=== PATIENT | male | born 1940 | race Hispanic/Latino ===

== ENCOUNTER 2016-12-23 06:43 | Day surgery (SDC) | payer BC, MEDICARE ==
[2016-11-23 10:40] VITALS: BMI 34.8
[2016-12-23 07:38] LABS: BASO # 0.1 K/uL (0.0-0.2); BASO % 0.9 % (0.0-2.0); EOS # 0.1 K/uL (0.0-0.7); EOS % 1.2 % (0.0-4.0); HEMATOCRIT 30.9 % (35.0-51.0); LYMPH # 2.1 K/uL (1.0-4.3); MEAN CELL VOLUME 90.6 fL (80.0-94.0); MEAN CORPUSCULAR HEMOGLOBIN 30.5 pg (27.0-31.0); MEAN CORPUSCULAR HGB CONC 33.6 g/dL (33.0-37.0); MEAN PLATELET VOLUME 10.2 fL (7.2-11.7); MONO # 0.6 K/uL (0.0-0.8); MONO % 7.9 % (0.0-10.0); NRBC % 0.1 % (0.0-2.0); RED CELL DISTRIBUTION WIDTH 15.5 % (11.5-14.5); WHITE BLOOD COUNT 8.1 K/uL (4.8-10.8)
[2016-12-23 08:01] LABS: POTASSIUM 4.4 mmol/L (3.6-5.2)
[2016-12-23 08:05] LABS: CALCIUM 8.4 mg/dl (8.6-10.4)
[2016-12-23] MEDS ORDERED: Lidocaine 2% Inj (20ml) ONE (12:46)
[2016-12-23] MEDS ORDERED: Iodixanol 320 MG/ML 100 ML BOTTLE IV ONE (12:48)
[2016-12-23] MEDS ORDERED: Iodixanol 320 MG/ML 200 ML BOTTLE IV ONE ×2 (12:48→13:51)
--- NOTE | 2016-12-23 14:13 | PCM.SURG1 ---
Surgeon's Initial Post Op Note - Surgeon's Notes Surgeon: petey Pet Care Worker: 0 Type of Anesthesia: IV Sedation Anesthesia Administered By: susana adams Pre-Operative Diagnosis: gangrene left 3rd toe Operative Findings: severe pvd. no named vessels below mid calf on left. tortuous aortic and iliac vessels. perclose right groin Post-Operative Diagnosis: same Operation Performed: aortofemoral angiogram via right groin with selective catherization of left femoral artery Specimen/Specimens Removed: 0 Estimated Blood Loss: EBL {In ML}: 25 Blood Products Given: N/A Drains Used: No Drains Post-Op Condition: Good Date of Surgery/Procedure: 12/23/16 Time of Surgery/Procedure: 14:13
[2016-12-23 16:08] VITALS: RESP 18; TEMP 97.7
[2016-12-23 16:32] VITALS: PULSE 63; O2SAT 100
[2016-12-23 16:33] VITALS: BP 135/76
--- NOTE | 2016-12-24 07:41 | VAS ---
DATE: 12/23/2016 PREOPERATIVE DIAGNOSIS: Gangrene, left third toe. POSTOPERATIVE DIAGNOSIS: Gangrene, left third toe. PROCEDURE CARRIED OUT: Aortofemoral angiogram via right groin catheterization of left femoral artery . No interventions. SURGEON: Maximo Jay MD. MANAGER OF GLOBAL: None. ANESTHESIOLOGIST: Mr. , KALEN and Dr. Heard. INDICATIONS: The patient is an elderly man on dialysis who presents with gangrene of the left third toe. Preoperative imaging suggested basically tibial disease. OPERATIVE FINDINGS: The aorta was slightly enlarged, but no evidence of an aneurysm. The renal riya shante were patent. The common internal and external arteries were widely patent with no evidence of s ignificant stenosis. On the right side, views were taken down to the mid-calf and showed a normal tr ifurcation but below this, no vessels were visualized. On the left, which was the affected side, blane ective pictures were taken after catheter was advanced to the distal portion of the femoral artery. From this point on down, the trifurcation of the popliteal and femoral arteries are widely patent. T he proximal portion of the anterior tibial artery was patent, as well as the proximal portion of the peroneal. Posterior tibial was occluded. Distally below the level of the mid-calf, there were no na med vessels. No posterior tibial, no named peroneal and no dorsalis pedis artery that could be visua lized as a target vessel. These were taken also dedicated films of the left foot. PROCEDURE: The patient was given local anesthesia and the right groin was punctured, the guidewire a dvanced to the level of the renal arteries. Overlapping films were taken from this level down. Init ially, we had to use a rim catheter to advance the guidewire over the aortic bifurcation and into the femoral artery. There was some dye extravasation at one point. However, there was no evidence of a ny continued diet extravasation dissection, etc., on subsequent films. We then were able to advance a Glidewire to the mid portion of the femoral artery. We then exchanged this for an Amplatz wire thr ough a catheter and then eventually deployed a 7-Maltese sheath in the proximal portion of the poplite al artery. We then took multiple detailed pictures of this level including lateral views of the foot and were unable to identify any target vessel. There were scattered areas of stenosis throughout th e anterior tibial artery, but these never amounted into a vessel that went into the foot and no addit ional intervention was undertaken. After reviewing the films and taking additional injections as nec essary, we stopped the procedure. We deployed a Perclose device in the right groin. Blood loss of p rocedure was 25 mL. OPERATION CARRIED OUT: Aortofemoral angiogram with selective catheterization of left femoral artery. No intervention undertaken. Maximo Jay Jr., MD cc: 56 TT: 12/23/2016 14:49:28 Confirmation # [id number] Dictation # [id number]
== END 2016-12-23 16:30 | disposition home or self-care (01) ==
LOC: C.SPRAD 06:43
PROVIDERS: ATTEND Surgery Vascular Surgery
DX: I96 Gangrene, not elsewhere classified (principal); I73.9 Peripheral vascular disease, unspecified
CPT/HCPCS: 36247; 36415; 75625; 75716; 75774; 80048; 85025; 85610; 85730; C1725; C1760; C1766; C1769; C1887; C1894; J1644; Q9966; Q9967

== ENCOUNTER 2017-02-18 07:33 | Inpatient (IN) | payer MEDICARE, BC ==
[2017-02-18 07:34] VITALS: BMI 34.8
--- NOTE | 2017-02-18 08:05 | C.PDOC ---
History Of Present Illness 76 y/o male referred to ED by Dr Lopez web retailer for left 3rd toe amputation . Pt states with worsening gangrene x1 month. Denies fever or other associated symptoms. Pt s/p angio with Dr Azevedo. No improvement despite outpatient therapy. Pt due for hemodialysis today. REFERRED BY DR LOPEZ PODIATRY FOR L 3 TOE AMPUTATION 02/19. PS W WORSENING GANGRENE X 1 MONTH. NO FEVER, OTHER ASSOC SX. S/P ANGIO DR AZEVEDO. NO IMPROVE DESPITE OUTPT THERAPY. DUE FOR HD TODAY EXAM NAD SKIN EXT REMAINDER NEG Time Seen by Provider: 02/18/17 07:52 Chief Complaint (Nursing): Lower Extremity Problem/Injury History Per: Patient History/Exam Limitations: no limitations Onset/Duration Of Symptoms: Days Current Symptoms Are (Timing): Worse Severity: Moderate Recent travel outside of the [place]: No Past Medical History Reviewed: Historical Data, Nursing Documentation, Vital Signs Vital Signs: Last Vital Signs Temp 98.1 F 02/18/17 07:36 Pulse 89 02/18/17 07:36 Resp 20 02/18/17 07:36 BP 217/83 H 02/18/17 07:36 Pulse Ox 100 02/18/17 10:08 - Medical History PMH: COPD (IN THE PAST), Diabetes, HTN, Hypercholesterolemia, End Stage Renal Disease, Chronic Kidney Disease Surgical History: Endoscopy - [facility] Procedures DIALYSIS ARTERIOVENOSTOM (01/08/14) HEMODIALYSIS (11/27/14) [facility] DIALYSIS SHUNT (11/27/14) VENOUS CATHETERIZATION FOR RENAL DIALYSIS (01/08/14) Family History: States: Unknown Family Hx - Social History Hx Tobacco Use: No Hx Alcohol Use: Yes (OCCASSIONAL) Hx Substance Use: No - Immunization History Hx Tetanus Toxoid Vaccination: No Hx Influenza Vaccination: Yes Hx Pneumococcal Vaccination: No Review Of Systems Except As Marked, All Systems Reviewed And Found Negative. Constitutional: Negative for: Fever, Chills Skin: Positive for: Other (gangrene left 3rd toe) Physical Exam - Physical Exam Appears: Non-toxic, No Acute Distress Skin: Warm, Dry, No Rash Head: Atraumatic, Normacephalic Chest: Symmetrical Cardiovascular: Rhythm Regular, No Murmur Respiratory: Normal Breath Sounds, No Rales, No Rhonchi, No Wheezing Extremity: Normal ROM Neurological/Psych: Oriented x3, Normal Speech ED Course And Treatment - Laboratory Results Result Diagrams: 02/18/17 08:32 02/18/17 08:32 ECG Rhythm: Sinus Rhythm, 1st Degree HB ECG Interpretation: Abnormal Interpretation Of ECG: QT/QTc 496/503 ms Rate From EC (BPM) O2 Sat by Pulse Oximetry: 100 (room air) Pulse Ox Interpretation: Normal - Radiology CXR: Interpreted by Me CXR Interpretation: Yes: No Acute Disease - Other Rad L FOOT X-Ray: Interpreted by Me (NEG) Progress - Re-Evaluation Re-evaluation Note: 02/18/17 08:04 D/W DR NASH C/F PMD WILL ADMIT - Data Reviewed Data Reviewed: Lab, EKG, Old records - Continuity of Care Discussed patient case with:: Patient, Family-HIPPA compliant, Covering for PMD Disposition Counseled Patient/Family Regarding: Studies Performed, Diagnosis - Disposition Disposition: HOSPITALIZED Disposition Time: 08:05 Condition: STABLE - POA Present On Arrival: None - Clinical Impression Clinical Impression: Toe gangrene, CKD (chronic kidney disease) requiring chronic dialysis - Scribe Statement The provider has reviewed the documentation as recorded by the Kaila John Provider Attestation: All medical record entries made by the Kaila were at my direction and personally dictated by me. I have reviewed the chart and agree that the record accurately reflects my personal performance of the history, physical exam, medical decision making, and the department course for this patient. I have also personally directed, reviewed, and agree with the discharge instructions and disposition. Decision To Admit - Pt Status Changed To: Hospital Disposition Of: Inpatient - Admit Certification Admit to Inpatient:: After my assessment, the patient will require hospitalization for at least two midnights. This is because of the severity of symptoms shown, intensity of services needed, and/or the medical risk in this patient being treated as an outpatient. - InPatient: Physician Admission Certification: I certify that this patient requires 2 or more midnights of care for the following reason:: SEE NOTE - . Bed Request Type: Regular Admitting Physician: Gee Nash Patient Diagnosis: Toe gangrene, CKD (chronic kidney disease) requiring chronic dialysis
[2017-02-18 08:38] LABS: BASO # 0.1 K/uL (0.0-0.2); BASO % 0.9 % (0.0-2.0); EOS # 0.1 K/uL (0.0-0.7); EOS % 1.1 % (0.0-4.0); HEMATOCRIT 33.9 % (35.0-51.0); LYMPH # 1.5 K/uL (1.0-4.3); LYMPH % 24.4 % (20.0-40.0); MEAN CELL VOLUME 89.3 fL (80.0-94.0); MEAN CORPUSCULAR HEMOGLOBIN 29.3 pg (27.0-31.0); MEAN CORPUSCULAR HGB CONC 32.9 g/dL (33.0-37.0); MEAN PLATELET VOLUME 8.9 fL (7.2-11.7); MONO # 0.5 K/uL (0.0-0.8); MONO % 7.6 % (0.0-10.0); RED CELL DISTRIBUTION WIDTH 17.6 % (11.5-14.5); WHITE BLOOD COUNT 6.2 K/uL (4.8-10.8)
[2017-02-18 08:46] LABS: INR 1.1
[2017-02-18 08:51] LABS: POTASSIUM 4.3 mmol/L (3.6-5.2)
[2017-02-18 08:54] LABS: CALCIUM 8.2 mg/dl (8.6-10.4)
--- NOTE | 2017-02-18 09:34 | CP.PCM.CON ---
History of Present Illness - History of Present Illness History of Present Illness: This is a 76 y/o male who was seen and evaluated at bedside this morning after request for podiatry consultation. Patient has PMH of DM, HTN, ESRD (on HD). Patient was sent to the [facility] ER this morning by his shoemaking cutter (Dr. Lopez) for admission for Left 3rd digit amputation. Patient's surgery is scheduled for tomorrow (02/19/17) at 7:45AM. Patient's was present at bedside and states that he banged his toe about a month ago and states that it has been turning black ever since. She states that patient was treated by Dr. Jay (s/p aortofemoral angiogram on 12/23/16). Patient currently denies any F/C/N/V/SOB. Denies any pedal pain at this time. No dressing was noted to his Left foot. 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 for saftey - RENAL Hx Chronic Kidney Disease: Yes - ENDOCRINE/METABOLIC Hx Endocrine Disorders: Yes Hx Diabetes Mellitus Type 1: Yes - HEMATOLOGICAL/ONCOLOGICAL Hx Blood Disorders: No - INTEGUMENTARY Hx Dermatological Problems: Yes (swollen left hand) - MUSCULOSKELETAL/RHEUMATOLOGICAL Hx Musculoskeletal Disorders: Yes Hx Back Pain: Yes (LUMBAR) Hx Osteoarthritis: Yes - GASTROINTESTINAL Hx Gastrointestinal Disorders: No - GENITOURINARY/GYNECOLOGICAL Hx Genitourinary Disorders: Yes Hx Prostate Problems: Yes - PSYCHIATRIC Hx Substance Use: No - SURGICAL HISTORY Hx Surgeries: Yes Hx Cataract Extraction: Yes (RT.EYE) Hx Vascular Surgery: Yes (A/V FISTULA LEFT ARM) Hx Vascular Access Device: Yes (DIALYSIS ACCESS) - ANESTHESIA Hx Anesthesia: Yes Hx Anesthesia Reactions: No Hx Malignant Hyperthermia: No Meds Allergies/Adverse Reactions: Allergies Allergy/AdvReac Type Severity Reaction Status Date / Time No Known Allergies Allergy Verified 02/18/17 07:38 Physical Exam - Constitutional Appears: Non-toxic, No Acute Distress - Neurological Exam Neurological exam: Alert, Oriented x3 - Psychiatric Exam Psychiatric exam: Normal Affect, Normal Mood - Skin Skin Exam: Dry, Erythema, Warm - Additional Findings Additional findings: Left foot examination: Vascular: DP/PT pulses non-palpable; capillary fill time delayed 4 secs to digits 1-2 and 4-5; unable to be assessed at 3rd digit secondary to gangrene Neuro: light touch and motor function grossly intact; protective sensation grossly diminished Derm: Left 3rd digit is gangrenous with demarcation at the level of the PIPJ; purulence is noted with signficant malodor; Left 3rd digit is grossly edematous with minimal erythema noted; no signs of ascending cellulitis noted at this time ; no other open wounds or lesions noted Ortho: pain elicited upon palpation of the Left 3rd digit Results - Vital Signs Recent Vital Signs: Last Vital Signs Temp 98.1 F 02/18/17 07:36 Pulse 89 02/18/17 07:36 Resp 20 02/18/17 07:36 BP 217/83 H 02/18/17 07:36 Pulse Ox 100 02/18/17 09:14 - Labs Result Diagrams: 02/18/17 08:32 02/18/17 08:32 Labs: Laboratory Results - last 24 hr 02/18/17 02/18/17 02/18/17 08:32 08:32 08:32 WBC 6.2 RBC 3.80 L Hgb 11.1 L Hct 33.9 L MCV 89.3 MCH 29.3 MCHC 32.9 L RDW 17.6 H Plt Count 152 MPV 8.9 Neut % (Auto) 66.0 Lymph % (Auto) 24.4 [place] % (Auto) 7.6 Eos % (Auto) 1.1 Baso % (Auto) 0.9 Neut # 4.1 Lymph # 1.5 [place] # 0.5 Eos # 0.1 Baso # 0.1 PT 12.3 H INR 1.1 APTT 39 H Sodium 143 Potassium 4.3 Chloride 101 Carbon Dioxide 28 Anion Gap 19 BUN 59 H Creatinine 6.6 H Est GFR ( Amer) 10 Est GFR (Non-Af Amer) 8 Random Glucose 74 L Calcium 8.2 L Assessment & Plan - Assessment and Plan (Free Text) Assessment: 76 y/o male with Left 3rd digit gangrene, secondary to PVD and DM Plan: Patient seen and evaluated at bedside Labs and vitals reviewed: WBC 6.2; afebrile Wound culture taken and sent Left 3rd digit was dressed with betadine DSD ID Consult placed with Dr. Burden, will appreciate recommendations Patient is scheduled for Left 3rd digit amputation with Dr. Lopez tomorrow () at 7:45 AM Patient needs medical clearance Patient needs to undergo hemodialysis today Patient to be NPO after MN All of the patient's questions and concerns were addressed Discussed patient in detail with attending, Dr. Lopez Podiatry to follow while patient remains in house
--- NOTE | 2017-02-18 10:39 | CP.PCM.HP ---
<Kody Jasso - Last Filed: 02/18/17 16:28> History of Present Illness - History of Present Illness History of Present Illness: 76M PMHx HTN, DM, and ESRD on HD TTS was sent by private podiatry Dr. Lopez for left third toe amputation tomorrow due to gangrene. Pt said he accidently hit his left foot against bed post 2 months ago. Pt was also evaluated by Dr. Jay on 12/2016 after aortofemoral angiogram for which severe PVD was found. Pt currently offers no complaints at the moment, denied numbness or tingling, foot pain, chest pain, SOB, palpitations. Per at bedside, pt stopped taking insulin at night per PMD instruction in October. PMHx: HTN, DM, ESRD PSHx: AV fistula FMHx: both parents have DM Social: former smoker who quit 30 years ago, denied ETOH PMD: Dr. Chua Private cardio: Dr. Keys Present on Admission - Present on Admission Any Indicators Present on Admission: No Review of Systems - Constitutional Constitutional: absent: Chills, Weight Loss - EENT Eyes: absent: Change in Vision - Cardiovascular Cardiovascular: absent: Chest Pain, Edema - Respiratory Respiratory: absent: Hemoptysis - Gastrointestinal Gastrointestinal: absent: Constipation, Dysphagia, Vomiting - Genitourinary Genitourinary: absent: Dysuria - Musculoskeletal Musculoskeletal: absent: Numbness, Tingling - Integumentary Additional comments: toe discoloration - Neurological Neurological: absent: Tingling - Psychiatric Psychiatric: absent: Paranoia 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 for saftey - RENAL Hx Chronic Kidney Disease: Yes - ENDOCRINE/METABOLIC Hx Endocrine Disorders: Yes Hx Diabetes Mellitus Type 1: Yes - HEMATOLOGICAL/ONCOLOGICAL Hx Blood Disorders: No - INTEGUMENTARY Hx Dermatological Problems: Yes (swollen left hand) - MUSCULOSKELETAL/RHEUMATOLOGICAL Hx Musculoskeletal Disorders: Yes Hx Back Pain: Yes (LUMBAR) Hx Osteoarthritis: Yes - GASTROINTESTINAL Hx Gastrointestinal Disorders: No - GENITOURINARY/GYNECOLOGICAL Hx Genitourinary Disorders: Yes Hx Prostate Problems: Yes - PSYCHIATRIC Hx Substance Use: No - SURGICAL HISTORY Hx Surgeries: Yes Hx Cataract Extraction: Yes (RT.EYE) Hx Vascular Surgery: Yes (A/V FISTULA LEFT ARM) Hx Vascular Access Device: Yes (DIALYSIS ACCESS) - ANESTHESIA Hx Anesthesia: Yes Hx Anesthesia Reactions: No Hx Malignant Hyperthermia: No Meds Allergies/Adverse Reactions: Allergies Allergy/AdvReac Type Severity Reaction Status Date / Time No Known Allergies Allergy Verified 02/18/17 07:38 Physical Exam - Constitutional Appears: Non-toxic, No Acute Distress - Head Exam Head Exam: NORMAL INSPECTION, NORMOCEPHALIC - Eye Exam Eye Exam: Normal appearance Pupil Exam: NORMAL ACCOMODATION - ENT Exam ENT Exam: Mucous Membranes Moist - Respiratory Exam Respiratory Exam: Clear to Auscultation Bilateral, NORMAL BREATHING PATTERN. absent: Rhonchi, Wheezes - Cardiovascular Exam Cardiovascular Exam: REGULAR RHYTHM, +S1, +S2. absent: Gallop, Rubs - GI/Abdominal Exam GI & Abdominal Exam: Normal Bowel Sounds, Soft. absent: Tenderness - Extremities Exam Additional comments: left upper extremity AVF bruit present, pulsation palpated. Gangrenous third digit of left singer back tender to touch. - Neurological Exam Neurological exam: Alert, Oriented x3 - Psychiatric Exam Psychiatric exam: Normal Mood - Skin Skin Exam: Intact Results - Vital Signs Recent Vital Signs: Last Vital Signs Temp 98.1 F 02/18/17 07:36 Pulse 89 02/18/17 07:36 Resp 20 02/18/17 07:36 BP 217/83 H 02/18/17 07:36 Pulse Ox 100 02/18/17 10:10 - Labs Result Diagrams: 02/18/17 08:32 02/18/17 08:32 Labs: Laboratory Results - last 24 hr 02/18/17 02/18/17 02/18/17 08:32 08:32 08:32 WBC 6.2 RBC 3.80 L Hgb 11.1 L Hct 33.9 L MCV 89.3 MCH 29.3 MCHC 32.9 L RDW 17.6 H Plt Count 152 MPV 8.9 Neut % (Auto) 66.0 Lymph % (Auto) 24.4 [place] % (Auto) 7.6 Eos % (Auto) 1.1 Baso % (Auto) 0.9 Neut # 4.1 Lymph # 1.5 [place] # 0.5 Eos # 0.1 Baso # 0.1 PT 12.3 H INR 1.1 APTT 39 H Sodium 143 Potassium 4.3 Chloride 101 Carbon Dioxide 28 Anion Gap 19 BUN 59 H Creatinine 6.6 H Est GFR ( Amer) 10 Est GFR (Non-Af Amer) 8 Random Glucose 74 L Calcium 8.2 L Blood Type Antibody Screen 02/18/17 08:32 WBC RBC Hgb Hct MCV MCH MCHC RDW Plt Count MPV Neut % (Auto) Lymph % (Auto) [place] % (Auto) Eos % (Auto) Baso % (Auto) Neut # Lymph # [place] # Eos # Baso # PT INR APTT Sodium Potassium Chloride Carbon Dioxide Anion Gap BUN Creatinine Est GFR ( Amer) Est GFR (Non-Af Amer) Random Glucose Calcium Blood Type O POSITIVE Antibody Screen Negative Assessment & Plan - Assessment and Plan (Free Text) Assessment: Gangrenous toe Podiatry Dr. Lopez consulted, help appreciated. For amputation, scheduled for tomorrow. Pt needs clearance from cardiology. HTN Cardio Dr. Keys consulted, help appreciated. Hydralazine 100mg BID on dialysis days, 100mg TID on nondialysis days. Losartan 100mg daily on nondialysis days. Coreg 25mg PO BID. Pt needs clearance from cardiology. DM Oral meds on hold. RISS, accuchecks. ESRD On HD TTS. Nephro Dr. Rivera consulted, help appreciated. Continue Phoslo. HLD Crestor 5mg PO HS. BPH Flomax 0.4mg PO daily. Dementia Memantine 5mg PO daily and Donepezil 10mg PO HS. Prophylactic measure Protonix. <Gee Nash M - Last Filed: 02/18/17 18:16> Results - Vital Signs Recent Vital Signs: Last Vital Signs Temp 98.3 F 02/18/17 16:00 Pulse 64 02/18/17 16:15 Resp 16 02/18/17 16:15 BP 170/54 H 02/18/17 17:33 Pulse Ox 98 02/18/17 16:15 - Labs Result Diagrams: 02/18/17 08:32 02/18/17 08:32 Labs: Laboratory Results - last 24 hr 02/18/17 02/18/17 02/18/17 08:32 08:32 08:32 WBC 6.2 RBC 3.80 L Hgb 11.1 L Hct 33.9 L MCV 89.3 MCH 29.3 MCHC 32.9 L RDW 17.6 H Plt Count 152 MPV 8.9 Neut % (Auto) 66.0 Lymph % (Auto) 24.4 [place] % (Auto) 7.6 Eos % (Auto) 1.1 Baso % (Auto) 0.9 Neut # 4.1 Lymph # 1.5 [place] # 0.5 Eos # 0.1 Baso # 0.1 PT 12.3 H INR 1.1 APTT 39 H Sodium 143 Potassium 4.3 Chloride 101 Carbon Dioxide 28 Anion Gap 19 BUN 59 H Creatinine 6.6 H Est GFR ( Amer) 10 Est GFR (Non-Af Amer) 8 POC Glucose (mg/dL) Random Glucose 74 L Calcium 8.2 L Blood Type Antibody Screen 02/18/17 02/18/17 02/18/17 08:32 11:19 16:30 WBC RBC Hgb Hct MCV MCH MCHC RDW Plt Count MPV Neut % (Auto) Lymph % (Auto) [place] % (Auto) Eos % (Auto) Baso % (Auto) Neut # Lymph # [place] # Eos # Baso # PT INR APTT Sodium Potassium Chloride Carbon Dioxide Anion Gap BUN Creatinine Est GFR ( Amer) Est GFR (Non-Af Amer) POC Glucose (mg/dL) 122 H 218 H Random Glucose Calcium Blood Type O POSITIVE Antibody Screen Negative Attending/Attestation - Attestation I have personally seen and examined this patient.: Yes I have fully participated in the care of the patient.: Yes I have reviewed all pertinent clinical information: Yes Notes (Text): 02/18/17 18:15 Patient was seen and examined at bedside with the resident Patient is undergoing hemodialysis today Plan is for amputation of the gangrenous toe in the morning Podiatry, ID, nephrology on board We have requested cardiology evaluation for medical clearance. I discussed the plan of care with the resident and agree with the above history and physical and assessment/plan but the resident.
--- NOTE | 2017-02-18 10:54 | CP.PCM.CON ---
History of Present Illness - History of Present Illness History of Present Illness: This is a 76 y/o male who was seen and evaluated at bedside this morning after request for podiatry consultation. Patient has PMH of DM, HTN, ESRD (on HD). Patient was sent to the [facility] ER this morning by his lithographic camera operator (Dr. Lopez) for admission for Left 3rd digit amputation. Patient's surgery is scheduled for tomorrow (02/19/17) at 7:45AM. Patient's was present at bedside and states that he banged his toe about a month ago and states that it has been turning black ever since. She states that patient was treated by Dr. Jay (s/p aortofemoral angiogram on 12/23/16). Patient currently denies any F/C/N/V/SOB. Denies any pedal pain at this time. No dressing was noted to his Left foot. 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 for saftey - RENAL Hx Chronic Kidney Disease: Yes - ENDOCRINE/METABOLIC Hx Endocrine Disorders: Yes Hx Diabetes Mellitus Type 1: Yes - HEMATOLOGICAL/ONCOLOGICAL Hx Blood Disorders: No - INTEGUMENTARY Hx Dermatological Problems: Yes (swollen left hand) - MUSCULOSKELETAL/RHEUMATOLOGICAL Hx Musculoskeletal Disorders: Yes Hx Back Pain: Yes (LUMBAR) Hx Osteoarthritis: Yes - GASTROINTESTINAL Hx Gastrointestinal Disorders: No - GENITOURINARY/GYNECOLOGICAL Hx Genitourinary Disorders: Yes Hx Prostate Problems: Yes - PSYCHIATRIC Hx Substance Use: No - SURGICAL HISTORY Hx Surgeries: Yes Hx Cataract Extraction: Yes (RT.EYE) Hx Vascular Surgery: Yes (A/V FISTULA LEFT ARM) Hx Vascular Access Device: Yes (DIALYSIS ACCESS) - ANESTHESIA Hx Anesthesia: Yes Hx Anesthesia Reactions: No Hx Malignant Hyperthermia: No Meds Allergies/Adverse Reactions: Allergies Allergy/AdvReac Type Severity Reaction Status Date / Time No Known Allergies Allergy Verified 02/18/17 07:38 - Medications Medications: Current Medications Aspirin (Ecotrin) mg PO DAILY [facility] Calcium Acetate (Phoslo) 1,334 mg PO TID [facility] Carvedilol (Coreg) 25 mg PO BID [facility] Donepezil HCl (Aricept) 10 mg PO HS [facility] Ergocalciferol (Calcidol) 400 iu PO DAILY [facility] Home Med (Pravastatin Sodium [Pravastatin Sodium]) 40 mg PO DAILY [facility] Home Med (Tamsulosin) 0.4 mg PO DAILY [facility] Home Med (Hydralazine Hcl [Hydralazine Hcl]) 100 mg PO TID [facility] Home Med (Hydralazine Hcl [Hydralazine Hcl]) 100 mg PO BID [facility] Insulin Human Regular (Novolin R) 0 unit [place] ACHS [facility] PRN Reason: Protocol Losartan Potassium (Cozaar) 100 mg PO MWF [facility] Memantine (Namenda) 5 mg PO DAILY [facility] Sgime-8-Ptvi Ethyl Esters (Lovaza) 1 gm PO DAILY [facility] Pantoprazole Sodium (Protonix Ec Tab) 40 mg PO DAILY [facility] Results - Vital Signs Recent Vital Signs: Last Vital Signs Temp 98.1 F 02/18/17 07:36 Pulse 89 02/18/17 07:36 Resp 20 02/18/17 07:36 BP 217/83 H 02/18/17 07:36 Pulse Ox 100 02/18/17 10:10 - Labs Result Diagrams: 02/18/17 08:32 02/18/17 08:32 Labs: Laboratory Results - last 24 hr 02/18/17 02/18/17 02/18/17 08:32 08:32 08:32 WBC 6.2 RBC 3.80 L Hgb 11.1 L Hct 33.9 L MCV 89.3 MCH 29.3 MCHC 32.9 L RDW 17.6 H Plt Count 152 MPV 8.9 Neut % (Auto) 66.0 Lymph % (Auto) 24.4 [place] % (Auto) 7.6 Eos % (Auto) 1.1 Baso % (Auto) 0.9 Neut # 4.1 Lymph # 1.5 [place] # 0.5 Eos # 0.1 Baso # 0.1 PT 12.3 H INR 1.1 APTT 39 H Sodium 143 Potassium 4.3 Chloride 101 Carbon Dioxide 28 Anion Gap 19 BUN 59 H Creatinine 6.6 H Est GFR ( Amer) 10 Est GFR (Non-Af Amer) 8 Random Glucose 74 L Calcium 8.2 L Blood Type Antibody Screen 02/18/17 08:32 WBC RBC Hgb Hct MCV MCH MCHC RDW Plt Count MPV Neut % (Auto) Lymph % (Auto) [place] % (Auto) Eos % (Auto) Baso % (Auto) Neut # Lymph # [place] # Eos # Baso # PT INR APTT Sodium Potassium Chloride Carbon Dioxide Anion Gap BUN Creatinine Est GFR ( Amer) Est GFR (Non-Af Amer) Random Glucose Calcium Blood Type O POSITIVE Antibody Screen Negative
--- NOTE | 2017-02-18 10:56 | RAD ---
PROCEDURE: Left Foot Radiographs. HISTORY: PREOP COMPARISON: None. FINDINGS: BONES: Normal. No fracture. JOINTS: Mild hallux valgus. Mild osteoarthritis at MTP 1. SOFT TISSUES: Vascular calcifications. OTHER FINDINGS: None. IMPRESSION: No acute abnormality.
--- NOTE | 2017-02-18 11:01 | RAD ---
PROCEDURE: CHEST RADIOGRAPH, 1 VIEW HISTORY: Pre Op COMPARISON: 01/08/2014 FINDINGS: LUNGS: Clear. PLEURA: No pneumothorax or pleural fluid seen. CARDIOVASCULAR: Tunneled central venous dialysis catheter seen on prior examination is no longer evident. OSSEOUS STRUCTURES: No significant abnormalities. VISUALIZED UPPER ABDOMEN: Normal. OTHER FINDINGS: None. IMPRESSION: No active disease.
--- NOTE | 2017-02-18 11:58 | CON ---
DATE: 02/18/2017 The patient is a 76-year-old white man who is being evaluated for end-stage renal disease. He presen ts with worsening gangrene of the third left toe, and amputation was recommended. He has discharges from that toe, and he has had gangrene. He has a history of peripheral vascular disease for which he is status post aortofemoral angiogram in 11/2016. Toe has had progressive gangrene, and now amputati on as needed. PAST MEDICAL HISTORY: Peripheral vascular disease, end-stage renal disease, diabetic nephropathy, hy pertension, dementia, and BPH. PAST SURGICAL HISTORY: Left arm AV fistula. He had a finger amputated on the left upper extremity d igit #5, and now he is going to have gangrene amputation of the left toe, #3. MEDICATIONS: Include carvedilol 12.5 twice a day, PhosLo 2 tablets t.i.d., Protonix, pravastatin, hy dralazine, aspirin, Aricept, and Namenda. FAMILY HISTORY: Negative for chronic kidney disease. OTHER SURGICAL HISTORY: Cataract surgery. REVIEW OF SYSTEMS: Significant for forgetfulness. He has decreased ambulation due to dyspnea on exe rtion approximately 1-2 blocks. No recent chest pain. He has swollen lower extremities. No nausea, vomiting, or diarrhea, and no recent chest pain. He has bad vision. No hearing deficits. No new r ashes. Other review of systems is negative. PHYSICAL EXAMINATION: GENERAL: He is a well-developed man in no acute distress. VITAL SIGNS: Blood pressure is uncontrolled - when seen 217/83, temperature 98.1, pulse 89. Pulse o x is 100% on room air. HEENT: He is anicteric. Mouth was clear. NECK: No JVD. LUNGS: Lung lyman were clear. HEART: Regular rhythm. No murmur. ABDOMEN: Distended but soft. No masses or organomegaly. EXTREMITIES: A left upper extremity fistula with a thrill and bruit. He had 1+ edema. The left ean t was bandaged, and he had discharges from the left third toe. NEUROLOGIC: No focal deficits. LABORATORY DATA: Blood work showed BUN of ____9, creatinine 6.6, calcium 8.2. Hemoglobin 11.1. IMPRESSION: The patient has end-stage renal disease with diabetic nephropathy, hypertension, dementi a, benign prostatic hypertrophy, and peripheral vascular disease. PLAN: Will be dialysis - will be done today, and he will have amputation tomorrow, antibiotics as de termined by the medical team. We will follow. Uriel Rivera MD cc: [id number] TT: 02/18/2017 11:57:55 Confirmation # [id number] Dictation # [id number]
[2017-02-18] MEDS: Omega-3-Acid Ethyl Esters 1 GM Cap PO SCH (17:34)
[2017-02-18] MEDS: Pantoprazole 40 mg EC Tab PO SCH (17:34)
[2017-02-18] MEDS: Ergocalciferol 50,000 Intl Units Cap PO SCH (17:35)
[2017-02-18] MEDS: (Novolin R) Insulin Human Regular 100 units/ml vial SC SCH ×2 (17:42→21:54)
[2017-02-18] MEDS ORDERED: Piperacill/Tazo 2.25gm in Dex 2.25 GM/50 ML BAG IVPB SCH (18:00)
--- NOTE | 2017-02-18 18:00 | CP.PCM.CON ---
History of Present Illness - History of Present Illness History of Present Illness: 76 y/o male. Patient has PMH of DM, HTN, ESRD (on HD). Patient was sent to the [facility] ER this morning by his loader unloader (Dr. Lopez) for admission for Left 3rd digit amputation. Patient's surgery is scheduled for tomorrow (02/19/17) at 7:45AM. Patient's was present at bedside and states that he banged his toe about a month ago and states that it has been turning black ever since. She states that patient was treated by Dr. Jay (s/p aortofemoral angiogram on 12/23/16). Patient currently denies any F/C/N/V/SOB. Denies any pedal pain at this time. No dressing was noted to his Left foot. PMH: ESRD DIABETIC NEPHROPATHY HTN DEMENTIA BPH ; AWAIT TOE AMPUTATION IN AM FOR GANGRENE Review of Systems - Constitutional Constitutional: As Per HPI - EENT Eyes: absent: As Per HPI, Blind Spots, Blurred Vision, Change in Vision, Decreased Night Vision, Diplopia, Discharge, Dry Eye, Exophthalmos, Floaters, Irritation, Itchy Eyes, Loss of Peripheral Vision, Pain, Photophobia, Requires Corrective Lenses, Sees Flashes, Spots in Vision, Tunnel Vision, Other Visual Disturbances, Loss of Vision, Other Ears: absent: As Per HPI, Decreased Hearing, Ear Discharge, Ear Pain, Tinnitus, Abnormal Hearing, Disequilibrium, Dizziness, Other Nose/Mouth/Throat: absent: As Per HPI, Epistaxis, Nasal Congestion, Nasal Discharge, Nasal Obstruction, Nasal Trauma, Nose Pain, Post Nasal Drip, Sinus Pain, Sinus Pressure, Bleeding Gums, Change in Voice, Dental Pain, Dry Mouth, Dysphagia, Halitosis, Hoarsness, Lip Swelling, Mouth Lesions, Mouth Pain, Odynophagia, Sore Throat, Throat Swelling, Tongue Swelling, Facial Pain, Neck Pain, Neck Mass, Other - Cardiovascular Cardiovascular: As Per HPI - Respiratory Respiratory: absent: As Per HPI, Cough, Dyspnea, Hemoptysis, Dyspnea on Exertion , Wheezing, Snoring, Stridor, Pain on Inspiration, Chest Congestion, Excessive Mucous Production, Change in Mucous Color, Pain with Coughing, Other - Gastrointestinal Gastrointestinal: absent: As Per HPI, Abdominal Pain, Belching, Bloating, Change in Bowel Habits, Change in Stool Character, Coffee Ground Emesis, Constipation, Cramping, Diarrhea, Dyspepsia, Dysphagia, Early Satiety, Excessive Flatus, Fecal Incontinence, Heartburn, Hematemesis, Hematochezia, Loose Stools, Melena, Nausea, Odynophagia, Temesmus, Vomiting, Other - Genitourinary Genitourinary: absent: As Per HPI, Change in Urinary Stream, Difficulty Urinating, Dysuria, Flank Pain, Hematuria, Pyuria, Nocturia, Urinary Incontinence, Urinary Frequency, Urinary Hesitance, Urinary Urgency, Voiding Freq/Small Amts, Freq UTI, Hx Renal/Bladder Calculi, Hx /Renal Surgery, Bladder Distension, Other - Reproductive: Male Reproductive:Male: As Per HPI - Musculoskeletal Musculoskeletal: As Per HPI - Integumentary Integumentary: As Per HPI, Skin Pain, Wounds - Neurological Neurological: absent: As Per HPI, Abnormal Gait, Abnormal Hearing, Abnormal Movements, Abnormal Speech, Behavioral Changes, Burning Sensations, Confusion, Convulsions, Disequilibrium, Dizziness, Numbness, Focal Weakness, Frequent Falls , Headaches, Lack of Coordination, Loss of Vision, Memory Loss, Paresthesias, Radicular Pain, Restless Legs, Sensory Deficit, Syncope, Tingling, Tremor, Vertigo, Weakness, Other Visual Disturbances, Other - Psychiatric Psychiatric: absent: As Per HPI, Abnormal Sleep Pattern, Anhedonia, Anxiety, Auditory Hallucinations, Behavioral Changes, Change in Appetite, Change in Libido, Confusion, Depression, Difficulty Concentrating, Hallucinations, Homicidal Ideation, Hopelessness, Irritability, Memory Loss, Mood Swings, Panic Attacks, Paranoia, Suicidal Ideation, Visual Hallucinations, Tactile Hallucinations, Other - Endocrine Endocrine: absent: As Per HPI, Change in Body Appearance, Change in Libido, Cold Intolorance, Deepening of Voice, Excessive Sweating, Fatigue, Flushing, Heat Intolorance, Increase in Ring/Shoe/Hat Size, Palpitations, Polydipsia, Polyphagia, Polyuria, Other - Hematologic/Lymphatic Hematologic: absent: As Per HPI, Easy Bleeding, Easy Bruising, Lymphadenopathy, Other 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 for saftey - RENAL Hx Chronic Kidney Disease: Yes - ENDOCRINE/METABOLIC Hx Endocrine Disorders: Yes Hx Diabetes Mellitus Type 1: Yes - HEMATOLOGICAL/ONCOLOGICAL Hx Blood Disorders: No - INTEGUMENTARY Hx Dermatological Problems: Yes (swollen left hand) - MUSCULOSKELETAL/RHEUMATOLOGICAL Hx Musculoskeletal Disorders: Yes Hx Back Pain: Yes (LUMBAR) Hx Osteoarthritis: Yes - GASTROINTESTINAL Hx Gastrointestinal Disorders: No - GENITOURINARY/GYNECOLOGICAL Hx Genitourinary Disorders: Yes Hx Prostate Problems: Yes - PSYCHIATRIC Hx Substance Use: No - SURGICAL HISTORY Hx Surgeries: Yes Hx Cataract Extraction: Yes (RT.EYE) Hx Vascular Surgery: Yes (A/V FISTULA LEFT ARM) Hx Vascular Access Device: Yes (DIALYSIS ACCESS) - ANESTHESIA Hx Anesthesia: Yes Hx Anesthesia Reactions: No Hx Malignant Hyperthermia: No Meds Allergies/Adverse Reactions: Allergies Allergy/AdvReac Type Severity Reaction Status Date / Time No Known Allergies Allergy Verified 02/18/17 07:38 - Medications Medications: Current Medications Aspirin (Ecotrin) 81 mg PO DAILY [facility] Last Admin: 02/18/17 17:35 Dose: 81 mg Calcium Acetate (Phoslo) 1,334 mg PO TIDCC [facility] Last Admin: 02/18/17 17:33 Dose: 1,334 mg Carvedilol (Coreg) 25 mg PO BID [facility] Last Admin: 02/18/17 17:33 Dose: 25 mg Donepezil HCl (Aricept) 10 mg PO HS [facility] Ergocalciferol (Drisdol 50,000 Intl Units Cap) 1 cap PO QWK [facility] Last Admin: 02/18/17 17:35 Dose: 1 cap Hydralazine HCl (Apresoline) 100 mg PO SuMoWeFr DIMITRI Hydralazine HCl (Apresoline) 100 mg PO TuThSa [facility] Last Admin: 02/18/17 17:35 Dose: 100 mg Hydralazine HCl (Apresoline) 100 mg PO SuMoWeFr DIMITRI Hydralazine HCl (Apresoline) 100 mg PO SuMoWeFr DIMITRI Hydralazine HCl (Apresoline) 100 mg PO TuThSa [facility] Piperacillin Sod/Tazobactam Sod (Zosyn 2.25 Gm Iv Premix) 2.25 gm in 50 mls @ 100 mls/hr IVPB Q6H [facility] Insulin Human Regular (Novolin R) 0 unit [place] ACHS [facility] PRN Reason: Protocol Last Admin: 02/18/17 17:42 Dose: 4 unit Losartan Potassium (Cozaar) 100 mg PO MWF [facility] Memantine (Namenda) 5 mg PO DAILY [facility] Last Admin: 02/18/17 17:34 Dose: 5 mg Tllcg-2-Bhgr Ethyl Esters (Lovaza) 1 gm PO DAILY [facility] Last Admin: 02/18/17 17:34 Dose: 1 gm Pantoprazole Sodium (Protonix Ec Tab) 40 mg PO DAILY [facility] Last Admin: 02/18/17 17:34 Dose: 40 mg Rosuvastatin Calcium (Crestor) 5 mg PO HS [facility] Tamsulosin HCl (Flomax) 0.4 mg PO DAILY [facility] Last Admin: 02/18/17 17:34 Dose: 0.4 mg Physical Exam - Constitutional Appears: Non-toxic, Chronically Ill - Head Exam Head Exam: NORMOCEPHALIC - Eye Exam Eye Exam: PERRL. absent: Scleral icterus - ENT Exam ENT Exam: Mucous Membranes Dry, Normal External Ear Exam - Neck Exam Neck exam: Negative for: Lymphadenopathy, Thyromegaly - Respiratory Exam Respiratory Exam: Decreased Breath Sounds, Clear to Auscultation Bilateral - Cardiovascular Exam Cardiovascular Exam: REGULAR RHYTHM, +S1, +S2 - GI/Abdominal Exam GI & Abdominal Exam: Diminished Bowel Sounds, Soft. absent: Rebound, Rigid, Tenderness - Rectal Exam Rectal Exam: Deferred - Exam Exam: NORMAL INSPECTION - Extremities Exam Extremities exam: Positive for: pedal edema, tenderness, pedal pulses present. Negative for: calf tenderness Additional comments: 3rd toe necrotic - Back Exam Back exam: absent: CVA tenderness (L), CVA tenderness (R) - Neurological Exam Neurological exam: Alert, CN II-XII Intact, Oriented x3, Reflexes Normal - Psychiatric Exam Psychiatric exam: Normal Mood - Skin Skin Exam: Dry Results - Vital Signs Recent Vital Signs: Last Vital Signs Temp 98.3 F 02/18/17 16:00 Pulse 64 02/18/17 16:15 Resp 16 02/18/17 16:15 BP 170/54 H 02/18/17 17:33 Pulse Ox 98 02/18/17 16:15 - Labs Result Diagrams: 02/18/17 08:32 02/18/17 08:32 Labs: Laboratory Results - last 24 hr 02/18/17 02/18/17 02/18/17 08:32 08:32 08:32 WBC 6.2 RBC 3.80 L Hgb 11.1 L Hct 33.9 L MCV 89.3 MCH 29.3 MCHC 32.9 L RDW 17.6 H Plt Count 152 MPV 8.9 Neut % (Auto) 66.0 Lymph % (Auto) 24.4 [place] % (Auto) 7.6 Eos % (Auto) 1.1 Baso % (Auto) 0.9 Neut # 4.1 Lymph # 1.5 [place] # 0.5 Eos # 0.1 Baso # 0.1 PT 12.3 H INR 1.1 APTT 39 H Sodium 143 Potassium 4.3 Chloride 101 Carbon Dioxide 28 Anion Gap 19 BUN 59 H Creatinine 6.6 H Est GFR ( Amer) 10 Est GFR (Non-Af Amer) 8 POC Glucose (mg/dL) Random Glucose 74 L Calcium 8.2 L Blood Type Antibody Screen 02/18/17 02/18/17 02/18/17 08:32 11:19 16:30 WBC RBC Hgb Hct MCV MCH MCHC RDW Plt Count MPV Neut % (Auto) Lymph % (Auto) [place] % (Auto) Eos % (Auto) Baso % (Auto) Neut # Lymph # [place] # Eos # Baso # PT INR APTT Sodium Potassium Chloride Carbon Dioxide Anion Gap BUN Creatinine Est GFR ( Amer) Est GFR (Non-Af Amer) POC Glucose (mg/dL) 122 H 218 H Random Glucose Calcium Blood Type O POSITIVE Antibody Screen Negative Assessment & Plan (1) CKD (chronic kidney disease) requiring chronic dialysis Status: Acute (2) Toe gangrene Status: Acute (3) Essential hypertension Status: Acute (4) Renal failure Status: Acute (5) Type II diabetes mellitus Status: Acute - Assessment and Plan (Free Text) Assessment: await cultures cont iv antibiotics
[2017-02-18] MEDS: Piperacill/Tazo 2.25gm in Dex 2.25 GM/50 ML BAG IVPB SCH (18:38)
--- NOTE | 2017-02-18 19:01 | CP.PCM.CON ---
History of Present Illness - History of Present Illness History of Present Illness: The patient is a 76 year old man with PAD, and injured his right middle toe recently. he became black, painful and gangrenous. He is to have an amputation. , The patient has no knwon CAD. An echo last yrear revealed normal LV EF, moderate LVH, mild AI. A nuclear stress in 2013 demonstrated a mild to moderate inferior wall defect, likely artifact, but very mild inferoapical ischemia. The patient has no chest pain or angina. BP management has been a challenge Review of Systems - Review of Systems All systems: reviewed and no additional remarkable complaints except (as above. mild dementia.) 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 for saftey - RENAL Hx Chronic Kidney Disease: Yes - ENDOCRINE/METABOLIC Hx Endocrine Disorders: Yes Hx Diabetes Mellitus Type 1: Yes - HEMATOLOGICAL/ONCOLOGICAL Hx Blood Disorders: No - INTEGUMENTARY Hx Dermatological Problems: Yes (swollen left hand) - MUSCULOSKELETAL/RHEUMATOLOGICAL Hx Musculoskeletal Disorders: Yes Hx Back Pain: Yes (LUMBAR) Hx Osteoarthritis: Yes - GASTROINTESTINAL Hx Gastrointestinal Disorders: No - GENITOURINARY/GYNECOLOGICAL Hx Genitourinary Disorders: Yes Hx Prostate Problems: Yes - PSYCHIATRIC Hx Substance Use: No - SURGICAL HISTORY Hx Surgeries: Yes Hx Cataract Extraction: Yes (RT.EYE) Hx Vascular Surgery: Yes (A/V FISTULA LEFT ARM) Hx Vascular Access Device: Yes (DIALYSIS ACCESS) - ANESTHESIA Hx Anesthesia: Yes Hx Anesthesia Reactions: No Hx Malignant Hyperthermia: No Meds Allergies/Adverse Reactions: Allergies Allergy/AdvReac Type Severity Reaction Status Date / Time No Known Allergies Allergy Verified 02/18/17 07:38 - Medications Medications: Current Medications Aspirin (Ecotrin) 81 mg PO DAILY [facility] Last Admin: 02/18/17 17:35 Dose: 81 mg Calcium Acetate (Phoslo) 1,334 mg PO TIDCC [facility] Last Admin: 02/18/17 17:33 Dose: 1,334 mg Carvedilol (Coreg) 25 mg PO BID [facility] Last Admin: 02/18/17 17:33 Dose: 25 mg Donepezil HCl (Aricept) 10 mg PO HS [facility] Ergocalciferol (Drisdol 50,000 Intl Units Cap) 1 cap PO QWK [facility] Last Admin: 02/18/17 17:35 Dose: 1 cap Hydralazine HCl (Apresoline) 100 mg PO SuMoWeFr DIMITRI Hydralazine HCl (Apresoline) 100 mg PO TuThSa [facility] Last Admin: 02/18/17 17:35 Dose: 100 mg Hydralazine HCl (Apresoline) 100 mg PO SuMoWeFr DIMITRI Hydralazine HCl (Apresoline) 100 mg PO SuMoWeFr DIMITRI Hydralazine HCl (Apresoline) 100 mg PO TuThSa [facility] Piperacillin Sod/Tazobactam Sod (Zosyn 2.25 Gm Iv Premix) 2.25 gm in 50 mls @ 100 mls/hr IVPB Q6H [facility] Last Admin: 02/18/17 18:38 Dose: 100 mls/hr Vancomycin HCl 1 gm/ Sodium (Chloride) 250 mls @ 166.6 mls/hr IVPB ONCE ONE Stop: 02/18/17 19:31 Last Admin: 02/18/17 18:38 Dose: 166.6 mls/hr Insulin Human Regular (Novolin R) 0 unit SC ACHS [facility] PRN Reason: Protocol Last Admin: 02/18/17 17:42 Dose: 4 unit Losartan Potassium (Cozaar) 100 mg PO MWF [facility] Memantine (Namenda) 5 mg PO DAILY [facility] Last Admin: 02/18/17 17:34 Dose: 5 mg Fxwos-4-Sugm Ethyl Esters (Lovaza) 1 gm PO DAILY [facility] Last Admin: 02/18/17 17:34 Dose: 1 gm Pantoprazole Sodium (Protonix Ec Tab) 40 mg PO DAILY [facility] Last Admin: 02/18/17 17:34 Dose: 40 mg Rosuvastatin Calcium (Crestor) 5 mg PO HS [facility] Tamsulosin HCl (Flomax) 0.4 mg PO DAILY [facility] Last Admin: 02/18/17 17:34 Dose: 0.4 mg Physical Exam - Constitutional Appears: Chronically Ill - Head Exam Head Exam: ATRAUMATIC - Eye Exam Eye Exam: EOMI Pupil Exam: PERRL - ENT Exam ENT Exam: Mucous Membranes Moist - Neck Exam Neck exam: Positive for: Full Rom, Normal Inspection - Respiratory Exam Respiratory Exam: Clear to Auscultation Bilateral, NORMAL BREATHING PATTERN - Cardiovascular Exam Cardiovascular Exam: REGULAR RHYTHM - GI/Abdominal Exam GI & Abdominal Exam: Normal Bowel Sounds - Back Exam Back exam: NORMAL INSPECTION - Neurological Exam Neurological exam: Alert, CN II-XII Intact, Oriented x3 - Psychiatric Exam Psychiatric exam: Normal Affect, Normal Mood - Additional Findings Additional findings: Gangrenous right middle toe. Results - Vital Signs Recent Vital Signs: Last Vital Signs Temp 98.3 F 02/18/17 16:00 Pulse 64 02/18/17 16:15 Resp 16 02/18/17 16:15 BP 170/54 H 02/18/17 17:33 Pulse Ox 98 02/18/17 16:15 - Labs Result Diagrams: 02/18/17 08:32 02/18/17 08:32 Labs: Laboratory Results - last 24 hr 02/18/17 02/18/17 02/18/17 08:32 08:32 08:32 WBC 6.2 RBC 3.80 L Hgb 11.1 L Hct 33.9 L MCV 89.3 MCH 29.3 MCHC 32.9 L RDW 17.6 H Plt Count 152 MPV 8.9 Neut % (Auto) 66.0 Lymph % (Auto) 24.4 [place] % (Auto) 7.6 Eos % (Auto) 1.1 Baso % (Auto) 0.9 Neut # 4.1 Lymph # 1.5 [place] # 0.5 Eos # 0.1 Baso # 0.1 PT 12.3 H INR 1.1 APTT 39 H Sodium 143 Potassium 4.3 Chloride 101 Carbon Dioxide 28 Anion Gap 19 BUN 59 H Creatinine 6.6 H Est GFR ( Amer) 10 Est GFR (Non-Af Amer) 8 POC Glucose (mg/dL) Random Glucose 74 L Calcium 8.2 L Blood Type Antibody Screen 02/18/17 02/18/17 02/18/17 08:32 11:19 16:30 WBC RBC Hgb Hct MCV MCH MCHC RDW Plt Count MPV Neut % (Auto) Lymph % (Auto) [place] % (Auto) Eos % (Auto) Baso % (Auto) Neut # Lymph # [place] # Eos # Baso # PT INR APTT Sodium Potassium Chloride Carbon Dioxide Anion Gap BUN Creatinine Est GFR ( Amer) Est GFR (Non-Af Amer) POC Glucose (mg/dL) 122 H 218 H Random Glucose Calcium Blood Type O POSITIVE Antibody Screen Negative - EKG Data EKG Interpreted by: Myself (NSR, poor r wave, no ischemia) Assessment & Plan - Assessment and Plan (Free Text) Assessment: 1. Pt has no known CAD, normal LVEF, only very mild ischemia on previous stress test. Pt is cleared for toe amputation. 2. HTN: add norvasc 3. Pt has a prolonged QT on ecg. Calcium is only 8.2, so this does not explain this. He is on no qt prolonging meds, All qt prolonging drugs, including anesthesia that prolongs qt and antibiotics must be avoided.
[2017-02-19] MEDS: Piperacill/Tazo 2.25gm in Dex 2.25 GM/50 ML BAG IVPB SCH ×4 (01:02→18:15)
[2017-02-19 06:34] LABS: POTASSIUM 4.2 mmol/L (3.6-5.2)
[2017-02-19 06:37] LABS: ALB/GLOB RATIO 1.2 (1.0-2.1); BASO # 0.1 K/uL (0.0-0.2); BASO % 0.9 % (0.0-2.0); CALCIUM 8.1 mg/dl (8.6-10.4); EOS # 0.1 K/uL (0.0-0.7); EOS % 1.4 % (0.0-4.0); HEMATOCRIT 34.2 % (35.0-51.0); LYMPH # 1.4 K/uL (1.0-4.3); LYMPH % 23.9 % (20.0-40.0); MEAN CELL VOLUME 88.7 fL (80.0-94.0); MEAN CORPUSCULAR HEMOGLOBIN 29.1 pg (27.0-31.0); MEAN CORPUSCULAR HGB CONC 32.8 g/dL (33.0-37.0); MEAN PLATELET VOLUME 9.5 fL (7.2-11.7); MONO # 0.5 K/uL (0.0-0.8); MONO % 8.5 % (0.0-10.0); RED CELL DISTRIBUTION WIDTH 17.8 % (11.5-14.5); TOTAL PROTEIN 6.4 g/dL (6.3-8.3); WHITE BLOOD COUNT 5.9 K/uL (4.8-10.8)
[2017-02-19] MEDS: (Novolin R) Insulin Human Regular 100 units/ml vial SC SCH ×4 (07:30→21:45)
[2017-02-19] MEDS ORDERED: Bupivacaine 0.5% Inj(30mL) ONE (07:35)
[2017-02-19] MEDS ORDERED: Lidocaine 1% Inj (20ml) ONE (07:35)
--- NOTE | 2017-02-19 07:57 | CP.PCM.PN ---
Addendum entered and electronically signed by Susy Alicia 02/19/17 15:18: Patient seen and examined at bedside with attending s/p left foot- partial 3rd ray amputation. Patient's family at bedside Patient is resting comfortably and pain is controlled Patient for HD tomorrow 02/20 as per Wed//Wed schedule VSS Original Note: <Susy Alicia - Last Filed: 02/19/17 14:56> Subjective - Date & Time of Evaluation Date of Evaluation: 02/19/17 Time of Evaluation: 07:30 - Subjective Subjective: PGY1 Medicine note for Dr. Nash Patient seen and examined at bedside. Patient was NPO overnight for OR today with Dr. Lopez. Patient reported he felt well and had some pain in his left foot but it was controlled. He reports the pain is worse with ambulating and when he puts pressure on it. Dressings were clean , dry, intact. He was awaiting surgery. Patient denied fever, chills, chest pain, palpitations, SOB, cough, abd pain, nausea, vomiting, bowel/bladder complaints, swelling of his legs. Objective - Vital Signs/Intake and Output Vital Signs (last 24 hours): Temp Pulse Resp BP Pulse Ox 98.8 F 71 20 180/72 H 98 02/19/17 06:31 02/19/17 06:31 02/19/17 06:31 02/19/17 07:12 02/19/17 06:31 Intake and Output: 02/19/17 02/19/17 06:59 18:59 Intake Total 100 Balance 100 - Medications Medications: Current Medications Amlodipine Besylate (Norvasc) 5 mg PO DAILY [facility] Aspirin (Ecotrin) 81 mg PO DAILY [facility] Last Admin: 02/18/17 17:35 Dose: 81 mg Calcium Acetate (Phoslo) 1,334 mg PO TIDCC [facility] Last Admin: 02/18/17 17:33 Dose: 1,334 mg Carvedilol (Coreg) 25 mg PO BID [facility] Last Admin: 02/19/17 07:12 Dose: 25 mg Donepezil HCl (Aricept) 10 mg PO HS [facility] Last Admin: 02/18/17 21:52 Dose: 10 mg Ergocalciferol (Drisdol 50,000 Intl Units Cap) 1 cap PO QWK [facility] Last Admin: 02/18/17 17:35 Dose: 1 cap Hydralazine HCl (Apresoline) 100 mg PO SuMoWeFr DIMITRI Hydralazine HCl (Apresoline) 100 mg PO TuThSa [facility] Last Admin: 02/18/17 17:35 Dose: 100 mg Hydralazine HCl (Apresoline) 100 mg PO SuMoWeFr DIMITRI Hydralazine HCl (Apresoline) 100 mg PO SuMoWeFr DIMITRI Hydralazine HCl (Apresoline) 100 mg PO TuThSa [facility] Piperacillin Sod/Tazobactam Sod (Zosyn 2.25 Gm Iv Premix) 2.25 gm in 50 mls @ 100 mls/hr IVPB Q6H [facility] Last Admin: 02/19/17 06:10 Dose: 100 mls/hr Insulin Human Regular (Novolin R) 0 unit SC ACHS [facility] PRN Reason: Protocol Last Admin: 02/18/17 21:54 Dose: Not Given Losartan Potassium (Cozaar) 100 mg PO [facility] Memantine (Namenda) 5 mg PO DAILY [facility] Last Admin: 02/18/17 17:34 Dose: 5 mg Dspcx-0-Rtrs Ethyl Esters (Lovaza) 1 gm PO DAILY [facility] Last Admin: 02/18/17 17:34 Dose: 1 gm Pantoprazole Sodium (Protonix Ec Tab) 40 mg PO DAILY [facility] Last Admin: 02/18/17 17:34 Dose: 40 mg Rosuvastatin Calcium (Crestor) 5 mg PO HS [facility] Last Admin: 02/18/17 21:52 Dose: 5 mg Tamsulosin HCl (Flomax) 0.4 mg PO DAILY [facility] Last Admin: 02/18/17 17:34 Dose: 0.4 mg - Labs Labs: 02/19/17 06:15 02/19/17 06:15 PT 12.3 SECONDS (9.7-12.2) H 02/18/17 08:32 INR 1.1 02/18/17 08:32 APTT 39 SECONDS (21-34) H 02/18/17 08:32 - Constitutional Appears: Non-toxic, No Acute Distress - Head Exam Head Exam: NORMAL INSPECTION - Eye Exam Eye Exam: Normal appearance. absent: Conjunctival injection, Scleral icterus Pupil Exam: NORMAL ACCOMODATION - ENT Exam ENT Exam: Mucous Membranes Moist - Respiratory Exam Respiratory Exam: Clear to Ausculation Bilateral, NORMAL BREATHING PATTERN. absent: Accessory Muscle Use, Rales, Rhonchi, Wheezes, Respiratory Distress - Cardiovascular Exam Cardiovascular Exam: REGULAR RHYTHM, RRR, +S1, +S2 - GI/Abdominal Exam GI & Abdominal Exam: Soft, Normal Bowel Sounds. absent: Firm, Guarding, Rigid, Tenderness - Extremities Exam Extremities Exam: Tenderness (L foot by Left 3rd toe) Additional comments: left upper extremity AVF bruit present, pulsation palpated. Left foot dressings c/d/i - Back Exam Back Exam: NORMAL INSPECTION. absent: rash noted - Neurological Exam Neurological Exam: Alert, Awake, Oriented x3 - Psychiatric Exam Psychiatric exam: Normal Affect, Normal Mood - Skin Skin Exam: Dry, Intact, Normal Color, Warm Assessment and Plan - Assessment and Plan (Free Text) Assessment: 76M PMHx HTN, DM, and ESRD on HD TTS was sent by private podiatry Dr. Lopez for left third toe amputation Plan: Gangrenous toe Podiatry Dr. Lopez consulted, help appreciated. For OR today 02/19 Tylenol 650mg po q6 prn mild pain Percocet 5/325mg 1 tab po q4 prn mod pain Percocet 5/325mg 2 tab po q4 prn severe pain Wound culture + Gram positive cocci Tissue culture pending Zosyn 2.[address] Burden consulted Vascular Dr. Jay consulted by podiatry- f/u [facility] HTN Cardio Dr. Keys consulted, help appreciated. Hydralazine 100mg BID on dialysis days, 100mg TID on nondialysis days. Losartan 100mg daily on nondialysis days. Coreg 25mg PO BID. Norvasc 5mg po daily ASA 81mg po daily DM RISS Accuchecks. ESRD On HD TTS. Nephro Dr. Rivera consulted, help appreciated. Continue Phoslo. HLD Crestor 5mg PO HS Lovaza 1gm po daily BPH Flomax 0.4mg PO daily. Dementia Memantine 5mg PO daily Donepezil 10mg PO HS. Prophylactic measure Protonix 40mg po daily Heparin 5000U SC Q12 Renal diet SCD c/i Wound care PT/OT Plan discussed with Dr. Charity Alicia PGY1 <Gee Nash - Last Filed: 02/19/17 15:54> Objective - Vital Signs/Intake and Output Vital Signs (last 24 hours): Temp Pulse Resp BP Pulse Ox 97.5 F L 51 L 12 161/71 H 94 L 02/19/17 10:07 02/19/17 10:07 02/19/17 10:07 02/19/17 10:30 02/19/17 10:07 Intake and Output: 02/19/17 02/19/17 06:59 18:59 Intake Total 100 790 Balance 100 790 - Medications Medications: Current Medications Acetaminophen (Tylenol 325mg Tab) 650 mg PO Q6 PRN PRN Reason: Pain, Mild (1-3) Amlodipine Besylate (Norvasc) 5 mg PO DAILY [facility] Last Admin: 02/19/17 10:30 Dose: 5 mg Aspirin (Ecotrin) 81 mg PO DAILY [facility] Last Admin: 02/19/17 10:30 Dose: 81 mg Calcium Acetate (Phoslo) 1,334 mg PO TIDCC [facility] Last Admin: 02/19/17 11:26 Dose: 1,334 mg Carvedilol (Coreg) 25 mg PO BID [facility] Last Admin: 02/19/17 10:30 Dose: 25 mg Donepezil HCl (Aricept) 10 mg PO HS [facility] Last Admin: 02/18/17 21:52 Dose: 10 mg Ergocalciferol (Drisdol 50,000 Intl Units Cap) 1 cap PO QWK [facility] Last Admin: 02/18/17 17:35 Dose: 1 cap Heparin Sodium (Porcine) (Heparin) 5,000 units SC Q12 [facility] Hydralazine HCl (Apresoline) 100 mg PO SuMoWeFr [facility] Last Admin: 02/19/17 10:30 Dose: 100 mg Hydralazine HCl (Apresoline) 100 mg PO TuThSa [facility] Last Admin: 02/18/17 17:35 Dose: 100 mg Hydralazine HCl (Apresoline) 100 mg PO SuMoWeFr [facility] Hydralazine HCl (Apresoline) 100 mg PO SuMoWeFr [facility] Hydralazine HCl (Apresoline) 100 mg PO TuThSa [facility] Piperacillin Sod/Tazobactam Sod (Zosyn 2.25 Gm Iv Premix) 2.25 gm in 50 mls @ 100 mls/hr IVPB Q6H [facility] Last Admin: 02/19/17 06:10 Dose: 100 mls/hr Insulin Human Regular (Novolin R) 0 unit SC ACHS [facility] PRN Reason: Protocol Last Admin: 02/19/17 11:34 Dose: Not Given Losartan Potassium (Cozaar) 100 mg PO MWF [facility] Last Admin: 02/19/17 10:30 Dose: 100 mg Memantine (Namenda) 5 mg PO DAILY [facility] Last Admin: 02/19/17 10:30 Dose: 5 mg Shrpk-2-Vbmi Ethyl Esters (Lovaza) 1 gm PO DAILY [facility] Last Admin: 02/18/17 17:34 Dose: 1 gm Oxycodone/Acetaminophen (Percocet 5/325 Mg Tab) 1 tab PO Q4H PRN PRN Reason: Pain, moderate (4-7) Stop: 02/22/17 09:36 Oxycodone/Acetaminophen (Percocet 5/325 Mg Tab) 2 tab PO Q4H PRN PRN Reason: Pain, severe (8-10) Stop: 02/22/17 09:36 Pantoprazole Sodium (Protonix Ec Tab) 40 mg PO DAILY [facility] Last Admin: 02/19/17 10:30 Dose: 40 mg Rosuvastatin Calcium (Crestor) 5 mg PO HS [facility] Last Admin: 02/18/17 21:52 Dose: 5 mg Tamsulosin HCl (Flomax) 0.4 mg PO DAILY [facility] Last Admin: 02/19/17 10:30 Dose: 0.4 mg - Labs Labs: 02/19/17 06:15 02/19/17 06:15 PT 12.3 SECONDS (9.7-12.2) H 02/18/17 08:32 INR 1.1 02/18/17 08:32 APTT 39 SECONDS (21-34) H 02/18/17 08:32 Attending/Attestation - Attestation I have personally seen and examined this patient.: Yes I have fully participated in the care of the patient.: Yes I have reviewed all pertinent clinical information, including history, physical exam and plan: Yes Notes (Text): 02/19/17 15:53 Patient was seen and examined at bedside with the resident. He is status post amputation of the left foot toe. Patient appears comfortable without any acute distress We will continue current management including IV antibiotics as per recommendations of ID. I discussed the plan of care with the resident and agree with the above history and physical and assessment/plan by the resident.
[2017-02-19] MEDS ORDERED: Propofol 10 mg/ml Inj (20 ML) ONE (07:58)
[2017-02-19] MEDS ORDERED: Midazolam 2 MG/2 ML VIAL ONE (07:58)
[2017-02-19] MEDS ORDERED: Lidocaine Hydrochloride 5 ML INJ ONE (07:59)
--- NOTE | 2017-02-19 09:26 | PCM.SURG1 ---
Surgeon's Initial Post Op Note - Surgeon's Notes Surgeon: Dr. Lopez Rabbit Breeder: Poncho Chavez DPM PGY-2 Type of Anesthesia: IV Sedation, Local Anesthesia Administered By: Dr. Heard Pre-Operative Diagnosis: Left foot 3rd digit gangrene Operative Findings: See dictation. Hemostasis: no tourniquet necessary. Materials: 1/4inch iodoform packing; 4-0 nylon; adaptic, 4x4 gauze, davis, kerlix, BEAU bandage. Injectables: 15cc 1:1 2% Lidocaine plain: 0.5% Marcaine plain pre-op. Complications: none Post-Operative Diagnosis: Same as above Operation Performed: Left foot- partial 3rd ray amputation Specimen/Specimens Removed: Left 3rd digit, 3rd metatarsal head Estimated Blood Loss: EBL {In ML}: 5 Blood Products Given: N/A Drains Used: No Drains Post-Op Condition: Good Date of Surgery/Procedure: 02/19/17 Time of Surgery/Procedure: 08:00
[2017-02-19] MEDS ORDERED: Oxycodone/Acetaminophen 5/325 mg Tab PO PRN (09:35)
[2017-02-19] MEDS ORDERED: HYDROmorphone 0.5 mg/0.5 ml ISec IVP PRN (09:47)
[2017-02-19] MEDS: Pantoprazole 40 mg EC Tab PO SCH (10:30)
[2017-02-19] MEDS: Omega-3-Acid Ethyl Esters 1 GM Cap PO SCH (10:30)
--- NOTE | 2017-02-19 10:56 | CP.PCM.PN ---
Objective - Vital Signs/Intake and Output Vital Signs (last 24 hours): Temp Pulse Resp BP Pulse Ox 97.5 F L 51 L 12 163/63 H 94 L 02/19/17 10:07 02/19/17 10:07 02/19/17 10:07 02/19/17 10:07 02/19/17 10:07 Intake and Output: 02/19/17 02/19/17 06:59 18:59 Intake Total 100 350 Balance 100 350 - Medications Medications: Current Medications Acetaminophen (Tylenol 325mg Tab) 650 mg PO Q6 PRN PRN Reason: Pain, Mild (1-3) Amlodipine Besylate (Norvasc) 5 mg PO DAILY [facility] Aspirin (Ecotrin) 81 mg PO DAILY [facility] Last Admin: 02/18/17 17:35 Dose: 81 mg Calcium Acetate (Phoslo) 1,334 mg PO TIDCC [facility] Last Admin: 02/18/17 17:33 Dose: 1,334 mg Carvedilol (Coreg) 25 mg PO BID [facility] Last Admin: 02/19/17 07:12 Dose: 25 mg Donepezil HCl (Aricept) 10 mg PO HS [facility] Last Admin: 02/18/17 21:52 Dose: 10 mg Ergocalciferol (Drisdol 50,000 Intl Units Cap) 1 cap PO QWK [facility] Last Admin: 02/18/17 17:35 Dose: 1 cap Hydralazine HCl (Apresoline) 100 mg PO SuMoWeFr DIMITRI Hydralazine HCl (Apresoline) 100 mg PO TuThSa [facility] Last Admin: 02/18/17 17:35 Dose: 100 mg Hydralazine HCl (Apresoline) 100 mg PO SuMoWeFr DIMITRI Hydralazine HCl (Apresoline) 100 mg PO SuMoWeFr DIMITRI Hydralazine HCl (Apresoline) 100 mg PO TuThSa [facility] Hydromorphone HCl (Dilaudid) 0.5 mg IVP Q5M PRN PRN Reason: Pain, moderate (4-7) Stop: 02/19/17 11:47 Piperacillin Sod/Tazobactam Sod (Zosyn 2.25 Gm Iv Premix) 2.25 gm in 50 mls @ 100 mls/hr IVPB Q6H [facility] Last Admin: 02/19/17 06:10 Dose: 100 mls/hr Insulin Human Regular (Novolin R) 0 unit SC ACHS [facility] PRN Reason: Protocol Last Admin: 02/18/17 21:54 Dose: Not Given Losartan Potassium (Cozaar) 100 mg PO [facility] Memantine (Namenda) 5 mg PO DAILY [facility] Last Admin: 02/18/17 17:34 Dose: 5 mg Tsbdq-5-Chdf Ethyl Esters (Lovaza) 1 gm PO DAILY [facility] Last Admin: 02/18/17 17:34 Dose: 1 gm Oxycodone/Acetaminophen (Percocet 5/325 Mg Tab) 1 tab PO Q4H PRN PRN Reason: Pain, moderate (4-7) Stop: 02/22/17 09:36 Oxycodone/Acetaminophen (Percocet 5/325 Mg Tab) 2 tab PO Q4H PRN PRN Reason: Pain, severe (8-10) Stop: 02/22/17 09:36 Pantoprazole Sodium (Protonix Ec Tab) 40 mg PO DAILY [facility] Last Admin: 02/18/17 17:34 Dose: 40 mg Rosuvastatin Calcium (Crestor) 5 mg PO HS [facility] Last Admin: 02/18/17 21:52 Dose: 5 mg Tamsulosin HCl (Flomax) 0.4 mg PO DAILY [facility] Last Admin: 02/18/17 17:34 Dose: 0.4 mg - Labs Labs: 02/19/17 06:15 02/19/17 06:15 PT 12.3 SECONDS (9.7-12.2) H 02/18/17 08:32 INR 1.1 02/18/17 08:32 APTT 39 SECONDS (21-34) H 02/18/17 08:32
--- NOTE | 2017-02-19 11:09 | RAD ---
PROCEDURE: Left Foot Radiographs. HISTORY: s/p partial 3rd ray amputation COMPARISON: None. FINDINGS: BONES: Status post amputation 3rd digit at distal aspect 3rd metatarsal. No other osseous abnormality identified. JOINTS: Normal. SOFT TISSUES: Vascular calcifications OTHER FINDINGS: None. IMPRESSION: Status post amputation 3rd digit at distal 3rd metatarsal.
--- NOTE | 2017-02-19 12:31 | CP.PCM.CON ---
History of Present Illness - History of Present Illness History of Present Illness: Surgery: Dr. Tay/Pierre Reason for consult: gangrenous foot Patient is a 76 y/o male who presents complaining of gangrenous foot for the past 2-3 months. States he hit the left foot on a dresser and it never seemed to heal. He denies pain to the foot. He states he has never had an issue with poor healing wounds in the past. He denies pain/numbness/tingling in the legs with ambulation. He denies diabetes and denies smoking history. Patient seems to be a poor historian upon reviewing chart regarding medical and surgical history. Patient is s/p left 3rd toe amputation w/ podiatry today. Patient also noted to undergo angiogram w/ Dr. Jay on 12/23/16 which showed severe PVD with non named vessels from midcalf. PMH: HTN, DM, ESRD on HD, PVD PSH: angiogram 12/23, AV fistula Social: former smoker Review of Systems - Review of Systems All systems: reviewed and no additional remarkable complaints except Review of Systems: unless stated in HPI 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 for saftey - RENAL Hx Chronic Kidney Disease: Yes - ENDOCRINE/METABOLIC Hx Endocrine Disorders: Yes Hx Diabetes Mellitus Type 1: Yes - HEMATOLOGICAL/ONCOLOGICAL Hx Blood Disorders: No - INTEGUMENTARY Hx Dermatological Problems: Yes (swollen left hand) - MUSCULOSKELETAL/RHEUMATOLOGICAL Hx Musculoskeletal Disorders: Yes Hx Back Pain: Yes (LUMBAR) Hx Osteoarthritis: Yes - GASTROINTESTINAL Hx Gastrointestinal Disorders: No - GENITOURINARY/GYNECOLOGICAL Hx Genitourinary Disorders: Yes Hx Prostate Problems: Yes - PSYCHIATRIC Hx Substance Use: No - SURGICAL HISTORY Hx Surgeries: Yes Hx Cataract Extraction: Yes (RT.EYE) Hx Vascular Surgery: Yes (A/V FISTULA LEFT ARM) Hx Vascular Access Device: Yes (DIALYSIS ACCESS) - ANESTHESIA Hx Anesthesia: Yes Hx Anesthesia Reactions: No Hx Malignant Hyperthermia: No Meds Allergies/Adverse Reactions: Allergies Allergy/AdvReac Type Severity Reaction Status Date / Time No Known Allergies Allergy Verified 02/18/17 07:38 - Medications Medications: Current Medications Acetaminophen (Tylenol 325mg Tab) 650 mg PO Q6 PRN PRN Reason: Pain, Mild (1-3) Amlodipine Besylate (Norvasc) 5 mg PO DAILY [facility] Last Admin: 02/19/17 10:30 Dose: 5 mg Aspirin (Ecotrin) 81 mg PO DAILY [facility] Last Admin: 02/19/17 10:30 Dose: 81 mg Calcium Acetate (Phoslo) 1,334 mg PO TIDCC [facility] Last Admin: 02/19/17 11:26 Dose: 1,334 mg Carvedilol (Coreg) 25 mg PO BID [facility] Last Admin: 02/19/17 10:30 Dose: 25 mg Donepezil HCl (Aricept) 10 mg PO HS [facility] Last Admin: 02/18/17 21:52 Dose: 10 mg Ergocalciferol (Drisdol 50,000 Intl Units Cap) 1 cap PO QWK [facility] Last Admin: 02/18/17 17:35 Dose: 1 cap Hydralazine HCl (Apresoline) 100 mg PO SuMoWeFr [facility] Last Admin: 02/19/17 10:30 Dose: 100 mg Hydralazine HCl (Apresoline) 100 mg PO TuThSa [facility] Last Admin: 02/18/17 17:35 Dose: 100 mg Hydralazine HCl (Apresoline) 100 mg PO SuMoWeFr [facility] Hydralazine HCl (Apresoline) 100 mg PO SuMoWeFr DIMITRI Hydralazine HCl (Apresoline) 100 mg PO TuThSa [facility] Piperacillin Sod/Tazobactam Sod (Zosyn 2.25 Gm Iv Premix) 2.25 gm in 50 mls @ 100 mls/hr IVPB Q6H [facility] Last Admin: 02/19/17 06:10 Dose: 100 mls/hr Insulin Human Regular (Novolin R) 0 unit SC ACHS [facility] PRN Reason: Protocol Last Admin: 02/19/17 11:34 Dose: Not Given Losartan Potassium (Cozaar) 100 mg PO MWF [facility] Last Admin: 02/19/17 10:30 Dose: 100 mg Memantine (Namenda) 5 mg PO DAILY [facility] Last Admin: 05/26/17 10:30 Dose: 5 mg Cyyzy-5-Fnau Ethyl Esters (Lovaza) 1 gm PO DAILY [facility] Last Admin: 02/18/17 17:34 Dose: 1 gm Oxycodone/Acetaminophen (Percocet 5/325 Mg Tab) 1 tab PO Q4H PRN PRN Reason: Pain, moderate (4-7) Stop: 02/22/17 09:36 Oxycodone/Acetaminophen (Percocet 5/325 Mg Tab) 2 tab PO Q4H PRN PRN Reason: Pain, severe (8-10) Stop: 02/22/17 09:36 Pantoprazole Sodium (Protonix Ec Tab) 40 mg PO DAILY [facility] Last Admin: 02/19/17 10:30 Dose: 40 mg Rosuvastatin Calcium (Crestor) 5 mg PO HS [facility] Last Admin: 02/18/17 21:52 Dose: 5 mg Tamsulosin HCl (Flomax) 0.4 mg PO DAILY [facility] Last Admin: 02/19/17 10:30 Dose: 0.4 mg Physical Exam - Constitutional Appears: Non-toxic, No Acute Distress - Head Exam Head Exam: ATRAUMATIC, NORMOCEPHALIC - Eye Exam Eye Exam: EOMI - ENT Exam ENT Exam: Mucous Membranes Moist - Respiratory Exam Respiratory Exam: NORMAL BREATHING PATTERN. absent: Respiratory Distress - Cardiovascular Exam Cardiovascular Exam: REGULAR RHYTHM. absent: Tachycardia - Extremities Exam Extremities exam: Negative for: calf tenderness, pedal edema, tenderness Additional comments: RLE pulses palpable PT and popliteal LE wrapped to ankle w/ post op dressing CDI, palpable popliteal pulse on left - Neurological Exam Neurological exam: Alert - Psychiatric Exam Psychiatric exam: Normal Affect, Normal Mood - Skin Skin Exam: Dry, Normal Color, Warm Results - Vital Signs Recent Vital Signs: Last Vital Signs Temp 97.5 F L 02/19/17 10:07 Pulse 51 L 02/19/17 10:07 Resp 12 02/19/17 10:07 BP 161/71 H 02/19/17 10:30 Pulse Ox 94 L 02/19/17 10:07 - Labs Result Diagrams: 02/19/17 06:15 02/19/17 06:15 Labs: Laboratory Results - last 24 hr 02/18/17 02/18/17 02/19/17 16:30 21:03 06:15 WBC 5.9 RBC 3.86 L Hgb 11.2 L Hct 34.2 L MCV 88.7 MCH 29.1 MCHC 32.8 L RDW 17.8 H Plt Count 140 MPV 9.5 Neut % (Auto) 65.3 Lymph % (Auto) 23.9 Hubbard % (Auto) 8.5 Eos % (Auto) 1.4 Baso % (Auto) 0.9 Neut # 3.8 Lymph # 1.4 Hubbard # 0.5 Eos # 0.1 Baso # 0.1 Sodium Potassium Chloride Carbon Dioxide Anion Gap BUN Creatinine Est GFR ( Amer) Est GFR (Non-Af Amer) POC Glucose (mg/dL) 218 H 121 H Random Glucose Calcium Total Bilirubin AST ALT Alkaline Phosphatase Total Protein Albumin Globulin Albumin/Globulin Ratio 02/19/17 02/19/17 02/19/17 06:15 06:23 07:19 WBC RBC Hgb Hct MCV MCH MCHC RDW Plt Count MPV Neut % (Auto) Lymph % (Auto) Hubbard % (Auto) Eos % (Auto) Baso % (Auto) Neut # Lymph # Hubbard # Eos # Baso # Sodium 139 Potassium 4.2 Chloride 100 Carbon Dioxide 27 Anion Gap 16 BUN 38 H Creatinine 4.8 H Est GFR ( Amer) 14 Est GFR (Non-Af Amer) 12 POC Glucose (mg/dL) 117 H 112 H Random Glucose 108 Calcium 8.1 L Total Bilirubin 1.0 AST 20 ALT 19 L D Alkaline Phosphatase 57 Total Protein 6.4 Albumin 3.5 Globulin 2.9 Albumin/Globulin Ratio 1.2 02/19/17 11:32 WBC RBC Hgb Hct MCV MCH MCHC RDW Plt Count MPV Neut % (Auto) Lymph % (Auto) Hubbard % (Auto) Eos % (Auto) Baso % (Auto) Neut # Lymph # Hubbard # Eos # Baso # Sodium Potassium Chloride Carbon Dioxide Anion Gap BUN Creatinine Est GFR ( Amer) Est GFR (Non-Af Amer) POC Glucose (mg/dL) 126 H Random Glucose Calcium Total Bilirubin AST ALT Alkaline Phosphatase Total Protein Albumin Globulin Albumin/Globulin Ratio Assessment & Plan - Assessment and Plan (Free Text) Assessment: 76 y/o male w/ left foot gangrenous toe s/p amputation w/ podiatry team as well as PVD s/p angio intervention in 12/23/16 Plan: -will review angio with Dr. Jay -seems clinically stable -therapy per podiatry -medical management per medical team -further recs per Dr. Jay [facility] PGY1
--- NOTE | 2017-02-19 14:10 | CP.PCM.PN ---
Subjective - Date & Time of Evaluation Date of Evaluation: 02/19/17 Time of Evaluation: 14:07 - Subjective Subjective: s/p toe amputation- tolerated well s/p dialysis 02/18- UF 2600ml Feels well BP controlled Labs acceptable Objective - Vital Signs/Intake and Output Vital Signs (last 24 hours): Temp Pulse Resp BP Pulse Ox 97.5 F L 51 L 12 161/71 H 94 L 02/19/17 10:07 02/19/17 10:07 02/19/17 10:07 02/19/17 10:30 02/19/17 10:07 Intake and Output: 02/19/17 02/19/17 06:59 18:59 Intake Total 100 350 Balance 100 350 - Medications Medications: Current Medications Acetaminophen (Tylenol 325mg Tab) 650 mg PO Q6 PRN PRN Reason: Pain, Mild (1-3) Amlodipine Besylate (Norvasc) 5 mg PO DAILY [facility] Last Admin: 02/19/17 10:30 Dose: 5 mg Aspirin (Ecotrin) 81 mg PO DAILY [facility] Last Admin: 02/19/17 10:30 Dose: 81 mg Calcium Acetate (Phoslo) 1,334 mg PO TIDCC [facility] Last Admin: 02/19/17 11:26 Dose: 1,334 mg Carvedilol (Coreg) 25 mg PO BID [facility] Last Admin: 02/19/17 10:30 Dose: 25 mg Donepezil HCl (Aricept) 10 mg PO HS [facility] Last Admin: 02/18/17 21:52 Dose: 10 mg Ergocalciferol (Drisdol 50,000 Intl Units Cap) 1 cap PO QWK [facility] Last Admin: 02/18/17 17:35 Dose: 1 cap Hydralazine HCl (Apresoline) 100 mg PO SuMoWeFr [facility] Last Admin: 02/19/17 10:30 Dose: 100 mg Hydralazine HCl (Apresoline) 100 mg PO TuThSa [facility] Last Admin: 02/18/17 17:35 Dose: 100 mg Hydralazine HCl (Apresoline) 100 mg PO SuMoWeFr DIMITRI Hydralazine HCl (Apresoline) 100 mg PO SuMoWeFr [facility] Hydralazine HCl (Apresoline) 100 mg PO TuThSa [facility] Piperacillin Sod/Tazobactam Sod (Zosyn 2.25 Gm Iv Premix) 2.25 gm in 50 mls @ 100 mls/hr IVPB Q6H [facility] Last Admin: 02/19/17 06:10 Dose: 100 mls/hr Insulin Human Regular (Novolin R) 0 unit SC ACHS [facility] PRN Reason: Protocol Last Admin: 02/19/17 11:34 Dose: Not Given Losartan Potassium (Cozaar) 100 mg PO MWF [facility] Last Admin: 02/19/17 10:30 Dose: 100 mg Memantine (Namenda) 5 mg PO DAILY [facility] Last Admin: 02/19/17 10:30 Dose: 5 mg Jukza-1-Dujy Ethyl Esters (Lovaza) 1 gm PO DAILY [facility] Last Admin: 02/18/17 17:34 Dose: 1 gm Oxycodone/Acetaminophen (Percocet 5/325 Mg Tab) 1 tab PO Q4H PRN PRN Reason: Pain, moderate (4-7) Stop: 02/22/17 09:36 Oxycodone/Acetaminophen (Percocet 5/325 Mg Tab) 2 tab PO Q4H PRN PRN Reason: Pain, severe (8-10) Stop: 02/22/17 09:36 Pantoprazole Sodium (Protonix Ec Tab) 40 mg PO DAILY [facility] Last Admin: 02/19/17 10:30 Dose: 40 mg Rosuvastatin Calcium (Crestor) 5 mg PO HS [facility] Last Admin: 02/18/17 21:52 Dose: 5 mg Tamsulosin HCl (Flomax) 0.4 mg PO DAILY [facility] Last Admin: 02/19/17 10:30 Dose: 0.4 mg - Labs Labs: 02/19/17 06:15 02/19/17 06:15 PT 12.3 SECONDS (9.7-12.2) H 02/18/17 08:32 INR 1.1 02/18/17 08:32 APTT 39 SECONDS (21-34) H 02/18/17 08:32 - Constitutional Appears: No Acute Distress, Chronically Ill - Head Exam Head Exam: ATRAUMATIC, NORMAL INSPECTION - Eye Exam Eye Exam: EOMI, Normal appearance - Neck Exam Neck Exam: Normal Inspection. absent: Tenderness - Respiratory Exam Respiratory Exam: Clear to Ausculation Bilateral, NORMAL BREATHING PATTERN - Cardiovascular Exam Cardiovascular Exam: REGULAR RHYTHM, +S1 - GI/Abdominal Exam GI & Abdominal Exam: Soft. absent: Tenderness - Extremities Exam Extremities Exam: Normal Inspection. absent: Tenderness - Neurological Exam Neurological Exam: Awake, CN II-XII Intact - Skin Skin Exam: Dry, Warm Assessment and Plan (1) Type 2 diabetes mellitus with diabetic nephropathy Status: Acute (2) End stage renal disease Status: Acute (3) Toe gangrene Status: Acute (4) Essential hypertension Status: Acute (5) Type II diabetes mellitus Status: Acute - Assessment and Plan (Free Text) Plan: Dialysis planned for AM IV ABs as per ID Same BP meds Wound care as per surgery
--- NOTE | 2017-02-19 15:07 | CP.PCM.PN ---
Subjective - Date & Time of Evaluation Date of Evaluation: 02/19/17 Time of Evaluation: 07:00 - Subjective Subjective: s/p amp 3rd digit tolerated well iv rx ordered await cultures Objective - Vital Signs/Intake and Output Vital Signs (last 24 hours): Temp Pulse Resp BP Pulse Ox 97.5 F L 51 L 12 161/71 H 94 L 02/19/17 10:07 02/19/17 10:07 02/19/17 10:07 02/19/17 10:30 02/19/17 10:07 Intake and Output: 02/19/17 02/19/17 06:59 18:59 Intake Total 100 350 Balance 100 350 - Medications Medications: Current Medications Acetaminophen (Tylenol 325mg Tab) 650 mg PO Q6 PRN PRN Reason: Pain, Mild (1-3) Amlodipine Besylate (Norvasc) 5 mg PO DAILY [facility] Last Admin: 02/19/17 10:30 Dose: 5 mg Aspirin (Ecotrin) 81 mg PO DAILY [facility] Last Admin: 02/19/17 10:30 Dose: 81 mg Calcium Acetate (Phoslo) 1,334 mg PO TIDCC [facility] Last Admin: 02/19/17 11:26 Dose: 1,334 mg Carvedilol (Coreg) 25 mg PO BID [facility] Last Admin: 02/19/17 10:30 Dose: 25 mg Donepezil HCl (Aricept) 10 mg PO HS [facility] Last Admin: 02/18/17 21:52 Dose: 10 mg Ergocalciferol (Drisdol 50,000 Intl Units Cap) 1 cap PO QWK [facility] Last Admin: 02/18/17 17:35 Dose: 1 cap Hydralazine HCl (Apresoline) 100 mg PO SuMoWeFr [facility] Last Admin: 02/19/17 10:30 Dose: 100 mg Hydralazine HCl (Apresoline) 100 mg PO TuThSa [facility] Last Admin: 02/18/17 17:35 Dose: 100 mg Hydralazine HCl (Apresoline) 100 mg PO SuMoWeFr [facility] Hydralazine HCl (Apresoline) 100 mg PO SuMoWeFr [facility] Hydralazine HCl (Apresoline) 100 mg PO TuThSa [facility] Piperacillin Sod/Tazobactam Sod (Zosyn 2.25 Gm Iv Premix) 2.25 gm in 50 mls @ 100 mls/hr IVPB Q6H [facility] Last Admin: 02/19/17 06:10 Dose: 100 mls/hr Insulin Human Regular (Novolin R) 0 unit SC ACHS [facility] PRN Reason: Protocol Last Admin: 02/19/17 11:34 Dose: Not Given Losartan Potassium (Cozaar) 100 mg PO MWF [facility] Last Admin: 02/19/17 10:30 Dose: 100 mg Memantine (Namenda) 5 mg PO DAILY [facility] Last Admin: 02/19/17 10:30 Dose: 5 mg Tnjfx-4-Cxqz Ethyl Esters (Lovaza) 1 gm PO DAILY [facility] Last Admin: 02/18/17 17:34 Dose: 1 gm Oxycodone/Acetaminophen (Percocet 5/325 Mg Tab) 1 tab PO Q4H PRN PRN Reason: Pain, moderate (4-7) Stop: 02/22/17 09:36 Oxycodone/Acetaminophen (Percocet 5/325 Mg Tab) 2 tab PO Q4H PRN PRN Reason: Pain, severe (8-10) Stop: 02/22/17 09:36 Pantoprazole Sodium (Protonix Ec Tab) 40 mg PO DAILY [facility] Last Admin: 02/19/17 10:30 Dose: 40 mg Rosuvastatin Calcium (Crestor) 5 mg PO HS [facility] Last Admin: 02/18/17 21:52 Dose: 5 mg Tamsulosin HCl (Flomax) 0.4 mg PO DAILY [facility] Last Admin: 02/19/17 10:30 Dose: 0.4 mg - Labs Labs: 02/19/17 06:15 02/19/17 06:15 PT 12.3 SECONDS (9.7-12.2) H 02/18/17 08:32 INR 1.1 02/18/17 08:32 APTT 39 SECONDS (21-34) H 02/18/17 08:32 - Constitutional Appears: Non-toxic, Chronically Ill - Head Exam Head Exam: NORMOCEPHALIC - Eye Exam Eye Exam: PERRL. absent: Scleral icterus - ENT Exam ENT Exam: Mucous Membranes Dry - Neck Exam Neck Exam: absent: Lymphadenopathy - Respiratory Exam Respiratory Exam: Decreased Breath Sounds, Clear to Ausculation Bilateral - Cardiovascular Exam Cardiovascular Exam: REGULAR RHYTHM - GI/Abdominal Exam GI & Abdominal Exam: Distended, Soft - Rectal Exam Rectal Exam: Deferred - Exam Exam: NORMAL INSPECTION - Extremities Exam Extremities Exam: absent: Calf Tenderness, Pedal Edema - Back Exam Back Exam: absent: CVA tenderness (L), CVA tenderness (R) - Neurological Exam Neurological Exam: Alert, Awake, Oriented x3 Assessment and Plan (1) CKD (chronic kidney disease) requiring chronic dialysis Status: Acute (2) Toe gangrene Status: Acute (3) Essential hypertension Status: Acute (4) Renal failure Status: Acute (5) Type II diabetes mellitus Status: Acute
[2017-02-19] MEDS: Oxycodone/Acetaminophen 5/325 mg Tab PO PRN (21:42)
--- NOTE | 2017-02-19 23:09 | OP ---
PROCEDURE DATE: 02/19/2017 SURGEON: Nelson Lopez DPM, FACFAS SPINNER OPERATOR: Poncho Chavez DPM, PGY-2. NURSING ASSOC: Dr. Heard. ANESTHESIA: IV sedation with local. PREOPERATIVE DIAGNOSIS: Left foot third digit gangrene. POSTOPERATIVE DIAGNOSIS: Left foot third digit gangrene. NAME OF PROCEDURE: Left foot partial third ray amputation. INDICATIONS: The patient is a 76-year-old diabetic male who developed left third digit gangrene secondary to diabetes and peripheral vascular disease. He underwent vascular intervention with aortofemoral angiogram with Dr. Jay in 11/2016. However, he currently presents with progressive gangrene of his left third toe and now requires an amputation as a result. dr. Lopez reviewed case with Dr. Jay on 02/16/2017 and his recommendation is for amputation 3rd toe left foot. The patient signed the consent after careful explanation of risks, benefits, complications, and alternatives for the surgical procedure. No guarantees were given nor implied. The patient's n.p.o. status was confirmed prior to taking the patient to the OR. The patient has been receiving IV antibiotics during his admission in the hospital. PREPARATION: The patient was brought to the operating room and placed on the operating room table in supine position. After induction of IV sedation, the patient received a total of 15 mL of a 1:1 mixture of 0.5% Marcaine plain and 2 % lidocaine plain in a local block fashion to the left foot. Once local anesthesia was achieved, the left foot was then prepped and draped in the usual sterile manner and the procedure began. A tourniquet was not necessary for this procedure. PROCEDURE: Attention was directed to the left third toe, which appeared to be gangrenous starting at the level of the PIPJ and extending distally. At this time, a #15 blade was used to make a racquet type incision in a single layer straight down to the level of the bone. The incision started dorsally at the level of the third metatarsophalangeal joint and the incision was then carried distally at both the lateral and medial aspects of the toe to end at the plantar aspect of the base of the toe. These incisions were deepened down to the level of the metatarsophalangeal joint. The third toe was now disarticulated at the level of the third MPJ by freeing up all the ligamentous and tendinous attachments using small Inman scissors. Once freed from all of its soft tissue attachments, the third digit was excised completely. A deep culture was now taken from the proximal phalanx of the excised third digit. The excised third digit was now passed from the operative field to be sent to pathology. Attention was now directed to the third metatarsal head, which was now exposed within the surgical site. A sagittal saw was now used to resect the third metatarsal head by creating the cut in a dorsal distal to plantar proximal orientation to avoid any plantar bony prominences. The remained metatarsal bone was noted to be of sound integrity. The resected third metatarsal head was now freed from all of its soft tissue attachments medially, laterally and plantarly using small collar & crown scissors. Once completely freed, the resected bone was then passed from the operative field to be sent for pathology. At this time, a fresh #15 blade was used to excise any remaining necrotic and nonviable tissue from within the surgical site. The surgical wound was then irrigated with a 3 liter amount of sterile normal saline solution using a pulse lavage system. Next, the wound was gently packed using quarter inch iodoform packing to act as a drain. The skin was then reapproximated and coapted with 4-0 nylon in a simple suture technique. A 4-0 nylon suture was then inserted at both the proximal and distal ends of the inserted quarter inch iodoform packing. These suture ends will then be tied together upon advancing the packing during the postoperative dressing change. These suture ends were then wrapped with Coban for protection. The surgical site was then dressed with Adaptic, 4 x 4 gauze, Rosanne, Kerlix and an Shahid bandage. The attending, Dr. Lopez, was present throughout the entire case. POSTOPERATIVE CONDITION: The patient tolerated the anesthesia and procedure well and was escorted to the recovery room with vital signs stable and neurovascular status intact to the left foot. This patient will be seen and followed by Dr. Lopez while the patient remains in the hospital. Poncho Chavez DPM Nelson Lopez DPM cc: [id number] TT: 02/19/2017 23:08:53 deangelo [facility]
[2017-02-20] MEDS: Piperacill/Tazo 2.25gm in Dex 2.25 GM/50 ML BAG IVPB SCH ×4 (01:23→19:00)
[2017-02-20] MEDS: Oxycodone/Acetaminophen 5/325 mg Tab PO PRN (01:33)
[2017-02-20] MEDS: (Novolin R) Insulin Human Regular 100 units/ml vial SC SCH ×4 (07:30→22:20)
--- NOTE | 2017-02-20 07:55 | CP.PCM.PN ---
<Susy Alicia - Last Filed: 02/20/17 14:03> Subjective - Date & Time of Evaluation Date of Evaluation: 02/20/17 Time of Evaluation: 09:00 - Subjective Subjective: PGY1 Medicine note for Dr. Nash Patient seen and examined at bedside during hemodialysis. Patient is POD#1 left 3rd digit amputation. Patient reports pain is controlled with meds and dressings were c/d/i. He denied any complaints of acute headache, dizziness, chest pain, palpitations, SOB, cough, abdominal pain, nausea, vomiting, bowel/ bladder complaints, numbnes/tingling in his legs bilaterally. Objective - Vital Signs/Intake and Output Vital Signs (last 24 hours): Temp Pulse Resp BP Pulse Ox 98 F 64 20 167/72 H 95 02/20/17 00:05 02/20/17 00:05 02/20/17 00:05 02/20/17 00:05 02/20/17 00:05 - Medications Medications: Current Medications Acetaminophen (Tylenol 325mg Tab) 650 mg PO Q6 PRN PRN Reason: Pain, Mild (1-3) Amlodipine Besylate (Norvasc) 5 mg PO DAILY [facility] Last Admin: 02/19/17 10:30 Dose: 5 mg Aspirin (Ecotrin) 81 mg PO DAILY [facility] Last Admin: 02/19/17 10:30 Dose: 81 mg Calcium Acetate (Phoslo) 1,334 mg PO TIDCC [facility] Last Admin: 02/19/17 18:00 Dose: 1,334 mg Carvedilol (Coreg) 25 mg PO BID [facility] Last Admin: 02/19/17 17:59 Dose: 25 mg Donepezil HCl (Aricept) 10 mg PO HS [facility] Last Admin: 02/19/17 21:15 Dose: 10 mg Ergocalciferol (Drisdol 50,000 Intl Units Cap) 1 cap PO QWK [facility] Last Admin: 02/18/17 17:35 Dose: 1 cap Heparin Sodium (Porcine) (Heparin) 5,000 units SC Q12 [facility] Last Admin: 02/19/17 21:15 Dose: 5,000 units Hydralazine HCl (Apresoline) 100 mg PO SuMoWeFr [facility] Last Admin: 02/19/17 10:30 Dose: 100 mg Hydralazine HCl (Apresoline) 100 mg PO TuThSa [facility] Last Admin: 02/18/17 17:35 Dose: 100 mg Hydralazine HCl (Apresoline) 100 mg PO SuMoWeFr [facility] Last Admin: 02/19/17 14:10 Dose: 100 mg Hydralazine HCl (Apresoline) 100 mg PO SuMoWeFr [facility] Last Admin: 02/19/17 18:02 Dose: 100 mg Hydralazine HCl (Apresoline) 100 mg PO TuThSa [facility] Piperacillin Sod/Tazobactam Sod (Zosyn 2.25 Gm Iv Premix) 2.25 gm in 50 mls @ 100 mls/hr IVPB Q6H [facility] Last Admin: 02/20/17 06:08 Dose: 100 mls/hr Insulin Human Regular (Novolin R) 0 unit SC ACHS [facility] PRN Reason: Protocol Last Admin: 02/19/17 21:45 Dose: Not Given Losartan Potassium (Cozaar) 100 mg PO MWF [facility] Last Admin: 02/19/17 10:30 Dose: 100 mg Memantine (Namenda) 5 mg PO DAILY [facility] Last Admin: 02/19/17 10:30 Dose: 5 mg Ybqgz-1-Dyms Ethyl Esters (Lovaza) 1 gm PO DAILY [facility] Last Admin: 02/19/17 10:30 Dose: 1 gm Oxycodone/Acetaminophen (Percocet 5/325 Mg Tab) 1 tab PO Q4H PRN PRN Reason: Pain, moderate (4-7) Stop: 02/22/17 09:36 Oxycodone/Acetaminophen (Percocet 5/325 Mg Tab) 2 tab PO Q4H PRN PRN Reason: Pain, severe (8-10) Stop: 02/22/17 09:36 Last Admin: 02/20/17 01:33 Dose: 2 tab Pantoprazole Sodium (Protonix Ec Tab) 40 mg PO DAILY [facility] Last Admin: 02/19/17 10:30 Dose: 40 mg Rosuvastatin Calcium (Crestor) 5 mg PO HS [facility] Last Admin: 02/19/17 21:12 Dose: 5 mg Tamsulosin HCl (Flomax) 0.4 mg PO DAILY [facility] Last Admin: 02/19/17 10:30 Dose: 0.4 mg - Labs Labs: 02/19/17 06:15 02/19/17 06:15 PT 12.3 SECONDS (9.7-12.2) H 02/18/17 08:32 INR 1.1 02/18/17 08:32 APTT 39 SECONDS (21-34) H 02/18/17 08:32 Assessment and Plan - Assessment and Plan (Free Text) Assessment: 76M PMHx HTN, DM, and ESRD on HD TTS was sent by private podiatry Dr. Lopez for left third toe amputation Plan: Gangrenous toe Podiatry Dr. Lopez consulted, help appreciated. POD#1 left 3rd digit amputation Tylenol 650mg po q6 prn mild pain Percocet 5/325mg 1 tab po q4 prn mod pain Percocet 5/325mg 2 tab po q4 prn severe pain Wound culture + Gram positive cocci Tissue culture pending Bone culture pending Zosyn 2.[address] Burden consulted As per Dr. Burden, if patient is D/C he needs Vancomycin 500mg po HD for 3 doses and Cefepime 1gm daily for [address] Jay consulted by podiatry- f/u reccs HTN Cardio Dr. Keys consulted, help appreciated. Hydralazine 100mg BID on dialysis days, 100mg TID on nondialysis days. Losartan 100mg daily on nondialysis days. Coreg 25mg PO BID. Norvasc 5mg po daily ASA 81mg po daily DM RISS Accuchecks. ESRD On HD TTS. Nephro Dr. Rivera consulted, help appreciated. Continue Phoslo. HLD Crestor 5mg PO HS Lovaza 1gm po daily BPH Flomax 0.4mg PO daily. Dementia Memantine 5mg PO daily Donepezil 10mg PO HS. Prophylactic measure Protonix 40mg po daily Heparin 5000U SC Q12 Renal diet SCD c/i Wound care PT/OT Pt to be weightbearing as tolerated using 4-point walker. Plan discussed with Dr. Charity Alicia PGY1 <Gee Nash - Last Filed: 02/20/17 14:36> Objective - Vital Signs/Intake and Output Vital Signs (last 24 hours): Temp Pulse Resp BP Pulse Ox 97.9 F 70 20 170/70 H 93 L 02/20/17 12:05 02/20/17 12:05 02/20/17 12:05 02/20/17 14:05 02/20/17 12:05 Intake and Output: 02/20/17 02/20/17 06:59 18:59 Intake Total 350 Balance 350 - Medications Medications: Current Medications Acetaminophen (Tylenol 325mg Tab) 650 mg PO Q6 PRN PRN Reason: Pain, Mild (1-3) Amlodipine Besylate (Norvasc) 5 mg PO DAILY [facility] Last Admin: 02/20/17 10:35 Dose: 5 mg Aspirin (Ecotrin) 81 mg PO DAILY [facility] Last Admin: 02/20/17 10:35 Dose: 81 mg Calcium Acetate (Phoslo) 1,334 mg PO TIDCC [facility] Last Admin: 02/20/17 12:15 Dose: 1,334 mg Carvedilol (Coreg) 25 mg PO BID [facility] Last Admin: 02/20/17 10:35 Dose: 25 mg Donepezil HCl (Aricept) 10 mg PO HS [facility] Last Admin: 02/19/17 21:15 Dose: 10 mg Ergocalciferol (Drisdol 50,000 Intl Units Cap) 1 cap PO QWK [facility] Last Admin: 02/18/17 17:35 Dose: 1 cap Heparin Sodium (Porcine) (Heparin) 5,000 units SC Q12 [facility] Last Admin: 02/20/17 10:35 Dose: 5,000 units Hydralazine HCl ([facility]presoline) [facility] Last Admin: 02/19/17 10:30 Dose: 100 mg Hydralazine HCl (Apresoline) 100 mg PO TuTa [facility] Last Admin: 02/18/17 17:35 Dose: 100 mg Hydralazine HCl (Apresoline) [facility] Last Admin: 02/19/17 14:10 Dose: 100 mg [facility]oline) [facility] Last Admin: 02/19/17 18:02 Dose: 100 mg Hydralazine HCl (Apresoline) 100 mg PO TuTa [facility] Last Admin: 02/20/17 10:35 Dose: 100 mg Piperacillin Sod/Tazobactam Sod (Zosyn 2.25 Gm Iv Premix) 2.25 gm in 50 mls @ 100 mls/hr IVPB Q6H [facility] Last Admin: 02/20/17 13:30 Dose: 100 mls/hr Insulin Human Regular (Novolin R) 0 unit SC ACHS [facility] PRN Reason: Protocol Last Admin: 02/20/17 11:30 Dose: Not Given Losartan Potassium (Cozaar) 100 mg PO MWF [facility] Last Admin: 02/19/17 10:30 Dose: 100 mg Memantine (Namenda) 5 mg PO DAILY [facility] Last Admin: 02/20/17 10:35 Dose: 5 mg Sfdnw-8-Ntfp Ethyl Esters (Lovaza) 1 gm PO DAILY [facility] Last Admin: 02/20/17 11:00 Dose: 1 gm Pantoprazole Sodium (Protonix Ec Tab) 40 mg PO DAILY [facility] Last Admin: 02/20/17 10:30 Dose: 40 mg Rosuvastatin Calcium (Crestor) 5 mg PO HS [facility] Last Admin: 02/19/17 21:12 Dose: 5 mg Tamsulosin HCl (Flomax) 0.4 mg PO DAILY [facility] Last Admin: 02/20/17 10:35 Dose: 0.4 mg - Labs Labs: 02/20/17 07:46 02/20/17 07:46 PT 12.3 SECONDS (9.7-12.2) H 02/18/17 08:32 INR 1.1 02/18/17 08:32 APTT 39 SECONDS (21-34) H 02/18/17 08:32 Attending/Attestation - Attestation I have personally seen and examined this patient.: Yes I have fully participated in the care of the patient.: Yes I have reviewed all pertinent clinical information, including history, physical exam and plan: Yes Notes (Text): 02/20/17 14:35 Patient was seen and examined at bedside with the resident Patient appears comfortable absent in hemodialysis now Continue hemodialysis as per schedule Patient is postoperative day #1 for left foot third toe gangrene Start physical therapy. Continue anti-but suspect recommendations of ID Discharge planning after physical therapy evaluation. I discussed the plan of care with the resident and agree with the above history and physical and assessment/plan but the resident.
[2017-02-20 08:09] LABS: BASO # 0.1 K/uL (0.0-0.2); EOS # 0.1 K/uL (0.0-0.7); EOS % 1.4 % (0.0-4.0); HEMATOCRIT 35.4 % (35.0-51.0); LYMPH # 1.2 K/uL (1.0-4.3); LYMPH % 17.6 % (20.0-40.0); MEAN CELL VOLUME 89.5 fL (80.0-94.0); MEAN CORPUSCULAR HEMOGLOBIN 29.1 pg (27.0-31.0); MEAN CORPUSCULAR HGB CONC 32.5 g/dL (33.0-37.0); MEAN PLATELET VOLUME 9.6 fL (7.2-11.7); MONO # 0.4 K/uL (0.0-0.8); MONO % 6.3 % (0.0-10.0); NRBC % 0.1 % (0.0-2.0); RED CELL DISTRIBUTION WIDTH 17.7 % (11.5-14.5); WHITE BLOOD COUNT 6.6 K/uL (4.8-10.8)
[2017-02-20 08:13] LABS: POTASSIUM 4.6 mmol/L (3.6-5.2)
[2017-02-20 08:16] LABS: ALB/GLOB RATIO 1.2 (1.0-2.1); BILIRUBIN,TOTAL 1.1 mg/dL (0.2-1.3); TOTAL PROTEIN 7.1 g/dL (6.3-8.3)
[2017-02-20 08:17] LABS: CALCIUM 8.2 mg/dl (8.6-10.4); MAGNESIUM 2.2 mg/dL (1.6-2.3); PHOSPHOROUS 5.5 mg/dL (2.5-4.5)
--- NOTE | 2017-02-20 08:25 | CP.PCM.PN ---
Subjective - Date & Time of Evaluation Date of Evaluation: 02/20/17 Time of Evaluation: 12:20 - Subjective Subjective: 76 y/o male seen and evaluated at bedside this morning with attending Dr. Lopez present. Evaluating pt on POD#1 s/p left 3rd digit amputation. P Patient currently denies any F/C/N/V/SOB. Denies any pedal pain at this time. No dressing was noted to his Left foot. Objective - Vital Signs/Intake and Output Vital Signs (last 24 hours): Temp Pulse Resp BP Pulse Ox 98.0 F 69 20 200/83 H 95 02/20/17 08:13 02/20/17 08:13 02/20/17 08:13 02/20/17 08:13 02/20/17 08:13 - Medications Medications: Current Medications Acetaminophen (Tylenol 325mg Tab) 650 mg PO Q6 PRN PRN Reason: Pain, Mild (1-3) Amlodipine Besylate (Norvasc) 5 mg PO DAILY [facility] Last Admin: 02/19/17 10:30 Dose: 5 mg Aspirin (Ecotrin) 81 mg PO DAILY [facility] Last Admin: 02/19/17 10:30 Dose: 81 mg Calcium Acetate (Phoslo) 1,334 mg PO TIDCC [facility] Last Admin: 02/19/17 18:00 Dose: 1,334 mg Carvedilol (Coreg) 25 mg PO BID [facility] Last Admin: 02/19/17 17:59 Dose: 25 mg Donepezil HCl (Aricept) 10 mg PO HS [facility] Last Admin: 02/19/17 21:15 Dose: 10 mg Ergocalciferol (Drisdol 50,000 Intl Units Cap) 1 cap PO QWK [facility] Last Admin: 02/18/17 17:35 Dose: 1 cap Heparin Sodium (Porcine) (Heparin) 5,000 units SC Q12 [facility] Last Admin: 02/19/17 21:15 Dose: 5,000 units Hydralazine HCl (Apresoline) 100 mg PO SuMoWeFr [facility] Last Admin: 02/19/17 10:30 Dose: 100 mg Hydralazine HCl (Apresoline) 100 mg PO TuThSa [facility] Last Admin: 02/18/17 17:35 Dose: 100 mg Hydralazine HCl (Apresoline) 100 mg PO SuMoWeFr [facility] Last Admin: 02/19/17 14:10 Dose: 100 mg Hydralazine HCl (Apresoline) 100 mg PO SuMoWeFr [facility] Last Admin: 02/19/17 18:02 Dose: 100 mg Hydralazine HCl (Apresoline) 100 mg PO TuThSa [facility] Piperacillin Sod/Tazobactam Sod (Zosyn 2.25 Gm Iv Premix) 2.25 gm in 50 mls @ 100 mls/hr IVPB Q6H [facility] Last Admin: 02/20/17 06:08 Dose: 100 mls/hr Insulin Human Regular (Novolin R) 0 unit SC ACHS [facility] PRN Reason: Protocol Last Admin: 02/19/17 21:45 Dose: Not Given Losartan Potassium (Cozaar) 100 mg PO MWF [facility] Last Admin: 02/19/17 10:30 Dose: 100 mg Memantine (Namenda) 5 mg PO DAILY [facility] Last Admin: 02/19/17 10:30 Dose: 5 mg Redao-1-Ivxy Ethyl Esters (Lovaza) 1 gm PO DAILY [facility] Last Admin: 02/19/17 10:30 Dose: 1 gm Pantoprazole Sodium (Protonix Ec Tab) 40 mg PO DAILY [facility] Last Admin: 02/19/17 10:30 Dose: 40 mg Rosuvastatin Calcium (Crestor) 5 mg PO HS [facility] Last Admin: 02/19/17 21:12 Dose: 5 mg Tamsulosin HCl (Flomax) 0.4 mg PO DAILY [facility] Last Admin: 02/19/17 10:30 Dose: 0.4 mg - Labs Labs: 02/19/17 06:15 02/20/17 07:46 PT 12.3 SECONDS (9.7-12.2) H 02/18/17 08:32 INR 1.1 02/18/17 08:32 APTT 39 SECONDS (21-34) H 02/18/17 08:32 - Constitutional Appears: Well, Non-toxic, No Acute Distress - Extremities Exam Additional comments: Left foot examination: Dressings clean, dry, and intact, minor sanginous strikethrough to outer dressing. Vascular: DP/PT pulses non-palpable; capillary fill time delayed 4 secs to digits 1-2 and 4-5. Neuro: light touch and motor function grossly intact; protective sensation grossly diminished Derm: Left 3rd digit amputation site is well approximated all sutures intact. No purulence is noted upon expungement of drainage sites. No signs of ascending cellulitis noted at this time. - Neurological Exam Neurological Exam: Alert, Awake, Oriented x3 - Psychiatric Exam Psychiatric exam: Normal Affect, Normal Mood Assessment and Plan - Assessment and Plan (Free Text) Assessment: 76 y/o male POD#1 s/p left 3rd digit amputation, secondary to PVD and DM Plan: Patient evaluated and treated at bedside with attending, Dr. Lopez. Attending was present during entire evaluation. Labs and vitals reviewed: WBC 6.6; afebrile Intra-operative wound cultures: pending. Removed packing, tied of open distal and proximal suture sites. Redressed surgical site with betadine, 4x4 gauze, DSD, and BEAU. IV abx per ID. Patient to continue hemodialysis. All of the patient's questions and concerns were addressed Pt to be weightbearing as tolerated using 4-point walker. Podiatry to follow while patient remains in house
--- NOTE | 2017-02-20 10:07 | CP.PCM.PN ---
Subjective - Date & Time of Evaluation Date of Evaluation: 02/20/17 Time of Evaluation: 10:04 - Subjective Subjective: Notes reviewed Comfortable in HD unit Seen on dialysis qb400 Pain controlled NO cp or palp, no sob or cough, no n/v/d ROS 10 point negative and as above Objective - Vital Signs/Intake and Output Vital Signs (last 24 hours): Temp Pulse Resp BP Pulse Ox 98 F 61 18 195/79 H 95 02/20/17 08:35 02/20/17 08:35 02/20/17 08:35 02/20/17 08:50 02/20/17 08:13 - Medications Medications: Current Medications Acetaminophen (Tylenol 325mg Tab) 650 mg PO Q6 PRN PRN Reason: Pain, Mild (1-3) Amlodipine Besylate (Norvasc) 5 mg PO DAILY [facility] Last Admin: 02/19/17 10:30 Dose: 5 mg Aspirin (Ecotrin) 81 mg PO DAILY [facility] Last Admin: 02/19/17 10:30 Dose: 81 mg Calcium Acetate (Phoslo) 1,334 mg PO TIDCC [facility] Last Admin: 02/19/17 18:00 Dose: 1,334 mg Carvedilol (Coreg) 25 mg PO BID [facility] Last Admin: 02/19/17 17:59 Dose: 25 mg Donepezil HCl (Aricept) 10 mg PO HS [facility] Last Admin: 02/19/17 21:15 Dose: 10 mg Ergocalciferol (Drisdol 50,000 Intl Units Cap) 1 cap PO QWK [facility] Last Admin: 02/18/17 17:35 Dose: 1 cap Heparin Sodium (Porcine) (Heparin) 5,000 units SC Q12 [facility] Last Admin: 02/19/17 21:15 Dose: 5,000 units Hydralazine HCl (Apresoline) 100 mg PO SuMoWeFr [facility] Last Admin: 02/19/17 10:30 Dose: 100 mg Hydralazine HCl (Apresoline) 100 mg PO TuThSa [facility] Last Admin: 02/18/17 17:35 Dose: 100 mg Hydralazine HCl (Apresoline) 100 mg PO SuMoWeFr [facility] Last Admin: 02/19/17 14:10 Dose: 100 mg Hydralazine HCl (Apresoline) 100 mg PO SuMoWeFr [facility] Last Admin: 02/19/17 18:02 Dose: 100 mg Hydralazine HCl (Apresoline) 100 mg PO TuTa [facility] Piperacillin Sod/Tazobactam Sod (Zosyn 2.25 Gm Iv Premix) 2.25 gm in 50 mls @ 100 mls/hr IVPB Q6H [facility] Last Admin: 02/20/17 06:08 Dose: 100 mls/hr Insulin Human Regular (Novolin R) 0 unit SC ACHS [facility] PRN Reason: Protocol Last Admin: 02/19/17 21:45 Dose: Not Given Losartan Potassium (Cozaar) 100 mg PO MWF [facility] Last Admin: 02/19/17 10:30 Dose: 100 mg Memantine (Namenda) 5 mg PO DAILY [facility] Last Admin: 02/19/17 10:30 Dose: 5 mg Gdoxm-5-Kzpz Ethyl Esters (Lovaza) 1 gm PO DAILY [facility] Last Admin: 02/19/17 10:30 Dose: 1 gm Pantoprazole Sodium (Protonix Ec Tab) 40 mg PO DAILY [facility] Last Admin: 02/19/17 10:30 Dose: 40 mg Rosuvastatin Calcium (Crestor) 5 mg PO [facility] Last Admin: 02/19/17 21:12 Dose: 5 mg Tamsulosin HCl (Flomax) 0.4 mg PO DAILY [facility] Last Admin: 02/19/17 10:30 Dose: 0.4 mg - Labs Labs: 02/20/17 07:46 02/20/17 07:46 PT 12.3 SECONDS (9.7-12.2) H 02/18/17 08:32 INR 1.1 02/18/17 08:32 APTT 39 SECONDS (21-34) H 02/18/17 08:32 - Constitutional Appears: Well, Non-toxic - Head Exam Head Exam: ATRAUMATIC, NORMAL INSPECTION - Eye Exam Eye Exam: EOMI, Normal appearance - ENT Exam ENT Exam: Mucous Membranes Moist, Normal Oropharynx - Respiratory Exam Respiratory Exam: Clear to Ausculation Bilateral. absent: Rales, Rhonchi - Cardiovascular Exam Cardiovascular Exam: +S1, +S2. 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
[2017-02-20] MEDS: Pantoprazole 40 mg EC Tab PO SCH (10:30)
[2017-02-20] MEDS: Omega-3-Acid Ethyl Esters 1 GM Cap PO SCH (11:00)
--- NOTE | 2017-02-20 16:48 | CP.PCM.PN ---
Subjective - Date & Time of Evaluation Date of Evaluation: 02/20/17 Time of Evaluation: 07:00 - Subjective Subjective: VASCULAR SURGERY PROGRESS NOTE FOR DR. AZEVEDO Patient seen and examined at bedside. He had dialysis this AM. Had partial left 3rd digit amputation yesterday with podiatry. Patient has no complaints. Objective - Vital Signs/Intake and Output Vital Signs (last 24 hours): Temp Pulse Resp BP Pulse Ox 98.8 F 70 20 149/66 96 02/20/17 15:00 02/20/17 15:00 02/20/17 15:00 02/20/17 15:00 02/20/17 15:00 Intake and Output: 02/20/17 02/20/17 06:59 18:59 Intake Total 350 Balance 350 - Medications Medications: Current Medications Acetaminophen (Tylenol 325mg Tab) 650 mg PO Q6 PRN PRN Reason: Pain, Mild (1-3) Amlodipine Besylate (Norvasc) 5 mg PO DAILY [facility] Last Admin: 02/20/17 10:35 Dose: 5 mg Aspirin (Ecotrin) 81 mg PO DAILY [facility] Last Admin: 02/20/17 10:35 Dose: 81 mg Calcium Acetate (Phoslo) 1,334 mg PO TIDCC [facility] Last Admin: 02/20/17 12:15 Dose: 1,334 mg Carvedilol (Coreg) 25 mg PO BID [facility] Last Admin: 02/20/17 10:35 Dose: 25 mg Donepezil HCl (Aricept) 10 mg PO HS [facility] Last Admin: 02/19/17 21:15 Dose: 10 mg Ergocalciferol (Drisdol 50,000 Intl Units Cap) 1 cap PO QWK [facility] Last Admin: 02/18/17 17:35 Dose: 1 cap Heparin Sodium (Porcine) (Heparin) 5,000 units SC Q12 [facility] Last Admin: 02/20/17 10:35 Dose: 5,000 units Hydralazine HCl (Apresoline) 100 mg PO SuMoWeFr [facility] Last Admin: 02/19/17 10:30 Dose: 100 mg Hydralazine HCl (Apresoline) 100 mg PO TuThSa [facility] Last Admin: 02/18/17 17:35 Dose: 100 mg Hydralazine HCl (Apresoline) 100 mg PO SuMoWeFr [facility] Last Admin: 02/19/17 14:10 Dose: 100 mg Hydralazine HCl (Apresoline) 100 mg PO SuMoWeFr [facility] Last Admin: 02/19/17 18:02 Dose: 100 mg Hydralazine HCl (Apresoline) 100 mg PO TuThSa [facility] Last Admin: 02/20/17 10:35 Dose: 100 mg Piperacillin Sod/Tazobactam Sod (Zosyn 2.25 Gm Iv Premix) 2.25 gm in 50 mls @ 100 mls/hr IVPB Q6H [facility] Last Admin: 02/20/17 13:30 Dose: 100 mls/hr Insulin Human Regular (Novolin R) 0 unit SC ACHS [facility] PRN Reason: Protocol Last Admin: 02/20/17 11:30 Dose: Not Given Losartan Potassium (Cozaar) 100 mg PO MWF [facility] Last Admin: 02/19/17 10:30 Dose: 100 mg Memantine (Namenda) 5 mg PO DAILY [facility] Last Admin: 02/20/17 10:35 Dose: 5 mg Mrmdb-6-Lkmz Ethyl Esters (Lovaza) 1 gm PO DAILY [facility] Last Admin: 02/20/17 11:00 Dose: 1 gm Pantoprazole Sodium (Protonix Ec Tab) 40 mg PO DAILY [facility] Last Admin: 02/20/17 10:30 Dose: 40 mg Rosuvastatin Calcium (Crestor) 5 mg PO HS [facility] Last Admin: 02/19/17 21:12 Dose: 5 mg Tamsulosin HCl (Flomax) 0.4 mg PO DAILY [facility] Last Admin: 02/20/17 10:35 Dose: 0.4 mg - Labs Labs: 02/20/17 07:46 02/20/17 07:46 PT 12.3 SECONDS (9.7-12.2) H 02/18/17 08:32 INR 1.1 02/18/17 08:32 APTT 39 SECONDS (21-34) H 02/18/17 08:32 - Constitutional Appears: Non-toxic, No Acute Distress - Respiratory Exam Respiratory Exam: NORMAL BREATHING PATTERN. absent: Respiratory Distress - Cardiovascular Exam Cardiovascular Exam: +S1, +S2 - Extremities Exam Additional comments: Dressing in place by podiatry - Neurological Exam Neurological Exam: Alert, Awake, Oriented x3 Assessment and Plan - Assessment and Plan (Free Text) Assessment: 76yo M with left foot gangrenous toe s/p amputation with podiatry team yesterday as well as PVD s/p angio intervention on 12/23/16 - Wound and dressing changes per podiatry - Will evaluate healing progression - No surgical intervention needed - Discussed plan with Dr. Pierre Reyna PGY-2
[2017-02-20] MEDS ORDERED: Oxycodone/Acetaminophen 5/325 mg Tab PO PRN ×2 (17:41→17:42)
[2017-02-21] MEDS: Piperacill/Tazo 2.25gm in Dex 2.25 GM/50 ML BAG IVPB SCH ×2 (01:27→06:08)
[2017-02-21] MEDS: (Novolin R) Insulin Human Regular 100 units/ml vial SC SCH ×4 (07:35→21:31)
--- NOTE | 2017-02-21 08:01 | CP.PCM.PN ---
<Susy Alicia - Last Filed: 02/21/17 15:55> Subjective - Date & Time of Evaluation Date of Evaluation: 02/21/17 Time of Evaluation: 08:15 - Subjective Subjective: PGY1 Medicine note for Dr. Nash Patient seen and examined at bedside. Patient is POD#2 left 3rd digit amputation. Dressings were not changed this AM when I saw patient but as per nursing will be done later today. Patient had HD yesterday. Patient reports pain is controlled with meds. He denied any complaints of acute headache, dizziness, chest pain, palpitations, SOB, cough, abdominal pain, nausea, vomiting, bowel/bladder complaints, numbnes/tingling in his legs bilaterally. Objective - Vital Signs/Intake and Output Vital Signs (last 24 hours): Temp Pulse Resp BP Pulse Ox 98.5 F 60 20 158/69 H 95 02/21/17 00:33 02/21/17 00:33 02/21/17 00:33 02/21/17 00:33 02/21/17 00:33 Intake and Output: 02/21/17 02/21/17 06:59 18:59 Intake Total 350 Balance 350 - Medications Medications: Current Medications Acetaminophen (Tylenol 325mg Tab) 650 mg PO Q6 PRN PRN Reason: Pain, Mild (1-3) Last Admin: 02/20/17 17:30 Dose: 650 mg Amlodipine Besylate (Norvasc) 5 mg PO DAILY [facility] Last Admin: 02/20/17 10:35 Dose: 5 mg Aspirin (Ecotrin) 81 mg PO DAILY [facility] Last Admin: 02/20/17 10:35 Dose: 81 mg Calcium Acetate (Phoslo) 1,334 mg PO TIDCC [facility] Last Admin: 02/20/17 17:42 Dose: 1,334 mg Carvedilol (Coreg) 25 mg PO BID [facility] Last Admin: 02/20/17 17:42 Dose: 25 mg Donepezil HCl (Aricept) 10 mg PO HS [facility] Last Admin: 02/20/17 22:22 Dose: 10 mg Ergocalciferol (Drisdol 50,000 Intl Units Cap) 1 cap PO QWK [facility] Last Admin: 02/18/17 17:35 Dose: 1 cap Heparin Sodium (Porcine) (Heparin) 5,000 units SC Q12 [facility] Last Admin: 02/20/17 22:22 Dose: 5,000 units Hydralazine HCl (Apresoline) [facility] Last Admin: 02/19/17 10:30 Dose: 100 mg Hydralazine HCl (Apresoline) 100 mg PO TuTa [facility] Last Admin: 02/20/17 17:44 Dose: 100 mg Hydralazine HCl (Apresoline) 100 mg PO [facility] Last Admin: 02/19/17 14:10 Dose: 100 mg Hydralazine HCl (Apresoline) 100 mg PO [facility] Last Admin: 02/19/17 18:02 Dose: 100 mg Hydralazine HCl (Apresoline) 100 mg PO [facility] Last Admin: 02/20/17 10:35 Dose: 100 mg Piperacillin Sod/Tazobactam Sod (Zosyn 2.25 Gm Iv Premix) 2.25 gm in 50 mls @ 100 mls/hr IVPB Q6H [facility] Last Admin: 02/21/17 06:08 Dose: 100 mls/hr Insulin Human Regular (Novolin R) 0 unit SC [facility] PRN Reason: Protocol Last Admin: 02/20/17 22:20 Dose: Not Given Losartan Potassium (Cozaar) 100 mg PO [facility] Last Admin: 02/19/17 10:30 Dose: 100 mg Memantine (Namenda) 5 mg PO DAILY [facility] Last Admin: 02/20/17 10:35 Dose: 5 mg Pxelr-2-Kvml Ethyl Esters (Lovaza) 1 gm PO DAILY [facility] Last Admin: 02/20/17 11:00 Dose: 1 gm Oxycodone/Acetaminophen (Percocet 5/325 Mg Tab) 1 tab PO Q6H PRN PRN Reason: Pain, moderate (4-7) Stop: 02/23/17 17:42 Oxycodone/Acetaminophen (Percocet 5/325 Mg Tab) 2 tab PO Q6H PRN PRN Reason: Pain, severe (8-10) Stop: 02/23/17 17:43 Last Admin: 02/20/17 17:56 Dose: 2 tab Pantoprazole Sodium (Protonix Ec Tab) 40 mg PO DAILY [facility] Last Admin: 02/20/17 10:30 Dose: 40 mg Rosuvastatin Calcium (Crestor) 5 mg PO [facility] Last Admin: 02/20/17 22:22 Dose: 5 mg Tamsulosin HCl (Flomax) 0.4 mg PO DAILY [facility] Last Admin: 02/20/17 10:35 Dose: 0.4 mg - Labs Labs: 02/20/17 07:46 02/20/17 07:46 PT 12.3 SECONDS (9.7-12.2) H 02/18/17 08:32 INR 1.1 02/18/17 08:32 APTT 39 SECONDS (21-34) H 02/18/17 08:32 - Constitutional Appears: Non-toxic, No Acute Distress - Head Exam Head Exam: NORMAL INSPECTION - Eye Exam Eye Exam: Normal appearance. absent: Conjunctival injection, Scleral icterus Pupil Exam: NORMAL ACCOMODATION - ENT Exam ENT Exam: Mucous Membranes Moist - Neck Exam Neck Exam: Full ROM, Normal Inspection. absent: Tenderness - Respiratory Exam Respiratory Exam: Clear to Ausculation Bilateral, NORMAL BREATHING PATTERN. absent: Accessory Muscle Use, Rales, Rhonchi, Wheezes, Respiratory Distress - Cardiovascular Exam Cardiovascular Exam: REGULAR RHYTHM, RRR, +S1, +S2 - GI/Abdominal Exam GI & Abdominal Exam: Soft, Normal Bowel Sounds. absent: Firm, Guarding, Rigid, Tenderness - Extremities Exam Extremities Exam: Normal Capillary Refill, Tenderness (L vineyard tender to touch). absent: Pedal Edema Additional comments: L foot wrapped left upper extremity AVF bruit present, pulsation palpated. - Back Exam Back Exam: NORMAL INSPECTION. absent: rash noted, tenderness - Neurological Exam Neurological Exam: Alert, Awake, Oriented x3 - Psychiatric Exam Psychiatric exam: Normal Affect, Normal Mood - Skin Skin Exam: Dry, Intact, Normal Color, Warm Assessment and Plan - Assessment and Plan (Free Text) Assessment: 76M PMHx HTN, DM, and ESRD on HD TTS was sent by private podiatry Dr. Lopez for left third toe amputation Plan: Gangrenous toe Podiatry Dr. Lopez consulted, help appreciated. POD#2 left 3rd digit amputation Tylenol 650mg po q6 prn mild pain Percocet 5/325mg 1 tab po q4 prn mod pain Percocet 5/325mg 2 tab po q4 prn severe pain Wound culture + VRE and Coag negative staph Tigecycline 50mg IVPB Q12H Bone culture few Gram+ cocci in clusters [prelim] final read pending Blood culture negative x [address] Burden consulted Vascular Dr. Jay consulted by podiatry- no surgical intervention HTN Cardio Dr. Keys consulted, help appreciated. Hydralazine 100mg BID on dialysis days, 100mg TID on nondialysis days. Losartan 100mg daily on nondialysis days. Coreg 25mg PO BID. Norvasc 5mg po daily ASA 81mg po daily DM RISS Accuchecks. ESRD On HD TTS. Nephro Dr. Rivera consulted, help appreciated. Continue Phoslo. HLD Crestor 5mg PO HS Lovaza 1gm po daily BPH Flomax 0.4mg PO daily. Dementia Memantine 5mg PO daily Donepezil 10mg PO HS. Prophylactic measure Protonix 40mg po daily Heparin 5000U SC Q12 Renal diet SCD c/i Wound care PT/OT Pt to be weightbearing as tolerated using 4-point walker. Plan discussed with Dr. Charity Alicia PGY1 <Gee Nash - Last Filed: 03/01/17 15:55> Objective - Vital Signs/Intake and Output Vital Signs (last 24 hours): Temp Pulse Resp BP Pulse Ox 98.2 F 73 20 112/39 L 99 02/27/17 16:05 02/27/17 16:05 02/27/17 16:05 02/27/17 16:05 02/27/17 16:05 - Labs Labs: 02/27/17 06:18 02/27/17 06:18 PT 12.3 SECONDS (9.7-12.2) H 02/18/17 08:32 INR 1.1 02/18/17 08:32 APTT 40 SECONDS (21-34) H 02/24/17 07:13 Attending/Attestation - Attestation I have personally seen and examined this patient.: Yes I have fully participated in the care of the patient.: Yes I have reviewed all pertinent clinical information, including history, physical exam and plan: Yes Notes (Text): 03/01/17 15:55 Patient was seen and examined at bedside with the resident. This is a late computer entry. I agree with the above assessment and plan by the resident.
[2017-02-21 08:08] LABS: BASO % 0.8 % (0.0-2.0); EOS # 0.1 K/uL (0.0-0.7); EOS % 2.2 % (0.0-4.0); HEMATOCRIT 34.6 % (35.0-51.0); LYMPH # 1.5 K/uL (1.0-4.3); LYMPH % 26.4 % (20.0-40.0); MEAN CELL VOLUME 88.3 fL (80.0-94.0); MEAN CORPUSCULAR HEMOGLOBIN 29.1 pg (27.0-31.0); MEAN PLATELET VOLUME 9.7 fL (7.2-11.7); MONO # 0.6 K/uL (0.0-0.8); MONO % 9.9 % (0.0-10.0); RED CELL DISTRIBUTION WIDTH 17.4 % (11.5-14.5); WHITE BLOOD COUNT 5.6 K/uL (4.8-10.8)
[2017-02-21 08:24] LABS: POTASSIUM 3.8 mmol/L (3.6-5.2)
[2017-02-21 08:26] LABS: ALB/GLOB RATIO 1.2 (1.0-2.1); BILIRUBIN,TOTAL 0.9 mg/dL (0.2-1.3); TOTAL PROTEIN 6.6 g/dL (6.3-8.3)
[2017-02-21 08:27] LABS: CALCIUM 8.1 mg/dl (8.6-10.4); MAGNESIUM 2.3 mg/dL (1.6-2.3); PHOSPHOROUS 4.7 mg/dL (2.5-4.5)
[2017-02-21] MEDS: Omega-3-Acid Ethyl Esters 1 GM Cap PO SCH (09:17)
[2017-02-21] MEDS: Pantoprazole 40 mg EC Tab PO SCH (10:05)
--- NOTE | 2017-02-21 12:06 | CP.PCM.PN ---
Subjective - Date & Time of Evaluation Date of Evaluation: 02/21/17 Time of Evaluation: 11:00 - Subjective Subjective: 76 y/o male seen and evaluated at bedside. Evaluating pt on POD#2 s/p left 3rd digit amputation. Patient currently denies any F/C/N/V/SOB. Denies any pedal pain at this time. Dressing was noted to clean, dry, and intact to his left foot. Objective - Vital Signs/Intake and Output Vital Signs (last 24 hours): Temp Pulse Resp BP Pulse Ox 98.4 F 65 20 197/81 H 93 L 02/21/17 08:14 02/21/17 08:14 02/21/17 08:14 02/21/17 09:15 02/21/17 08:14 Intake and Output: 02/21/17 02/21/17 06:59 18:59 Intake Total 350 Balance 350 - Medications Medications: Current Medications Acetaminophen (Tylenol 325mg Tab) 650 mg PO Q6 PRN PRN Reason: Pain, Mild (1-3) Last Admin: 02/20/17 17:30 Dose: 650 mg Amlodipine Besylate (Norvasc) 5 mg PO DAILY [facility] Last Admin: 02/21/17 09:39 Dose: 5 mg Aspirin (Ecotrin) 81 mg PO DAILY [facility] Last Admin: 02/21/17 09:41 Dose: 81 mg Calcium Acetate (Phoslo) 1,334 mg PO TIDCC [facility] Last Admin: 02/21/17 08:05 Dose: 1,334 mg Carvedilol (Coreg) 25 mg PO BID [facility] Last Admin: 02/21/17 09:15 Dose: 25 mg Donepezil HCl (Aricept) 10 mg PO HS [facility] Last Admin: 02/20/17 22:22 Dose: 10 mg Ergocalciferol (Drisdol 50,000 Intl Units Cap) 1 cap PO QWK [facility] Last Admin: 02/18/17 17:35 Dose: 1 cap Heparin Sodium (Porcine) (Heparin) 5,000 units SC Q12 [facility] Last Admin: 02/21/17 09:16 Dose: 5,000 units Hydralazine HCl (Apresoline) 100 mg PO [facility] Last Admin: 02/21/17 09:14 Dose: 100 mg Hydralazine HCl (Apresoline) 100 mg PO TuThSa [facility] Last Admin: 02/20/17 17:44 Dose: 100 mg Hydralazine HCl (Apresoline) 100 mg PO [facility] Last Admin: 02/19/17 14:10 Dose: 100 mg Hydralazine HCl (Apresoline) 100 mg PO [facility] Last Admin: 02/19/17 18:02 Dose: 100 mg Hydralazine HCl (Apresoline) 100 mg PO TuTa [facility] Last Admin: 02/20/17 10:35 Dose: 100 mg Insulin Human Regular (Novolin R) 0 unit SC [facility] PRN Reason: Protocol Last Admin: 02/21/17 07:35 Dose: Not Given Losartan Potassium (Cozaar) 100 mg PO F [facility] Last Admin: 02/19/17 10:30 Dose: 100 mg Memantine (Namenda) 5 mg PO DAILY [facility] Last Admin: 02/21/17 09:38 Dose: 5 mg Mwtxq-[id number] Ethyl Esters (Lovaza) 1 gm PO DAILY [facility] Last Admin: 02/21/17 09:17 Dose: 1 gm Oxycodone/Acetaminophen (Percocet 5/325 Mg Tab) 1 tab PO Q6H PRN PRN Reason: Pain, moderate (4-7) Stop: 02/23/17 17:42 Oxycodone/Acetaminophen (Percocet 5/325 Mg Tab) 2 tab PO Q6H PRN PRN Reason: Pain, severe (8-10) Stop: 02/23/17 17:43 Last Admin: 02/20/17 17:56 Dose: 2 tab Pantoprazole Sodium (Protonix Ec Tab) 40 mg PO DAILY [facility] Last Admin: 02/21/17 10:05 Dose: 40 mg Rosuvastatin Calcium (Crestor) 5 mg PO [facility] Last Admin: 02/20/17 22:22 Dose: 5 mg Tamsulosin HCl (Flomax) 0.4 mg PO DAILY [facility] Last Admin: 02/21/17 09:16 Dose: 0.4 mg - Labs Labs: 02/21/17 07:56 02/21/17 07:56 PT 12.3 SECONDS (9.7-12.2) H 02/18/17 08:32 INR 1.1 02/18/17 08:32 APTT 39 SECONDS (21-34) H 02/18/17 08:32 - Constitutional Appears: Well, Non-toxic, No Acute Distress - Extremities Exam Additional comments: Left foot examination: Dressings clean, dry, and intact, minor sanginous strikethrough to outer dressing. Vascular: DP/PT pulses non-palpable; capillary fill time delayed 4 secs to digits 1-2 and 4-5. Neuro: light touch and motor function grossly intact; protective sensation grossly diminished Derm: Left 3rd digit amputation site is well approximated all sutures intact. No purulence is noted upon expungement of drainage sites. No signs of ascending cellulitis noted at this time. - Neurological Exam Neurological Exam: Alert, Awake, Oriented x3 - Psychiatric Exam Psychiatric exam: Normal Affect, Normal Mood Assessment and Plan - Assessment and Plan (Free Text) Assessment: 76 y/o male POD#2 s/p left 3rd digit amputation, secondary to PVD and DM Plan: Patient evaluated and treated at bedside. Discussed with attending, Dr. Lopez. Labs and vitals reviewed: WBC 5.6; afebrile Wound cultures shows: VRE and Coag (-) Staph. IV abx per ID. Redressed surgical site with betadine, 4x4 gauze, DSD, and BEAU. Patient to continue hemodialysis. All of the patient's questions and concerns were addressed Pt to be weightbearing as tolerated using 4-point walker. Podiatry to follow while patient remains in house
--- NOTE | 2017-02-21 16:12 | CP.PCM.PN ---
Subjective - Date & Time of Evaluation Date of Evaluation: 02/21/17 Time of Evaluation: 10:00 - Subjective Subjective: vre from wound tygacil added cont rx 7 days Objective - Vital Signs/Intake and Output Vital Signs (last 24 hours): Temp Pulse Resp BP Pulse Ox 98.4 F 65 20 197/81 H 93 L 02/21/17 08:14 02/21/17 08:14 02/21/17 08:14 02/21/17 09:15 02/21/17 08:14 Intake and Output: 02/21/17 02/21/17 06:59 18:59 Intake Total 350 Balance 350 - Medications Medications: Current Medications Acetaminophen (Tylenol 325mg Tab) 650 mg PO Q6 PRN PRN Reason: Pain, Mild (1-3) Last Admin: 02/20/17 17:30 Dose: 650 mg Amlodipine Besylate (Norvasc) 5 mg PO DAILY [facility] Last Admin: 02/21/17 09:39 Dose: 5 mg Aspirin (Ecotrin) 81 mg PO DAILY [facility] Last Admin: 02/21/17 09:41 Dose: 81 mg Calcium Acetate (Phoslo) 1,334 mg PO TIDCC [facility] Last Admin: 02/21/17 12:50 Dose: 1,334 mg Carvedilol (Coreg) 25 mg PO BID [facility] Last Admin: 02/21/17 09:15 Dose: 25 mg Donepezil HCl (Aricept) 10 mg PO HS [facility] Last Admin: 02/20/17 22:22 Dose: 10 mg Ergocalciferol (Drisdol 50,000 Intl Units Cap) 1 cap PO QWK [facility] Last Admin: 02/18/17 17:35 Dose: 1 cap Heparin Sodium (Porcine) (Heparin) 5,000 units SC Q12 [facility] Last Admin: 02/21/17 09:16 Dose: 5,000 units Hydralazine HCl (Apresoline) 100 mg PO [facility]Mo[facility] Last Admin: 02/21/17 09:14 Dose: 100 mg Hydralazine HCl (Apresoline) 100 mg PO TuThSa [facility] Last Admin: 02/20/17 17:44 Dose: 100 mg Hydralazine HCl (Apresoline) 100 mg PO [facility] Last Admin: 02/21/17 13:54 Dose: 100 mg Hydralazine HCl (Apresoline) 100 mg PO [facility] Last Admin: 02/19/17 18:02 Dose: 100 mg Hydralazine HCl (Apresoline) 100 mg PO TuThSa [facility] Last Admin: 02/20/17 10:35 Dose: 100 mg Tigecycline 50 mg/ Sodium (Chloride) 100 mls @ 100 mls/hr IVPB Q12H [facility] Insulin Human Regular (Novolin R) 0 unit SC ACHS [facility] PRN Reason: Protocol Last Admin: 02/21/17 11:30 Dose: 1 unit Losartan Potassium (Cozaar) 100 mg PO MWF [facility] Last Admin: 02/19/17 10:30 Dose: 100 mg Memantine (Namenda) 5 mg PO DAILY [facility] Last Admin: 02/21/17 09:38 Dose: 5 mg Gutdg-1-Gmvm Ethyl Esters (Lovaza) 1 gm PO DAILY [facility] Last Admin: 02/21/17 09:17 Dose: 1 gm Oxycodone/Acetaminophen (Percocet 5/325 Mg Tab) 1 tab PO Q6H PRN PRN Reason: Pain, moderate (4-7) Stop: 02/23/17 17:42 Last Admin: 02/21/17 12:44 Dose: 1 tab Oxycodone/Acetaminophen (Percocet 5/325 Mg Tab) 2 tab PO Q6H PRN PRN Reason: Pain, severe (8-10) Stop: 02/23/17 17:43 Last Admin: 02/20/17 17:56 Dose: 2 tab Pantoprazole Sodium (Protonix Ec Tab) 40 mg PO DAILY [facility] Last Admin: 02/21/17 10:05 Dose: 40 mg Rosuvastatin Calcium (Crestor) 5 mg PO HS [facility] Last Admin: 02/20/17 22:22 Dose: 5 mg Tamsulosin HCl (Flomax) 0.4 mg PO DAILY [facility] Last Admin: 02/21/17 09:16 Dose: 0.4 mg - Labs Labs: 02/21/17 07:56 02/21/17 07:56 PT 12.3 SECONDS (9.7-12.2) H 02/18/17 08:32 INR 1.1 02/18/17 08:32 APTT 39 SECONDS (21-34) H 02/18/17 08:32 - Constitutional Appears: Non-toxic, Cachectic, Chronically Ill - Head Exam Head Exam: NORMOCEPHALIC - Eye Exam Eye Exam: PERRL. absent: Scleral icterus - ENT Exam ENT Exam: Mucous Membranes Dry - Neck Exam Neck Exam: absent: Lymphadenopathy - Respiratory Exam Respiratory Exam: Decreased Breath Sounds - Cardiovascular Exam Cardiovascular Exam: REGULAR RHYTHM - GI/Abdominal Exam GI & Abdominal Exam: Distended - Rectal Exam Rectal Exam: Deferred - Exam Exam: NORMAL INSPECTION Assessment and Plan (1) CKD (chronic kidney disease) requiring chronic dialysis Status: Acute (2) Toe gangrene Status: Acute (3) Essential hypertension Status: Acute (4) Renal failure Status: Acute (5) Type II diabetes mellitus Status: Acute
--- NOTE | 2017-02-22 00:39 | CP.PCM.PN ---
<IliaDayo johnson - Last Filed: 02/22/17 03:14> Subjective - Date & Time of Evaluation Date of Evaluation: 02/22/17 Time of Evaluation: 00:36 - Subjective Subjective: PGY-1 progress note Pt seen and examined at bedside. He is POD#3, left 3rd digit amputation. Pt reports dressings were changed last evening. He denies any current pain in his foot. Pt for dialysis tomorrow. He denied any complaints of acute headache, dizziness, chest pain, palpitations, SOB, cough, abdominal pain, nausea, vomiting, bowel/bladder complaints, numbness/tingling in his legs bilaterally. Objective - Vital Signs/Intake and Output Vital Signs (last 24 hours): Temp Pulse Resp BP Pulse Ox 98.4 F 56 L 20 166/66 H 94 L 02/21/17 16:00 02/21/17 16:00 02/21/17 16:00 02/21/17 18:34 02/21/17 16:00 - Medications Medications: Current Medications Acetaminophen (Tylenol 325mg Tab) 650 mg PO Q6 PRN PRN Reason: Pain, Mild (1-3) Last Admin: 02/20/17 17:30 Dose: 650 mg Amlodipine Besylate (Norvasc) 5 mg PO DAILY [facility] Last Admin: 02/21/17 09:39 Dose: 5 mg Aspirin (Ecotrin) 81 mg PO DAILY [facility] Last Admin: 02/21/17 09:41 Dose: 81 mg Calcium Acetate (Phoslo) 1,334 mg PO TIDCC [facility] Last Admin: 02/21/17 17:45 Dose: 1,334 mg Carvedilol (Coreg) 25 mg PO BID [facility] Last Admin: 02/21/17 18:34 Dose: 25 mg Donepezil HCl (Aricept) 10 mg PO HS [facility] Last Admin: 02/21/17 21:31 Dose: 10 mg Ergocalciferol (Drisdol 50,000 Intl Units Cap) 1 cap PO QWK [facility] Last Admin: 02/18/17 17:35 Dose: 1 cap Heparin Sodium (Porcine) (Heparin) 5,000 units SC Q12 [facility] Last Admin: 02/21/17 21:31 Dose: 5,000 units Hydralazine HCl (Apresoline) 100 mg PO SuMoWeFr [facility] Last Admin: 02/21/17 09:14 Dose: 100 mg Hydralazine HCl (Apresoline) 100 mg PO TuThSa [facility] Last Admin: 02/20/17 17:44 Dose: 100 mg Hydralazine HCl (Apresoline) 100 mg PO SuMoWeFr [facility] Last Admin: 02/21/17 13:54 Dose: 100 mg Hydralazine HCl (Apresoline) 100 mg PO SuMoWeFr [facility] Last Admin: 02/21/17 18:33 Dose: 100 mg Hydralazine HCl (Apresoline) 100 mg PO TuTa [facility] Last Admin: 02/20/17 10:35 Dose: 100 mg Tigecycline 50 mg/ Sodium (Chloride) 100 mls @ 100 mls/hr IVPB Q12H [facility] Insulin Human Regular (Novolin R) 0 unit SC [facility] PRN Reason: Protocol Last Admin: 02/21/17 21:31 Dose: Not Given Losartan Potassium (Cozaar) 100 mg PO F [facility] Last Admin: 02/19/17 10:30 Dose: 100 mg Memantine (Namenda) 5 mg PO DAILY [facility] Last Admin: 02/21/17 09:38 Dose: 5 mg Huuso-8-Rupm Ethyl Esters (Lovaza) 1 gm PO DAILY [facility] Last Admin: 02/21/17 09:17 Dose: 1 gm Oxycodone/Acetaminophen (Percocet 5/325 Mg Tab) 1 tab PO Q6H PRN PRN Reason: Pain, moderate (4-7) Stop: 02/23/17 17:42 Last Admin: 02/21/17 12:44 Dose: 1 tab Oxycodone/Acetaminophen (Percocet 5/325 Mg Tab) 2 tab PO Q6H PRN PRN Reason: Pain, severe (8-10) Stop: 02/23/17 17:43 Last Admin: 02/20/17 17:56 Dose: 2 tab Pantoprazole Sodium (Protonix Ec Tab) 40 mg PO DAILY [facility] Last Admin: 02/21/17 10:05 Dose: 40 mg Rosuvastatin Calcium (Crestor) 5 mg PO [facility] Last Admin: 02/21/17 21:31 Dose: 5 mg Tamsulosin HCl (Flomax) 0.4 mg PO DAILY [facility] Last Admin: 02/21/17 09:16 Dose: 0.4 mg - Labs Labs: 02/21/17 07:56 05/28/17 07:56 PT 12.3 SECONDS (9.7-12.2) H 02/18/17 08:32 INR 1.1 02/18/17 08:32 APTT 39 SECONDS (21-34) H 02/18/17 08:32 - Constitutional Appears: Non-toxic, No Acute Distress - Head Exam Head Exam: ATRAUMATIC, NORMAL INSPECTION - Eye Exam Eye Exam: EOMI Pupil Exam: PERRL - ENT Exam ENT Exam: Mucous Membranes Moist - Neck Exam Neck Exam: Full ROM - Respiratory Exam Respiratory Exam: Clear to Ausculation Bilateral, NORMAL BREATHING PATTERN - Cardiovascular Exam Cardiovascular Exam: REGULAR RHYTHM, +S1, +S2 - GI/Abdominal Exam GI & Abdominal Exam: Soft, Normal Bowel Sounds. absent: Tenderness - Extremities Exam Extremities Exam: Normal Capillary Refill, Normal Inspection, Tenderness (Lt kiln tender) Additional comments: Left foot wrapped, with fresh bandage change LUE AVF present, pulse palpated - Back Exam Back Exam: NORMAL INSPECTION - Neurological Exam Neurological Exam: Awake, Oriented x3 - Psychiatric Exam Psychiatric exam: Normal Affect, Normal Mood - Skin Skin Exam: Normal Color, Warm Assessment and Plan - Assessment and Plan (Free Text) Assessment: 76M PMHx HTN, DM, and ESRD on HD TTS was sent by private podiatry Dr. Lopez for left third toe amputation Plan: Gangrenous toe Podiatry Dr. Lopez consulted, help appreciated. POD#3 left 3rd digit amputation Tylenol 650mg po q6 prn mild pain Percocet 5/325mg 1 tab po q4 prn mod pain Percocet 5/325mg 2 tab po q4 prn severe pain Wound culture + VRE and Coag negative staph Tigecycline 50mg IVPB Q12H Bone culture few Gram+ cocci in clusters [prelim] final read pending Blood culture negative x [address] Burden consulted Vascular Dr. Jay consulted by podiatry- no surgical intervention HTN Cardio Dr. Keys consulted, help appreciated. Hydralazine 100mg BID on dialysis days, 100mg TID on nondialysis days. Losartan 100mg daily on nondialysis days. Coreg 25mg PO BID. Norvasc 5mg po daily ASA 81mg po daily DM RISS Accuchecks. ESRD On HD TTS. Nephro Dr. Rivera consulted, help appreciated. Continue Phoslo. HLD Crestor 5mg PO HS Lovaza 1gm po daily BPH Flomax 0.4mg PO daily. Dementia Memantine 5mg PO daily Donepezil 10mg PO HS. Prophylactic measure Protonix 40mg po daily Heparin 5000U SC Q12 Renal diet SCD c/i Wound care PT/OT Pt to be weightbearing as tolerated using 4-point walker <Luis Erwin H - Last Filed: 02/22/17 11:54> Objective - Vital Signs/Intake and Output Vital Signs (last 24 hours): Temp Pulse Resp BP Pulse Ox 97.7 F 78 20 150/80 94 L 02/22/17 08:23 02/22/17 08:23 02/22/17 08:23 02/22/17 10:48 02/22/17 08:23 - Medications Medications: Current Medications Acetaminophen (Tylenol 325mg Tab) 650 mg PO Q6 PRN PRN Reason: Pain, Mild (1-3) Last Admin: 02/20/17 17:30 Dose: 650 mg Amlodipine Besylate (Norvasc) 10 mg PO DAILY [facility] Aspirin (Ecotrin) 81 mg PO DAILY [facility] Last Admin: 02/22/17 09:12 Dose: 81 mg Calcium Acetate (Phoslo) 1,334 mg PO TIDCC [facility] Last Admin: 02/22/17 09:12 Dose: 1,334 mg Carvedilol (Coreg) 25 mg PO BID [facility] Last Admin: 02/22/17 09:11 Dose: 25 mg Donepezil HCl (Aricept) 10 mg PO HS [facility] Last Admin: 02/21/17 21:31 Dose: 10 mg Ergocalciferol (Drisdol 50,000 Intl Units Cap) 1 cap PO QWK [facility] Last Admin: 02/18/17 17:35 Dose: 1 cap Heparin Sodium (Porcine) (Heparin) 5,000 units SC Q12 [facility] Last Admin: 02/22/17 09:08 Dose: 5,000 units Hydralazine HCl (Apresoline) 100 mg PO SuMoWeFr [facility] Last Admin: 02/22/17 09:14 Dose: 100 mg Hydralazine HCl (Apresoline) 100 mg PO TuThSa [facility] Last Admin: 02/20/17 17:44 Dose: 100 mg Hydralazine HCl (Apresoline) 100 mg PO SuMoWeFr [facility] Last Admin: 02/21/17 13:54 Dose: 100 mg Hydralazine HCl (Apresoline) 100 mg PO SuMoWeFr [facility] Last Admin: 02/21/17 18:33 Dose: 100 mg Hydralazine HCl (Apresoline) 100 mg PO TuThSa [facility] Last Admin: 02/20/17 10:35 Dose: 100 mg Tigecycline 50 mg/ Sodium (Chloride) 100 mls @ 100 mls/hr IVPB Q12H [facility] Last Admin: 02/22/17 02:14 Dose: 100 mls/hr Insulin Human Regular (Novolin R) 0 unit SC ACHS [facility] PRN Reason: Protocol Last Admin: 02/22/17 08:00 Dose: Not Given Losartan Potassium (Cozaar) 100 mg PO DAILY [facility] Memantine (Namenda) 5 mg PO DAILY [facility] Last Admin: 02/22/17 09:11 Dose: 5 mg Bywmo-7-Jdak Ethyl Esters (Lovaza) 1 gm PO DAILY [facility] Last Admin: 02/22/17 09:12 Dose: 1 gm Oxycodone/Acetaminophen (Percocet 5/325 Mg Tab) 1 tab PO Q6H PRN PRN Reason: Pain, moderate (4-7) Stop: 02/23/17 17:42 Last Admin: 02/21/17 12:44 Dose: 1 tab Oxycodone/Acetaminophen (Percocet 5/325 Mg Tab) 2 tab PO Q6H PRN PRN Reason: Pain, severe (8-10) Stop: 02/23/17 17:43 Last Admin: 02/20/17 17:56 Dose: 2 tab Pantoprazole Sodium (Protonix Ec Tab) 40 mg PO DAILY [facility] Last Admin: 02/22/17 09:13 Dose: 40 mg Rosuvastatin Calcium (Crestor) 5 mg PO HS [facility] Last Admin: 02/21/17 21:31 Dose: 5 mg Tamsulosin HCl (Flomax) 0.4 mg PO DAILY [facility] Last Admin: 02/21/17 09:16 Dose: 0.4 mg - Labs Labs: 02/22/17 07:08 02/22/17 07:08 PT 12.3 SECONDS (9.7-12.2) H 02/18/17 08:32 INR 1.1 02/18/17 08:32 APTT 39 SECONDS (21-34) H 02/18/17 08:32 Attending/Attestation - Attestation I have personally seen and examined this patient.: Yes I have fully participated in the care of the patient.: Yes I have reviewed all pertinent clinical information, including history, physical exam and plan: Yes Notes (Text): 02/22/17 11:51 Medical Attending: Patient was seen and examined by me. Agree with the above note by the resident. Patient was all dressed up and wanted to go. He is POD 3 of partial 3rd left digit amputation. He was just started on IV Tygacil for treatment of VRE + in the bone/soft tissue of the third toe. Blood cultures are negative I explained to the patient that this was not a medication that could be given PO and that [place] he will need to be at [facility] for sometime. Will have to claify with case workers. thank you Luis Erwni 02/22/17 11:53
[2017-02-22 07:35] LABS: BASO # 0.1 K/uL (0.0-0.2); BASO % 1.2 % (0.0-2.0); EOS # 0.1 K/uL (0.0-0.7); EOS % 1.5 % (0.0-4.0); HEMATOCRIT 35.3 % (35.0-51.0); LYMPH # 1.6 K/uL (1.0-4.3); LYMPH % 24.8 % (20.0-40.0); MEAN CORPUSCULAR HGB CONC 32.9 g/dL (33.0-37.0); MEAN PLATELET VOLUME 10.1 fL (7.2-11.7); MONO # 0.6 K/uL (0.0-0.8); MONO % 9.3 % (0.0-10.0); NRBC % 0.1 % (0.0-2.0); RED CELL DISTRIBUTION WIDTH 17.6 % (11.5-14.5); WHITE BLOOD COUNT 6.3 K/uL (4.8-10.8)
[2017-02-22 07:37] LABS: ALB/GLOB RATIO 1.2 (1.0-2.1); BILIRUBIN,TOTAL 0.8 mg/dL (0.2-1.3); TOTAL PROTEIN 6.8 g/dL (6.3-8.3)
[2017-02-22 07:38] LABS: CALCIUM 8.5 mg/dl (8.6-10.4); PHOSPHOROUS 5.8 mg/dL (2.5-4.5)
[2017-02-22 07:39] LABS: MAGNESIUM 2.2 mg/dL (1.6-2.3)
[2017-02-22] MEDS: (Novolin R) Insulin Human Regular 100 units/ml vial SC SCH ×4 (08:00→21:39)
[2017-02-22] MEDS: Omega-3-Acid Ethyl Esters 1 GM Cap PO SCH (09:12)
[2017-02-22] MEDS: Pantoprazole 40 mg EC Tab PO SCH (09:13)
--- NOTE | 2017-02-22 11:19 | CP.PCM.PN ---
Subjective - Date & Time of Evaluation Date of Evaluation: 02/22/17 Time of Evaluation: 11:17 - Subjective Subjective: 76 y/o male seen and evaluated at bedside. Evaluating pt on POD#3 s/p left 3rd digit amputation. Patient currently denies any F/C/N/V/SOB. Denies any pedal pain at this time. Dressing was noted to clean, dry, and intact to his left foot. Objective - Vital Signs/Intake and Output Vital Signs (last 24 hours): Temp Pulse Resp BP Pulse Ox 97.7 F 78 20 150/80 94 L 02/22/17 08:23 02/22/17 08:23 02/22/17 08:23 02/22/17 10:48 02/22/17 08:23 - Medications Medications: Current Medications Acetaminophen (Tylenol 325mg Tab) 650 mg PO Q6 PRN PRN Reason: Pain, Mild (1-3) Last Admin: 02/20/17 17:30 Dose: 650 mg Amlodipine Besylate (Norvasc) 5 mg PO DAILY [facility] Last Admin: 02/22/17 09:13 Dose: 5 mg Aspirin (Ecotrin) 81 mg PO DAILY [facility] Last Admin: 02/22/17 09:12 Dose: 81 mg Calcium Acetate (Phoslo) 1,334 mg PO TIDCC [facility] Last Admin: 02/22/17 09:12 Dose: 1,334 mg Carvedilol (Coreg) 25 mg PO BID [facility] Last Admin: 02/22/17 09:11 Dose: 25 mg Donepezil HCl (Aricept) 10 mg PO HS [facility] Last Admin: 02/21/17 21:31 Dose: 10 mg Ergocalciferol (Drisdol 50,000 Intl Units Cap) 1 cap PO QWK [facility] Last Admin: 02/18/17 17:35 Dose: 1 cap Heparin Sodium (Porcine) (Heparin) 5,000 units SC Q12 [facility] Last Admin: 02/22/17 09:08 Dose: 5,000 units Hydralazine HCl (Apresoline) 100 mg PO SuMoWeFr [facility] Last Admin: 02/22/17 09:14 Dose: 100 mg Hydralazine HCl (Apresoline) 100 mg PO TuThSa [facility] Last Admin: 02/20/17 17:44 Dose: 100 mg Hydralazine HCl (Apresoline) 100 mg PO SuMoWeFr [facility] Last Admin: 02/21/17 13:54 Dose: 100 mg Hydralazine HCl (Apresoline) 100 mg PO SuMoWeFr [facility] Last Admin: 02/21/17 18:33 Dose: 100 mg Hydralazine HCl (Apresoline) 100 mg PO TuThSa [facility] Last Admin: 02/20/17 10:35 Dose: 100 mg Tigecycline 50 mg/ Sodium (Chloride) 100 mls @ 100 mls/hr IVPB Q12H [facility] Last Admin: 02/22/17 02:14 Dose: 100 mls/hr Insulin Human Regular (Novolin R) 0 unit SC ACHS [facility] PRN Reason: Protocol Last Admin: 02/22/17 08:00 Dose: Not Given Losartan Potassium (Cozaar) 100 mg PO MWF [facility] Last Admin: 02/22/17 09:18 Dose: 100 mg Memantine (Namenda) 5 mg PO DAILY [facility] Last Admin: 02/22/17 09:11 Dose: 5 mg Onmde-0-Spzz Ethyl Esters (Lovaza) 1 gm PO DAILY [facility] Last Admin: 02/22/17 09:12 Dose: 1 gm Oxycodone/Acetaminophen (Percocet 5/325 Mg Tab) 1 tab PO Q6H PRN PRN Reason: Pain, moderate (4-7) Stop: 02/23/17 17:42 Last Admin: 02/21/17 12:44 Dose: 1 tab Oxycodone/Acetaminophen (Percocet 5/325 Mg Tab) 2 tab PO Q6H PRN PRN Reason: Pain, severe (8-10) Stop: 02/23/17 17:43 Last Admin: 02/20/17 17:56 Dose: 2 tab Pantoprazole Sodium (Protonix Ec Tab) 40 mg PO DAILY [facility] Last Admin: 02/22/17 09:13 Dose: 40 mg Rosuvastatin Calcium (Crestor) 5 mg PO HS [facility] Last Admin: 02/21/17 21:31 Dose: 5 mg Tamsulosin HCl (Flomax) 0.4 mg PO DAILY [facility] Last Admin: 02/21/17 09:16 Dose: 0.4 mg - Labs Labs: 02/22/17 07:08 02/22/17 07:08 PT 12.3 SECONDS (9.7-12.2) H 02/18/17 08:32 INR 1.1 02/18/17 08:32 APTT 39 SECONDS (21-34) H 02/18/17 08:32 - Constitutional Appears: Well, Non-toxic, No Acute Distress - Extremities Exam Additional comments: Left foot examination: Dressings clean, dry, and intact, minor sanginous strikethrough to outer dressing. Derm: Left 3rd digit amputation site is well approximated with all sutures intact. No purulence is noted upon expungement of drainage sites. No signs of ascending cellulitis noted at this time. Vascular: DP/PT pulses non-palpable; capillary fill time delayed 4 secs to digits 1-2 and 4-5. Neuro: light touch and motor function grossly intact; protective sensation grossly diminished - Neurological Exam Neurological Exam: Alert, Awake, Oriented x3 - Psychiatric Exam Psychiatric exam: Normal Affect, Normal Mood - Skin Skin Exam: Normal Color, Warm Assessment and Plan - Assessment and Plan (Free Text) Assessment: 76 y/o male POD#3 s/p left 3rd digit amputation, secondary to PVD and DM Plan: Patient evaluated and treated at bedside. Discussed with attending, Dr. Lopez. All of the patient's questions and concerns were addressed Labs and vitals reviewed: WBC 6.3; afebrile Wound cultures shows: VRE and Coag (-) Staph. IV abx per ID. Redressed surgical site with betadine, 4x4 gauze, DSD, and BEAU. Patient to continue hemodialysis. Pt to be weightbearing as tolerated using 4-point walker. Podiatry to follow while patient remains in house
--- NOTE | 2017-02-22 11:23 | CP.PCM.PN ---
Subjective - Date & Time of Evaluation Date of Evaluation: 02/22/17 Time of Evaluation: 11:20 - Subjective Subjective: Feels well; ambulating better. POD #3 toe amputation Stable dialysis 02/20 BP uncontrolled On IV tygacil for wound VRE No n,v , SOB, diarhhea, HAs, CPs, f, chills Objective - Vital Signs/Intake and Output Vital Signs (last 24 hours): Temp Pulse Resp BP Pulse Ox 97.7 F 78 20 150/80 94 L 02/22/17 08:23 02/22/17 08:23 02/22/17 08:23 02/22/17 10:48 02/22/17 08:23 - Medications Medications: Current Medications Acetaminophen (Tylenol 325mg Tab) 650 mg PO Q6 PRN PRN Reason: Pain, Mild (1-3) Last Admin: 02/20/17 17:30 Dose: 650 mg Amlodipine Besylate (Norvasc) 5 mg PO DAILY [facility] Last Admin: 02/22/17 09:13 Dose: 5 mg Aspirin (Ecotrin) 81 mg PO DAILY [facility] Last Admin: 02/22/17 09:12 Dose: 81 mg Calcium Acetate (Phoslo) 1,334 mg PO TIDCC [facility] Last Admin: 02/22/17 09:12 Dose: 1,334 mg Carvedilol (Coreg) 25 mg PO BID [facility] Last Admin: 02/22/17 09:11 Dose: 25 mg Donepezil HCl (Aricept) 10 mg PO HS [facility] Last Admin: 02/21/17 21:31 Dose: 10 mg Ergocalciferol (Drisdol 50,000 Intl Units Cap) 1 cap PO QWK [facility] Last Admin: 02/18/17 17:35 Dose: 1 cap Heparin Sodium (Porcine) (Heparin) 5,000 units SC Q12 [facility] Last Admin: 02/22/17 09:08 Dose: 5,000 units Hydralazine HCl (Apresoline) 100 mg PO SuMoWeFr [facility] Last Admin: 02/22/17 09:14 Dose: 100 mg Hydralazine HCl (Apresoline) 100 mg PO TuThSa [facility] Last Admin: 02/20/17 17:44 Dose: 100 mg Hydralazine HCl (Apresoline) 100 mg PO SuMoWeFr [facility] Last Admin: 02/21/17 13:54 Dose: 100 mg Hydralazine HCl (Apresoline) 100 mg PO SuMoWeFr [facility] Last Admin: 02/21/17 18:33 Dose: 100 mg Hydralazine HCl (Apresoline) 100 mg PO TuThSa [facility] Last Admin: 02/20/17 10:35 Dose: 100 mg Tigecycline 50 mg/ Sodium (Chloride) 100 mls @ 100 mls/hr IVPB Q12H [facility] Last Admin: 02/22/17 02:14 Dose: 100 mls/hr Insulin Human Regular (Novolin R) 0 unit SC ACHS [facility] PRN Reason: Protocol Last Admin: 02/22/17 08:00 Dose: Not Given Losartan Potassium (Cozaar) 100 mg PO MWF [facility] Last Admin: 02/22/17 09:18 Dose: 100 mg Memantine (Namenda) 5 mg PO DAILY [facility] Last Admin: 02/22/17 09:11 Dose: 5 mg Jyhpb-1-Rvgh Ethyl Esters (Lovaza) 1 gm PO DAILY [facility] Last Admin: 02/22/17 09:12 Dose: 1 gm Oxycodone/Acetaminophen (Percocet 5/325 Mg Tab) 1 tab PO Q6H PRN PRN Reason: Pain, moderate (4-7) Stop: 02/23/17 17:42 Last Admin: 02/21/17 12:44 Dose: 1 tab Oxycodone/Acetaminophen (Percocet 5/325 Mg Tab) 2 tab PO Q6H PRN PRN Reason: Pain, severe (8-10) Stop: 02/23/17 17:43 Last Admin: 02/20/17 17:56 Dose: 2 tab Pantoprazole Sodium (Protonix Ec Tab) 40 mg PO DAILY [facility] Last Admin: 02/22/17 09:13 Dose: 40 mg Rosuvastatin Calcium (Crestor) 5 mg PO HS [facility] Last Admin: 02/21/17 21:31 Dose: 5 mg Tamsulosin HCl (Flomax) 0.4 mg PO DAILY [facility] Last Admin: 02/21/17 09:16 Dose: 0.4 mg - Labs Labs: 02/22/17 07:08 02/22/17 07:08 PT 12.3 SECONDS (9.7-12.2) H 02/18/17 08:32 INR 1.1 02/18/17 08:32 APTT 39 SECONDS (21-34) H 02/18/17 08:32 - Constitutional Appears: No Acute Distress, Chronically Ill - Head Exam Head Exam: ATRAUMATIC, NORMAL INSPECTION - Eye Exam Eye Exam: EOMI, Normal appearance - Neck Exam Neck Exam: Normal Inspection, Tenderness - Respiratory Exam Respiratory Exam: Clear to Ausculation Bilateral, NORMAL BREATHING PATTERN - Cardiovascular Exam Cardiovascular Exam: REGULAR RHYTHM, +S1 - GI/Abdominal Exam GI & Abdominal Exam: Soft. absent: Tenderness - Extremities Exam Extremities Exam: Normal Inspection, Pedal Edema - Neurological Exam Neurological Exam: Alert, CN II-XII Intact - Skin Skin Exam: Dry, Warm Assessment and Plan (1) Type 2 diabetes mellitus with diabetic nephropathy Status: Acute (2) End stage renal disease Status: Acute (3) Toe gangrene Status: Acute (4) Essential hypertension Status: Acute (5) Type II diabetes mellitus Status: Acute - Assessment and Plan (Free Text) Plan: IV ABs Increase BP meds Dialysis in AM
--- NOTE | 2017-02-23 07:52 | CP.PCM.PN ---
Subjective - Date & Time of Evaluation Date of Evaluation: 02/23/17 Time of Evaluation: 07:00 - Subjective Subjective: pt seen at BS resting comfortable. denies calf pain, back pain--- afebrile left foot --- surgical site healing well - sutures in tact , wound well coapted , no signs of infection , wound margins well perfused IMP s/p 4 days left foot toe amp. 3rd toe plan DSD applied spoke to bryant his daughter reviewed case dialysis today awaiting dr. philippe NICHOLE recommendations before considering D/c Braden Lopez DPM, FACFAS Objective - Vital Signs/Intake and Output Vital Signs (last 24 hours): Temp Pulse Resp BP Pulse Ox 97.5 F L 68 20 168/74 H 95 02/22/17 23:57 02/22/17 23:57 02/22/17 23:57 02/22/17 23:57 02/22/17 23:57 Intake and Output: 02/23/17 02/23/17 06:59 18:59 Intake Total 700 Output Total 150 Balance 550 - Medications Medications: Current Medications Acetaminophen (Tylenol 325mg Tab) 650 mg PO Q6 PRN PRN Reason: Pain, Mild (1-3) Last Admin: 02/20/17 17:30 Dose: 650 mg Amlodipine Besylate (Norvasc) 10 mg PO DAILY [facility] Aspirin (Ecotrin) 81 mg PO DAILY [facility] Last Admin: 02/22/17 09:12 Dose: 81 mg Calcium Acetate (Phoslo) 1,334 mg PO TIDCC [facility] Last Admin: 02/22/17 17:24 Dose: 1,334 mg Carvedilol (Coreg) 25 mg PO BID [facility] Last Admin: 02/22/17 17:25 Dose: 25 mg Donepezil HCl (Aricept) 10 mg PO HS [facility] Last Admin: 02/22/17 21:38 Dose: 10 mg Ergocalciferol (Drisdol 50,000 Intl Units Cap) 1 cap PO QWK [facility] Last Admin: 02/18/17 17:35 Dose: 1 cap Hydralazine HCl (Apresoline) 100 mg PO SuMoWeFr [facility] Last Admin: 02/22/17 09:14 Dose: 100 mg Hydralazine HCl (Apresoline) 100 mg PO TuThSa [facility] Last Admin: 02/20/17 17:44 Dose: 100 mg Hydralazine HCl (Apresoline) 100 mg PO SuMoWeFr [facility] Last Admin: 02/22/17 13:45 Dose: 100 mg Hydralazine HCl (Apresoline) 100 mg PO SuMoWeFr [facility] Last Admin: 02/22/17 17:28 Dose: 100 mg Hydralazine HCl (Apresoline) 100 mg PO TuThSa [facility] Last Admin: 02/20/17 10:35 Dose: 100 mg Tigecycline 50 mg/ Sodium (Chloride) 100 mls @ 100 mls/hr IVPB Q12H [facility] Last Admin: 02/23/17 02:23 Dose: 100 mls/hr Insulin Human Regular (Novolin R) 0 unit SC ACHS [facility] PRN Reason: Protocol Last Admin: 02/22/17 21:39 Dose: Not Given Losartan Potassium (Cozaar) 100 mg PO DAILY [facility] Memantine (Namenda) 5 mg PO DAILY [facility] Last Admin: 02/22/17 09:11 Dose: 5 mg Whkck-7-Luai Ethyl Esters (Lovaza) 1 gm PO DAILY [facility] Last Admin: 02/22/17 09:12 Dose: 1 gm Oxycodone/Acetaminophen (Percocet 5/325 Mg Tab) 1 tab PO Q6H PRN PRN Reason: Pain, moderate (4-7) Stop: 02/23/17 17:42 Last Admin: 02/21/17 12:44 Dose: 1 tab Oxycodone/Acetaminophen (Percocet 5/325 Mg Tab) 2 tab PO Q6H PRN PRN Reason: Pain, severe (8-10) Stop: 02/23/17 17:43 Last Admin: 02/20/17 17:56 Dose: 2 tab Pantoprazole Sodium (Protonix Ec Tab) 40 mg PO DAILY [facility] Last Admin: 02/22/17 09:13 Dose: 40 mg Rosuvastatin Calcium (Crestor) 5 mg PO HS [facility] Last Admin: 02/22/17 21:38 Dose: 5 mg Tamsulosin HCl (Flomax) 0.4 mg PO DAILY [facility] Last Admin: 02/22/17 10:00 Dose: 0.4 mg - Labs Labs: 02/22/17 07:08 02/22/17 07:08 PT 12.3 SECONDS (9.7-12.2) H 02/18/17 08:32 INR 1.1 02/18/17 08:32 APTT 39 SECONDS (21-34) H 02/18/17 08:32
[2017-02-23] MEDS: (Novolin R) Insulin Human Regular 100 units/ml vial SC SCH ×3 (08:11→17:21)
[2017-02-23 08:14] LABS: BASO # 0.1 K/uL (0.0-0.2); EOS # 0.1 K/uL (0.0-0.7); EOS % 1.5 % (0.0-4.0); HEMATOCRIT 33.1 % (35.0-51.0); LYMPH # 1.4 K/uL (1.0-4.3); LYMPH % 26.2 % (20.0-40.0); MEAN CELL VOLUME 87.7 fL (80.0-94.0); MEAN CORPUSCULAR HEMOGLOBIN 28.7 pg (27.0-31.0); MEAN CORPUSCULAR HGB CONC 32.8 g/dL (33.0-37.0); MEAN PLATELET VOLUME 10.4 fL (7.2-11.7); MONO # 0.5 K/uL (0.0-0.8); MONO % 10.1 % (0.0-10.0); NRBC % 0.1 % (0.0-2.0); RED CELL DISTRIBUTION WIDTH 17.6 % (11.5-14.5); WHITE BLOOD COUNT 5.3 K/uL (4.8-10.8)
[2017-02-23 08:35] LABS: POTASSIUM 3.9 mmol/L (3.6-5.2)
[2017-02-23 08:37] LABS: BILIRUBIN,TOTAL 0.7 mg/dL (0.2-1.3)
[2017-02-23 08:38] LABS: ALB/GLOB RATIO 1.2 (1.0-2.1); CALCIUM 7.6 mg/dl (8.6-10.4); PHOSPHOROUS 7.1 mg/dL (2.5-4.5); TOTAL PROTEIN 6.3 g/dL (6.3-8.3)
[2017-02-23 08:39] LABS: MAGNESIUM 2.4 mg/dL (1.6-2.3)
[2017-02-23] MEDS: Omega-3-Acid Ethyl Esters 1 GM Cap PO SCH (11:38)
--- NOTE | 2017-02-23 11:47 | CP.PCM.PN ---
Subjective - Date & Time of Evaluation Date of Evaluation: 02/23/17 Time of Evaluation: 11:00 - Subjective Subjective: 76 y/o male seen and evaluated at bedside. Evaluating pt on 4 days s/p Left partial 3rd ray amputation. Patient currently denies any F/C/N/V/SOB. Denies any pedal pain at this time. Patient states that Dr. Lopez came to see him today and changed his Left foot dressing. Dressing was noted to clean, dry, and intact to his Left foot. Objective - Vital Signs/Intake and Output Vital Signs (last 24 hours): Temp Pulse Resp BP Pulse Ox 97.7 F 66 20 152/67 H 96 02/23/17 08:45 02/23/17 08:45 02/23/17 08:45 02/23/17 11:25 02/23/17 08:45 Intake and Output: 02/23/17 02/23/17 06:59 18:59 Intake Total 700 Output Total 150 Balance 550 - Medications Medications: Current Medications Acetaminophen (Tylenol 325mg Tab) 650 mg PO Q6 PRN PRN Reason: Pain, Mild (1-3) Last Admin: 02/20/17 17:30 Dose: 650 mg Amlodipine Besylate (Norvasc) 10 mg PO DAILY [facility] Last Admin: 02/23/17 11:33 Dose: Not Given Aspirin (Ecotrin) 81 mg PO DAILY [facility] Last Admin: 02/23/17 11:38 Dose: 81 mg Calcium Acetate (Phoslo) 1,334 mg PO TIDCC [facility] Last Admin: 02/23/17 11:39 Dose: 1,334 mg Carvedilol (Coreg) 25 mg PO BID [facility] Last Admin: 02/23/17 11:25 Dose: Not Given Donepezil HCl (Aricept) 10 mg PO HS [facility] Last Admin: 02/22/17 21:38 Dose: 10 mg Ergocalciferol (Drisdol 50,000 Intl Units Cap) 1 cap PO QWK [facility] Last Admin: 02/18/17 17:35 Dose: 1 cap Hydralazine HCl (Apresoline) 100 mg PO SuMoWeFr [facility] Last Admin: 02/22/17 09:14 Dose: 100 mg Hydralazine HCl (Apresoline) 100 mg PO TuThSa [facility] Last Admin: 02/20/17 17:44 Dose: 100 mg Hydralazine HCl (Apresoline) 100 mg PO SuMoWeFr [facility] Last Admin: 02/22/17 13:45 Dose: 100 mg Hydralazine HCl (Apresoline) 100 mg PO SuMoWeFr [facility] Last Admin: 02/22/17 17:28 Dose: 100 mg Hydralazine HCl (Apresoline) 100 mg PO TuThSa [facility] Last Admin: 02/23/17 11:24 Dose: Not Given Tigecycline 50 mg/ Sodium (Chloride) 100 mls @ 100 mls/hr IVPB Q12H [facility] Last Admin: 02/23/17 02:23 Dose: 100 mls/hr Insulin Human Regular (Novolin R) 0 unit SC ACHS [facility] PRN Reason: Protocol Last Admin: 02/23/17 08:11 Dose: 4 unit Losartan Potassium (Cozaar) 100 mg PO DAILY [facility] Last Admin: 02/23/17 11:26 Dose: Not Given Memantine (Namenda) 5 mg PO DAILY [facility] Last Admin: 02/23/17 11:42 Dose: 5 mg Zzelb-8-[id number] Ethyl Esters (Lovaza) 1 gm PO DAILY [facility] Last Admin: 02/23/17 11:38 Dose: 1 gm Oxycodone/Acetaminophen (Percocet 5/325 Mg Tab) 1 tab PO Q6H PRN PRN Reason: Pain, moderate (4-7) Stop: 02/23/17 17:42 Last Admin: 02/21/17 12:44 Dose: 1 tab Oxycodone/Acetaminophen (Percocet 5/325 Mg Tab) 2 tab PO Q6H PRN PRN Reason: Pain, severe (8-10) Stop: 02/23/17 17:43 Last Admin: 02/20/17 17:56 Dose: 2 tab Pantoprazole Sodium (Protonix Ec Tab) 40 mg PO DAILY [facility] Last Admin: 02/22/17 09:13 Dose: 40 mg Rosuvastatin Calcium (Crestor) 5 mg PO HS [facility] Last Admin: 02/22/17 21:38 Dose: 5 mg Tamsulosin HCl (Flomax) 0.4 mg PO DAILY [facility] Last Admin: 02/23/17 11:39 Dose: 0.4 mg - Labs Labs: 02/23/17 08:07 02/23/17 08:07 PT 12.3 SECONDS (9.7-12.2) H 02/18/17 08:32 INR 1.1 02/18/17 08:32 APTT 39 SECONDS (21-34) H 02/18/17 08:32 - Constitutional Appears: Non-toxic, No Acute Distress - Neurological Exam Neurological Exam: Alert, Awake - Psychiatric Exam Psychiatric exam: Normal Affect, Normal Mood - Additional Findings Additional findings: Left foot limited exam: Dressing noted to be C/D/I No evidence of strike-through noted Normal color noted to digits 1,2,4,5 with capillary fill time 4 secs Assessment and Plan - Assessment and Plan (Free Text) Assessment: 76 y/o male 4 days s/p 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 Lopez Labs and vitals reviewed: WBC 5.3; afebrile Left foot dressing kept C/D/I as Dr. Lopez changed it this morning As per case management, possible D/C to [facility] for continuation of IV Tygacil Podiatry to follow while patient remains in house
[2017-02-23] MEDS: Pantoprazole 40 mg EC Tab PO SCH (12:46)
--- NOTE | 2017-02-23 13:35 | CP.PCM.PN ---
<Eitan Moon - Last Filed: 02/23/17 13:39> Subjective - Date & Time of Evaluation Date of Evaluation: 02/23/17 Time of Evaluation: 13:30 - Subjective Subjective: Medicine progress note. Attending: Dr. Reed Pt seen and examined at bedside. No acute distress. No events overnight, no complaints. In HD today. Pending PT re-evaluation and rehab placement. Denies fevers, chills, cp, sob, vomiting, diarrhea. Objective - Vital Signs/Intake and Output Vital Signs (last 24 hours): Temp Pulse Resp BP Pulse Ox 97.5 F L 59 L 20 140/59 L 96 02/23/17 12:15 02/23/17 12:15 02/23/17 12:15 02/23/17 12:15 02/23/17 12:15 Intake and Output: 02/23/17 02/23/17 06:59 18:59 Intake Total 700 Output Total 150 Balance 550 - Medications Medications: Current Medications Acetaminophen (Tylenol 325mg Tab) 650 mg PO Q6 PRN PRN Reason: Pain, Mild (1-3) Last Admin: 02/20/17 17:30 Dose: 650 mg Amlodipine Besylate (Norvasc) 10 mg PO DAILY [facility] Last Admin: 02/23/17 11:33 Dose: Not Given Aspirin (Ecotrin) 81 mg PO DAILY [facility] Last Admin: 02/23/17 11:38 Dose: 81 mg Calcium Acetate (Phoslo) 1,334 mg PO TIDCC [facility] Last Admin: 02/23/17 11:39 Dose: 1,334 mg Carvedilol (Coreg) 25 mg PO BID [facility] Last Admin: 02/23/17 11:25 Dose: Not Given Donepezil HCl (Aricept) 10 mg PO HS [facility] Last Admin: 02/22/17 21:38 Dose: 10 mg Ergocalciferol (Drisdol 50,000 Intl Units Cap) 1 cap PO QWK [facility] Last Admin: 02/18/17 17:35 Dose: 1 cap Hydralazine HCl (Apresoline) 100 mg PO SuMoWeFr [facility] Last Admin: 02/22/17 09:14 Dose: 100 mg Hydralazine HCl (Apresoline) 100 mg PO TuThSa [facility] Last Admin: 02/20/17 17:44 Dose: 100 mg Hydralazine HCl (Apresoline) 100 mg PO SuMoWeFr [facility] Last Admin: 02/22/17 13:45 Dose: 100 mg Hydralazine HCl (Apresoline) 100 mg PO SuMoWeFr [facility] Last Admin: 02/22/17 17:28 Dose: 100 mg Hydralazine HCl (Apresoline) 100 mg PO TuThSa [facility] Last Admin: 02/23/17 11:24 Dose: Not Given Tigecycline 50 mg/ Sodium (Chloride) 100 mls @ 100 mls/hr IVPB Q12H [facility] Last Admin: 02/23/17 13:31 Dose: 100 mls/hr Insulin Human Regular (Novolin R) 0 unit SC ACHS [facility] PRN Reason: Protocol Last Admin: 02/23/17 12:43 Dose: 2 unit Losartan Potassium (Cozaar) 100 mg PO DAILY [facility] Last Admin: 02/23/17 11:26 Dose: Not Given Memantine (Namenda) 5 mg PO DAILY [facility] Last Admin: 02/23/17 11:42 Dose: 5 mg [id number]-[id number] Ethyl Esters (Lovaza) 1 gm PO DAILY [facility] Last Admin: 02/23/17 11:38 Dose: 1 gm Oxycodone/Acetaminophen (Percocet 5/325 Mg Tab) 1 tab PO Q6H PRN PRN Reason: Pain, moderate (4-7) Stop: 02/23/17 17:42 Last Admin: 02/21/17 12:44 Dose: 1 tab Oxycodone/Acetaminophen (Percocet 5/325 Mg Tab) 2 tab PO Q6H PRN PRN Reason: Pain, severe (8-10) Stop: 02/23/17 17:43 Last Admin: 02/20/17 17:56 Dose: 2 tab Pantoprazole Sodium (Protonix Ec Tab) 40 mg PO DAILY [facility] Last Admin: 02/23/17 12:46 Dose: 40 mg Rosuvastatin Calcium (Crestor) 5 mg PO HS [facility] Last Admin: 02/22/17 21:38 Dose: 5 mg Tamsulosin HCl (Flomax) 0.4 mg PO DAILY [facility] Last Admin: 02/23/17 11:39 Dose: 0.4 mg - Labs Labs: 02/23/17 08:07 02/23/17 08:07 PT 12.3 SECONDS (9.7-12.2) H 02/18/17 08:32 INR 1.1 02/18/17 08:32 APTT 39 SECONDS (21-34) H 02/18/17 08:32 - Constitutional Appears: Non-toxic, No Acute Distress - Head Exam Head Exam: ATRAUMATIC, NORMAL INSPECTION, NORMOCEPHALIC - Eye Exam Eye Exam: EOMI - ENT Exam ENT Exam: Mucous Membranes Moist - Neck Exam Neck Exam: Full ROM, Normal Inspection - Respiratory Exam Respiratory Exam: Decreased Breath Sounds, NORMAL BREATHING PATTERN. absent: Respiratory Distress - Cardiovascular Exam Cardiovascular Exam: +S1, +S2 - GI/Abdominal Exam GI & Abdominal Exam: Soft, Normal Bowel Sounds. absent: Tenderness - Extremities Exam Additional comments: Left foot with dressing clean/dry/intact. - Back Exam Back Exam: NORMAL INSPECTION - Neurological Exam Neurological Exam: Alert, Awake, Oriented x3 - Psychiatric Exam Psychiatric exam: Normal Affect, Normal Mood - Skin Skin Exam: Dry, Intact, Normal Color, Warm Assessment and Plan - Assessment and Plan (Free Text) Assessment: This is a 76 yo male with past medical hx of HTN, DM, and ESRD on HD TTS was sent by private podiatry Dr. Lopez for left third toe amputation Gangrenous toe Podiatry Dr. Lopez consulted, help appreciated. POD#4 left 3rd digit amputation Tylenol 650mg po q6 prn mild pain Percocet 5/325mg 1 tab po q4 prn mod pain Percocet 5/325mg 2 tab po q4 prn severe pain Wound culture + VRE and Coag negative staph Tigecycline 50mg IVPB Q12H- this is day 3 Bone culture -VRE positive Blood culture negative x 2 x [address] Burden consulted Vascular Dr. Jay consulted by podiatry- no surgical intervention HTN Cardio Dr. Keys consulted, help appreciated. Hydralazine 100mg BID on dialysis days, 100mg TID on nondialysis days. Losartan 100mg daily Coreg 25mg PO BID. Norvasc 10 mg po daily ASA 81mg po daily DM RISS Accuchecks. ESRD On HD TTS. Nephro Dr. Rivera consulted, help appreciated. Continue Phoslo. HLD Crestor 5mg PO HS Lovaza 1gm po daily BPH Flomax 0.4mg PO daily. Dementia Memantine 5mg PO daily Donepezil 10mg PO HS. Prophylactic measure Protonix 40mg po daily Heparin 5000U SC Q12 Renal diet SCD c/i Wound care PT/OT Pt to be weightbearing as tolerated using 4-point walker discussed with Dr. Reed. <Luis Reed - Last Filed: 04/01/17 12:43> Objective - Vital Signs/Intake and Output Vital Signs (last 24 hours): Temp Pulse Resp BP Pulse Ox 98.2 F 73 20 112/39 L 99 02/27/17 16:05 02/27/17 16:05 02/27/17 16:05 02/27/17 16:05 02/27/17 16:05 - Labs Labs: 02/27/17 06:18 02/27/17 06:18 PT 12.3 SECONDS (9.7-12.2) H 02/18/17 08:32 INR 1.1 02/18/17 08:32 APTT 40 SECONDS (21-34) H 02/24/17 07:13 Attending/Attestation - Attestation I have personally seen and examined this patient.: Yes I have fully participated in the care of the patient.: Yes I have reviewed all pertinent clinical information, including history, physical exam and plan: Yes Notes (Text): Patient Seen and examined with the resident. Agree with the resident's evaluation, assessment and plan. This is a 76 yo male with past medical hx of HTN, DM, and ESRD on HD TTS was sent by private podiatry Dr. Lopez for left third toe amputation Gangrenous toe s/p amputation Per Podiatry management Bone culture -VRE positive HTN DM
--- NOTE | 2017-02-23 14:32 | CP.PCM.PN ---
Subjective - Date & Time of Evaluation Date of Evaluation: 02/23/17 Time of Evaluation: 14:30 - Subjective Subjective: s/p hd today uf 3L feels well. denies any fevers chills n v d Objective - Vital Signs/Intake and Output Vital Signs (last 24 hours): Temp Pulse Resp BP Pulse Ox 97.5 F L 59 L 20 140/59 L 96 02/23/17 12:15 02/23/17 12:15 02/23/17 12:15 02/23/17 12:15 02/23/17 12:15 Intake and Output: 02/23/17 02/23/17 06:59 18:59 Intake Total 700 Output Total 150 Balance 550 - Medications Medications: Current Medications Acetaminophen (Tylenol 325mg Tab) 650 mg PO Q6 PRN PRN Reason: Pain, Mild (1-3) Last Admin: 02/20/17 17:30 Dose: 650 mg Amlodipine Besylate (Norvasc) 10 mg PO DAILY [facility] Last Admin: 02/23/17 11:33 Dose: Not Given Aspirin (Ecotrin) 81 mg PO DAILY [facility] Last Admin: 02/23/17 11:38 Dose: 81 mg Calcium Acetate (Phoslo) 1,334 mg PO TIDCC [facility] Last Admin: 02/23/17 11:39 Dose: 1,334 mg Carvedilol (Coreg) 25 mg PO BID [facility] Last Admin: 02/23/17 11:25 Dose: Not Given Donepezil HCl (Aricept) 10 mg PO HS [facility] Last Admin: 02/22/17 21:38 Dose: 10 mg Ergocalciferol (Drisdol 50,000 Intl Units Cap) 1 cap PO QWK [facility] Last Admin: 02/18/17 17:35 Dose: 1 cap Heparin Sodium (Porcine) (Heparin) 5,000 units SC Q12 [facility] Hydralazine HCl (Apresoline) 100 mg PO SuMoWeFr [facility] Last Admin: 02/22/17 09:14 Dose: 100 mg Hydralazine HCl (Apresoline) 100 mg PO TuThSa [facility] Last Admin: 02/20/17 17:44 Dose: 100 mg Hydralazine HCl (Apresoline) 100 mg PO SuMoWeFr [facility] Last Admin: 02/22/17 13:45 Dose: 100 mg Hydralazine HCl (Apresoline) 100 mg PO SuMoWeFr [facility] Last Admin: 02/22/17 17:28 Dose: 100 mg Hydralazine HCl (Apresoline) 100 mg PO TuThSa [facility] Last Admin: 02/23/17 11:24 Dose: Not Given Tigecycline 50 mg/ Sodium (Chloride) 100 mls @ 100 mls/hr IVPB Q12H [facility] Last Admin: 02/23/17 13:31 Dose: 100 mls/hr Insulin Human Regular (Novolin R) 0 unit SC [facility] PRN Reason: Protocol Last Admin: 02/23/17 12:43 Dose: 2 unit Losartan Potassium (Cozaar) 100 mg PO DAILY [facility] Last Admin: 02/23/17 11:26 Dose: Not Given Memantine (Namenda) 5 mg PO DAILY [facility] Last Admin: 02/23/17 11:42 Dose: 5 mg Rlrxu-6-Ufkm Ethyl Esters (Lovaza) 1 gm PO DAILY [facility] Last Admin: 02/23/17 11:38 Dose: 1 gm Oxycodone/Acetaminophen (Percocet 5/325 Mg Tab) 1 tab PO Q6H PRN PRN Reason: Pain, moderate (4-7) Stop: 02/23/17 17:42 Last Admin: 02/21/17 12:44 Dose: 1 tab Oxycodone/Acetaminophen (Percocet 5/325 Mg Tab) 2 tab PO Q6H PRN PRN Reason: Pain, severe (8-10) Stop: 02/23/17 17:43 Last Admin: 02/20/17 17:56 Dose: 2 tab Pantoprazole Sodium (Protonix Ec Tab) 40 mg PO DAILY [facility] Last Admin: 02/23/17 12:46 Dose: 40 mg Rosuvastatin Calcium (Crestor) 5 mg PO HS [facility] Last Admin: 02/22/17 21:38 Dose: 5 mg Tamsulosin HCl (Flomax) 0.4 mg PO DAILY [facility] Last Admin: 02/23/17 11:39 Dose: 0.4 mg - Labs Labs: 02/23/17 08:07 02/23/17 08:07 PT 12.3 SECONDS (9.7-12.2) H 02/18/17 08:32 INR 1.1 02/18/17 08:32 APTT 39 SECONDS (21-34) H 02/18/17 08:32 - Constitutional Appears: Non-toxic, No Acute Distress - Head Exam Head Exam: NORMAL INSPECTION - Eye Exam Eye Exam: Normal appearance - ENT Exam ENT Exam: Mucous Membranes Moist, Normal Exam - Neck Exam Neck Exam: Normal Inspection - Respiratory Exam Respiratory Exam: Clear to Ausculation Bilateral, NORMAL BREATHING PATTERN - Cardiovascular Exam Cardiovascular Exam: REGULAR RHYTHM, RRR - GI/Abdominal Exam GI & Abdominal Exam: Distended, Soft - Extremities Exam Extremities Exam: Normal Inspection Assessment and Plan (1) End stage renal disease Status: Acute (2) Toe gangrene Status: Acute (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
[2017-02-24] MEDS: (Novolin R) Insulin Human Regular 100 units/ml vial SC SCH ×5 (00:15→21:49)
[2017-02-24 07:32] LABS: BASO # 0.1 K/uL (0.0-0.2); BASO % 1.2 % (0.0-2.0); EOS # 0.1 K/uL (0.0-0.7); EOS % 1.6 % (0.0-4.0); HEMATOCRIT 34.4 % (35.0-51.0); LYMPH # 1.6 K/uL (1.0-4.3); LYMPH % 28.9 % (20.0-40.0); MEAN CELL VOLUME 85.8 fL (80.0-94.0); MEAN CORPUSCULAR HEMOGLOBIN 28.8 pg (27.0-31.0); MEAN CORPUSCULAR HGB CONC 33.6 g/dL (33.0-37.0); MEAN PLATELET VOLUME 9.8 fL (7.2-11.7); MONO # 0.6 K/uL (0.0-0.8); MONO % 11.2 % (0.0-10.0); RED CELL DISTRIBUTION WIDTH 16.9 % (11.5-14.5); WHITE BLOOD COUNT 5.5 K/uL (4.8-10.8)
[2017-02-24 07:44] LABS: POTASSIUM 3.8 mmol/L (3.6-5.2)
[2017-02-24 07:47] LABS: ALB/GLOB RATIO 1.2 (1.0-2.1); BILIRUBIN,TOTAL 0.7 mg/dL (0.2-1.3); PHOSPHOROUS 6.2 mg/dL (2.5-4.5); TOTAL PROTEIN 6.6 g/dL (6.3-8.3)
[2017-02-24 07:48] LABS: CALCIUM 7.7 mg/dl (8.6-10.4); MAGNESIUM 2.3 mg/dL (1.6-2.3)
--- NOTE | 2017-02-24 08:19 | CP.PCM.PN ---
Subjective - Date & Time of Evaluation Date of Evaluation: 02/24/17 Time of Evaluation: 08:00 - Subjective Subjective: 76 y/o male seen and evaluated at bedside. Patient is now 5 days s/p Left partial 3rd ray amputation. Patient currently denies any F/C/N/V/SOB. Denies any pedal pain at this time. Dressing was noted to clean, dry, and intact to his Left foot. Objective - Vital Signs/Intake and Output Vital Signs (last 24 hours): Temp Pulse Resp BP Pulse Ox 97.9 F 64 20 207/72 H 94 L 02/24/17 00:00 02/24/17 00:00 02/24/17 00:00 02/24/17 00:00 02/24/17 00:00 - Medications Medications: Current Medications Acetaminophen (Tylenol 325mg Tab) 650 mg PO Q6 PRN PRN Reason: Pain, Mild (1-3) Last Admin: 02/20/17 17:30 Dose: 650 mg Amlodipine Besylate (Norvasc) 10 mg PO DAILY [facility] Last Admin: 02/23/17 11:33 Dose: Not Given Aspirin (Ecotrin) 81 mg PO DAILY [facility] Last Admin: 02/23/17 11:38 Dose: 81 mg Calcium Acetate (Phoslo) 1,334 mg PO TIDCC [facility] Last Admin: 02/23/17 17:21 Dose: 1,334 mg Carvedilol (Coreg) 25 mg PO BID [facility] Last Admin: 02/23/17 17:22 Dose: 25 mg Donepezil HCl (Aricept) 10 mg PO HS [facility] Last Admin: 02/23/17 21:30 Dose: 10 mg Ergocalciferol (Drisdol 50,000 Intl Units Cap) 1 cap PO QWK [facility] Last Admin: 02/18/17 17:35 Dose: 1 cap Heparin Sodium (Porcine) (Heparin) 5,000 units SC Q12 [facility] Last Admin: 02/23/17 21:30 Dose: 5,000 units Hydralazine HCl (Apresoline) 100 mg PO SuMoWeFr [facility] Last Admin: 02/22/17 09:14 Dose: 100 mg Hydralazine HCl (Apresoline) 100 mg PO TuThSa [facility] Last Admin: 02/23/17 17:20 Dose: 100 mg Hydralazine HCl (Apresoline) 100 mg PO SuMoWeFr [facility] Last Admin: 02/22/17 13:45 Dose: 100 mg Hydralazine HCl (Apresoline) 100 mg PO SuMoWeFr [facility] Last Admin: 02/22/17 17:28 Dose: 100 mg Hydralazine HCl (Apresoline) 100 mg PO TuThSa [facility] Last Admin: 02/23/17 11:24 Dose: Not Given Tigecycline 50 mg/ Sodium (Chloride) 100 mls @ 100 mls/hr IVPB Q12H [facility] Last Admin: 02/24/17 02:21 Dose: 100 mls/hr Insulin Human Regular (Novolin R) 0 unit SC ACHS [facility] PRN Reason: Protocol Last Admin: 02/24/17 00:15 Dose: Not Given Losartan Potassium (Cozaar) 100 mg PO DAILY [facility] Last Admin: 02/23/17 11:26 Dose: Not Given Memantine (Namenda) 5 mg PO DAILY [facility] Last Admin: 02/23/17 11:42 Dose: 5 mg Ilebz-6-Kcai Ethyl Esters (Lovaza) 1 gm PO DAILY [facility] Last Admin: 02/23/17 11:38 Dose: 1 gm Pantoprazole Sodium (Protonix Ec Tab) 40 mg PO DAILY [facility] Last Admin: 02/23/17 12:46 Dose: 40 mg Rosuvastatin Calcium (Crestor) 5 mg PO HS [facility] Last Admin: 02/23/17 21:30 Dose: 5 mg Tamsulosin HCl (Flomax) 0.4 mg PO DAILY [facility] Last Admin: 02/23/17 11:39 Dose: 0.4 mg - Labs Labs: 02/24/17 07:13 02/24/17 07:13 PT 12.3 SECONDS (9.7-12.2) H 02/18/17 08:32 INR 1.1 02/18/17 08:32 APTT 40 SECONDS (21-34) H 02/24/17 07:13 - Constitutional Appears: Non-toxic, No Acute Distress - Neurological Exam Neurological Exam: Alert, Awake, Oriented x3 - Psychiatric Exam Psychiatric exam: Normal Affect, Normal Mood - Skin Skin Exam: Dry, Normal Color, Warm. absent: Erythema - Additional Findings Additional findings: Left foot examination: Vascular: DP/PT pulses non-palpable; capillary fill time delayed 4 secs to digits 1-2 and 4-5. 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 Lopez Podiatry to follow while patient remains in house
[2017-02-24] MEDS: Omega-3-Acid Ethyl Esters 1 GM Cap PO SCH (11:09)
[2017-02-24] MEDS: Pantoprazole 40 mg EC Tab PO SCH (11:09)
--- NOTE | 2017-02-24 12:34 | CP.PCM.PN ---
Subjective - Date & Time of Evaluation Date of Evaluation: 02/24/17 Time of Evaluation: 12:32 - Subjective Subjective: s/p dialysis 02/23- UF 3000ml Remains on IV tygacil for VRE in wound BP remains uncontrolled No n,v, diarrhea,f,chill, SOB, CPs Wounds healing well as per notes Objective - Vital Signs/Intake and Output Vital Signs (last 24 hours): Temp Pulse Resp BP Pulse Ox 97.5 F L 62 16 209/77 H 94 L 02/24/17 07:00 02/24/17 07:00 02/24/17 07:00 02/24/17 11:17 02/24/17 07:00 - Medications Medications: Current Medications Acetaminophen (Tylenol 325mg Tab) 650 mg PO Q6 PRN PRN Reason: Pain, Mild (1-3) Last Admin: 02/20/17 17:30 Dose: 650 mg Amlodipine Besylate (Norvasc) 10 mg PO DAILY [facility] Last Admin: 02/24/17 11:10 Dose: 10 mg Aspirin (Ecotrin) 81 mg PO DAILY [facility] Last Admin: 02/24/17 11:09 Dose: 81 mg Calcium Acetate (Phoslo) 1,334 mg PO TIDCC [facility] Last Admin: 02/24/17 08:31 Dose: 1,334 mg Carvedilol (Coreg) 25 mg PO BID [facility] Last Admin: 02/24/17 11:17 Dose: 25 mg Donepezil HCl (Aricept) 10 mg PO HS [facility] Last Admin: 02/23/17 21:30 Dose: 10 mg Ergocalciferol (Drisdol 50,000 Intl Units Cap) 1 cap PO QWK [facility] Last Admin: 02/18/17 17:35 Dose: 1 cap Heparin Sodium (Porcine) (Heparin) 5,000 units SC Q12 [facility] Last Admin: 02/24/17 11:10 Dose: 5,000 units Hydralazine HCl (Apresoline) 100 mg PO MWF@0600,1000,1800 [facility] Last Admin: 02/24/17 11:16 Dose: 100 mg Hydralazine HCl (Apresoline) 100 mg PO Nolan@0600,1000,1800 [facility] Hydralazine HCl (Apresoline) 100 mg PO TTS@1000,1800 [facility] Tigecycline 50 mg/ Sodium (Chloride) 100 mls @ 100 mls/hr IVPB Q12H [facility] Last Admin: 02/24/17 02:21 Dose: 100 mls/hr Insulin Human Regular (Novolin R) 0 unit SC ACHS [facility] PRN Reason: Protocol Last Admin: 02/24/17 08:22 Dose: Not Given Losartan Potassium (Cozaar) 100 mg PO DAILY [facility] Last Admin: 02/24/17 11:09 Dose: 100 mg Memantine (Namenda) 5 mg PO DAILY [facility] Last Admin: 02/24/17 11:09 Dose: 5 mg Vrmzo-6-Zzfm Ethyl Esters (Lovaza) 1 gm PO DAILY [facility] Last Admin: 02/24/17 11:09 Dose: 1 gm Pantoprazole Sodium (Protonix Ec Tab) 40 mg PO DAILY [facility] Last Admin: 02/24/17 11:09 Dose: 40 mg Rosuvastatin Calcium (Crestor) 5 mg PO HS [facility] Last Admin: 02/23/17 21:30 Dose: 5 mg Tamsulosin HCl (Flomax) 0.4 mg PO DAILY [facility] Last Admin: 02/24/17 11:09 Dose: 0.4 mg - Labs Labs: 02/24/17 07:13 02/24/17 07:13 PT 12.3 SECONDS (9.7-12.2) H 02/18/17 08:32 INR 1.1 02/18/17 08:32 APTT 40 SECONDS (21-34) H 02/24/17 07:13 - Constitutional Appears: No Acute Distress, Chronically Ill - Head Exam Head Exam: ATRAUMATIC, NORMAL INSPECTION - Eye Exam Eye Exam: EOMI, Normal appearance - Neck Exam Neck Exam: Normal Inspection. absent: Tenderness - Respiratory Exam Respiratory Exam: Clear to Ausculation Bilateral, NORMAL BREATHING PATTERN - Cardiovascular Exam Cardiovascular Exam: REGULAR RHYTHM, +S1 - GI/Abdominal Exam GI & Abdominal Exam: Soft. absent: Tenderness - Extremities Exam Extremities Exam: Normal Inspection. absent: Tenderness - Neurological Exam Neurological Exam: Alert, CN II-XII Intact - Skin Skin Exam: Dry, Warm Assessment and Plan (1) Type 2 diabetes mellitus with diabetic nephropathy Status: Acute (2) End stage renal disease Status: Acute (3) Toe gangrene Status: Acute (4) Essential hypertension Status: Acute (5) Type II diabetes mellitus Status: Acute - Assessment and Plan (Free Text) Plan: Add clonidine Dialysis in AM Increase binders as phos still elevated IV ABs, wound care
--- NOTE | 2017-02-24 13:39 | CP.PCM.DIS ---
Provider - Provider Date of Admission: 02/18/17 08:11 Attending physician: Gee Nash MD Consults: 1. ID- Mangia 2. Cardio- Baruchin 3. Nephro- Miguel 4. Podiatry- John 5. Vasc sx- Pierre. Time Spent in preparation of Discharge (in minutes): 45 Hospital Course - Lab Results Lab Results: Micro Results 02/18/17 22:59 Blood-Venous Blood Culture - Final NO GROWTH AFTER 5 DAYS 02/18/17 22:59 Blood-Venous Gram Stain - Final TEST NOT PERFORMED 02/18/17 22:30 Blood-Venous Blood Culture - Final NO GROWTH AFTER 5 DAYS 02/18/17 22:30 Blood-Venous Gram Stain - Final TEST NOT PERFORMED 02/19/17 10:30 Bone Gram Stain - Final 02/19/17 10:30 Bone Tissue Culture - Final Vancomycin Resistant E.faecium 02/18/17 09:49 Foot - Left Gram Stain - Final 02/18/17 09:49 Foot - Left Wound Culture - Final Coagulase Neg Staphylococcus Vancomycin Resistant E.faecium Most Recent Lab Values WBC 5.5 K/uL (4.8-10.8) 02/24/17 07:13 RBC 4.01 Mil/uL (4.40-5.90) L 02/24/17 07:13 Hgb 11.6 g/dL (12.0-18.0) L 02/24/17 07:13 Hct 34.4 % (35.0-51.0) L 02/24/17 07:13 MCV 85.8 fL (80.0-94.0) 02/24/17 07:13 MCH 28.8 pg (27.0-31.0) 02/24/17 07:13 MCHC 33.6 g/dL (33.0-37.0) 02/24/17 07:13 RDW 16.9 % (11.5-14.5) H 02/24/17 07:13 Plt Count 148 K/uL (130-400) 02/24/17 07:13 MPV 9.8 fL (7.2-11.7) 02/24/17 07:13 Neut % (Auto) 57.1 % (50.0-75.0) 02/24/17 07:13 Lymph % (Auto) 28.9 % (20.0-40.0) 02/24/17 07:13 Kidder % (Auto) 11.2 % (0.0-10.0) H 02/24/17 07:13 Eos % (Auto) 1.6 % (0.0-4.0) 02/24/17 07:13 Baso % (Auto) 1.2 % (0.0-2.0) 02/24/17 07:13 Neut # 3.1 K/uL (1.8-7.0) 02/24/17 07:13 Lymph # 1.6 K/uL (1.0-4.3) 02/24/17 07:13 Kidder # 0.6 K/uL (0.0-0.8) 02/24/17 07:13 Eos # 0.1 K/uL (0.0-0.7) 02/24/17 07:13 Baso # 0.1 K/uL (0.0-0.2) 02/24/17 07:13 Differential Comment 02/21/17 07:56 PT 12.3 SECONDS (9.7-12.2) H 02/18/17 08:32 INR 1.1 02/18/17 08:32 APTT 40 SECONDS (21-34) H 02/24/17 07:13 Sodium 140 mmol/L (132-148) 02/24/17 07:13 Potassium 3.8 mmol/L (3.6-5.2) 02/24/17 07:13 Chloride 100 mmol/L (98-107) 02/24/17 07:13 Carbon Dioxide 25 mmol/L (22-30) 02/24/17 07:13 Anion Gap 19 (10-20) 02/24/17 07:13 BUN 59 mg/dL (9-20) H 02/24/17 07:13 Creatinine 5.8 MG/DL (0.8-1.5) H 02/24/17 07:13 Est GFR ( Amer) 12 02/24/17 07:13 Est GFR (Non-Af Amer) 10 02/24/17 07:13 POC Glucose (mg/dL) 176 mg/dL (65-110) H 02/24/17 12:27 Random Glucose 120 mg/dL (75-110) H 02/24/17 07:13 Calcium 7.7 mg/dl (8.6-10.4) L 02/24/17 07:13 Phosphorus 6.2 mg/dL (2.5-4.5) H 02/24/17 07:13 Magnesium 2.3 mg/dL (1.6-2.3) 02/24/17 07:13 Total Bilirubin 0.7 mg/dL (0.2-1.3) 02/24/17 07:13 AST 18 U/L (17-59) 02/24/17 07:13 ALT 18 U/L (21-72) L 02/24/17 07:13 Alkaline Phosphatase 63 U/L (38-126) 02/24/17 07:13 Total Protein 6.6 g/dL (6.3-8.3) 02/24/17 07:13 Albumin 3.5 g/dL (3.5-5.0) 02/24/17 07:13 Globulin 3.1 gm/dL (2.2-3.9) 02/24/17 07:13 Albumin/Globulin Ratio 1.2 (1.0-2.1) 02/24/17 07:13 Blood Type O POSITIVE 02/18/17 08:32 Antibody Screen Negative 02/18/17 08:32 - Hospital Course Hospital Course: Admit date - 02/18 DC date- 02/24 Attending: Dr. Reed/Dr. Renee. Procedures- toe amputation, dialysis No complications Stable upon dc Pt discharged home pt refused home nurse and refused rehab Consults Bertram Jay HPI: see H/p Labs: see lab data section Hospital course: This is a 76 yo male with past medical hx of HTN, DM, and ESRD on HD TTS was sent by private podiatry Dr. Lopez for left third toe amputation Gangrenous toe Podiatry Dr. Lopez consulted, help appreciated. POD#7 left 3rd digit amputation Tylenol 650mg po q6 prn mild pain Wound culture + VRE and Coag negative staph Tigecycline 50mg IVPB Q12H- pt completed course Bone culture -VRE positive Blood culture negative x 2 x [address] Burden consulted Vascular Dr. Jay consulted by podiatry- no surgical intervention HTN Cardio Dr. Keys consulted, help appreciated. Hydralazine 100mg BID Losartan 100mg daily Coreg 25mg PO BID. Norvasc 10 mg po daily ASA 81mg po daily adding clonidine .1 mg po bid pt began getting bradycardic on day of discharge; he was placed on electronic device monitor and EKG ordered EKG showed sinus rhythm with 1st degree av block pt asymptomatic coreg held on discharge. DM RISS Accuchecks. ESRD On HD TTS. Nephro Dr. Rivera consulted, help appreciated. Continue Phoslo. HLD Crestor 5mg PO HS Lovaza 1gm po daily BPH Flomax 0.4mg PO daily. Dementia Memantine 5mg PO daily Donepezil 10mg PO HS. Prophylactic measure Protonix 40mg po daily Heparin 5000U SC Q12 Renal diet SCD c/i Wound care PT/OT Pt to be weightbearing as tolerated using 4-point walker Dispo: pt refused rehab, will be discharged to home. pt also refused home nurse. DC instructions Please discharge home. Please return if condition worsens. Pt needs follow up with Dr. Lopez and follow up with primary. He also needs to make sure he gets his dialysis DC meds. - Date & Time of H&P Date of H&P: 02/18/17 Time of H&P: 10:38 Discharge Exam - Head Exam Head Exam: ATRAUMATIC, NORMAL INSPECTION - Eye Exam Eye Exam: EOMI - ENT Exam ENT Exam: Mucous Membranes Moist - Neck Exam Neck exam: Full Rom, Normal Inspection - Respiratory Exam Respiratory Exam: NORMAL BREATHING PATTERN, UNREMARKABLE - Cardiovascular Exam Cardiovascular Exam: +S1, +S2 - GI/Abdominal Exam GI & Abdominal Exam: Normal Bowel Sounds. absent: Tenderness - Extremities Exam Extremities exam: full ROM Additional comments: Dressing on left foot clean dry intact - Back Exam Back exam: NORMAL INSPECTION - Neurological Exam Neurological exam: Alert, Oriented x3 - Psychiatric Exam Psychiatric exam: Normal Affect, Normal Mood - Skin Skin Exam: Dry, Intact, Normal Color, Warm Discharge Plan - Discharge Medications Prescriptions: Calcium Acetate [Phoslo] 2,001 mg PO TIDCC #30 tab cloNIDine [Catapres] 0.1 mg PO BID #60 tab Memantine [Namenda] 5 mg PO DAILY #30 [id number] Ethyl Esters 1 GM [Lovaza] 1 gm PO DAILY #30 Tamsulosin [Flomax] 0.4 mg PO DAILY #30 cap - Follow Up Plan Condition: STABLE Disposition: HOME/ ROUTINE
--- NOTE | 2017-02-24 13:44 | CP.PCM.PN ---
Addendum entered and electronically signed by Eitan Moon DO 02/24/17 16: 42: Pt refusing rehab/LTAC. Pt will need to stay to finish course of IV abx. Original Note: <Eitan Moon - Last Filed: 02/24/17 13:45> Subjective - Date & Time of Evaluation Date of Evaluation: 02/24/17 Time of Evaluation: 13:40 - Subjective Subjective: Medicine progress note. Attending: Dr. Reed. Pt seen and examined at bedside. No acute distress. No events overnight. Pt is s /p toe amputation. Dialysis tomorrow. Denies fevers, chills, vomiting, diarrhea , syncope, cp, sob. Objective - Vital Signs/Intake and Output Vital Signs (last 24 hours): Temp Pulse Resp BP Pulse Ox 97.5 F L 62 16 209/77 H 94 L 02/24/17 07:00 02/24/17 07:00 02/24/17 07:00 02/24/17 11:17 02/24/17 07:00 - Medications Medications: Current Medications Acetaminophen (Tylenol 325mg Tab) 650 mg PO Q6 PRN PRN Reason: Pain, Mild (1-3) Last Admin: 02/20/17 17:30 Dose: 650 mg Amlodipine Besylate (Norvasc) 10 mg PO DAILY [facility] Last Admin: 02/24/17 11:10 Dose: 10 mg Aspirin (Ecotrin) 81 mg PO DAILY [facility] Last Admin: 02/24/17 11:09 Dose: 81 mg Calcium Acetate (Phoslo) 2,001 mg PO TIDCC [facility] Carvedilol (Coreg) 25 mg PO BID [facility] Last Admin: 02/24/17 11:17 Dose: 25 mg Clonidine HCl (Catapres) 0.1 mg PO BID [facility] Donepezil HCl (Aricept) 10 mg PO HS [facility] Last Admin: 02/23/17 21:30 Dose: 10 mg Ergocalciferol (Drisdol 50,000 Intl Units Cap) 1 cap PO QWK [facility] Last Admin: 02/18/17 17:35 Dose: 1 cap Heparin Sodium (Porcine) (Heparin) 5,000 units SC Q12 [facility] Last Admin: 02/24/17 11:10 Dose: 5,000 units Hydralazine HCl (Apresoline) 100 mg PO BID [facility] Tigecycline 50 mg/ Sodium (Chloride) 100 mls @ 100 mls/hr IVPB Q12H [facility] Last Admin: 02/24/17 02:21 Dose: 100 mls/hr Insulin Human Regular (Novolin R) 0 unit SC ACHS [facility] PRN Reason: Protocol Last Admin: 02/24/17 08:22 Dose: Not Given Losartan Potassium (Cozaar) 100 mg PO DAILY [facility] Last Admin: 02/24/17 11:09 Dose: 100 mg Memantine (Namenda) 5 mg PO DAILY [facility] Last Admin: 02/24/17 11:09 Dose: 5 mg [id number] Ethyl Esters (Lovaza) 1 gm PO DAILY [facility] Last Admin: 02/24/17 11:09 Dose: 1 gm Pantoprazole Sodium (Protonix Ec Tab) 40 mg PO DAILY [facility] Last Admin: 02/24/17 11:09 Dose: 40 mg Rosuvastatin Calcium (Crestor) 5 mg PO HS [facility] Last Admin: 02/23/17 21:30 Dose: 5 mg Tamsulosin HCl (Flomax) 0.4 mg PO DAILY [facility] Last Admin: 02/24/17 11:09 Dose: 0.4 mg - Labs Labs: 02/24/17 07:13 02/24/17 07:13 PT 12.3 SECONDS (9.7-12.2) H 02/18/17 08:32 INR 1.1 02/18/17 08:32 APTT 40 SECONDS (21-34) H 02/24/17 07:13 - Constitutional Appears: Non-toxic, No Acute Distress - Head Exam Head Exam: ATRAUMATIC, NORMAL INSPECTION, NORMOCEPHALIC - Eye Exam Eye Exam: EOMI - ENT Exam ENT Exam: Mucous Membranes Moist - Neck Exam Neck Exam: Full ROM, Normal Inspection - Respiratory Exam Respiratory Exam: NORMAL BREATHING PATTERN. absent: Respiratory Distress - Cardiovascular Exam Cardiovascular Exam: +S1, +S2 - GI/Abdominal Exam GI & Abdominal Exam: Soft, Normal Bowel Sounds. absent: Tenderness - Extremities Exam Extremities Exam: Full ROM. absent: Normal Inspection Additional comments: Dressing clean/dry/intact. - Neurological Exam Neurological Exam: Alert, Awake, Oriented x3 - Psychiatric Exam Psychiatric exam: Normal Affect, Normal Mood - Skin Skin Exam: Dry, Intact, Normal Color, Warm Assessment and Plan - Assessment and Plan (Free Text) Assessment: This is a 76 yo male with past medical hx of HTN, DM, and ESRD on HD TTS was sent by private podiatry Dr. Lopez for left third toe amputation Gangrenous toe Podiatry Dr. Lopez consulted, help appreciated. POD#5 left 3rd digit amputation Tylenol 650mg po q6 prn mild pain Wound culture + VRE and Coag negative staph Tigecycline 50mg IVPB Q12H- this is day 4 Bone culture -VRE positive Blood culture negative x 2 x [address] Burden consulted Vascular Dr. Jay consulted by podiatry- no surgical intervention HTN Cardio Dr. Keys consulted, help appreciated. Hydralazine 100mg BID on dialysis days, 100mg TID on nondialysis days. Losartan 100mg daily Coreg 25mg PO BID. Norvasc 10 mg po daily ASA 81mg po daily DM RISS Accuchecks. ESRD On HD TTS. Nephro Dr. Rivera consulted, help appreciated. Continue Phoslo. HLD Crestor 5mg PO HS Lovaza 1gm po daily BPH Flomax 0.4mg PO daily. Dementia Memantine 5mg PO daily Donepezil 10mg PO HS. Prophylactic measure Protonix 40mg po daily Heparin 5000U SC Q12 Renal diet SCD c/i Wound care PT/OT Pt to be weightbearing as tolerated using 4-point walker Dispo: pt pending rehab placement pending financial clearance. discussed with Dr. Reed. <Luis Reed - Last Filed: 04/01/17 12:44> Objective - Vital Signs/Intake and Output Vital Signs (last 24 hours): Temp Pulse Resp BP Pulse Ox 98.2 F 73 20 112/39 L 99 02/27/17 16:05 02/27/17 16:05 02/27/17 16:05 02/27/17 16:05 02/27/17 16:05 - Labs Labs: 02/27/17 06:18 02/27/17 06:18 PT 12.3 SECONDS (9.7-12.2) H 02/18/17 08:32 INR 1.1 02/18/17 08:32 APTT 40 SECONDS (21-34) H 02/24/17 07:13 Attending/Attestation - Attestation I have personally seen and examined this patient.: Yes I have fully participated in the care of the patient.: Yes I have reviewed all pertinent clinical information, including history, physical exam and plan: Yes Notes (Text): Patient Seen and examined with the resident. Agree with the resident's evaluation, assessment and plan. This is a 76 yo male with past medical hx of HTN, DM, and ESRD on HD TTS was sent by private podiatry Dr. Lopez for left third toe amputation Gangrenous toe s/p amputation Per Podiatry management Bone culture -VRE positive HTN DM
--- NOTE | 2017-02-24 20:50 | CARD ---
APPROVED REPORT EKG Measurement Heart [id number] <Conclusion> Sinus rhythm with 1st degree AV block Cannot rule out Inferior infarct, age undetermined Prolonged QT Abnormal ECG
[2017-02-25 06:30] LABS: POTASSIUM 4.2 mmol/L (3.6-5.2)
[2017-02-25 06:32] LABS: ALB/GLOB RATIO 1.1 (1.0-2.1); BILIRUBIN,TOTAL 0.7 mg/dL (0.2-1.3); TOTAL PROTEIN 6.3 g/dL (6.3-8.3)
[2017-02-25 06:33] LABS: CALCIUM 7.5 mg/dl (8.6-10.4); MAGNESIUM 2.3 mg/dL (1.6-2.3); PHOSPHOROUS 6.8 mg/dL (2.5-4.5)
[2017-02-25 07:21] LABS: BASO # 0.1 K/uL (0.0-0.2); BASO % 1.3 % (0.0-2.0); EOS # 0.1 K/uL (0.0-0.7); EOS % 2.4 % (0.0-4.0); HEMATOCRIT 35.6 % (35.0-51.0); LYMPH # 1.7 K/uL (1.0-4.3); LYMPH % 27.3 % (20.0-40.0); MEAN CELL VOLUME 87.4 fL (80.0-94.0); MEAN CORPUSCULAR HEMOGLOBIN 28.6 pg (27.0-31.0); MEAN CORPUSCULAR HGB CONC 32.7 g/dL (33.0-37.0); MEAN PLATELET VOLUME 10.3 fL (7.2-11.7); MONO # 0.5 K/uL (0.0-0.8); MONO % 9.1 % (0.0-10.0); NRBC % 0.1 % (0.0-2.0); RED CELL DISTRIBUTION WIDTH 17.4 % (11.5-14.5); WHITE BLOOD COUNT 6.1 K/uL (4.8-10.8)
[2017-02-25] MEDS: (Novolin R) Insulin Human Regular 100 units/ml vial SC SCH ×4 (08:40→23:00)
--- NOTE | 2017-02-25 09:38 | CP.PCM.PN ---
Subjective - Date & Time of Evaluation Date of Evaluation: 02/25/17 Time of Evaluation: 09:35 - Subjective Subjective: Seen at dialysis c/o dyspnea- BP still elevated- will increase UF rate now- UF 4000ml BP generally better with oral clonidine addition Phos elevated still- phoslo just increased Appears same On IV tygacil for VRE wound Same wound care No n, v, chills, f, CPs, diarrhea Objective - Vital Signs/Intake and Output Vital Signs (last 24 hours): Temp Pulse Resp BP Pulse Ox 97.4 F L 54 L 20 165/62 H 95 02/25/17 07:55 02/25/17 07:55 02/25/17 07:55 02/25/17 07:55 02/25/17 07:55 Intake and Output: 02/25/17 02/25/17 06:59 18:59 Output Total 300 Balance -300 - Medications Medications: Current Medications Acetaminophen (Tylenol 325mg Tab) 650 mg PO Q6 PRN PRN Reason: Pain, Mild (1-3) Last Admin: 02/20/17 17:30 Dose: 650 mg Amlodipine Besylate (Norvasc) 10 mg PO DAILY [facility] Last Admin: 02/24/17 11:10 Dose: 10 mg Aspirin (Ecotrin) 81 mg PO DAILY [facility] Last Admin: 02/24/17 11:09 Dose: 81 mg Calcium Acetate (Phoslo) 2,001 mg PO TIDCC [facility] Last Admin: 02/25/17 08:40 Dose: 2,001 mg Carvedilol (Coreg) 25 mg PO BID [facility] Last Admin: 02/24/17 18:08 Dose: 25 mg Clonidine HCl (Catapres) 0.1 mg PO BID [facility] Last Admin: 02/24/17 18:08 Dose: 0.1 mg Donepezil HCl (Aricept) 10 mg PO HS [facility] Last Admin: 02/24/17 22:42 Dose: 10 mg Ergocalciferol (Drisdol 50,000 Intl Units Cap) 1 cap PO QWK [facility] Last Admin: 02/18/17 17:35 Dose: 1 cap Heparin Sodium (Porcine) (Heparin) 5,000 units SC Q12 [facility] Last Admin: 02/24/17 22:42 Dose: 5,000 units Hydralazine HCl (Apresoline) 100 mg PO BID [facility] Last Admin: 02/24/17 18:08 Dose: 100 mg Tigecycline 50 mg/ Sodium (Chloride) 100 mls @ 100 mls/hr IVPB Q12H [facility] Last Admin: 02/25/17 02:47 Dose: 100 mls/hr Insulin Human Regular (Novolin R) 0 unit SC ACHS [facility] PRN Reason: Protocol Last Admin: 02/25/17 08:40 Dose: 2 unit Losartan Potassium (Cozaar) 100 mg PO DAILY [facility] Last Admin: 02/24/17 11:09 Dose: 100 mg Memantine (Namenda) 5 mg PO DAILY [facility] Last Admin: 02/24/17 11:09 Dose: 5 mg [id number]-0-Ffhh Ethyl Esters (Lovaza) 1 gm PO DAILY [facility] Last Admin: 02/24/17 11:09 Dose: 1 gm Pantoprazole Sodium (Protonix Ec Tab) 40 mg PO DAILY [facility] Last Admin: 02/24/17 11:09 Dose: 40 mg Rosuvastatin Calcium (Crestor) 5 mg PO HS [facility] Last Admin: 02/24/17 22:42 Dose: 5 mg Tamsulosin HCl (Flomax) 0.4 mg PO DAILY [facility] Last Admin: 02/24/17 11:09 Dose: 0.4 mg - Labs Labs: 02/25/17 06:10 02/25/17 06:10 PT 12.3 SECONDS (9.7-12.2) H 02/18/17 08:32 INR 1.1 02/18/17 08:32 APTT 40 SECONDS (21-34) H 02/24/17 07:13 - Constitutional Appears: No Acute Distress, Chronically Ill - Head Exam Head Exam: ATRAUMATIC, NORMAL INSPECTION - Eye Exam Eye Exam: EOMI, Normal appearance - Neck Exam Neck Exam: Normal Inspection. absent: Tenderness - Respiratory Exam Respiratory Exam: Clear to Ausculation Bilateral, NORMAL BREATHING PATTERN - Cardiovascular Exam Cardiovascular Exam: REGULAR RHYTHM, +S1 - GI/Abdominal Exam GI & Abdominal Exam: Soft. absent: Tenderness - Extremities Exam Extremities Exam: Normal Inspection. absent: Tenderness - Neurological Exam Neurological Exam: Alert, CN II-XII Intact - Skin Skin Exam: Dry, Warm Assessment and Plan (1) Type 2 diabetes mellitus with diabetic nephropathy Status: Acute (2) End stage renal disease Status: Acute (3) Toe gangrene Status: Acute (4) Essential hypertension Status: Acute (5) Type II diabetes mellitus Status: Acute - Assessment and Plan (Free Text) Plan: Continue IV ABs Increase UF rate at dialysis Monitor BP with increased UF and addition of antihypertensive meds
--- NOTE | 2017-02-25 10:48 | CP.PCM.PN ---
Subjective - Date & Time of Evaluation Date of Evaluation: 02/25/17 Time of Evaluation: 10:45 - Subjective Subjective: 76 y/o male seen and evaluated at bedside in Dialysis unit. Patient is now 6 days s/p Left partial 3rd ray amputation. Patient currently denies any F/C/N/V/ SOB. Denies any pedal pain at this time. Dressing was noted to clean, dry, and intact to his Left foot. Objective - Vital Signs/Intake and Output Vital Signs (last 24 hours): Temp Pulse Resp BP Pulse Ox 97.8 F 58 L 20 162/68 H 99 02/25/17 09:10 02/25/17 09:10 02/25/17 09:10 02/25/17 09:25 02/25/17 09:10 Intake and Output: 02/25/17 02/25/17 06:59 18:59 Output Total 300 Balance -300 - Medications Medications: Current Medications Acetaminophen (Tylenol 325mg Tab) 650 mg PO Q6 PRN PRN Reason: Pain, Mild (1-3) Last Admin: 02/20/17 17:30 Dose: 650 mg Amlodipine Besylate (Norvasc) 10 mg PO DAILY [facility] Last Admin: 02/24/17 11:10 Dose: 10 mg Aspirin (Ecotrin) 81 mg PO DAILY [facility] Last Admin: 02/24/17 11:09 Dose: 81 mg Calcium Acetate (Phoslo) 2,001 mg PO TIDCC [facility] Last Admin: 02/25/17 08:40 Dose: 2,001 mg Carvedilol (Coreg) 25 mg PO BID [facility] Last Admin: 02/24/17 18:08 Dose: 25 mg Clonidine HCl (Catapres) 0.1 mg PO BID [facility] Last Admin: 02/24/17 18:08 Dose: 0.1 mg Donepezil HCl (Aricept) 10 mg PO HS [facility] Last Admin: 02/24/17 22:42 Dose: 10 mg Ergocalciferol (Drisdol 50,000 Intl Units Cap) 1 cap PO QWK [facility] Last Admin: 02/18/17 17:35 Dose: 1 cap Heparin Sodium (Porcine) (Heparin) 5,000 units SC Q12 [facility] Last Admin: 02/24/17 22:42 Dose: 5,000 units Hydralazine HCl (Apresoline) 100 mg PO BID [facility] Last Admin: 02/24/17 18:08 Dose: 100 mg Tigecycline 50 mg/ Sodium (Chloride) 100 mls @ 100 mls/hr IVPB Q12H [facility] Last Admin: 02/25/17 02:47 Dose: 100 mls/hr Insulin Human Regular (Novolin R) 0 unit SC ACHS [facility] PRN Reason: Protocol Last Admin: 02/25/17 08:40 Dose: 2 unit Losartan Potassium (Cozaar) 100 mg PO DAILY [facility] Last Admin: 02/24/17 11:09 Dose: 100 mg Memantine (Namenda) 5 mg PO DAILY [facility] Last Admin: 02/24/17 11:09 Dose: 5 mg [id number]-4-[id number] Ethyl Esters (Lovaza) 1 gm PO DAILY [facility] Last Admin: 02/24/17 11:09 Dose: 1 gm Pantoprazole Sodium (Protonix Ec Tab) 40 mg PO DAILY [facility] Last Admin: 02/24/17 11:09 Dose: 40 mg Rosuvastatin Calcium (Crestor) 5 mg PO HS [facility] Last Admin: 02/24/17 22:42 Dose: 5 mg Tamsulosin HCl (Flomax) 0.4 mg PO DAILY [facility] Last Admin: 02/24/17 11:09 Dose: 0.4 mg - Labs Labs: 02/25/17 06:10 02/25/17 06:10 PT 12.3 SECONDS (9.7-12.2) H 02/18/17 08:32 INR 1.1 02/18/17 08:32 APTT 40 SECONDS (21-34) H 02/24/17 07:13 - Constitutional Appears: Well, Non-toxic, No Acute Distress - Extremities Exam Additional comments: Left foot examination: Vascular: DP/PT pulses non-palpable; capillary fill time delayed 4 secs to digits 1-2 and 4-5. Neuro: light touch and motor function grossly intact; protective sensation grossly diminished Derm: amputation site is well approximated with sutures intact; No purulence, no drainage, no erythema, no clinical signs of infection noted Ortho: Left partial 3rd ray amputation - Neurological Exam Neurological Exam: Alert, Altered, Awake, CN II-XII Intact Assessment and Plan - Assessment and Plan (Free Text) Assessment: 76 y/o male 6 days s/p Left partial 3rd ray amputation secondary to gangrene Plan: Patient seen and evaluated at bedside in dialysis unit Labs and vitals reviewed: no leukocytosis; afebrile Left foot dressing removed and surgical site evaluated: stable with sutures intact; no clinical signs of infection present Left foot re-dressed with betadine, DSD and BEAU bandage Patient will stay 2 more days for IV abx treatment Discussed patient with attending, Dr. Prabhakar Patient will f/u with Dr. Prabhakar upon discharge Podiatry to follow while patient remains in house
[2017-02-25] MEDS: Ergocalciferol 50,000 Intl Units Cap PO SCH ×2 (11:24→13:54)
[2017-02-25] MEDS: Omega-3-Acid Ethyl Esters 1 GM Cap PO SCH ×2 (11:25→13:53)
[2017-02-25] MEDS: Pantoprazole 40 mg EC Tab PO SCH ×2 (11:25→13:54)
--- NOTE | 2017-02-25 13:07 | CP.PCM.PN ---
<Eitan Moon - Last Filed: 02/25/17 13:08> Subjective - Date & Time of Evaluation Date of Evaluation: 02/25/17 Time of Evaluation: 13:05 - Subjective Subjective: Med progress note. Attending: Dr. Reed Pt seen and examined at bedside. No acute distress. No events overnight, dialysis today. s/p 6 days toe amputation. BP better controlled. Objective - Vital Signs/Intake and Output Vital Signs (last 24 hours): Temp Pulse Resp BP Pulse Ox 97.8 F 58 L 20 114/51 L 99 02/25/17 09:10 02/25/17 09:10 02/25/17 09:10 02/25/17 12:10 02/25/17 09:10 Intake and Output: 02/25/17 02/25/17 06:59 18:59 Output Total 300 Balance -300 - Medications Medications: Current Medications Acetaminophen (Tylenol 325mg Tab) 650 mg PO Q6 PRN PRN Reason: Pain, Mild (1-3) Last Admin: 02/20/17 17:30 Dose: 650 mg Amlodipine Besylate (Norvasc) 10 mg PO DAILY [facility] Last Admin: 02/25/17 11:25 Dose: Not Given Aspirin (Ecotrin) 81 mg PO DAILY [facility] Last Admin: 02/25/17 11:24 Dose: Not Given Calcium Acetate (Phoslo) 2,001 mg PO TIDCC [facility] Last Admin: 02/25/17 11:25 Dose: Not Given Carvedilol (Coreg) 25 mg PO BID [facility] Last Admin: 02/25/17 11:24 Dose: Not Given Clonidine HCl (Catapres) 0.1 mg PO BID [facility] Last Admin: 02/25/17 11:23 Dose: Not Given Donepezil HCl (Aricept) 10 mg PO HS [facility] Last Admin: 02/24/17 22:42 Dose: 10 mg Ergocalciferol (Drisdol 50,000 Intl Units Cap) 1 cap PO QWK [facility] Last Admin: 02/25/17 11:24 Dose: Not Given Heparin Sodium (Porcine) (Heparin) 5,000 units SC Q12 [facility] Last Admin: 02/25/17 11:24 Dose: Not Given Hydralazine HCl (Apresoline) 100 mg PO BID [facility] Last Admin: 02/25/17 11:23 Dose: Not Given Tigecycline 50 mg/ Sodium (Chloride) 100 mls @ 100 mls/hr IVPB Q12H [facility] Last Admin: 02/25/17 02:47 Dose: 100 mls/hr Insulin Human Regular (Novolin R) 0 unit SC ACHS [facility] PRN Reason: Protocol Last Admin: 02/25/17 08:40 Dose: 2 unit Losartan Potassium (Cozaar) 100 mg PO DAILY [facility] Last Admin: 02/25/17 11:24 Dose: Not Given Memantine (Namenda) 5 mg PO DAILY [facility] Last Admin: 02/25/17 11:25 Dose: Not Given Jpekn-5-[id number] Ethyl Esters (Lovaza) 1 gm PO DAILY [facility] Last Admin: 02/25/17 11:25 Dose: Not Given Pantoprazole Sodium (Protonix Ec Tab) 40 mg PO DAILY [facility] Last Admin: 02/25/17 11:25 Dose: Not Given Rosuvastatin Calcium (Crestor) 5 mg PO HS [facility] Last Admin: 02/24/17 22:42 Dose: 5 mg Tamsulosin HCl (Flomax) 0.4 mg PO DAILY [facility] Last Admin: 02/25/17 11:24 Dose: Not Given - Labs Labs: 02/25/17 06:10 02/25/17 06:10 PT 12.3 SECONDS (9.7-12.2) H 02/18/17 08:32 INR 1.1 02/18/17 08:32 APTT 40 SECONDS (21-34) H 02/24/17 07:13 - Constitutional Appears: Non-toxic, No Acute Distress - Head Exam Head Exam: ATRAUMATIC, NORMAL INSPECTION, NORMOCEPHALIC - Eye Exam Eye Exam: EOMI - ENT Exam ENT Exam: Mucous Membranes Moist - Neck Exam Neck Exam: Full ROM, Normal Inspection - Respiratory Exam Respiratory Exam: NORMAL BREATHING PATTERN. absent: Respiratory Distress - Cardiovascular Exam Cardiovascular Exam: +S1, +S2 - GI/Abdominal Exam GI & Abdominal Exam: Soft, Normal Bowel Sounds. absent: Tenderness - Extremities Exam Extremities Exam: absent: Full ROM, Normal Inspection Additional comments: Dressing to left foot clean, dry, intact. - Neurological Exam Neurological Exam: Alert, Awake, Oriented x3 - Psychiatric Exam Psychiatric exam: Normal Affect, Normal Mood - Skin Skin Exam: Dry, Intact, Normal Color, Warm Assessment and Plan - Assessment and Plan (Free Text) Assessment: This is a 76 yo male with past medical hx of HTN, DM, and ESRD on HD TTS was sent by private podiatry Dr. Lopez for left third toe amputation Gangrenous toe Podiatry Dr. Lopez consulted, help appreciated. POD#6 left 3rd digit amputation Tylenol 650mg po q6 prn mild pain Wound culture + VRE and Coag negative staph Tigecycline 50mg IVPB Q12H- this is day 5 Bone culture -VRE positive Blood culture negative x 2 x [address] Burden consulted Vascular Dr. Jay consulted by podiatry- no surgical intervention HTN Cardio Dr. Keys consulted, help appreciated. Hydralazine 100mg BID Losartan 100mg daily Coreg 25mg PO BID. Norvasc 10 mg po daily ASA 81mg po daily adding clonidine .1 mg po bid DM RISS Accuchecks. ESRD On HD TTS. Nephro Dr. Rivera consulted, help appreciated. Continue Phoslo. HLD Crestor 5mg PO HS Lovaza 1gm po daily BPH Flomax 0.4mg PO daily. Dementia Memantine 5mg PO daily Donepezil 10mg PO HS. Prophylactic measure Protonix 40mg po daily Heparin 5000U SC Q12 Renal diet SCD c/i Wound care PT/OT Pt to be weightbearing as tolerated using 4-point walker Dispo: pt refused rehab, will be discharged with home nurse/home pt , must finish IV abx first. discussed with Dr. Reed. <Luis Reed - Last Filed: 04/01/17 12:44> Objective - Vital Signs/Intake and Output Vital Signs (last 24 hours): Temp Pulse Resp BP Pulse Ox 98.2 F 73 20 112/39 L 99 02/27/17 16:05 02/27/17 16:05 02/27/17 16:05 02/27/17 16:05 02/27/17 16:05 - Labs Labs: 02/27/17 06:18 02/27/17 06:18 PT 12.3 SECONDS (9.7-12.2) H 02/18/17 08:32 INR 1.1 02/18/17 08:32 APTT 40 SECONDS (21-34) H 02/24/17 07:13 Attending/Attestation - Attestation I have personally seen and examined this patient.: Yes I have fully participated in the care of the patient.: Yes I have reviewed all pertinent clinical information, including history, physical exam and plan: Yes Notes (Text): Patient Seen and examined with the resident. Agree with the resident's evaluation, assessment and plan. This is a 76 yo male with past medical hx of HTN, DM, and ESRD on HD TTS was sent by private podiatry Dr. Lopez for left third toe amputation Gangrenous toe s/p amputation Per Podiatry management Bone culture -VRE positive HTN DM
--- NOTE | 2017-02-25 17:46 | CP.PCM.PN ---
Subjective - Date & Time of Evaluation Date of Evaluation: 02/25/17 Time of Evaluation: 08:00 - Subjective Subjective: s/p 3rd ray amp Dressing was noted to clean, dry, and intact to his Left foot. Objective - Vital Signs/Intake and Output Vital Signs (last 24 hours): Temp Pulse Resp BP Pulse Ox 98.3 F 50 L 20 167/64 H 94 L 02/25/17 15:31 02/25/17 15:31 02/25/17 15:31 02/25/17 17:12 02/25/17 15:31 Intake and Output: 02/25/17 02/25/17 06:59 18:59 Output Total 300 Balance -300 - Medications Medications: Current Medications Acetaminophen (Tylenol 325mg Tab) 650 mg PO Q6 PRN PRN Reason: Pain, Mild (1-3) Last Admin: 02/20/17 17:30 Dose: 650 mg Amlodipine Besylate (Norvasc) 10 mg PO DAILY [facility] Last Admin: 02/25/17 13:53 Dose: 10 mg Aspirin (Ecotrin) 81 mg PO DAILY [facility] Last Admin: 02/25/17 13:53 Dose: 81 mg Calcium Acetate (Phoslo) 2,001 mg PO TIDCC [facility] Last Admin: 02/25/17 17:12 Dose: 2,001 mg Carvedilol (Coreg) 25 mg PO BID [facility] Last Admin: 02/25/17 17:12 Dose: 25 mg Clonidine HCl (Catapres) 0.1 mg PO BID [facility] Last Admin: 02/25/17 17:12 Dose: 0.1 mg Donepezil HCl (Aricept) 10 mg PO HS [facility] Last Admin: 02/24/17 22:42 Dose: 10 mg Ergocalciferol (Drisdol 50,000 Intl Units Cap) 1 cap PO QWK [facility] Last Admin: 02/25/17 13:54 Dose: 1 cap Heparin Sodium (Porcine) (Heparin) 5,000 units SC Q12 [facility] Last Admin: 02/25/17 11:24 Dose: Not Given Hydralazine HCl (Apresoline) 100 mg PO BID [facility] Last Admin: 02/25/17 17:11 Dose: 100 mg Tigecycline 50 mg/ Sodium (Chloride) 100 mls @ 100 mls/hr IVPB Q12H [facility] Last Admin: 02/25/17 13:52 Dose: 100 mls/hr Insulin Human Regular (Novolin R) 0 unit SC ACHS [facility] PRN Reason: Protocol Last Admin: 02/25/17 13:55 Dose: 2 unit Losartan Potassium (Cozaar) 100 mg PO DAILY [facility] Last Admin: 02/25/17 13:53 Dose: 100 mg Memantine (Namenda) 5 mg PO DAILY [facility] Last Admin: 02/25/17 13:57 Dose: 5 mg Tzvjr-6-Gzai Ethyl Esters (Lovaza) 1 gm PO DAILY [facility] Last Admin: 02/25/17 13:53 Dose: 1 gm Pantoprazole Sodium (Protonix Ec Tab) 40 mg PO DAILY [facility] Last Admin: 02/25/17 13:54 Dose: 40 mg Rosuvastatin Calcium (Crestor) 5 mg PO HS [facility] Last Admin: 02/24/17 22:42 Dose: 5 mg Tamsulosin HCl (Flomax) 0.4 mg PO DAILY [facility] Last Admin: 02/25/17 13:54 Dose: 0.4 mg - Labs Labs: 02/25/17 06:10 02/25/17 06:10 PT 12.3 SECONDS (9.7-12.2) H 02/18/17 08:32 INR 1.1 02/18/17 08:32 APTT 40 SECONDS (21-34) H 02/24/17 07:13 - Constitutional Appears: Non-toxic, Chronically Ill - Head Exam Head Exam: NORMOCEPHALIC - Eye Exam Eye Exam: absent: Scleral icterus - ENT Exam ENT Exam: Mucous Membranes Dry - Neck Exam Neck Exam: absent: Lymphadenopathy - Respiratory Exam Respiratory Exam: Decreased Breath Sounds - Cardiovascular Exam Cardiovascular Exam: REGULAR RHYTHM - GI/Abdominal Exam GI & Abdominal Exam: Distended, Soft - Rectal Exam Rectal Exam: Deferred - Exam Exam: NORMAL INSPECTION - Extremities Exam Extremities Exam: absent: Calf Tenderness, Pedal Edema, Tenderness Additional comments: Dressing was noted to clean, dry, and intact to his Left foot. Assessment and Plan (1) CKD (chronic kidney disease) requiring chronic dialysis Status: Acute (2) Toe gangrene Status: Acute (3) Essential hypertension Status: Acute (4) Renal failure Status: Acute (5) Type II diabetes mellitus Status: Acute
[2017-02-26 07:38] LABS: BASO # 0.1 K/uL (0.0-0.2); BASO % 0.9 % (0.0-2.0); EOS # 0.1 K/uL (0.0-0.7); EOS % 1.8 % (0.0-4.0); HEMATOCRIT 36.2 % (35.0-51.0); LYMPH # 1.7 K/uL (1.0-4.3); LYMPH % 25.9 % (20.0-40.0); MEAN CELL VOLUME 87.6 fL (80.0-94.0); MEAN CORPUSCULAR HEMOGLOBIN 28.8 pg (27.0-31.0); MEAN CORPUSCULAR HGB CONC 32.8 g/dL (33.0-37.0); MEAN PLATELET VOLUME 10.2 fL (7.2-11.7); MONO # 0.6 K/uL (0.0-0.8); MONO % 8.6 % (0.0-10.0); RED CELL DISTRIBUTION WIDTH 17.4 % (11.5-14.5); WHITE BLOOD COUNT 6.6 K/uL (4.8-10.8)
[2017-02-26 07:59] LABS: POTASSIUM 4.3 mmol/L (3.6-5.2)
[2017-02-26 08:01] LABS: ALB/GLOB RATIO 1.1 (1.0-2.1); BILIRUBIN,TOTAL 0.6 mg/dL (0.2-1.3); TOTAL PROTEIN 6.4 g/dL (6.3-8.3)
[2017-02-26 08:02] LABS: CALCIUM 7.7 mg/dl (8.6-10.4); MAGNESIUM 2.3 mg/dL (1.6-2.3); PHOSPHOROUS 5.5 mg/dL (2.5-4.5)
[2017-02-26] MEDS: Pantoprazole 40 mg EC Tab PO SCH (09:48)
[2017-02-26] MEDS: Omega-3-Acid Ethyl Esters 1 GM Cap PO SCH (09:48)
[2017-02-26] MEDS: (Novolin R) Insulin Human Regular 100 units/ml vial SC SCH ×4 (09:48→21:54)
--- NOTE | 2017-02-26 12:37 | CP.PCM.PN ---
Subjective - Date & Time of Evaluation Date of Evaluation: 02/26/17 Time of Evaluation: 12:35 - Subjective Subjective: s/p dialysis 02/25- UF 4100ml BP better controlled Phos better Remains on IV ABs for VRE wound post toe amputation likely discharge soon as antibiotic course finishing No n, v, f, c, diarhea, SOB, CPs Objective - Vital Signs/Intake and Output Vital Signs (last 24 hours): Temp Pulse Resp BP Pulse Ox 97.6 F 52 L 20 162/59 H 95 02/26/17 08:13 02/26/17 08:13 02/26/17 08:13 02/26/17 08:13 02/26/17 08:13 - Medications Medications: Current Medications Acetaminophen (Tylenol 325mg Tab) 650 mg PO Q6 PRN PRN Reason: Pain, Mild (1-3) Last Admin: 02/20/17 17:30 Dose: 650 mg Amlodipine Besylate (Norvasc) 10 mg PO DAILY [facility] Last Admin: 02/26/17 09:48 Dose: 10 mg Aspirin (Ecotrin) 81 mg PO DAILY [facility] Last Admin: 02/26/17 09:47 Dose: 81 mg Calcium Acetate (Phoslo) 2,001 mg PO TIDCC [facility] Last Admin: 02/26/17 09:47 Dose: 2,001 mg Carvedilol (Coreg) 25 mg PO BID [facility] Last Admin: 02/26/17 09:47 Dose: Not Given Clonidine HCl (Catapres) 0.1 mg PO BID [facility] Last Admin: 02/26/17 09:47 Dose: 0.1 mg Donepezil HCl (Aricept) 10 mg PO HS [facility] Last Admin: 02/25/17 23:00 Dose: 10 mg Ergocalciferol (Drisdol 50,000 Intl Units Cap) 1 cap PO QWK [facility] Last Admin: 02/25/17 13:54 Dose: 1 cap Heparin Sodium (Porcine) (Heparin) 5,000 units SC Q12 [facility] Last Admin: 02/26/17 09:48 Dose: 5,000 units Hydralazine HCl (Apresoline) 100 mg PO BID [facility] Last Admin: 02/26/17 09:48 Dose: 100 mg Tigecycline 50 mg/ Sodium (Chloride) 100 mls @ 100 mls/hr IVPB Q12H [facility] Last Admin: 02/26/17 01:32 Dose: 100 mls/hr Insulin Human Regular (Novolin R) 0 unit SC ACHS [facility] PRN Reason: Protocol Last Admin: 02/26/17 09:48 Dose: 4 unit Losartan Potassium (Cozaar) 100 mg PO DAILY [facility] Last Admin: 02/26/17 09:47 Dose: 100 mg Memantine (Namenda) 5 mg PO DAILY [facility] Last Admin: 02/26/17 09:47 Dose: 5 mg Gbtmo-6-Cxxh Ethyl Esters (Lovaza) 1 gm PO DAILY [facility] Last Admin: 02/26/17 09:48 Dose: 1 gm Pantoprazole Sodium (Protonix Ec Tab) 40 mg PO DAILY [facility] Last Admin: 02/26/17 09:48 Dose: 40 mg Rosuvastatin Calcium (Crestor) 5 mg PO HS [facility] Last Admin: 02/25/17 23:00 Dose: 5 mg Tamsulosin HCl (Flomax) 0.4 mg PO DAILY [facility] Last Admin: 02/26/17 09:48 Dose: 0.4 mg - Labs Labs: 02/26/17 07:31 02/26/17 07:31 PT 12.3 SECONDS (9.7-12.2) H 02/18/17 08:32 INR 1.1 02/18/17 08:32 APTT 40 SECONDS (21-34) H 02/24/17 07:13 - Constitutional Appears: No Acute Distress, Chronically Ill - Head Exam Head Exam: ATRAUMATIC, NORMAL INSPECTION - Eye Exam Eye Exam: EOMI, Normal appearance - Neck Exam Neck Exam: Normal Inspection. absent: Tenderness - Respiratory Exam Respiratory Exam: Clear to Ausculation Bilateral, NORMAL BREATHING PATTERN - Cardiovascular Exam Cardiovascular Exam: REGULAR RHYTHM, +S1 - GI/Abdominal Exam GI & Abdominal Exam: Soft. absent: Tenderness - Extremities Exam Extremities Exam: absent: Pedal Edema, Tenderness - Neurological Exam Neurological Exam: Awake, CN II-XII Intact - Skin Skin Exam: Dry, Warm Assessment and Plan (1) Type 2 diabetes mellitus with diabetic nephropathy Status: Acute (2) End stage renal disease Status: Acute (3) Toe gangrene Status: Acute (4) Essential hypertension Status: Acute (5) Type II diabetes mellitus Status: Acute - Assessment and Plan (Free Text) Plan: Dialysis TTS Finish IV ABs Monitor BP- has been better controlled
--- NOTE | 2017-02-26 14:40 | CP.PCM.PN ---
Subjective - Date & Time of Evaluation Date of Evaluation: 02/26/17 Time of Evaluation: 13:30 - Subjective Subjective: 76 y/o male seen and evaluated at bedside. Patient is now 7 days s/p Left partial 3rd ray amputation. Patient currently denies any F/C/N/V/SOB. Denies any pedal pain at this time. Dressing was noted to clean, dry, and intact to his Left foot. Objective - Vital Signs/Intake and Output Vital Signs (last 24 hours): Temp Pulse Resp BP Pulse Ox 97.6 F 52 L 20 162/59 H 95 02/26/17 08:13 02/26/17 08:13 02/26/17 08:13 02/26/17 08:13 02/26/17 08:13 - Medications Medications: Current Medications Acetaminophen (Tylenol 325mg Tab) 650 mg PO Q6 PRN PRN Reason: Pain, Mild (1-3) Last Admin: 02/20/17 17:30 Dose: 650 mg Amlodipine Besylate (Norvasc) 10 mg PO DAILY [facility] Last Admin: 02/26/17 09:48 Dose: 10 mg Aspirin (Ecotrin) 81 mg PO DAILY [facility] Last Admin: 02/26/17 09:47 Dose: 81 mg Calcium Acetate (Phoslo) 2,001 mg PO TIDCC [facility] Last Admin: 02/26/17 13:05 Dose: 2,001 mg Carvedilol (Coreg) 25 mg PO BID [facility] Last Admin: 02/26/17 09:47 Dose: Not Given Clonidine HCl (Catapres) 0.1 mg PO BID [facility] Last Admin: 02/26/17 09:47 Dose: 0.1 mg Donepezil HCl (Aricept) 10 mg PO HS [facility] Last Admin: 02/25/17 23:00 Dose: 10 mg Ergocalciferol (Drisdol 50,000 Intl Units Cap) 1 cap PO QWK [facility] Last Admin: 02/25/17 13:54 Dose: 1 cap Heparin Sodium (Porcine) (Heparin) 5,000 units SC Q12 [facility] Last Admin: 02/26/17 09:48 Dose: 5,000 units Hydralazine HCl (Apresoline) 100 mg PO BID [facility] Last Admin: 02/26/17 09:48 Dose: 100 mg Tigecycline 50 mg/ Sodium (Chloride) 100 mls @ 100 mls/hr IVPB Q12H [facility] Last Admin: 02/26/17 01:32 Dose: 100 mls/hr Insulin Human Regular (Novolin R) 0 unit SC ACHS [facility] PRN Reason: Protocol Last Admin: 02/26/17 13:05 Dose: 8 unit Losartan Potassium (Cozaar) 100 mg PO DAILY [facility] Last Admin: 02/26/17 09:47 Dose: 100 mg Memantine (Namenda) 5 mg PO DAILY [facility] Last Admin: 02/26/17 09:47 Dose: 5 mg Mbjlo-1-[id number] Ethyl Esters (Lovaza) 1 gm PO DAILY [facility] Last Admin: 02/26/17 09:48 Dose: 1 gm Pantoprazole Sodium (Protonix Ec Tab) 40 mg PO DAILY [facility] Last Admin: 02/26/17 09:48 Dose: 40 mg Rosuvastatin Calcium (Crestor) 5 mg PO HS [facility] Last Admin: 02/25/17 23:00 Dose: 5 mg Tamsulosin HCl (Flomax) 0.4 mg PO DAILY [facility] Last Admin: 02/26/17 09:48 Dose: 0.4 mg - Labs Labs: 02/26/17 07:31 02/26/17 07:31 PT 12.3 SECONDS (9.7-12.2) H 02/18/17 08:32 INR 1.1 02/18/17 08:32 APTT 40 SECONDS (21-34) H 02/24/17 07:13 - Constitutional Appears: Well, Non-toxic, No Acute Distress - Extremities Exam Additional comments: Left foot examination: Vascular: DP/PT pulses non-palpable; capillary fill time delayed 4 secs to digits 1-2 and 4-5. Neuro: light touch and motor function grossly intact; protective sensation grossly diminished Derm: amputation site is well approximated with sutures intact; No purulence, no drainage, no erythema, no clinical signs of infection noted Ortho: Left partial 3rd ray amputation - Neurological Exam Neurological Exam: Alert, Awake, CN II-XII Intact, Oriented x3 - Psychiatric Exam Psychiatric exam: Normal Affect, Normal Mood Assessment and Plan - Assessment and Plan (Free Text) Assessment: 76 y/o male 7 days s/p Left partial 3rd ray amputation secondary to gangrene Plan: Patient seen and evaluated at bedside Labs and vitals reviewed: no leukocytosis; afebrile Left foot dressing removed and surgical site evaluated: stable with sutures intact; no clinical signs of infection present Left foot re-dressed with betadine, DSD and BEAU bandage Patient will be discharged home today after his last dose of abx treatment Discussed patient with attending, Dr. Lopez Patient will f/u with Dr. Lopez upon discharge in [place] office Podiatry to follow while patient remains in house
--- NOTE | 2017-02-26 15:28 | CP.PCM.PN ---
<Eitan Moon - Last Filed: 02/26/17 15:29> Subjective - Date & Time of Evaluation Date of Evaluation: 02/26/17 Time of Evaluation: 15:25 - Subjective Subjective: Medicine progress note. Attending: Dr. Renee Pt seen and examined at bedside. No acute distress. No events overnight. Pt did have some bradycardia. Ordered EKG which showed sinus rhythm with 1st degree AV block. Pt asymptomatic. No complaints. Objective - Vital Signs/Intake and Output Vital Signs (last 24 hours): Temp Pulse Resp BP Pulse Ox 97.6 F 52 L 20 162/59 H 95 02/26/17 08:13 02/26/17 08:13 02/26/17 08:13 02/26/17 08:13 02/26/17 08:13 - Medications Medications: Current Medications Acetaminophen (Tylenol 325mg Tab) 650 mg PO Q6 PRN PRN Reason: Pain, Mild (1-3) Last Admin: 02/20/17 17:30 Dose: 650 mg Amlodipine Besylate (Norvasc) 10 mg PO DAILY [facility] Last Admin: 02/26/17 09:48 Dose: 10 mg Aspirin (Ecotrin) 81 mg PO DAILY [facility] Last Admin: 02/26/17 09:47 Dose: 81 mg Calcium Acetate (Phoslo) 2,001 mg PO TIDCC [facility] Last Admin: 02/26/17 13:05 Dose: 2,001 mg Carvedilol (Coreg) 25 mg PO BID [facility] Last Admin: 02/26/17 09:47 Dose: Not Given Clonidine HCl (Catapres) 0.1 mg PO BID [facility] Last Admin: 02/26/17 09:47 Dose: 0.1 mg Donepezil HCl (Aricept) 10 mg PO HS [facility] Last Admin: 02/25/17 23:00 Dose: 10 mg Ergocalciferol (Drisdol 50,000 Intl Units Cap) 1 cap PO QWK [facility] Last Admin: 02/25/17 13:54 Dose: 1 cap Heparin Sodium (Porcine) (Heparin) 5,000 units SC Q12 [facility] Last Admin: 02/26/17 09:48 Dose: 5,000 units Hydralazine HCl (Apresoline) 100 mg PO BID [facility] Last Admin: 02/26/17 09:48 Dose: 100 mg Tigecycline 50 mg/ Sodium (Chloride) 100 mls @ 100 mls/hr IVPB Q12H [facility] Last Admin: 02/26/17 14:39 Dose: 100 mls/hr Insulin Human Regular (Novolin R) 0 unit SC ACHS [facility] PRN Reason: Protocol Last Admin: 02/26/17 13:05 Dose: 8 unit Losartan Potassium (Cozaar) 100 mg PO DAILY [facility] Last Admin: 02/26/17 09:47 Dose: 100 mg Memantine (Namenda) 5 mg PO DAILY [facility] Last Admin: 02/26/17 09:47 Dose: 5 mg [id number]-7-[id number] Ethyl Esters (Lovaza) 1 gm PO DAILY [facility] Last Admin: 02/26/17 09:48 Dose: 1 gm Pantoprazole Sodium (Protonix Ec Tab) 40 mg PO DAILY [facility] Last Admin: 02/26/17 09:48 Dose: 40 mg Rosuvastatin Calcium (Crestor) 5 mg PO HS [facility] Last Admin: 02/25/17 23:00 Dose: 5 mg Tamsulosin HCl (Flomax) 0.4 mg PO DAILY [facility] Last Admin: 02/26/17 09:48 Dose: 0.4 mg - Labs Labs: 02/26/17 07:31 02/26/17 07:31 PT 12.3 SECONDS (9.7-12.2) H 02/18/17 08:32 INR 1.1 02/18/17 08:32 APTT 40 SECONDS (21-34) H 02/24/17 07:13 - Constitutional Appears: Non-toxic, No Acute Distress - Head Exam Head Exam: ATRAUMATIC, NORMAL INSPECTION, NORMOCEPHALIC - Eye Exam Eye Exam: EOMI - ENT Exam ENT Exam: Mucous Membranes Moist - Neck Exam Neck Exam: Full ROM, Normal Inspection - Respiratory Exam Respiratory Exam: NORMAL BREATHING PATTERN. absent: Respiratory Distress - Cardiovascular Exam Cardiovascular Exam: +S1, +S2 - GI/Abdominal Exam GI & Abdominal Exam: Soft, Normal Bowel Sounds. absent: Tenderness - Extremities Exam Extremities Exam: Full ROM Additional comments: Left toe dressing clean/dry/intact. - Back Exam Back Exam: NORMAL INSPECTION - Neurological Exam Neurological Exam: Alert, Awake, Oriented x3 - Psychiatric Exam Psychiatric exam: Normal Affect, Normal Mood - Skin Skin Exam: Dry, Intact, Normal Color, Warm Assessment and Plan - Assessment and Plan (Free Text) Assessment: This is a 76 yo male with past medical hx of HTN, DM, and ESRD on HD TTS was sent by private podiatry Dr. Lopez for left third toe amputation Gangrenous toe Podiatry Dr. Lopez consulted, help appreciated. POD#7 left 3rd digit amputation Tylenol 650mg po q6 prn mild pain Wound culture + VRE and Coag negative staph Tigecycline 50mg IVPB Q12H- this is day 6 Bone culture -VRE positive Blood culture negative x 2 x [address] Burden consulted Vascular Dr. Jay consulted by podiatry- no surgical intervention HTN Cardio Dr. Keys consulted, help appreciated. Hydralazine 100mg BID Losartan 100mg daily Coreg 25mg PO BID.>> will hold bc of bradycardia Norvasc 10 mg po daily ASA 81mg po daily adding clonidine .1 mg po bid Bradycardia -pt asymptomatic -will give glucagon if pt becomes symptomatic -ekg shows sinus with 1st degree av block -placed on tele monitor -holding coreg. DM RISS Accuchecks. ESRD On HD TTS. Nephro Dr. Rivera consulted, help appreciated. Continue Phoslo. HLD Crestor 5mg PO HS Lovaza 1gm po daily BPH Flomax 0.4mg PO daily. Dementia Memantine 5mg PO daily Donepezil 10mg PO HS. Prophylactic measure Protonix 40mg po daily Heparin 5000U SC Q12 Renal diet SCD c/i Wound care PT/OT Pt to be weightbearing as tolerated using 4-point walker Dispo: pt refused rehab, will be discharged with home; pt refused home nurse, must finish IV abx first. He has one more day of tigecycline discussed with Dr. Renee. <Garima Renee V - Last Filed: 02/26/17 23:22> Objective - Vital Signs/Intake and Output Vital Signs (last 24 hours): Temp Pulse Resp BP Pulse Ox 98.1 F 53 L 20 162/64 H 96 02/26/17 15:25 02/26/17 15:25 02/26/17 15:25 02/26/17 15:25 02/26/17 15:25 - Medications Medications: Current Medications Acetaminophen (Tylenol 325mg Tab) 650 mg PO Q6 PRN PRN Reason: Pain, Mild (1-3) Last Admin: 02/20/17 17:30 Dose: 650 mg Amlodipine Besylate (Norvasc) 10 mg PO DAILY [facility] Aspirin (Ecotrin) 81 mg PO DAILY [facility] [place] Last Admin: 02/26/17 09:47 Dose: 81 mg Calcium Acetate (Phoslo) 2,001 mg PO TIDCC [facility] [place] Last Admin: 02/26/17 17:36 Dose: 2,001 mg Carvedilol (Coreg) 25 mg PO BID [facility] Last Admin: 02/26/17 09:47 Dose: Not Given Donepezil HCl (Aricept) 10 mg PO HS [facility] Last Admin: 02/25/17 23:00 Dose: 10 mg Ergocalciferol (Drisdol 50,000 Intl Units Cap) 1 cap PO QWK [facility] Last Admin: 02/25/17 13:54 Dose: 1 cap Heparin Sodium (Porcine) (Heparin) 5,000 units SC Q12 [facility] Last Admin: 02/26/17 09:48 Dose: 5,000 units Hydralazine HCl (Apresoline) 100 mg PO BID [facility] [place] Last Admin: 02/26/17 17:36 Dose: 100 mg Tigecycline 50 mg/ Sodium (Chloride) 100 mls @ 100 mls/hr IVPB Q12H [facility] Last Admin: 02/26/17 14:39 Dose: 100 mls/hr Insulin Human Regular (Novolin R) 0 unit SC ACHS [facility] [place] PRN Reason: Protocol Last Admin: 02/26/17 17:21 Dose: Not Given Losartan Potassium (Cozaar) 100 mg PO DAILY [facility] [place] Memantine (Namenda) 5 mg PO DAILY [facility] Last Admin: 02/26/17 09:47 Dose: 5 mg Minoxidil (Minoxidil) 2.5 mg PO TID [facility] Last Admin: 02/26/17 20:46 Dose: Not Given [id number]-8-[id number] Ethyl Esters (Lovaza) 1 gm PO DAILY [facility] Last Admin: 02/26/17 09:48 Dose: 1 gm Pantoprazole Sodium (Protonix Ec Tab) 40 mg PO DAILY [facility] Last Admin: 02/26/17 09:48 Dose: 40 mg Rosuvastatin Calcium (Crestor) 5 mg PO HS [facility] Last Admin: 02/25/17 23:00 Dose: 5 mg Tamsulosin HCl (Flomax) 0.4 mg PO DAILY [facility] Last Admin: 02/26/17 09:48 Dose: 0.4 mg - Labs Labs: 02/26/17 07:31 02/26/17 07:31 PT 12.3 SECONDS (9.7-12.2) H 02/18/17 08:32 INR 1.1 02/18/17 08:32 APTT 40 SECONDS (21-34) H 02/24/17 07:13 Attending/Attestation - Attestation I have personally seen and examined this patient.: Yes I have fully participated in the care of the patient.: Yes I have reviewed all pertinent clinical information, including history, physical exam and plan: Yes Notes (Text): Patient seen, examined, and case discussed with day-time resident. Patient denies acute complaints. Refuses home nursing and refuses subacute rehab. Patient is bradycardic on telemetry; patient's coreg this morning. Patient asymptomatic of bradycardia. Cardiology also evaluated patient, held Clonidine as a contributing factor for bradycardia; started low dose minoxidil 2.5mg PO tid for hypertension. Patient to finish last dose of Tigecycline IV tomorrow to cover to VRE prior to discharge tomorrow. Assessment/Plan 1) Gangrenous toe * Podiatry Dr. Lopez consulted, help appreciated. * POD left 3rd digit amputation * Tylenol 650mg po q6 prn mild pain * Wound culture + VRE and Coag negative staph Tigecycline 50mg IVPB Q12H-(active since 02/22/17) * Bone culture (02/19) -VRE positive: left foot culture (02/18): coag negative staph; VRE+ * Blood culture negative x 2 x 5 days * ID Dr. Burden consulted * Vascular Dr. Jay consulted by podiatry- no surgical intervention 2) HTN * Cardio Dr. Keys consulted, help appreciated. * Hydralazine 100mg BID * Losartan 100mg daily * Coreg 25mg PO BID.>> will hold bc of bradycardia * Norvasc 10 mg po daily * ASA 81mg po daily * Clonidine held by cardio because of bradycardia * Started on Minxidil 2.5mg PO tid per cardiology 3) Bradycardia * pt asymptomatic * will give glucagon to reverse beta-roman affect-->patient seen and re- evaluated; denies lightheadedness, denies nausea, denies feeling faint * ekg shows sinus with 1st degree av block * placed on tele monitor * coreg and clonidine held secondary to bradycardia 4) DM * RISS * Accuchecks QAC and HS * Accuchecks high 100s-200s * [id number] ordered 5) ESRD * On HD TTS. * Nephro Dr. Rivera consulted, help appreciated. * Continue Phoslo 2001mg PO tidacc 6) HLD * Crestor 5mg PO HS * Lovaza 1gm po daily 7) BPH * Flomax 0.4mg PO daily. 8) Dementia * Memantine 5mg PO daily * Donepezil 10mg PO HS. 9) Prophylactic measure * Protonix 40mg po daily * Heparin 5000U SC Q12 * Renal diet * SCD c/i * Wound care * PT/OT * Pt to be weightbearing as tolerated using 4-point walker Dispo: pt refused rehab, will be discharged with home; pt refused home nurse, must finish IV abx first. He has one more day of tigecycline to complete. Possible discharge tomorrow following dialysis
--- NOTE | 2017-02-26 17:42 | CP.PCM.PN ---
Subjective - Date & Time of Evaluation Date of Evaluation: 02/26/17 Time of Evaluation: 17:38 - Subjective Subjective: pt feels well. His heart rate has been slow, and coreg held. Bp has been high. No heart block, no dizziness Objective - Vital Signs/Intake and Output Vital Signs (last 24 hours): Temp Pulse Resp BP Pulse Ox 98.1 F 53 L 20 162/64 H 96 02/26/17 15:25 02/26/17 15:25 02/26/17 15:25 02/26/17 15:25 02/26/17 15:25 - Medications Medications: Current Medications Acetaminophen (Tylenol 325mg Tab) 650 mg PO Q6 PRN PRN Reason: Pain, Mild (1-3) Last Admin: 02/20/17 17:30 Dose: 650 mg Amlodipine Besylate (Norvasc) 10 mg PO DAILY [facility] Aspirin (Ecotrin) 81 mg PO DAILY [facility] Last Admin: 02/26/17 09:47 Dose: 81 mg Calcium Acetate (Phoslo) 2,001 mg PO TIDCC [facility] Last Admin: 02/26/17 17:36 Dose: 2,001 mg Carvedilol (Coreg) 25 mg PO BID [facility] Last Admin: 02/26/17 09:47 Dose: Not Given Clonidine HCl (Catapres) 0.1 mg PO BID [facility] Last Admin: 02/26/17 17:37 Dose: 0.1 mg Donepezil HCl (Aricept) 10 mg PO HS [facility] Last Admin: 02/25/17 23:00 Dose: 10 mg Ergocalciferol (Drisdol 50,000 Intl Units Cap) 1 cap PO QWK [facility] Last Admin: 02/25/17 13:54 Dose: 1 cap Heparin Sodium (Porcine) (Heparin) 5,000 units SC Q12 [facility] Last Admin: 02/26/17 09:48 Dose: 5,000 units Hydralazine HCl (Apresoline) 100 mg PO BID [facility] Last Admin: 02/26/17 17:36 Dose: 100 mg Tigecycline 50 mg/ Sodium (Chloride) 100 mls @ 100 mls/hr IVPB Q12H [facility] Last Admin: 02/26/17 14:39 Dose: 100 mls/hr Insulin Human Regular (Novolin R) 0 unit SC ACHS [facility] PRN Reason: Protocol Last Admin: 02/26/17 17:21 Dose: Not Given Losartan Potassium (Cozaar) 100 mg PO DAILY [facility] Memantine (Namenda) 5 mg PO DAILY [facility] Last Admin: 02/26/17 09:47 Dose: 5 mg Nwilg-9-Djaq Ethyl Esters (Lovaza) 1 gm PO DAILY [facility] Last Admin: 02/26/17 09:48 Dose: 1 gm Pantoprazole Sodium (Protonix Ec Tab) 40 mg PO DAILY [facility] Last Admin: 02/26/17 09:48 Dose: 40 mg Rosuvastatin Calcium (Crestor) 5 mg PO HS [facility] Last Admin: 02/25/17 23:00 Dose: 5 mg Tamsulosin HCl (Flomax) 0.4 mg PO DAILY [facility] Last Admin: 02/26/17 09:48 Dose: 0.4 mg - Labs Labs: 02/26/17 07:31 02/26/17 07:31 PT 12.3 SECONDS (9.7-12.2) H 02/18/17 08:32 INR 1.1 02/18/17 08:32 APTT 40 SECONDS (21-34) H 02/24/17 07:13 - Constitutional Appears: Well, Older Than Stated Age - Head Exam Head Exam: NORMAL INSPECTION - Eye Exam Eye Exam: EOMI Pupil Exam: NORMAL ACCOMODATION - ENT Exam ENT Exam: Mucous Membranes Moist - Neck Exam Neck Exam: Normal Inspection - Respiratory Exam Respiratory Exam: Clear to Ausculation Bilateral, NORMAL BREATHING PATTERN - Cardiovascular Exam Cardiovascular Exam: REGULAR RHYTHM - GI/Abdominal Exam GI & Abdominal Exam: Normal Bowel Sounds - Back Exam Back Exam: NORMAL INSPECTION - Neurological Exam Neurological Exam: Alert, Awake, CN II-XII Intact - Psychiatric Exam Psychiatric exam: Normal Affect - Skin Skin Exam: Warm (Bandaged foot ) Assessment and Plan - Assessment and Plan (Free Text) Assessment: 1. pt has bradycardia, with combo of beta roman and clonidine. Still hypertensive on: beta roman, ca channel roman, clonidine, arb and hydralazine. To allow continuation of beta roman, will stop clonidine (clonidine also causes bradycardia). For additional bp reduction, only med available is minoxidil. Will start at 2.5 tid.
[2017-02-27 06:33] LABS: BASO # 0.1 K/uL (0.0-0.2); BASO % 0.8 % (0.0-2.0); EOS # 0.1 K/uL (0.0-0.7); EOS % 1.3 % (0.0-4.0); HEMATOCRIT 34.8 % (35.0-51.0); LYMPH # 1.8 K/uL (1.0-4.3); LYMPH % 18.6 % (20.0-40.0); MEAN CELL VOLUME 87.1 fL (80.0-94.0); MEAN CORPUSCULAR HEMOGLOBIN 28.6 pg (27.0-31.0); MEAN CORPUSCULAR HGB CONC 32.8 g/dL (33.0-37.0); MEAN PLATELET VOLUME 10.1 fL (7.2-11.7); MONO # 0.7 K/uL (0.0-0.8); MONO % 7.3 % (0.0-10.0); RED CELL DISTRIBUTION WIDTH 17.3 % (11.5-14.5); WHITE BLOOD COUNT 9.5 K/uL (4.8-10.8)
[2017-02-27 06:49] LABS: POTASSIUM 4.3 mmol/L (3.6-5.2)
[2017-02-27 06:51] LABS: ALB/GLOB RATIO 1.1 (1.0-2.1); BILIRUBIN,TOTAL 0.7 mg/dL (0.2-1.3); TOTAL PROTEIN 6.2 g/dL (6.3-8.3)
[2017-02-27 06:52] LABS: CALCIUM 7.8 mg/dl (8.6-10.4); MAGNESIUM 2.2 mg/dL (1.6-2.3); PHOSPHOROUS 5.3 mg/dL (2.5-4.5)
[2017-02-27] MEDS: (Novolin R) Insulin Human Regular 100 units/ml vial SC SCH ×3 (08:49→17:25)
[2017-02-27] MEDS: Omega-3-Acid Ethyl Esters 1 GM Cap PO SCH ×2 (09:09→14:50)
--- NOTE | 2017-02-27 09:47 | CP.PCM.PN ---
Subjective - Date & Time of Evaluation Date of Evaluation: 02/27/17 Time of Evaluation: 09:45 - Subjective Subjective: seen in dialysis feels fine no SOB UF 4L BP elevated ROS- as per HPI, other than that 10 point ROS negative Objective - Vital Signs/Intake and Output Vital Signs (last 24 hours): Temp Pulse Resp BP Pulse Ox 98.4 F 60 20 163/64 H 97 02/27/17 08:00 02/27/17 08:00 02/27/17 08:00 02/27/17 08:00 02/27/17 08:00 - Medications Medications: Current Medications Acetaminophen (Tylenol 325mg Tab) 650 mg PO Q6 PRN PRN Reason: Pain, Mild (1-3) Last Admin: 02/20/17 17:30 Dose: 650 mg Amlodipine Besylate (Norvasc) 10 mg PO DAILY [facility] Last Admin: 02/27/17 09:09 Dose: Not Given Aspirin (Ecotrin) 81 mg PO DAILY [facility] Last Admin: 02/27/17 09:09 Dose: Not Given Calcium Acetate (Phoslo) 2,001 mg PO TIDCC [facility] Last Admin: 02/27/17 08:49 Dose: 2,001 mg Carvedilol (Coreg) 25 mg PO BID [facility] Last Admin: 02/26/17 09:47 Dose: Not Given Donepezil HCl (Aricept) 10 mg PO HS [facility] Last Admin: 02/26/17 21:55 Dose: 10 mg Ergocalciferol (Drisdol 50,000 Intl Units Cap) 1 cap PO QWK [facility] Last Admin: 02/25/17 13:54 Dose: 1 cap Hydralazine HCl (Apresoline) 100 mg PO BID [facility] Last Admin: 02/27/17 09:09 Dose: Not Given Tigecycline 50 mg/ Sodium (Chloride) 100 mls @ 100 mls/hr IVPB Q12H [facility] Last Admin: 02/27/17 02:18 Dose: 100 mls/hr Insulin Human Regular (Novolin R) 0 unit SC ACHS [facility] PRN Reason: Protocol Last Admin: 02/27/17 08:49 Dose: 2 unit Losartan Potassium (Cozaar) 100 mg PO DAILY [facility] Last Admin: 02/27/17 09:09 Dose: Not Given Memantine (Namenda) 5 mg PO DAILY [facility] Last Admin: 02/27/17 09:09 Dose: Not Given Minoxidil (Minoxidil) 2.5 mg PO TID [facility] Last Admin: 02/27/17 09:09 Dose: Not Given Hkxwq-3-Lxtc Ethyl Esters (Lovaza) 1 gm PO DAILY [facility] Last Admin: 02/27/17 09:09 Dose: Not Given Pantoprazole Sodium (Protonix Ec Tab) 40 mg PO DAILY [facility] Last Admin: 02/26/17 09:48 Dose: 40 mg Rosuvastatin Calcium (Crestor) 5 mg PO HS [facility] Last Admin: 02/26/17 21:53 Dose: 5 mg Tamsulosin HCl (Flomax) 0.4 mg PO DAILY [facility] Last Admin: 02/27/17 09:09 Dose: Not Given - Labs Labs: 02/27/17 06:18 02/27/17 06:18 PT 12.3 SECONDS (9.7-12.2) H 02/18/17 08:32 INR 1.1 02/18/17 08:32 APTT 40 SECONDS (21-34) H 02/24/17 07:13 - Constitutional Appears: Well, Non-toxic - Head Exam Head Exam: ATRAUMATIC, NORMOCEPHALIC - Eye Exam Eye Exam: EOMI, PERRL - ENT Exam ENT Exam: Mucous Membranes Moist - Respiratory Exam Respiratory Exam: Clear to Ausculation Bilateral. absent: Rhonchi, Wheezes - Cardiovascular Exam Cardiovascular Exam: REGULAR RHYTHM, +S1, +S2. absent: JVD - GI/Abdominal Exam GI & Abdominal Exam: Soft. 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
--- NOTE | 2017-02-27 10:38 | CP.PCM.PN ---
Subjective - Date & Time of Evaluation Date of Evaluation: 02/27/17 Time of Evaluation: 10:35 - Subjective Subjective: Patient seen and evaluated at bedside in dialysis. Patient is resting, groggy. Patient has bandage clean dry and intact to the left foot. No acute complaints at this time. Objective - Vital Signs/Intake and Output Vital Signs (last 24 hours): Temp Pulse Resp BP Pulse Ox 97.8 F 69 18 181/74 H 96 02/27/17 09:15 02/27/17 09:15 02/27/17 09:15 02/27/17 09:45 02/27/17 09:15 - Medications Medications: Current Medications Acetaminophen (Tylenol 325mg Tab) 650 mg PO Q6 PRN PRN Reason: Pain, Mild (1-3) Last Admin: 02/20/17 17:30 Dose: 650 mg Amlodipine Besylate (Norvasc) 10 mg PO DAILY [facility] Last Admin: 02/27/17 09:09 Dose: Not Given Aspirin (Ecotrin) 81 mg PO DAILY [facility] Last Admin: 02/27/17 09:09 Dose: Not Given Calcium Acetate (Phoslo) 2,001 mg PO TIDCC [facility] Last Admin: 02/27/17 08:49 Dose: 2,001 mg Carvedilol (Coreg) 25 mg PO BID [facility] Last Admin: 02/26/17 09:47 Dose: Not Given Donepezil HCl (Aricept) 10 mg PO HS [facility] Last Admin: 02/26/17 21:55 Dose: 10 mg Ergocalciferol (Drisdol 50,000 Intl Units Cap) 1 cap PO QWK [facility] Last Admin: 02/25/17 13:54 Dose: 1 cap Hydralazine HCl (Apresoline) 100 mg PO BID [facility] Last Admin: 02/27/17 09:09 Dose: Not Given Tigecycline 50 mg/ Sodium (Chloride) 100 mls @ 100 mls/hr IVPB Q12H [facility] Last Admin: 02/27/17 02:18 Dose: 100 mls/hr Insulin Human Regular (Novolin R) 0 unit SC ACHS [facility] PRN Reason: Protocol Last Admin: 02/27/17 08:49 Dose: 2 unit Losartan Potassium (Cozaar) 100 mg PO DAILY [facility] Last Admin: 02/27/17 09:09 Dose: Not Given Memantine (Namenda) 5 mg PO DAILY [facility] Last Admin: 02/27/17 09:09 Dose: Not Given Minoxidil (Minoxidil) 2.5 mg PO TID [facility] Last Admin: 02/27/17 09:09 Dose: Not Given Jkrfr-4-Ztsd Ethyl Esters (Lovaza) 1 gm PO DAILY [facility] Last Admin: 02/27/17 09:09 Dose: Not Given Pantoprazole Sodium (Protonix Ec Tab) 40 mg PO DAILY [facility] Last Admin: 02/26/17 09:48 Dose: 40 mg Rosuvastatin Calcium (Crestor) 5 mg PO HS [facility] Last Admin: 02/26/17 21:53 Dose: 5 mg Tamsulosin HCl (Flomax) 0.4 mg PO DAILY [facility] Last Admin: 02/27/17 09:09 Dose: Not Given - Labs Labs: 02/27/17 06:18 02/27/17 06:18 PT 12.3 SECONDS (9.7-12.2) H 02/18/17 08:32 INR 1.1 02/18/17 08:32 APTT 40 SECONDS (21-34) H 02/24/17 07:13 - Constitutional Appears: No Acute Distress - Additional Findings Additional findings: DERMATOLOGIC: Left foot third digit amputation site is well approximated, sutures are intact, no drainage, no erythema, no purulence. The surrounding skin is intact and nornal skin color. VASCULAR: DP/PT pulses 2/4, RISK CONTROL OFFICER<3 seconds, skin temperature is normal. NEUROLOGIC: Protective sensation decreased ORTHOPEDIC: Negative pain on palpation to the left lower extremity. Left foot third digit amputation present Assessment and Plan - Assessment and Plan (Free Text) Assessment: 76 year old male POD#8 for left foot partial third ray amputation. Plan: Patient seen and evaluated, d/w attending Dr. Lopez. Patients left foot dressed with betadine, 4x4s, kerlix and BEAU Patient has one day remaining of IV abx Pt will DC to home, stable per podiatry standpoint Podiatry will continue to follow while in house
[2017-02-27] MEDS: Pantoprazole 40 mg EC Tab PO SCH ×2 (11:17→14:50)
--- NOTE | 2017-02-27 16:33 | CP.PCM.DIS ---
<Alon Bone - Last Filed: 02/27/17 16:27> Provider - Provider Date of Admission: 02/18/17 08:11 Attending physician: Dr. Luis Reed Primary care physician: Dr. Chua Consults: Cardio- Dr. Keys Podiatry- Dr. Lopez ID- Dr. Burden Vascular surgery- Dr. Jay Time Spent in preparation of Discharge (in minutes): 45 Diagnosis - Discharge Diagnosis (1) Toe gangrene Status: Acute Comment: f/u with podiatry in 1 week. left 3rd digit amputation on 02/19/17 (2) Essential hypertension Status: Acute Comment: Continue meds as listed in DC summary Hospital Course - Lab Results Lab Results: Micro Results 02/18/17 22:59 Blood-Venous Blood Culture - Final NO GROWTH AFTER 5 DAYS 02/18/17 22:59 Blood-Venous Gram Stain - Final TEST NOT PERFORMED 02/18/17 22:30 Blood-Venous Blood Culture - Final NO GROWTH AFTER 5 DAYS 02/18/17 22:30 Blood-Venous Gram Stain - Final TEST NOT PERFORMED 02/19/17 10:30 Bone Gram Stain - Final 02/19/17 10:30 Bone Tissue Culture - Final Vancomycin Resistant E.faecium 02/18/17 09:49 Foot - Left Gram Stain - Final 02/18/17 09:49 Foot - Left Wound Culture - Final Coagulase Neg Staphylococcus Vancomycin Resistant E.faecium Most Recent Lab Values WBC 9.5 K/uL (4.8-10.8) 02/27/17 06:18 RBC 4.00 Mil/uL (4.40-5.90) L 02/27/17 06:18 Hgb 11.4 g/dL (12.0-18.0) L 02/27/17 06:18 Hct 34.8 % (35.0-51.0) L 02/27/17 06:18 MCV 87.1 fL (80.0-94.0) 02/27/17 06:18 MCH 28.6 pg (27.0-31.0) 02/27/17 06:18 MCHC 32.8 g/dL (33.0-37.0) L 02/27/17 06:18 RDW 17.3 % (11.5-14.5) H 02/27/17 06:18 Plt Count 157 K/uL (130-400) 02/27/17 06:18 MPV 10.1 fL (7.2-11.7) 02/27/17 06:18 Neut % (Auto) 72.0 % (50.0-75.0) 02/27/17 06:18 Lymph % (Auto) 18.6 % (20.0-40.0) L 02/27/17 06:18 Mora % (Auto) 7.3 % (0.0-10.0) 02/27/17 06:18 Eos % (Auto) 1.3 % (0.0-4.0) 02/27/17 06:18 Baso % (Auto) 0.8 % (0.0-2.0) 02/27/17 06:18 Neut # 6.8 K/uL (1.8-7.0) 02/27/17 06:18 Lymph # 1.8 K/uL (1.0-4.3) 02/27/17 06:18 Mora # 0.7 K/uL (0.0-0.8) 02/27/17 06:18 Eos # 0.1 K/uL (0.0-0.7) 02/27/17 06:18 Baso # 0.1 K/uL (0.0-0.2) 02/27/17 06:18 Differential Comment 02/21/17 07:56 PT 12.3 SECONDS (9.7-12.2) H 02/18/17 08:32 INR 1.1 02/18/17 08:32 APTT 40 SECONDS (21-34) H 02/24/17 07:13 Sodium 139 mmol/L (132-148) 02/27/17 06:18 Potassium 4.3 mmol/L (3.6-5.2) 02/27/17 06:18 Chloride 100 mmol/L (98-107) 02/27/17 06:18 Carbon Dioxide 23 mmol/L (22-30) 02/27/17 06:18 Anion Gap 20 (10-20) 02/27/17 06:18 BUN 89 mg/dL (9-20) H 02/27/17 06:18 Creatinine 7.3 MG/DL (0.8-1.5) H 02/27/17 06:18 Est GFR ( Amer) 9 02/27/17 06:18 Est GFR (Non-Af Amer) 7 02/27/17 06:18 POC Glucose (mg/dL) 220 mg/dL (65-110) H 02/27/17 11:00 Random Glucose 158 mg/dL (75-110) H 02/27/17 06:18 Calcium 7.8 mg/dl (8.6-10.4) L 02/27/17 06:18 Phosphorus 5.3 mg/dL (2.5-4.5) H 02/27/17 06:18 Magnesium 2.2 mg/dL (1.6-2.3) 02/27/17 06:18 Total Bilirubin 0.7 mg/dL (0.2-1.3) 02/27/17 06:18 AST 15 U/L (17-59) L 02/27/17 06:18 ALT 15 U/L (21-72) L 02/27/17 06:18 Alkaline Phosphatase 67 U/L (38-126) 02/27/17 06:18 Total Protein 6.2 g/dL (6.3-8.3) L 02/27/17 06:18 Albumin 3.2 g/dL (3.5-5.0) L 02/27/17 06:18 Globulin 3.0 gm/dL (2.2-3.9) 02/27/17 06:18 Albumin/Globulin Ratio 1.1 (1.0-2.1) 02/27/17 06:18 Blood Type O POSITIVE 02/18/17 08:32 Antibody Screen Negative 02/18/17 08:32 - Hospital Course Hospital Course: As per admission documentation: 76M PMHx HTN, DM, and ESRD on HD TTS was sent by private podiatry Dr. Lopez for left third toe amputation tomorrow due to gangrene. Pt said he accidently hit his left foot against bed post 2 months ago. Pt was also evaluated by Dr. Jay on 12/2016 after aortofemoral angiogram for which severe PVD was found. Pt currently offers no complaints at the moment, denied numbness or tingling, foot pain, chest pain, SOB, palpitations. Per at bedside, pt stopped taking insulin at night per PMD instruction in October. Patient was admitted to treatment of diabetic gangrenous toe. Patient was given Tigecycline from 02/22/17 to . Wound culture grew out VRE and coag negative staph. Patient's 3rd digit was amputated, after evaluation from vascular surgery which recommended no surgery from their end. Patient's private mailmaster, Dr. Keys, was consulted for management of his hypertension, and consequential bradycardia likely from medication. Patient refused DONA and home nurse, so patient's antibiotics were finished inpatient and he was discharged home with instructions to followup with his PMD, mailmaster, air conditioning installer supervisor. DC Meds: Lovaza 1gm PO BID Crestor 5mg PO HS Memantine 5mg PO Daily Donepezil 10mg PO HS Losartan 100mg PO Daily Hydralazine 100mg BID Coreg 25mg PO BID Asa 81mg PO Daily Minoxidil 2.5mg PO TID Norvasc 10mg PO Daily Phoslo 2001mg TID Discharge Exam - Head Exam Head Exam: ATRAUMATIC, NORMOCEPHALIC Discharge Plan - Discharge Medications Prescriptions: amLODIPine [Norvasc] 10 mg PO DAILY #30 tab Aspirin [Ecotrin] 81 mg PO DAILY #30 Calcium Acetate [Phoslo] 2,001 mg PO TIDCC #30 tab Carvedilol [Coreg] 25 mg PO BID #60 tab Donepezil [Aricept] 10 mg PO HS #30 tab Hydralazine HCl 100 mg PO BID #60 Memantine [Namenda] 5 mg PO DAILY #30 Minoxidil 2.5 mg PO TID #90 tab [id number] Ethyl Esters 1 GM [Lovaza] 1 gm PO DAILY #30 Vcyyj-0-Wkaj Ethyl Esters 1 GM [Lovaza] 1 gm PO BID #60 sgl Rosuvastatin Calcium [Crestor] 5 mg PO HS #30 tab Tamsulosin [Flomax] 0.4 mg PO DAILY #30 cap - Follow Up Plan Condition: STABLE Disposition: HOME/ ROUTINE Instructions: Renal Failure Diet (DC), Diabetes Mellitus Type 2 in Adults (DC) Additional Instructions: Patient is to be discharged home, as per Dr. Reed. Patient is to continue medications as instructed. Patient is to followup with his air conditioning installer supervisor, Dr. Lopez, at his [facility] office 1 week after discharge. Patient is to followup with his PMD in 1 week. Patient is to followup with his mailmaster, Dr. Keys within 1 week. If symptoms worsen, patient is to return to the hospital for further evaluation and treatment. Referrals: Herb Keys MD [Staff Provider] - Nelson Lopez DPM [Staff Provider] - Jayne Chua MD [Medical Doctor] - <Luis Reed - Last Filed: 04/01/17 12:45> Provider - Provider Date of Admission: 02/18/17 08:11 Attending physician: Gee Nash MD Hospital Course - Lab Results Lab Results: Micro Results 02/18/17 22:59 Blood-Venous Blood Culture - Final NO GROWTH AFTER 5 DAYS 02/18/17 22:59 Blood-Venous Gram Stain - Final TEST NOT PERFORMED 02/18/17 22:30 Blood-Venous Blood Culture - Final NO GROWTH AFTER 5 DAYS 02/18/17 22:30 Blood-Venous Gram Stain - Final TEST NOT PERFORMED 02/19/17 10:30 Bone Gram Stain - Final 02/19/17 10:30 Bone Tissue Culture - Final Vancomycin Resistant E.faecium 02/18/17 09:49 Foot - Left Gram Stain - Final 02/18/17 09:49 Foot - Left Wound Culture - Final Coagulase Neg Staphylococcus Vancomycin Resistant E.faecium Most Recent Lab Values WBC 9.5 K/uL (4.8-10.8) 02/27/17 06:18 RBC 4.00 Mil/uL (4.40-5.90) L 02/27/17 06:18 Hgb 11.4 g/dL (12.0-18.0) L 02/27/17 06:18 Hct 34.8 % (35.0-51.0) L 02/27/17 06:18 MCV 87.1 fL (80.0-94.0) 02/27/17 06:18 MCH 28.6 pg (27.0-31.0) 02/27/17 06:18 MCHC 32.8 g/dL (33.0-37.0) L 02/27/17 06:18 RDW 17.3 % (11.5-14.5) H 02/27/17 06:18 Plt Count 157 K/uL (130-400) 02/27/17 06:18 MPV 10.1 fL (7.2-11.7) 02/27/17 06:18 Neut % (Auto) 72.0 % (50.0-75.0) 02/27/17 06:18 Lymph % (Auto) 18.6 % (20.0-40.0) L 02/27/17 06:18 Mora % (Auto) 7.3 % (0.0-10.0) 02/27/17 06:18 Eos % (Auto) 1.3 % (0.0-4.0) 02/27/17 06:18 Baso % (Auto) 0.8 % (0.0-2.0) 02/27/17 06:18 Neut # 6.8 K/uL (1.8-7.0) 02/27/17 06:18 Lymph # 1.8 K/uL (1.0-4.3) 02/27/17 06:18 Mora # 0.7 K/uL (0.0-0.8) 02/27/17 06:18 Eos # 0.1 K/uL (0.0-0.7) 02/27/17 06:18 Baso # 0.1 K/uL (0.0-0.2) 02/27/17 06:18 Differential Comment 02/21/17 07:56 PT 12.3 SECONDS (9.7-12.2) H 02/18/17 08:32 INR 1.1 02/18/17 08:32 APTT 40 SECONDS (21-34) H 02/24/17 07:13 Sodium 139 mmol/L (132-148) 02/27/17 06:18 Potassium 4.3 mmol/L (3.6-5.2) 02/27/17 06:18 Chloride 100 mmol/L (98-107) 02/27/17 06:18 Carbon Dioxide 23 mmol/L (22-30) 02/27/17 06:18 Anion Gap 20 (10-20) 02/27/17 06:18 BUN 89 mg/dL (9-20) H 02/27/17 06:18 Creatinine 7.3 MG/DL (0.8-1.5) H 02/27/17 06:18 Est GFR ( Amer) 9 02/27/17 06:18 Est GFR (Non-Af Amer) 7 02/27/17 06:18 POC Glucose (mg/dL) 220 mg/dL (65-110) H 02/27/17 11:00 Random Glucose 158 mg/dL (75-110) H 02/27/17 06:18 Calcium 7.8 mg/dl (8.6-10.4) L 02/27/17 06:18 Phosphorus 5.3 mg/dL (2.5-4.5) H 02/27/17 06:18 Magnesium 2.2 mg/dL (1.6-2.3) 02/27/17 06:18 Total Bilirubin 0.7 mg/dL (0.2-1.3) 02/27/17 06:18 AST 15 U/L (17-59) L 02/27/17 06:18 ALT 15 U/L (21-72) L 02/27/17 06:18 Alkaline Phosphatase 67 U/L (38-126) 02/27/17 06:18 Total Protein 6.2 g/dL (6.3-8.3) L 02/27/17 06:18 Albumin 3.2 g/dL (3.5-5.0) L 02/27/17 06:18 Globulin 3.0 gm/dL (2.2-3.9) 02/27/17 06:18 Albumin/Globulin Ratio 1.1 (1.0-2.1) 02/27/17 06:18 Blood Type O POSITIVE 02/18/17 08:32 Antibody Screen Negative 02/18/17 08:32 Attending/Attestation - Attestation I have personally seen and examined this patient.: Yes I have fully participated in the care of the patient.: Yes I have reviewed all pertinent clinical information, including history, physical exam and plan: Yes Notes (Text): Patient Seen and examined with the resident. Agree with the resident's evaluation, assessment and plan. This is a 76 yo male with past medical hx of HTN, DM, and ESRD on HD TTS was sent by private podiatry Dr. Lopez for left third toe amputation Gangrenous toe s/p amputation Per Podiatry management Bone culture -VRE positive HTN DM
[2017-02-27 17:02] VITALS: BP 112/39; PULSE 73; RESP 20; TEMP 98.2; O2SAT 99
--- NOTE | 2017-03-09 07:31 | CARD ---
APPROVED REPORT EKG Measurement Heart [id number] NE 210P25 [id number] <Conclusion> Sinus rhythm with 1st degree AV block Incomplete right bundle branch block Nonspecific T wave abnormality Prolonged QT Abnormal ECG
== END 2017-02-27 18:21 | disposition home or self-care (01) | DRG 239 ==
LOC: C.ER 07:33 → C.3T 08:11 → C.5T 02-23 13:58
PROVIDERS: ADMIT Internal Medicine; ATTEND Internal Medicine
PROC: 5A1D60Z (ICD-10-PCS; 2017-02-18)
PROC: 0Y6N0ZC Detachment at Left Foot, Partial 3rd Ray, Open Approach (ICD-10-PCS; principal; 2017-02-19 07:45)
DX: E11.52 Type 2 diabetes mellitus with diabetic peripheral angiopathy with gangrene (principal); N18.6 End stage renal disease; I12.0 Hypertensive chronic kidney disease with stage 5 chronic kidney disease or end stage renal disease; F03.90 Unspecified dementia, unspecified severity, without behavioral disturbance, psychotic disturbance, mood disturbance, and anxiety; E11.22 Type 2 diabetes mellitus with diabetic chronic kidney disease; E66.01 Morbid (severe) obesity due to excess calories; Z79.4 Long term (current) use of insulin; Z68.36 Body mass index [BMI] 36.0-36.9, adult; Z99.2 Dependence on renal dialysis; E78.5 Hyperlipidemia, unspecified; I44.0 Atrioventricular block, first degree; J44.9 Chronic obstructive pulmonary disease, unspecified; N40.0 Benign prostatic hyperplasia without lower urinary tract symptoms; Z87.891 Personal history of nicotine dependence

== ENCOUNTER 2018-03-31 17:23 | Inpatient (IN) | payer MEDICARE, BC ==
[2018-03-31 17:27] VITALS: BMI 37.8
--- NOTE | 2018-03-31 18:17 | C.PDOC ---
History Of Present Illness 77 y/o male, w/PMhx of diabetes and ESRD, transferred from [place], presents to the ER for evaluation of left 1st and 2nd toe ulcers and cellulitis. Patient states that has dialysis on Mondays, Wednesdays, and Fridays. Of note, patient has been referred by his it applications developer. Time Seen by Provider: 03/31/18 17:28 Chief Complaint (Nursing): Abnormal Skin Integrity History Per: Patient History/Exam Limitations: no limitations Onset/Duration Of Symptoms: Days Current Symptoms Are (Timing): Still Present Severity: Moderate Past Medical History Reviewed: Historical Data, Nursing Documentation, Vital Signs Vital Signs: Last Vital Signs Temp 98.4 F 03/31/18 17:41 Pulse 54 L 03/31/18 17:41 Resp 12 03/31/18 17:41 BP 137/41 L 03/31/18 17:41 Pulse Ox 92 L 03/31/18 18:24 - Medical History PMH: CHF, COPD, Diabetes, HTN, Hypercholesterolemia, End Stage Renal Disease, Chronic Kidney Disease Surgical History: Endoscopy - [facility] Procedures (11/29/17) BED MOBILITY TREATMENT (11/29/17) DETACHMENT AT LEFT FOOT, PARTIAL 3RD RAY, OPEN APPROACH (02/18/17) DIALYSIS ARTERIOVENOSTOM (01/08/14) DRESSING TECHNIQUES TREATMENT USING ASSIST EQUIPMENT (11/29/17) GAIT TRAINING/AMBULAT TREATMENT USING ASSIST EQUIPMENT (11/29/17) HEMODIALYSIS (11/27/14) INTRODUCE OF OTH ANTI-INFECT INTO PERIPH VEIN, PERC APPROACH (11/29/17) INTRODUCE OF OTH THERAP SUBST INTO RESP TRACT, VIA OPENING (11/24/17) PERFORMANCE OF URINARY FILTRATION, MULTIPLE (02/18/17) [facility] (11/27/14) THERAPEUTIC EXERCISE TREATMENT OF MUSCULOSK LOW BACK/LE (11/29/17) VENOUS CATHETERIZATION FOR RENAL DIALYSIS (01/08/14) Family History: States: No Known Family Hx - Social History Hx Tobacco Use: No Hx Alcohol Use: Yes (occasional) Hx Substance Use: No - Immunization History Hx Tetanus Toxoid Vaccination: No Hx Influenza Vaccination: Yes Hx Pneumococcal Vaccination: No Review Of Systems Except As Marked, All Systems Reviewed And Found Negative. Constitutional: Negative for: Fever, Chills Musculoskeletal: Positive for: Other (left 1st and 2nd toe ulcers) Physical Exam - Physical Exam Appears: Non-toxic, No Acute Distress, Other (obese white male) Skin: Normal Color, Warm, Dry Head: Atraumatic, Normacephalic Eye(s): bilateral: Normal Inspection Nose: Normal Oral Mucosa: Moist Neck: Supple Chest: Symmetrical Cardiovascular: Rhythm Regular Respiratory: Normal Breath Sounds, No Rales, No Rhonchi, No Wheezing Gastrointestinal/Abdominal: Normal Exam, Soft, No Tenderness, No Guarding, No Rebound Extremity: Normal ROM, Other (1st, 2nd, and 3rd toe: erythema with desquamation and maceration 4th toe: dried gangrene 5th toe: lateral aspect surgically removed) Neurological/Psych: Oriented x3, Normal Speech ED Course And Treatment O2 Sat by Pulse Oximetry: 92 (RA) Pulse Ox Interpretation: Abnormal Progress Note: confirmed Zosyn dose NOT given @ [place] ED, ordered in ED by Hospitalists, renal dose. Vanco already given IV @ [place] ED Medical Decision Making Medical Decision Making: L toes cellulitis, desquamation, dry gangrene L lateral 4th toe, L 5th toe prior surgical amputation. Disposition Doctor Will See Patient In The: Hospital Counseled Patient/Family Regarding: Studies Performed, Diagnosis - Disposition Disposition: HOSPITALIZED Disposition Time: 19:19 Condition: GOOD - Clinical Impression Clinical Impression: Diabetic foot infection, Toe gangrene - Scribe Statement The provider has reviewed the documentation as recorded by the Kaila Garcia Provider Attestation: All medical record entries made by the Kaila were at my direction and personally dictated by me. I have reviewed the chart and agree that the record accurately reflects my personal performance of the history, physical exam, medical decision making, and the department course for this patient. I have also personally directed, reviewed, and agree with the discharge instructions and disposition.
[2018-03-31] MEDS ORDERED: Dextrose 50% SYRINGE Inj (50 ml) IVP PRN (18:42)
[2018-03-31] MEDS ORDERED: Glucagon Recombinant 1 mg Inj IM PRN (18:42)
[2018-03-31] MEDS ORDERED: Piperacill/Tazo 2.25gm in Dex 2.25 GM/50 ML BAG IVPB SCH (19:00)
--- NOTE | 2018-03-31 19:28 | CP.PCM.HP ---
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 Avila for concerns of left foot ulceration infection. Patient reports subjective fever yesterday and had temperature reading around 100 today at [facility], per patient. Patient was sent from wound center to [facility] ED where he was given one dose of vancomycin. Patient was transferred to [facility] for inpatient dialysis, which is due tomorrow, Wednesday. Patient reports left foot ulcerations began on Father's day, 03/13/18. Patient states when he took his shoe off at the end of the day his foot was full of blisters. He has been following with Dr. Avila on weekly basis for left foot ulcers. Patient denies other complaints currently. PMD: Dr. Chua Outpt cardio: Dr. Nathan Podiatry: Dr. Lopez/ Dr. 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, left third toe amputation 2016 Meds:toujeo 20u HS, insulin 6u ACB (pt unsure of name- was sample from PMD), flomax 0.4mg daily, lovaza, memantine 5mg daily, donepezil 10mg HS, asa 325mg daily, amlodipine 10mg daily, atorvastatin 40mg HS, gabapentin 100mg HS, esomeprazole 40mg daily, losartan 100mg daily NOT on dialysis days (/Th/ Sat/ Sun), Carvedilol 25mg BID, renvela 667mg TID, Hydralazine 100mg BID on MWF (dialysis days) Hydralazine 100mg TID on Tues/Thurs/Sat/Sun (NON-dialysis days) Present on Admission - Present on Admission Any Indicators Present on Admission: No Review of Systems - Constitutional Constitutional: absent: Chills, Fever - EENT Eyes: Change in Vision (decreased left eye- chronic) Ears: Decreased Hearing - Cardiovascular Cardiovascular: absent: Chest Pain, Chest Pain at Rest, Dyspnea - Respiratory Respiratory: absent: Cough, Dyspnea - Gastrointestinal Gastrointestinal: absent: Abdominal Pain, Bloating, Diarrhea, Nausea, Vomiting - Genitourinary Genitourinary: absent: Difficulty Urinating Additional comments: patient ESRD on HD, still produces urine - Musculoskeletal Musculoskeletal: absent: Back Pain - Integumentary Integumentary: Sores (left foot) - Neurological Neurological: absent: Focal Weakness, Weakness - Endocrine Endocrine: absent: Palpitations, Polyuria Past Patient History - Infectious Disease Hx of Infectious Diseases: None - Past Medical History & Family History Past Medical History?: Yes - Past Social History Smoking Status: Former Smoker - CARDIAC Hx Congestive Heart Failure: Yes Hx Hypercholesterolemia: Yes Hx Hypertension: Yes - PULMONARY Hx Chronic Obstructive Pulmonary Disease (COPD): Yes - NEUROLOGICAL HX Cerebrovascular Accident: Yes - HEENT Hx HEENT Problems: Yes Hx Cataracts: Yes Other/Comment: 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 for saftey - RENAL Hx Chronic Kidney Disease: Yes - ENDOCRINE/METABOLIC Hx Diabetes Mellitus Type 2: Yes - HEMATOLOGICAL/ONCOLOGICAL Hx Blood Disorders: No - INTEGUMENTARY Hx Dermatological Problems: Yes (swollen left hand) - MUSCULOSKELETAL/RHEUMATOLOGICAL Hx Falls: No - GASTROINTESTINAL Hx Gastrointestinal Disorders: No - GENITOURINARY/GYNECOLOGICAL Hx Genitourinary Disorders: Yes Hx Reproductive Disorders: No - PSYCHIATRIC Hx Substance Use: No - SURGICAL HISTORY Hx Cataract Extraction: Yes (RT.EYE) Hx Vascular Surgery: Yes (A/V FISTULA LEFT ARM) Hx Vascular Access Device: Yes (DIALYSIS ACCESS) - ANESTHESIA Hx Anesthesia: Yes Hx Anesthesia Reactions: No Hx Malignant Hyperthermia: No Meds Allergies/Adverse Reactions: Allergies Allergy/AdvReac Type Severity Reaction Status Date / Time No Known Allergies Allergy Verified 03/31/18 17:26 Physical Exam - Constitutional Appears: No Acute Distress - Head Exam Head Exam: ATRAUMATIC, NORMOCEPHALIC - Eye Exam Eye Exam: EOMI - ENT Exam ENT Exam: Mucous Membranes Moist Additional comments: patient missing top denture hard of hearing - Respiratory Exam Respiratory Exam: Decreased Breath Sounds, Clear to Auscultation Bilateral, NORMAL BREATHING PATTERN. absent: Rales, Rhonchi, Wheezes - Cardiovascular Exam Cardiovascular Exam: REGULAR RHYTHM, +S1, +S2. absent: Tachycardia, Irregular Rhythm, Systolic Murmur - GI/Abdominal Exam GI & Abdominal Exam: Normal Bowel Sounds, Soft. absent: Firm, Guarding, Tenderness - Extremities Exam Additional comments: left arm with AVF with palpable thrill, auscultory bruit left leg with 1+ pitting edema to mid-talamantes erythema left foot that extends to lower third of talamantes left foot s/p amputation 3rd digit. erythematous skin on left foot, eschar present on left foot 4th digit right foot with callous on hallux, thickened discolored nails intact sensation to bilateral plantar surfaces of feet - Neurological Exam Neurological exam: Alert - Psychiatric Exam Psychiatric exam: Normal Affect - Skin Skin Exam: Warm Results - Vital Signs Recent Vital Signs: Last Vital Signs Temp 98.4 F 03/31/18 17:41 Pulse 54 L 03/31/18 17:41 Resp 12 03/31/18 17:41 BP 137/41 L 03/31/18 17:41 Pulse Ox 92 L 03/31/18 18:24 - Labs Labs: Laboratory Results - last 24 hr 03/31/18 18:17 POC Glucose (mg/dL) 76 Assessment & Plan - Assessment and Plan (Free Text) Assessment: Left foot infected ulcers Podiatry Dr. Lopez consulted, help appreciated wound culture collected at wound center 03/31/18- will follow results zosyn 2.25g q8h (renal dose) started 03/31/18 blood cultures collected at [facility] prior to transfer and at [facility] patient given vancomycin x 1 dose at [facility] ED will check lower extremity arterial duplex ESRD on HD HD MWF renvela 667mg TID Dr. Rivera, nephrology, consulted- help appreciated HTN norvasc 10mg PO daily carvedilol 25mg PO BID Hydralazine 100mg BID on MWF (dialysis days) Hydralazine 100mg TID on Tues/Thurs /Sat/Sun (NON-dialysis days) losartan 100mg daily NOT on dialysis days (Tu/Thurs/ Sat/ Sun) asa 325mg PO daily Diabetes accuchecks ACHS ISS hypoglycemic protocol consistent carb/ renal dialysis diet lantus 20u HS (home med Toujeo non-formulary here) Diabetic neuropathy gabapentin 100mg HS Flomax flomax 0.4mg daily HLD lovaza home med atorvastatin 40mg HS (non-formulary here, will start crestor 20mg) Dementia memantine 5mg daily donepezil 10mg HS Prophylaxis protonix 40mg PO daily heparin 5000u sc q12h <Garima Renee V - Last Filed: 04/02/18 21:38> Results - Vital Signs Recent Vital Signs: Last Vital Signs Temp 98.7 F 04/02/18 16:00 Pulse 55 L 04/02/18 16:00 Resp 20 04/02/18 16:00 BP 125/46 L 04/02/18 16:00 Pulse Ox 95 04/02/18 16:00 - Labs Result Diagrams: 04/02/18 13:27 04/02/18 13:27 Labs: Laboratory Results - last 24 hr 04/01/18 04/02/18 04/02/18 20:05 07:33 11:55 WBC RBC Hgb Hct MCV MCH MCHC RDW Plt Count MPV Neut % (Auto) Lymph % (Auto) Dade % (Auto) Eos % (Auto) Baso % (Auto) Neut # (Auto) Lymph # (Auto) Dade # (Auto) Eos # (Auto) Baso # (Auto) PT INR Sodium Potassium Chloride Carbon Dioxide Anion Gap BUN Creatinine Est GFR ( Amer) Est GFR (Non-Af Amer) POC Glucose (mg/dL) 121 H 144 H Random Glucose Calcium % Saturation Ferritin Total Bilirubin AST ALT Alkaline Phosphatase Total Protein Albumin Globulin Albumin/Globulin Ratio Hep Bs Antibody Positive 04/02/18 04/02/18 04/02/18 13:27 13:27 13:27 WBC 7.2 RBC 2.66 L Hgb 8.0 L Hct 23.5 L MCV 88.3 MCH 30.0 MCHC 34.0 RDW 15.2 H Plt Count 168 MPV 8.9 Neut % (Auto) 69.4 Lymph % (Auto) 19.1 L Dade % (Auto) 8.5 Eos % (Auto) 2.0 Baso % (Auto) 1.0 Neut # (Auto) 5.0 Lymph # (Auto) 1.4 Dade # (Auto) 0.6 Eos # (Auto) 0.1 Baso # (Auto) 0.1 PT INR Sodium Potassium Chloride Carbon Dioxide Anion Gap BUN Creatinine Est GFR ( Amer) Est GFR (Non-Af Amer) POC Glucose (mg/dL) Random Glucose Calcium % Saturation 12 L Ferritin 157.0 Total Bilirubin AST ALT Alkaline Phosphatase Total Protein Albumin Globulin Albumin/Globulin Ratio Hep Bs Antibody 04/02/18 04/02/18 04/02/18 13:27 13:27 16:17 WBC RBC Hgb Hct MCV MCH MCHC RDW Plt Count MPV Neut % (Auto) Lymph % (Auto) Dade % (Auto) Eos % (Auto) Baso % (Auto) Neut # (Auto) Lymph # (Auto) Dade # (Auto) Eos # (Auto) Baso # (Auto) PT 13.8 H INR 1.3 Sodium 144 Potassium 4.1 Chloride 101 Carbon Dioxide 32 H Anion Gap 16 BUN 37 H Creatinine 6.1 H Est GFR ( Amer) 11 Est GFR (Non-Af Amer) 9 POC Glucose (mg/dL) 177 H Random Glucose 150 H Calcium 8.5 L % Saturation Ferritin Total Bilirubin 0.9 AST 30 ALT 24 Alkaline Phosphatase 79 Total Protein 6.1 L Albumin 3.5 Globulin 2.6 Albumin/Globulin Ratio 1.4 Hep Bs Antibody 04/02/18 21:07 WBC RBC Hgb Hct MCV MCH MCHC RDW Plt Count MPV Neut % (Auto) Lymph % (Auto) Dade % (Auto) Eos % (Auto) Baso % (Auto) Neut # (Auto) Lymph # (Auto) Dade # (Auto) Eos # (Auto) Baso # (Auto) PT INR Sodium Potassium Chloride Carbon Dioxide Anion Gap BUN Creatinine Est GFR ( Amer) Est GFR (Non-Af Amer) POC Glucose (mg/dL) 227 H Random Glucose Calcium % Saturation Ferritin Total Bilirubin AST ALT Alkaline Phosphatase Total Protein Albumin Globulin Albumin/Globulin Ratio Hep Bs Antibody Attending/Attestation - Attestation I have personally seen and examined this patient.: Yes I have fully participated in the care of the patient.: Yes I have reviewed all pertinent clinical information: Yes Notes (Text): This is late computer entry for 03/31/18. Patient seen, examined, and case discussed with day-time resident. Patient seen in [facility] Bed 1 in the Emergency Room accompanied with his at bedside approximately at 6pm. Patient was referred from his compressor assembler, Dr Avila for worsening lower extremity wounds specifically his toes. Patient was referred from [facility] to [facility] but since he requires dialysis was sent to [facility] ER. Reviewed labs and wound culture was drawn at [facility]. Reviewed Medication list provided by the . We will f/u wound culture drawn at [facility]. Consult Podiatry. Start IV Abx. Assessment/Plan 1) Left foot infected ulcers Assessment/Plan * Podiatry Dr. Lopez consulted, help appreciated * Wound culture collected at wound center 03/31/18- listed on WoundCTR on [employer] * Given dose of Vancomycin 1gm IVPB at ED at [facility] 03/31/18 * Start Zosyn 2.25g IVPB q8h (renal dose) 03/31/18 * Blood cultures (03/31/18) collected at [facility] ED 03/31/18--Listed on [id number] * Will check lower extremity arterial duplex * prior hx of gangrenous toe noted in prior hospitalization at [facility] 2) ESRD on HD Assessment/Plan * Dr. Rivera, nephrology, consulted- help appreciated * patient is dialysis on M/W/ * Renvela 667mg TID 3) Hypertension Assessment/Plan * Norvasc 10mg PO daily * Carvedilol 25mg PO BID (hold SBP<100 and HR<60) * Hydralazine 100mg BID on MWF (dialysis days) * Hydralazine 100mg TID on Tues/Thurs/Sat/Sun (NON-dialysis days) * Losartan 100mg daily NOT on dialysis days (/Th/ Sat/ Sun) * Prophylatic: Aspirin 325mg PO daily * Patient follows-up with Dr. Borden (cardiology) if need to consult cardiology 4) History of Known Diabetes Assessment/Plan * Accuchecks ACHS * ISS * Hypoglycemic protocol * Consistent carb/ renal dialysis diet * Lantus 20u HS (home med Toujeo non-formulary here) 5) History of Known Diabetic neuropathy Assessment/Plan * Gabapentin 100mg HS 6) BPH Assessment/Plan * Flomax 0.4mg daily 7) Lipid Disorder Assessment/Plan * lovaza * home med atorvastatin 40mg HS (non-formulary here, will start crestor 20mg) 8) Dementia Assessment/Plan * Memantine 5mg PO daily * Donepezil 10mg PO HS 9) Prophylaxis * Protonix 40mg PO daily * Heparin 5000u sc q12h
[2018-03-31] MEDS: (Lantus) Insulin Glargine, Recombinant SC SCH (22:35)
[2018-04-01 07:08] LABS: BASO # 0.1 K/uL (0.0-0.2); BASO % 0.8 % (0.0-2.0); EOS # 0.2 K/uL (0.0-0.7); EOS % 2.7 % (0.0-4.0); HEMOGLOBIN 7.9 g/dL (12.0-18.0); LYMPH # 1.3 K/uL (1.0-4.3); LYMPH % 20.3 % (20.0-40.0); MEAN CELL VOLUME 87.4 fL (80.0-94.0); MEAN CORPUSCULAR HEMOGLOBIN 30.2 pg (27.0-31.0); MEAN CORPUSCULAR HGB CONC 34.6 g/dL (33.0-37.0); MEAN PLATELET VOLUME 9.6 fL (7.2-11.7); MONO # 0.6 K/uL (0.0-0.8); MONO % 9.2 % (0.0-10.0); NEUT # 4.3 K/uL (1.8-7.0); RBC 2.61 Mil/uL (4.40-5.90); RED CELL DISTRIBUTION WIDTH 15.1 % (11.5-14.5); WHITE BLOOD COUNT 6.4 K/uL (4.8-10.8)
--- NOTE | 2018-04-01 07:23 | CP.PCM.PN ---
<Paul Stapleton - Last Filed: 04/01/18 23:04> Subjective - Date & Time of Evaluation Date of Evaluation: 04/01/18 Time of Evaluation: 07:23 - Subjective Subjective: PGY-[address] Renee service Patient is seen and examined sitting in bed eating breakfast. No acute events overnight. Patient states feeling much better. Patient complains of pain in left foot. Overall, pain is improving. Patient complains of cough. Patient denies chest pain, SOB, headache, dizziness, fever, chills, nausea, vomiting, diarrhea, constipation. AV fistula on left arm Objective - Vital Signs/Intake and Output Vital Signs (last 24 hours): Temp Pulse Resp BP Pulse Ox 97.8 F 54 L 20 143/50 L 98 04/01/18 00:00 04/01/18 00:00 04/01/18 00:00 04/01/18 00:00 04/01/18 00:00 Intake and Output: 04/01/18 04/01/18 06:59 18:59 Intake Total 660 Balance 660 - Medications Medications: Current Medications Amlodipine Besylate (Norvasc) 10 mg PO DAILY [facility] Aspirin (Aspirin) 325 mg PO DAILY [facility] Calcium Acetate (Phoslo) 667 mg PO TID [facility] Carvedilol (Coreg) 25 mg PO BID [facility] Dextrose (Dextrose 50% Inj) 0 ml IVP .STAT PRN; Protocol PRN Reason: Hypoglycemia Protocol Dextrose (Glutose 15) 0 gm PO .ONCE PRN; Protocol PRN Reason: Hypoglycemia Protocol Donepezil HCl (Aricept) 10 mg PO [facility] Last Admin: 03/31/18 22:35 Dose: 10 mg Gabapentin (Neurontin) 100 mg PO HS [facility] Last Admin: 03/31/18 22:35 Dose: 100 mg Glucagon (Glucagen Diagnostic Kit) 0 mg IM .STAT PRN; Protocol PRN Reason: Hypoglycemia Protocol Heparin Sodium (Porcine) (Heparin) 5,000 units SC Q12 [facility] Last Admin: 03/31/18 22:36 Dose: 5,000 units Hydralazine HCl (Apresoline) 100 mg PO TTS@1400 [facility] Hydralazine HCl (Apresoline) 100 mg PO BID [facility] Hydralazine HCl (Apresoline) 100 mg PO Q7D@1400 [facility] Dextrose (Dextrose 5% In Water 1000 Ml) 1,000 mls @ 0 mls/hr IV .Q0M PRN; Protocol; Per Protocol PRN Reason: Hypoglycemia Protocol Piperacillin Sod/Tazobactam (Sod 2.25 gm/ Sodium Chloride) 100 mls @ 200 mls/ hr IV Q8H [facility] PRN Reason: Protocol Last Admin: 04/01/18 03:49 Dose: 200 mls/hr Insulin Glargine (Lantus) 20 unit SC [facility] Last Admin: 03/31/18 22:35 Dose: 20 unit Insulin Human Regular (Novolin R) 0 unit SC ACHS [facility] PRN Reason: Protocol Losartan Potassium (Cozaar) 100 mg PO TTS [facility] Losartan Potassium (Cozaar) 100 mg PO Q7D [facility] Memantine (Namenda) 5 mg PO DAILY [facility] Adgrq-9-[id number] Ethyl Esters (Lovaza) 1,000 gm PO BID [facility] Pantoprazole Sodium (Protonix Ec Tab) 40 mg PO DAILY [facility] Pneumococcal Polyvalent Vaccine (Pneumovax 23 Vaccine) 0.5 ml IM .ONCE ONE Stop: 04/03/18 10:01 Rosuvastatin Calcium (Crestor) 20 mg PO [facility] Last Admin: 03/31/18 22:34 Dose: 20 mg Tamsulosin HCl (Flomax) 0.4 mg PO DAILY [facility] - Labs Labs: 04/01/18 07:02 - Constitutional Appears: Well, Non-toxic, No Acute Distress - Head Exam Head Exam: ATRAUMATIC, NORMAL INSPECTION - Eye Exam Eye Exam: EOMI, Normal appearance, PERRL Pupil Exam: NORMAL ACCOMODATION - Neck Exam Neck Exam: Full ROM, Normal Inspection - Respiratory Exam Respiratory Exam: Clear to Ausculation Bilateral, NORMAL BREATHING PATTERN - Cardiovascular Exam Cardiovascular Exam: REGULAR RHYTHM, +S1, +S2 - GI/Abdominal Exam GI & Abdominal Exam: Soft, Normal Bowel Sounds. absent: Guarding, Rigid, Tenderness - Extremities Exam Extremities Exam: Pedal Edema, Tenderness - Neurological Exam Neurological Exam: Alert, Awake, CN II-XII Intact, Oriented x3 - Psychiatric Exam Psychiatric exam: Normal Affect - Skin Skin Exam: Dry, Warm Assessment and Plan - Assessment and Plan (Free Text) Plan: Left foot infected ulcers blood cultures collected at [place] 03/31: gram positive cocci, heavy growth wound culture collected at [facility] 03/31: staph aureus heavy growth Blood culture collected 03/31: no growth preliminary [address] Lopez consulted: Wound cleaned with saline and dressing applied using betadine DSD continue zosyn 2.25g q8h (renal dose) started 03/31/18 Vacomycin 1gm IV MWF to start 04/04 patient given vancomycin x 1 dose at [place] ED lower extremity arterial duplex - F/U Lower extremity U/S - no evidence of significant arterial deficiency in the left lower extremity, No evidence of significant arterial deficiency in the right lower extremity ESRD on HD HD MWF renvela 667mg TID Dr. Rivera, nephrology, consulted-agrees with above, IV abx Procrit 10,000 Units IV MWF HTN norvasc 10mg PO daily carvedilol 25mg PO BID Hydralazine 100mg BID on MWF (dialysis days) Hydralazine 100mg TID on Tu/Th /Sat/Sun (NON-dialysis days) losartan 100mg daily NOT on dialysis days (// Sat/ Wed) asa 325mg PO daily Cough R/O Pulmonary infection Portable chest xray - F/U Duonebs Q6 INH PRN Mucinex 600 PO PRN Diabetes accuchecks ACHS ISS hypoglycemic protocol consistent carb/ renal dialysis diet lantus 20u HS (home med Toujeo non-formulary here) Diabetic neuropathy gabapentin 100mg HS Flomax flomax 0.4mg daily HLD lovaza home med atorvastatin 40mg HS (non-formulary here, will start crestor 20mg) Dementia memantine 5mg daily donepezil 10mg HS Prophylaxis protonix 40mg PO daily heparin 5000u sc q12h Paul Stapleton, PGY-1 <Garima Renee V - Last Filed: 04/02/18 21:56> Objective - Vital Signs/Intake and Output Vital Signs (last 24 hours): Temp Pulse Resp BP Pulse Ox 98.7 F 55 L 20 125/46 L 95 04/02/18 16:00 04/02/18 16:00 04/02/18 16:00 04/02/18 16:00 04/02/18 16:00 Intake and Output: 04/02/18 04/03/18 18:59 06:59 Intake Total 120 Balance 120 - Medications Medications: Current Medications Acetaminophen (Tylenol 325mg Tab) 650 mg PO Q6 PRN PRN Reason: Pain, moderate (4-7) Albuterol/Ipratropium (Duoneb 3 Mg/0.5 Mg (3 Ml) Ud) 3 ml INH RQ6 PRN PRN Reason: Shortness of Breath Amlodipine Besylate (Norvasc) 10 mg PO DAILY [facility] Last Admin: 04/02/18 10:33 Dose: 10 mg Aspirin (Aspirin) 325 mg PO DAILY [facility] Last Admin: 04/02/18 10:31 Dose: 325 mg Calcium Acetate (Phoslo) 667 mg PO TID [facility] Last Admin: 04/02/18 18:37 Dose: 667 mg Carvedilol (Coreg) 25 mg PO BID [facility] Last Admin: 04/02/18 18:47 Dose: Not Given Dextrose (Dextrose 50% Inj) 0 ml IVP .STAT PRN; Protocol PRN Reason: Hypoglycemia Protocol Dextrose (Glutose 15) 0 gm PO .ONCE PRN; Protocol PRN Reason: Hypoglycemia Protocol Donepezil HCl (Aricept) 10 mg PO HS [facility] Last Admin: 04/01/18 22:00 Dose: Not Given Epoetin All (Procrit) 10,000 unit IV MWF [facility] Last Admin: 04/01/18 17:24 Dose: 10,000 unit Gabapentin (Neurontin) 100 mg PO HS [facility] Last Admin: 04/01/18 22:00 Dose: Not Given Glucagon (Glucagen Diagnostic Kit) 0 mg IM .STAT PRN; Protocol PRN Reason: Hypoglycemia Protocol Guaifenesin (Mucinex La) 600 mg PO BID [facility] Last Admin: 04/02/18 18:36 Dose: 600 mg Heparin Sodium (Porcine) (Heparin) 5,000 units SC Q12 [facility] Last Admin: 04/02/18 10:36 Dose: Not Given Hydralazine HCl (Apresoline) 100 mg PO TTS@1400 [facility] Last Admin: 04/02/18 15:08 Dose: 100 mg Hydralazine HCl (Apresoline) 100 mg PO BID [facility] Last Admin: 04/02/18 18:46 Dose: Not Given Hydralazine HCl (Apresoline) 100 mg PO Q7D@1400 [facility] Dextrose (Dextrose 5% In Water 1000 Ml) 1,000 mls @ 0 mls/hr IV .Q0M PRN; Protocol; Per Protocol PRN Reason: Hypoglycemia Protocol Piperacillin Sod/Tazobactam (Sod 2.25 gm/ Sodium Chloride) 100 mls @ 200 mls/ hr IV Q8H [facility] PRN Reason: Protocol Last Admin: 04/02/18 18:35 Dose: 200 mls/hr Vancomycin/Sodium Chloride (Vancomycin 1 Gm/Ns 200 Ml) 1 gm in 200 mls @ 133.333 mls/hr IVPB MWF [facility] PRN Reason: Protocol Stop: 04/09/18 09:01 Clindamycin Phosphate 300 mg/ (Sodium Chloride) 52 mls @ 104 mls/hr IVPB Q8H [facility] PRN Reason: Protocol Insulin Glargine (Lantus) 20 unit SC HS [facility] Last Admin: 04/01/18 22:00 Dose: Not Given Insulin Human Regular (Novolin R) 0 unit SC ACHS [facility] PRN Reason: Protocol Last Admin: 04/02/18 17:30 Dose: 1 units Losartan Potassium (Cozaar) 100 mg PO TTS [facility] Last Admin: 04/02/18 10:33 Dose: 100 mg Losartan Potassium (Cozaar) 100 mg PO Q7D [facility] Memantine (Namenda) 5 mg PO DAILY [facility] Last Admin: 04/02/18 11:00 Dose: 5 mg Jewuk-6-Wdpv Ethyl Esters (Lovaza) 1 gm PO BID [facility] Last Admin: 04/02/18 18:37 Dose: 1 gm Pantoprazole Sodium (Protonix Ec Tab) 40 mg PO DAILY [facility] Last Admin: 04/02/18 10:32 Dose: 40 mg Pneumococcal Polyvalent Vaccine (Pneumovax 23 Vaccine) 0.5 ml IM .ONCE ONE Stop: 04/03/18 10:01 Rosuvastatin Calcium (Crestor) 20 mg PO HS [facility] Last Admin: 04/01/18 22:00 Dose: Not Given Tamsulosin HCl (Flomax) 0.4 mg PO DAILY [facility] Last Admin: 04/02/18 10:33 Dose: 0.4 mg - Labs Labs: 04/02/18 13:27 04/02/18 13:27 PT 13.8 SECONDS (9.7-12.2) H 04/02/18 13:27 INR 1.3 04/02/18 13:27 Attending/Attestation - Attestation I have personally seen and examined this patient.: Yes I have fully participated in the care of the patient.: Yes I have reviewed all pertinent clinical information, including history, physical exam and plan: Yes Notes (Text): This is late computer entry for 04/01/18. Patient seen, examined, and case discussed with day-time resident. Patient seen in the afternoon during rounds. Patient is awaiting dialysis. Discussed with Dr. Rivera, patient to have dialysis today. Consented for dialysis per nephrology. Discussed podiatry resident, concern for possible gangrenous 5th digit, recommend for vascular surgery to evaluate circulation. During rounds, patient's toes were covered in dressing over the left foot. Per podiatry note: * DERM: Superficial epidermal lysis at the site of the previous bullae with hyperpigmented changes on the dorsum of the left 5th digit, wound bed is completely ischemic on the dorsum of the 5th digit - dry, no active drainage, no malodor, no tunneling or tracking, no purulent drainage, localized erythema noted at the dorsum of the left forefoot * Tiny scab/necrotic ulceration noted to the dorsum of the 4th right digit measuring approximately .2 x .2 cm with no erythema, no tunneling, no undermining, no probe to bone, no drainage, no odor noted. * Tiny scab noted to the dorsum of the 2nd left digit measuring approximately .1x .1 cm with no erythema, no tunneling, no undermining, no probe to bone, no drainage, no odor noted. * EURO: Protective sensation and gross sensation decreased * ORTHO: Pain present during palpation of the digits particularly the 5th digit We will consult vascular surgery. Wound culture is showing prelim read for Staph Aureus. Awaiting final read. We will add Vancomycin post dialysis to cover for MRSA. We will consider consult infectious disease pending wound culture final result. Patient report cough that has been present for 6 months? We will order portable chest xray and provide symptomatic relief. Assessment/Plan 1) Left foot infected ulcers Osteomyelitis of left 5th Phalanx Possible gangrenous 5th toe Fracture 5th proximal phalanx Assessment/Plan * Podiatry Dr. Lopez consulted, help appreciated * Podiatry resident team on board * Vascular Surgery, Dr. Jay on board-->help appreciated * follow-up recommendations * Wound culture collected at wound center 03/31/18- listed on WoundCTR on [employer] * Staph Aureus (03/31/18) * Wound culture collect at [facility] ED * Staph Aureus (03/31/18) * Blood cultures (03/31/18) collected at [place] ED 03/31/18--Listed on [id number] * No growth (error in resident note) * Blood cultures (03/31/18) collected at [facility] ED * No growth Antibiotics * Given dose of Vancomycin 1gm IVPB at ED at [place] 03/31/18 * start Vancomycin 1gram IV MWF (start 04/04/18) * C/w Zosyn 2.25g IVPB q8h (renal dose) 03/31/18 * Arterial duplex: Lower extremity U/S - No evidence of significant arterial deficiency in the left lower extremity; elevated pressures can lower sensitivity of JUAN. No evidence of significant arterial deficiency in the right lower extremity. Elevated pressures can lower sensitivity of JUAN * prior hx of gangrenous toe noted in prior hospitalization at [facility] (3rd digit ) * Foot xray (03/31/18): fracture 5th proximal phalanx without definite callus formation. 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 Rivera, nephrology, consulted- help appreciated * Patient is dialysis on // * Renvela 667mg TID * Procrit 10,000 units IV MWF 3) Hypertension Assessment/Plan * Norvasc 10mg PO daily * Carvedilol 25mg PO BID (hold SBP<100 and HR<60) * Hydralazine 100mg BID on MWF (dialysis days) * Hydralazine 100mg TID on Tues/Thurs/Sat/Sun (NON-dialysis days) * Losartan 100mg daily NOT on dialysis days (Tu/Thurs/ Sat/ Sun) * Prophylatic: Aspirin 325mg PO daily * Patient follows-up with Dr. Borden (cardiology) if need to consult cardiology 4) History of Known Diabetes Assessment/Plan * Accuchecks ACHS * ISS * Hypoglycemic protocol * Consistent carb/ renal dialysis diet * Lantus 20u HS (home med Toujeo non-formulary here) 5) History of Known Diabetic neuropathy Assessment/Plan * Gabapentin 100mg HS 6) BPH Assessment/Plan * Flomax 0.4mg daily 7) Lipid Disorder Assessment/Plan * lovaza * home med atorvastatin 40mg HS (non-formulary here, will start crestor 20mg) 8) Dementia Assessment/Plan * Memantine 5mg PO daily * Donepezil 10mg PO HS 9) Cough Assessment/Plan * Portable chest xray * Duonebs PRN Shortness of breathe * Mucinex 600mg PO BID 10) Prophylaxis * Protonix 40mg PO daily * Heparin 5000u sc q12h * PT/OT eval
[2018-04-01 07:28] LABS: ALB/GLOB RATIO 1.3 (1.0-2.1); ALBUMIN 3.4 g/dL (3.5-5.0); CALCIUM 8.1 mg/dl (8.6-10.4)
[2018-04-01] MEDS: (Novolin R) Insulin Human Regular 100 units/ml vial SC SCH ×4 (07:49→21:40)
[2018-04-01] MEDS ORDERED: Home Med 1 UNIT (Hydralazine Hcl [Hydralazine Hcl] 100 MG) PO SCH ×2 (10:00)
[2018-04-01] MEDS ORDERED: Omega-3-Acid Ethyl Esters 1 GM Cap PO SCH (10:00)
[2018-04-01] MEDS: Pantoprazole 40 mg EC Tab PO SCH (10:11)
[2018-04-01] MEDS: Omega-3-Acid Ethyl Esters 1 GM Cap PO SCH ×2 (11:02→17:10)
--- NOTE | 2018-04-01 13:33 | CP.PCM.CON ---
History of Present Illness - History of Present Illness History of Present Illness: Patient is a 77 year old male with PMHx significant ESRD on HD MWF, insulin dependent diabetes mellitus, HTN, who presents to the ED after being sent by his steamblaster Dr. Avila for concerns of left foot ulceration infection. Patient reports subjective fever yesterday and had temperature reading around 100 today at [facility], per patient. Patient was sent from wound center to [facility] where he was given one dose of vancomycin. Patient was transferred to [facility] for inpatient dialysis, which is due tomorrow, Wednesday. Patient reports left foot ulcerations began on Father's day, 03/13/18. Patient states when he took his shoe off at the end of the day his foot was full of blisters. He has been following with Dr. Avila on weekly basis for left foot ulcers. Patient denies other complaints currently. PMD: Dr. Chua Outpt cardio: Dr. Nathan Podiatry: Dr. Lopez/ Dr. 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, left third toe amputation 2016 Meds:toujeo 20u HS, insulin 6u ACB (pt unsure of name- was sample from PMD), flomax 0.4mg daily, lovaza, memantine 5mg daily, donepezil 10mg HS, asa 325mg daily, amlodipine 10mg daily, atorvastatin 40mg HS, gabapentin 100mg HS, esomeprazole 40mg daily, losartan 100mg daily NOT on dialysis days (// Sat/ Sun), Carvedilol 25mg BID, renvela 667mg TID, Hydralazine 100mg BID on MWF (dialysis days) Hydralazine 100mg TID on Tues/Th/Sat/Sun (NON-dialysis days) Review of Systems - Constitutional Constitutional: Lethargy, Weakness - EENT Eyes: Blurred Vision Ears: absent: As Per HPI, Decreased Hearing, Ear Discharge, Ear Pain, Tinnitus, Abnormal Hearing, Disequilibrium, Dizziness, Other Nose/Mouth/Throat: absent: As Per HPI, Epistaxis, Nasal Congestion, Nasal Discharge, Nasal Obstruction, Nasal Trauma, Nose Pain, Post Nasal Drip, Sinus Pain, Sinus Pressure, Bleeding Gums, Change in Voice, Dental Pain, Dry Mouth, Dysphagia, Halitosis, Hoarsness, Lip Swelling, Mouth Lesions, Mouth Pain, Odynophagia, Sore Throat, Throat Swelling, Tongue Swelling, Facial Pain, Neck Pain, Neck Mass, Other - Cardiovascular Cardiovascular: Dyspnea on Exertion, Lightheadedness - Respiratory Respiratory: Dyspnea on Exertion - Gastrointestinal Gastrointestinal: Constipation - Genitourinary Genitourinary: As Per HPI - Integumentary Integumentary: Sores, Wounds - Neurological Neurological: Weakness Past Patient History - Infectious Disease Hx of Infectious Diseases: None - Past Medical History & Family History Past Medical History?: Yes - Past Social History Smoking Status: Former Smoker Chewing Tobacco Use: No Cigar Use: No Alcohol: None Drugs: Denies Home Situation {Lives}: With Family - CARDIAC Hx Congestive Heart Failure: Yes Hx Hypercholesterolemia: Yes Hx Hypertension: Yes - PULMONARY Hx Chronic Obstructive Pulmonary Disease (COPD): Yes - NEUROLOGICAL HX Cerebrovascular Accident: Yes - HEENT Hx HEENT Problems: Yes Hx Cataracts: Yes Other/Comment: double vision/decreased vision to the left eye;decreased hearing - RENAL Hx Chronic Kidney Disease: Yes - ENDOCRINE/METABOLIC Hx Diabetes Mellitus Type 2: Yes - HEMATOLOGICAL/ONCOLOGICAL Hx Blood Disorders: No - INTEGUMENTARY Hx Dermatological Problems: Yes (swollen left hand) - MUSCULOSKELETAL/RHEUMATOLOGICAL Hx Falls: No - GASTROINTESTINAL Hx Gastrointestinal Disorders: No - GENITOURINARY/GYNECOLOGICAL Hx Genitourinary Disorders: Yes Hx Reproductive Disorders: No - PSYCHIATRIC Hx Substance Use: No - SURGICAL HISTORY Hx Cataract Extraction: Yes (RT.EYE) Hx Vascular Surgery: Yes (A/V FISTULA LEFT ARM) Hx Vascular Access Device: Yes (DIALYSIS ACCESS) - ANESTHESIA Hx Anesthesia: Yes Hx Anesthesia Reactions: No Hx Malignant Hyperthermia: No Meds Allergies/Adverse Reactions: Allergies Allergy/AdvReac Type Severity Reaction Status Date / Time No Known Allergies Allergy Verified 03/31/18 17:26 - Medications Medications: Current Medications Amlodipine Besylate (Norvasc) 10 mg PO DAILY [facility] Last Admin: 04/01/18 10:11 Dose: 10 mg Aspirin (Aspirin) 325 mg PO DAILY [facility] Last Admin: 04/01/18 10:11 Dose: 325 mg Calcium Acetate (Phoslo) 667 mg PO TID [facility] Last Admin: 04/01/18 10:11 Dose: 667 mg Carvedilol (Coreg) 25 mg PO BID [facility] Last Admin: 04/01/18 09:04 Dose: Not Given Dextrose (Dextrose 50% Inj) 0 ml IVP .STAT PRN; Protocol PRN Reason: Hypoglycemia Protocol Dextrose (Glutose 15) 0 gm PO .ONCE PRN; Protocol PRN Reason: Hypoglycemia Protocol Donepezil HCl (Aricept) 10 mg PO HS [facility] Last Admin: 03/31/18 22:35 Dose: 10 mg Gabapentin (Neurontin) 100 mg PO HS [facility] Last Admin: 03/31/18 22:35 Dose: 100 mg Glucagon (Glucagen Diagnostic Kit) 0 mg IM .STAT PRN; Protocol PRN Reason: Hypoglycemia Protocol Heparin Sodium (Porcine) (Heparin) 5,000 units SC Q12 [facility] Last Admin: 04/01/18 10:10 Dose: 5,000 units Hydralazine HCl (Apresoline) 100 mg PO TTS@1400 [facility] Hydralazine HCl (Apresoline) 100 mg PO BID [facility] Last Admin: 04/01/18 09:03 Dose: Not Given Hydralazine HCl (Apresoline) 100 mg PO Q7D@1400 [facility] Dextrose (Dextrose 5% In Water 1000 Ml) 1,000 mls @ 0 mls/hr IV .Q0M PRN; Protocol; Per Protocol PRN Reason: Hypoglycemia Protocol Piperacillin Sod/Tazobactam (Sod 2.25 gm/ Sodium Chloride) 100 mls @ 200 mls/ hr IV Q8H [facility] PRN Reason: Protocol Last Admin: 04/01/18 10:16 Dose: 200 mls/hr Insulin Glargine (Lantus) 20 unit SC HS [facility] Last Admin: 03/31/18 22:35 Dose: 20 unit Insulin Human Regular (Novolin R) 0 unit SC ACHS [facility] PRN Reason: Protocol Last Admin: 04/01/18 11:49 Dose: Not Given Losartan Potassium (Cozaar) 100 mg PO TTS [facility] Losartan Potassium (Cozaar) 100 mg PO Q7D [facility] Memantine (Namenda) 5 mg PO DAILY [facility] Last Admin: 04/01/18 10:11 Dose: 5 mg [id number] Ethyl Esters (Lovaza) 1 gm PO BID [facility] Last Admin: 04/01/18 11:02 Dose: 1 gm Pantoprazole Sodium (Protonix Ec Tab) 40 mg PO DAILY [facility] Last Admin: 04/01/18 10:11 Dose: 40 mg Pneumococcal Polyvalent Vaccine (Pneumovax 23 Vaccine) 0.5 ml IM .ONCE ONE Stop: 04/03/18 10:01 Rosuvastatin Calcium (Crestor) 20 mg PO HS [facility] Last Admin: 03/31/18 22:34 Dose: 20 mg Tamsulosin HCl (Flomax) 0.4 mg PO DAILY [facility] Last Admin: 04/01/18 10:11 Dose: 0.4 mg Physical Exam - Head Exam Head Exam: ATRAUMATIC, NORMAL INSPECTION - Eye Exam Eye Exam: EOMI, Normal appearance - Neck Exam Neck exam: Positive for: Normal Inspection. Negative for: Tenderness - Respiratory Exam Respiratory Exam: Clear to Auscultation Bilateral, NORMAL BREATHING PATTERN - Cardiovascular Exam Cardiovascular Exam: REGULAR RHYTHM, +S1 - GI/Abdominal Exam GI & Abdominal Exam: Soft. absent: Tenderness - Extremities Exam Extremities exam: Positive for: pedal edema, tenderness - Neurological Exam Neurological exam: Alert, CN II-XII Intact - Skin Skin Exam: Dry, Warm Results - Vital Signs Recent Vital Signs: Last Vital Signs Temp 97.6 F 04/01/18 08:26 Pulse 54 L 04/01/18 08:26 Resp 20 04/01/18 08:26 BP 151/66 H 04/01/18 09:04 Pulse Ox 95 04/01/18 08:26 - Labs Result Diagrams: 04/01/18 07:02 04/01/18 07:02 Labs: Laboratory Results - last 24 hr 03/31/18 03/31/18 03/31/18 18:17 20:07 21:08 WBC RBC Hgb Hct MCV MCH MCHC RDW Plt Count MPV Neut % (Auto) Lymph % (Auto) [place] % (Auto) Eos % (Auto) Baso % (Auto) Neut # (Auto) Lymph # (Auto) [place] # (Auto) Eos # (Auto) Baso # (Auto) Sodium Potassium Chloride Carbon Dioxide Anion Gap BUN Creatinine Est GFR ( Amer) Est GFR (Non-Af Amer) POC Glucose (mg/dL) 76 70 113 H Random Glucose Calcium Phosphorus Magnesium Total Bilirubin AST ALT Alkaline Phosphatase Total Protein Albumin Globulin Albumin/Globulin Ratio 03/31/18 04/01/1804/01/18 21:56 07:02 07:02 WBC 6.4 RBC 2.61 L Hgb 7.9 L D Hct 22.8 L MCV 87.4 MCH 30.2 MCHC 34.6 RDW 15.1 H Plt Count 144 MPV 9.6 Neut % (Auto) 67.0 Lymph % (Auto) 20.3 [place] % (Auto) 9.2 Eos % (Auto) 2.7 Baso % (Auto) 0.8 Neut # (Auto) 4.3 Lymph # (Auto) 1.3 [place] # (Auto) 0.6 Eos # (Auto) 0.2 Baso # (Auto) 0.1 Sodium 143 Potassium 3.6 Chloride 98 Carbon Dioxide 33 H Anion Gap 16 BUN 52 H Creatinine 6.9 H Est GFR ( Amer) 9 Est GFR (Non-Af Amer) 8 POC Glucose (mg/dL) 140 H Random Glucose 118 H Calcium 8.1 L Phosphorus 4.7 H Magnesium 1.7 Total Bilirubin 0.8 AST 23 ALT 26 Alkaline Phosphatase 75 Total Protein 6.1 L Albumin 3.4 L Globulin 2.7 Albumin/Globulin Ratio 1.3 04/01/18 04/01/18 07:47 11:05 WBC RBC Hgb Hct MCV MCH MCHC RDW Plt Count MPV Neut % (Auto) Lymph % (Auto) [place] % (Auto) Eos % (Auto) Baso % (Auto) Neut # (Auto) Lymph # (Auto) [place] # (Auto) Eos # (Auto) Baso # (Auto) Sodium Potassium Chloride Carbon Dioxide Anion Gap BUN Creatinine Est GFR ( Amer) Est GFR (Non-Af Amer) POC Glucose (mg/dL) 96 148 H Random Glucose Calcium Phosphorus Magnesium Total Bilirubin AST ALT Alkaline Phosphatase Total Protein Albumin Globulin Albumin/Globulin Ratio Assessment & Plan (1) End stage renal disease Status: Acute (2) Type 2 diabetes mellitus with diabetic nephropathy Status: Acute (3) Dementia Status: Acute (4) Diabetic foot infection Status: Acute - Assessment and Plan (Free Text) Plan: Wound care IV ABs Dialysis MWF
[2018-04-01 15:00] LABS: SQUAMOUS EPITHIAL 1 /hpf (0-5); URINE BILIRUBIN NEGATIVE (NEGATIVE); URINE BLOOD NEGATIVE (NEGATIVE); URINE CLARITY Hazy (Clear); URINE COLOR Yellow (YELLOW); URINE GLUCOSE (UA) NORMAL (Normal); URINE LEUKOCYTE ESTERASE NEG Leu/uL (Negative); URINE PROTEIN 2+ mg/dL (NEGATIVE); URINE UROBILINOGEN NORMAL mg/dL (0.2-1.0)
[2018-04-01] MEDS ORDERED: Albuterol-Ipratrop 3 mg / 0.5 (3 ml) UD INH PRN (16:02)
--- NOTE | 2018-04-01 16:04 | RAD ---
HISTORY: SOB with associated cough COMPARISON: 02/18/2017. FINDINGS: LUNGS: The lungs are well inflated. There is severe pulmonary venous congestion. No focal consolidation. PLEURA: No significant pleural effusion identified, no pneumothorax apparent. CARDIOVASCULAR: There is severe cardiomegaly and prominent central vasculature. Atherosclerotic aortic arch calcifications are present. OSSEOUS STRUCTURES: No significant abnormalities. VISUALIZED UPPER ABDOMEN: Normal. OTHER FINDINGS: None. IMPRESSION: Severe cardiomegaly and severe pulmonary venous congestion. No lobar pneumonia.
--- NOTE | 2018-04-01 17:05 | CP.PCM.CON ---
History of Present Illness - History of Present Illness History of Present Illness: Podiatry Consult Note: Dr. Lopez 77 year old male with PMHx of IDDM, HTN, HLD, BPH, Dementia, GERD and ESRD was evaluated at bedside for left foot ischemic changes and superficial epidermal lysis. Patient reports that she was seen by Dr. Avila in the wound care center in [place] and was told to be admitted to the hospital and was transferred to [facility]. Patient reports of subjective fever yesterday and had temperature reading around 100. States that ulcerations started in mid February. Reports that when he took his shoes off, he noticed blisters on his toes which popped by themselves. Denies of doing any dressing changes at home. Denies of having any N/V/C/SOB/CP/headache. Denies of any other pedal complains at this time. 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, left third toe amputation 2016 Allergies: N.K.D.A Review of Systems - Constitutional Constitutional: As Per HPI Past Patient History - Infectious Disease Hx of Infectious Diseases: None - Past Medical History & Family History Past Medical History?: Yes - Past Social History Smoking Status: Former Smoker Chewing Tobacco Use: No Cigar Use: No Alcohol: None Drugs: Denies Home Situation {Lives}: With Family - CARDIAC Hx Congestive Heart Failure: Yes Hx Hypercholesterolemia: Yes Hx Hypertension: Yes - PULMONARY Hx Chronic Obstructive Pulmonary Disease (COPD): Yes - NEUROLOGICAL HX Cerebrovascular Accident: Yes - HEENT Hx HEENT Problems: Yes Hx Cataracts: Yes Other/Comment: double vision/decreased vision to the left eye;decreased hearing - RENAL Hx Chronic Kidney Disease: Yes - ENDOCRINE/METABOLIC Hx Diabetes Mellitus Type 2: Yes - HEMATOLOGICAL/ONCOLOGICAL Hx Blood Disorders: No - INTEGUMENTARY Hx Dermatological Problems: Yes (swollen left hand) - MUSCULOSKELETAL/RHEUMATOLOGICAL Hx Falls: No - GASTROINTESTINAL Hx Gastrointestinal Disorders: No - GENITOURINARY/GYNECOLOGICAL Hx Genitourinary Disorders: Yes Hx Reproductive Disorders: No - PSYCHIATRIC Hx Substance Use: No - SURGICAL HISTORY Hx Cataract Extraction: Yes (RT.EYE) Hx Vascular Surgery: Yes (A/V FISTULA LEFT ARM) Hx Vascular Access Device: Yes (DIALYSIS ACCESS) - ANESTHESIA Hx Anesthesia: Yes Hx Anesthesia Reactions: No Hx Malignant Hyperthermia: No Meds Allergies/Adverse Reactions: Allergies Allergy/AdvReac Type Severity Reaction Status Date / Time No Known Allergies Allergy Verified 03/31/18 17:26 - Medications Medications: Current Medications Albuterol/Ipratropium (Duoneb 3 Mg/0.5 Mg (3 Ml) Ud) 3 ml INH RQ6 PRN PRN Reason: Shortness of Breath Amlodipine Besylate (Norvasc) 10 mg PO DAILY [facility] Last Admin: 04/01/18 10:11 Dose: 10 mg Aspirin (Aspirin) 325 mg PO DAILY [facility] Last Admin: 04/01/18 10:11 Dose: 325 mg Calcium Acetate (Phoslo) 667 mg PO TID [facility] Last Admin: 04/01/18 14:03 Dose: 667 mg Carvedilol (Coreg) 25 mg PO BID [facility] Last Admin: 04/01/18 09:04 Dose: Not Given Dextrose (Dextrose 50% Inj) 0 ml IVP .STAT PRN; Protocol PRN Reason: Hypoglycemia Protocol Dextrose (Glutose 15) 0 gm PO .ONCE PRN; Protocol PRN Reason: Hypoglycemia Protocol Donepezil HCl (Aricept) 10 mg PO HS [facility] Last Admin: 03/31/18 22:35 Dose: 10 mg Epoetin All (Procrit) 10,000 unit IV MWF [facility] Gabapentin (Neurontin) 100 mg PO HS [facility] Last Admin: 03/31/18 22:35 Dose: 100 mg Glucagon (Glucagen Diagnostic Kit) 0 mg IM .STAT PRN; Protocol PRN Reason: Hypoglycemia Protocol Guaifenesin (Mucinex La) 600 mg PO BID [facility] Heparin Sodium (Porcine) (Heparin) 5,000 units SC Q12 [facility] Last Admin: 04/01/18 10:10 Dose: 5,000 units Hydralazine HCl (Apresoline) 100 mg PO TTS@1400 [facility] Hydralazine HCl (Apresoline) 100 mg PO BID [facility] Last Admin: 04/01/18 09:03 Dose: Not Given Hydralazine HCl (Apresoline) 100 mg PO Q7D@1400 [facility] Dextrose (Dextrose 5% In Water 1000 Ml) 1,000 mls @ 0 mls/hr IV .Q0M PRN; Protocol; Per Protocol PRN Reason: Hypoglycemia Protocol Piperacillin Sod/Tazobactam (Sod 2.25 gm/ Sodium Chloride) 100 mls @ 200 mls/ hr IV Q8H [facility] PRN Reason: Protocol Last Admin: 04/01/18 10:16 Dose: 200 mls/hr Vancomycin/Sodium Chloride (Vancomycin 1 Gm/Ns 200 Ml) 1 gm in 200 mls @ 133.333 mls/hr IVPB MWF [facility] PRN Reason: Protocol Stop: 04/09/18 09:01 Insulin Glargine (Lantus) 20 unit SC HS [facility] Last Admin: 03/31/18 22:35 Dose: 20 unit Insulin Human Regular (Novolin R) 0 unit SC ACHS [facility] PRN Reason: Protocol Last Admin: 04/01/18 11:49 Dose: Not Given Losartan Potassium (Cozaar) 100 mg PO TTS [facility] Losartan Potassium (Cozaar) 100 mg PO Q7D [facility] Memantine (Namenda) 5 mg PO DAILY [facility] Last Admin: 04/01/18 10:11 Dose: 5 mg [id number] Ethyl Esters (Lovaza) 1 gm PO BID [facility] Last Admin: 04/01/18 11:02 Dose: 1 gm Pantoprazole Sodium (Protonix Ec Tab) 40 mg PO DAILY [facility] Last Admin: 04/01/18 10:11 Dose: 40 mg Pneumococcal Polyvalent Vaccine (Pneumovax 23 Vaccine) 0.5 ml IM .ONCE ONE Stop: 04/03/18 10:01 Rosuvastatin Calcium (Crestor) [address] [facility] Last Admin: 03/31/18 22:34 Dose: 20 mg Tamsulosin HCl (Flomax) 0.4 mg PO DAILY [facility] Last Admin: 04/01/18 10:11 Dose: 0.4 mg Physical Exam - Constitutional Appears: Well, Non-toxic, No Acute Distress - Extremities Exam Additional comments: Bilateral LE focused Exam: VASC: DP/PT pulses are very faintly palpable 1/4 bilaterally, Cap refill time slightly delayed > 3 sec, skin temperature: warm to cool from proximal to distal , mild non-pitting edema noted on the dorsum of the left foot DERM: Superficial epidermal lysis at the site of the previous bullae with hyperpigmented changes on the dorsum of the left 5th digit, wound bed is completely ischemic on the dorsum of the 5th digit - dry, no active drainage, no malodor, no tunneling or tracking, no purulent drainage, localized erythema noted at the dorsum of the left forefoot Tiny scab/necrotic ulceration noted to the dorsum of the 4th right digit measuring approximately .2 x .2 cm with no erythema, no tunneling, no undermining, no probe to bone, no drainage, no odor noted. Tiny scab noted to the dorsum of the 2nd left digit measuring approximately .1x .1 cm with no erythema, no tunneling, no undermining, no probe to bone, no drainage, no odor noted. NEURO: Protective sensation and gross sensation decreased ORTHO: Pain present during palpation of the digits particularly the 5th digit - Neurological Exam Neurological exam: Alert, Oriented x3 - Psychiatric Exam Psychiatric exam: Normal Affect, Normal Mood Results - Vital Signs Recent Vital Signs: Last Vital Signs Temp 97.5 F L 04/01/18 15:00 Pulse 59 L 04/01/18 15:00 Resp 18 04/01/18 15:00 BP 167/73 H 04/01/18 15:00 Pulse Ox 95 04/01/18 15:00 - Labs Result Diagrams: 04/01/18 07:02 04/01/18 07:02 Labs: Laboratory Results - last 24 hr 03/31/18 03/31/18 03/31/18 18:17 20:07 21:08 WBC RBC Hgb Hct MCV MCH MCHC RDW Plt Count MPV Neut % (Auto) Lymph % (Auto) [place] % (Auto) Eos % (Auto) Baso % (Auto) Neut # (Auto) Lymph # (Auto) [place] # (Auto) Eos # (Auto) Baso # (Auto) Sodium Potassium Chloride Carbon Dioxide Anion Gap BUN Creatinine Est GFR ( Amer) Est GFR (Non-Af Amer) POC Glucose (mg/dL) 76 70 113 H Random Glucose Calcium Phosphorus Magnesium Total Bilirubin AST ALT Alkaline Phosphatase Total Protein Albumin Globulin Albumin/Globulin Ratio Urine Color Urine Clarity Urine pH Ur Specific [place] Urine Protein Urine Glucose (UA) Urine Ketones Urine Blood Urine Nitrate Urine Bilirubin Urine Urobilinogen Ur Leukocyte Esterase Urine WBC (Auto) Urine RBC (Auto) Ur Squamous Epith Cells 03/31/18 04/01/18 04/01/18 21:56 07:02 07:02 WBC 6.4 RBC 2.61 L Hgb 7.9 L D Hct 22.8 L MCV 87.4 MCH 30.2 MCHC 34.6 RDW 15.1 H Plt Count 144 MPV 9.6 Neut % (Auto) 67.0 Lymph % (Auto) 20.3 [place] % (Auto) 9.2 Eos % (Auto) 2.7 Baso % (Auto) 0.8 Neut # (Auto) 4.3 Lymph # (Auto) 1.3 [place] # (Auto) 0.6 Eos # (Auto) 0.2 Baso # (Auto) 0.1 Sodium 143 Potassium 3.6 Chloride 98 Carbon Dioxide 33 H Anion Gap 16 BUN 52 H Creatinine 6.9 H Est GFR ( Amer) 9 Est GFR (Non-Af Amer) 8 POC Glucose (mg/dL) 140 H Random Glucose 118 H Calcium 8.1 L Phosphorus 4.7 H Magnesium 1.7 Total Bilirubin 0.8 AST 23 ALT 26 Alkaline Phosphatase 75 Total Protein 6.1 L Albumin 3.4 L Globulin 2.7 Albumin/Globulin Ratio 1.3 Urine Color Urine Clarity Urine pH Ur Specific [place] Urine Protein Urine Glucose (UA) Urine Ketones Urine Blood Urine Nitrate Urine Bilirubin Urine Urobilinogen Ur Leukocyte Esterase Urine WBC (Auto) Urine RBC (Auto) Ur Squamous Epith Cells 04/01/18 04/01/18 04/01/18 07:47 11:05 14:42 WBC RBC Hgb Hct MCV MCH MCHC RDW Plt Count MPV Neut % (Auto) Lymph % (Auto) [place] % (Auto) Eos % (Auto) Baso % (Auto) Neut # (Auto) Lymph # (Auto) [place] # (Auto) Eos # (Auto) Baso # (Auto) Sodium Potassium Chloride Carbon Dioxide Anion Gap BUN Creatinine Est GFR ( Amer) Est GFR (Non-Af Amer) POC Glucose (mg/dL) 96 148 H Random Glucose Calcium Phosphorus Magnesium Total Bilirubin AST ALT Alkaline Phosphatase Total Protein Albumin Globulin Albumin/Globulin Ratio Urine Color Yellow Urine Clarity Hazy Urine pH 6.0 Ur Specific [place] 1.016 Urine Protein 2+ H Urine Glucose (UA) Normal Urine Ketones Negative Urine Blood Negative Urine Nitrate Negative Urine Bilirubin Negative Urine Urobilinogen Normal Ur Leukocyte Esterase Neg Urine WBC (Auto) 2 Urine RBC (Auto) 1 Ur Squamous Epith Cells 1 Assessment & Plan - Assessment and Plan (Free Text) Assessment: 77 year old male with PMHx of IDDM, HTN, HLD, BPH, Dementia, GERD and ESRD was evaluated for ischemic changes to the left forefoot accompanied with cellulitis Plan: Patient seen and evaluated Discussed plan with attending Dr. Lopez Labs, vitals and charts reviewed - afebrile, No leukocytosis WCx- Staph. aureus X-rays of left foot ordered/reviewed - Periosteal reaction with cortical break at the proximal phalanx of the left 5th digit - concerning for OM Wound cleaned with saline and dressing applied using betadine DSD Continue IV abx - Vancomycin, Zosyn JUAN/PVR reviewed - 1.23 on R and 0.98 on the L; poor waveform Vascular consult - Dr. Jay Thank you for the podiatry consult and allowing to take part in patient care Podiatry to follow patient while in-house - Date & Time Date: 04/01/18 Time: 17:23
[2018-04-01] MEDS: guaiFENesin 600 mg ER Tab PO SCH (17:10)
--- NOTE | 2018-04-01 17:16 | VASCLAB ---
STUDY DESCRIPTION: HISTORY: left foot ulcer PRIORS: None. TECHNIQUE: Pulse volume recording waveforms and segmental pressures of bilateral lower extremities at multiple levels were obtained. Ankle Brachial Indices (ABIs) were calculated. Report prepared by JANAE Pete, RVT RIGHT LOWER EXTREMITY: * Brachial artery: Pressure - 166 mmHg. * High thigh: Pressure - mmHg: Ratio - : PVR waveform - Pulsatile * Low thigh: Pressure - mmHg: Ratio - PVR waveform: Pulsatile * Calf: Pressure - 220 mmHg: Ratio - NC PVR waveform: Pulsatile * Posterior tibial Artery: Pressure - 205 mmHg: Ratio - 1.23 PVR waveform: Pulsatile * Dorsalis pedis Artery: Pressure - 190 mmHg: Ratio - 1.14 PVR waveform: Pulsatile * Great toe: Pressure - mmHg: Ratio - PVR waveform: Ankle brachial index (JUAN): 1.23 LEFT LOWER EXTREMITY: * Brachial artery: Pressure - mmHg. * High thigh: Pressure - mmHg: Ratio - : PVR waveform - Pulsatile * Low thigh: Pressure - mmHg: Ratio - PVR waveform: Pulsatile * Calf: Pressure - 220 mmHg: Ratio - NC PVR waveform: Pulsatile * Posterior tibial Artery: Pressure - 150 mmHg: Ratio - 0.90 PVR waveform: Pulsatile * Dorsalis pedis Artery: Pressure - 162 mmHg: Ratio - 0.98 PVR waveform: Pulsatile * Great toe: Pressure - mmHg: Ratio - PVR waveform: Ankle brachial index (JUAN): 0.98 OTHER FINDINGS: Right: Left: IMPRESSION: Right: There was no evidence of hemodynamically significant arterial insufficiency in the right lower extremity. However, please note that elevated pressures can lower the sensitivity of ankle-brachial index. Left: There was no evidence of hemodynamically significant arterial insufficiency in the left lower extremity. However, please note, the elevated pressures can lower the sensitivity of ankle-brachial index.
[2018-04-01] MEDS: Epoetin Alfa 10,000 unit/ml Dialysis IV SCH (17:24)
[2018-04-01] MEDS: (Lantus) Insulin Glargine, Recombinant SC SCH ×2 (21:41→22:00)
--- NOTE | 2018-04-01 22:52 | CP.PCM.CON ---
History of Present Illness - History of Present Illness History of Present Illness: Vascular Surgery Progress Note: Dr. Jay 77M with PMHx of DM, HTN,ESRD, HLD, BPH, presented to [facility] after patient was seen and examined by Dr. Avila who recommended patient be admitted to hospital. At time of examination patient was uncooperative and refused to have a physical exam done to view affected areas. As per medical records patienrt reported having subjective fevers. Patient has developed skin ulcerations in his left foot since mid February. Vascular surgery was consulted to evaluate left foot. 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, left third toe amputation 2016 Allergies: NKDA Review of Systems - Review of Systems Systems not reviewed;Unavailable: Other (uncooperative) Past Patient History - Infectious Disease Hx of Infectious Diseases: None - Past Medical History & Family History Past Medical History?: Yes - Past Social History Smoking Status: Former Smoker Chewing Tobacco Use: No Cigar Use: No Alcohol: None Drugs: Denies Home Situation {Lives}: With Family - CARDIAC Hx Congestive Heart Failure: Yes Hx Hypercholesterolemia: Yes Hx Hypertension: Yes - PULMONARY Hx Chronic Obstructive Pulmonary Disease (COPD): Yes - NEUROLOGICAL HX Cerebrovascular Accident: Yes - HEENT Hx HEENT Problems: Yes Hx Cataracts: Yes Other/Comment: double vision/decreased vision to the left eye;decreased hearing - RENAL Hx Chronic Kidney Disease: Yes - ENDOCRINE/METABOLIC Hx Diabetes Mellitus Type 2: Yes - HEMATOLOGICAL/ONCOLOGICAL Hx Blood Disorders: No - INTEGUMENTARY Hx Dermatological Problems: Yes (swollen left hand) - MUSCULOSKELETAL/RHEUMATOLOGICAL Hx Falls: No - GASTROINTESTINAL Hx Gastrointestinal Disorders: No - GENITOURINARY/GYNECOLOGICAL Hx Genitourinary Disorders: Yes Hx Reproductive Disorders: No - PSYCHIATRIC Hx Substance Use: No - SURGICAL HISTORY Hx Cataract Extraction: Yes (RT.EYE) Hx Vascular Surgery: Yes (A/V FISTULA LEFT ARM) Hx Vascular Access Device: Yes (DIALYSIS ACCESS) - ANESTHESIA Hx Anesthesia: Yes Hx Anesthesia Reactions: No Hx Malignant Hyperthermia: No Meds Allergies/Adverse Reactions: Allergies Allergy/AdvReac Type Severity Reaction Status Date / Time No Known Allergies Allergy Verified 03/31/18 17:26 - Medications Medications: Current Medications Albuterol/Ipratropium (Duoneb 3 Mg/0.5 Mg (3 Ml) Ud) 3 ml INH RQ6 PRN PRN Reason: Shortness of Breath Amlodipine Besylate (Norvasc) 10 mg PO DAILY [facility] Last Admin: 04/01/18 10:11 Dose: 10 mg Aspirin (Aspirin) 325 mg PO DAILY [facility] Last Admin: 04/01/18 10:11 Dose: 325 mg Calcium Acetate (Phoslo) 667 mg PO TID [facility] Last Admin: 04/01/18 17:10 Dose: Not Given Carvedilol (Coreg) 25 mg PO BID [facility] Last Admin: 04/01/18 17:10 Dose: Not Given Dextrose (Dextrose 50% Inj) 0 ml IVP .STAT PRN; Protocol PRN Reason: Hypoglycemia Protocol Dextrose (Glutose 15) 0 gm PO .ONCE PRN; Protocol PRN Reason: Hypoglycemia Protocol Donepezil HCl (Aricept) 10 mg PO HS [facility] Last Admin: 03/31/18 22:35 Dose: 10 mg Epoetin All (Procrit) 10,000 unit IV MWF [facility] Last Admin: 04/01/18 17:24 Dose: 10,000 unit Gabapentin (Neurontin) 100 mg PO HS [facility] Last Admin: 03/31/18 22:35 Dose: 100 mg Glucagon (Glucagen Diagnostic Kit) 0 mg IM .STAT PRN; Protocol PRN Reason: Hypoglycemia Protocol Guaifenesin (Mucinex La) 600 mg PO BID [facility] Last Admin: 04/01/18 17:10 Dose: Not Given Heparin Sodium (Porcine) (Heparin) 5,000 units SC Q12 [facility] Last Admin: 04/01/18 21:44 Dose: Not Given Hydralazine HCl (Apresoline) 100 mg PO TTS@1400 [facility] Hydralazine HCl (Apresoline) 100 mg PO BID [facility] Last Admin: 04/01/18 17:09 Dose: Not Given Hydralazine HCl (Apresoline) 100 mg PO Q7D@1400 [facility] Dextrose (Dextrose 5% In Water 1000 Ml) 1,000 mls @ 0 mls/hr IV .Q0M PRN; Protocol; Per Protocol PRN Reason: Hypoglycemia Protocol Piperacillin Sod/Tazobactam (Sod 2.25 gm/ Sodium Chloride) 100 mls @ 200 mls/ hr IV Q8H [facility] PRN Reason: Protocol Last Admin: 04/01/18 20:14 Dose: Not Given Vancomycin/Sodium Chloride (Vancomycin 1 Gm/Ns 200 Ml) 1 gm in 200 mls @ 133.333 mls/hr IVPB MWF [facility] PRN Reason: Protocol Stop: 04/09/18 09:01 Insulin Glargine (Lantus) 20 unit SC HS [facility] Last Admin: 03/31/18 22:35 Dose: 20 unit Insulin Human Regular (Novolin R) 0 unit SC ACHS [facility] PRN Reason: Protocol Last Admin: 04/01/18 21:40 Dose: Not Given Losartan Potassium (Cozaar) 100 mg PO TTS [facility] Losartan Potassium (Cozaar) 100 mg PO Q7D [facility] Memantine (Namenda) 5 mg PO DAILY [facility] Last Admin: 04/01/18 10:11 Dose: 5 mg [id number] Ethyl Esters (Lovaza) 1 gm PO BID [facility] Last Admin: 04/01/18 17:10 Dose: Not Given Pantoprazole Sodium (Protonix Ec Tab) 40 mg PO DAILY [facility] Last Admin: 04/01/18 10:11 Dose: 40 mg Pneumococcal Polyvalent Vaccine (Pneumovax 23 Vaccine) 0.5 ml IM .ONCE ONE Stop: 04/03/18 10:01 Rosuvastatin Calcium (Crestor) 20 mg PO HS [facility] Last Admin: 03/31/18 22:34 Dose: 20 mg Tamsulosin HCl (Flomax) 0.4 mg PO DAILY [facility] Last Admin: 04/01/18 10:11 Dose: 0.4 mg Physical Exam - Constitutional Additional comments: Refused physical exam Results - Vital Signs Recent Vital Signs: Last Vital Signs Temp 97.7 F 04/01/18 20:25 Pulse 78 04/01/18 20:25 Resp 20 04/01/18 20:25 BP 168/63 H 04/01/18 20:25 Pulse Ox 98 04/01/18 20:25 - Labs Result Diagrams: 04/02/18 13:27 04/02/18 13:27 Labs: Laboratory Results - last 24 hr 04/01/18 04/01/18 04/01/18 07:02 07:02 07:47 WBC 6.4 RBC 2.61 L Hgb 7.9 L D Hct 22.8 L MCV 87.4 MCH 30.2 MCHC 34.6 RDW 15.1 H Plt Count 144 MPV 9.6 Neut % (Auto) 67.0 Lymph % (Auto) 20.3 [place] % (Auto) 9.2 Eos % (Auto) 2.7 Baso % (Auto) 0.8 Neut # (Auto) 4.3 Lymph # (Auto) 1.3 [place] # (Auto) 0.6 Eos # (Auto) 0.2 Baso # (Auto) 0.1 Sodium 143 Potassium 3.6 Chloride 98 Carbon Dioxide 33 H Anion Gap 16 BUN 52 H Creatinine 6.9 H Est GFR ( Amer) 9 Est GFR (Non-Af Amer) 8 POC Glucose (mg/dL) 96 Random Glucose 118 H Calcium 8.1 L Phosphorus 4.7 H Magnesium 1.7 Total Bilirubin 0.8 AST 23 ALT 26 Alkaline Phosphatase 75 Total Protein 6.1 L Albumin 3.4 L Globulin 2.7 Albumin/Globulin Ratio 1.3 Urine Color Urine Clarity Urine pH Ur Specific [place] Urine Protein Urine Glucose (UA) Urine Ketones Urine Blood Urine Nitrate Urine Bilirubin Urine Urobilinogen Ur Leukocyte Esterase Urine WBC (Auto) Urine RBC (Auto) Ur Squamous Epith Cells Hep Bs Antigen Hep Bs Antibody Hep B Core IgM Ab 04/01/18 04/01/18 04/01/18 11:05 14:42 17:15 WBC RBC Hgb Hct MCV MCH MCHC RDW Plt Count MPV Neut % (Auto) Lymph % (Auto) [place] % (Auto) Eos % (Auto) Baso % (Auto) Neut # (Auto) Lymph # (Auto) [place] # (Auto) Eos # (Auto) Baso # (Auto) Sodium Potassium Chloride Carbon Dioxide Anion Gap BUN Creatinine Est GFR ( Amer) Est GFR (Non-Af Amer) POC Glucose (mg/dL) 148 H 121 H Random Glucose Calcium Phosphorus Magnesium Total Bilirubin AST ALT Alkaline Phosphatase Total Protein Albumin Globulin Albumin/Globulin Ratio Urine Color Yellow Urine Clarity Hazy Urine pH 6.0 Ur Specific [place] 1.016 Urine Protein 2+ H Urine Glucose (UA) Normal Urine Ketones Negative Urine Blood Negative Urine Nitrate Negative Urine Bilirubin Negative Urine Urobilinogen Normal Ur Leukocyte Esterase Neg Urine WBC (Auto) 2 Urine RBC (Auto) 1 Ur Squamous Epith Cells 1 Hep Bs Antigen Hep Bs Antibody Hep B Core IgM Ab 04/01/18 04/01/18 04/01/18 20:05 20:05 20:05 WBC RBC Hgb Hct MCV MCH MCHC RDW Plt Count MPV Neut % (Auto) Lymph % (Auto) [place] % (Auto) Eos % (Auto) Baso % (Auto) Neut # (Auto) Lymph # (Auto) [place] # (Auto) Eos # (Auto) Baso # (Auto) Sodium Potassium Chloride Carbon Dioxide Anion Gap BUN Creatinine Est GFR ( Amer) Est GFR (Non-Af Amer) POC Glucose (mg/dL) Random Glucose Calcium Phosphorus Magnesium Total Bilirubin AST ALT Alkaline Phosphatase Total Protein Albumin Globulin Albumin/Globulin Ratio Urine Color Urine Clarity Urine pH Ur Specific [place] Urine Protein Urine Glucose (UA) Urine Ketones Urine Blood Urine Nitrate Urine Bilirubin Urine Urobilinogen Ur Leukocyte Esterase Urine WBC (Auto) Urine RBC (Auto) Ur Squamous Epith Cells Hep Bs Antigen Negative Hep Bs Antibody Positive Hep B Core IgM Ab Negative 04/01/18 20:34 WBC RBC Hgb Hct MCV MCH MCHC RDW Plt Count MPV Neut % (Auto) Lymph % (Auto) [place] % (Auto) Eos % (Auto) Baso % (Auto) Neut # (Auto) Lymph # (Auto) [place] # (Auto) Eos # (Auto) Baso # (Auto) Sodium Potassium Chloride Carbon Dioxide Anion Gap BUN Creatinine Est GFR ( Amer) Est GFR (Non-Af Amer) POC Glucose (mg/dL) 146 H Random Glucose Calcium Phosphorus Magnesium Total Bilirubin AST ALT Alkaline Phosphatase Total Protein Albumin Globulin Albumin/Globulin Ratio Urine Color Urine Clarity Urine pH Ur Specific [place] Urine Protein Urine Glucose (UA) Urine Ketones Urine Blood Urine Nitrate Urine Bilirubin Urine Urobilinogen Ur Leukocyte Esterase Urine WBC (Auto) Urine RBC (Auto) Ur Squamous Epith Cells Hep Bs Antigen Hep Bs Antibody Hep B Core IgM Ab Assessment & Plan - Assessment and Plan (Free Text) Assessment: 77M with left foot cellulitis JUAN/PVR: -1.23 on R and 0.98 on the L Plan: C/w ABx C/w local wound care as per podiatry recs Will evaluate to see if patient may benefit from endovascular intervention Further recs per Dr. Jay
[2018-04-02] MEDS: (Novolin R) Insulin Human Regular 100 units/ml vial SC SCH ×4 (08:00→22:01)
--- NOTE | 2018-04-02 08:27 | CP.PCM.PN ---
Subjective - Date & Time of Evaluation Date of Evaluation: 04/02/18 Time of Evaluation: 08:21 - Subjective Subjective: Podiatry progress Note for attending Dr. Lopez 77 year old male was evaluated at bedside for left foot ischemic changes, superficial epidermal lysis and infection. Patient was seen earlier by the attending John Sanon. Patient looks not comfortable, sitting and want to leave his room. Patient doesn't want to communicate. Patient states that he has subjective fever yesterday. Patient denies any N/V/C or SOB. Objective - Vital Signs/Intake and Output Vital Signs (last 24 hours): Temp Pulse Resp BP Pulse Ox 98.9 F 59 L 20 157/64 H 93 L 04/01/18 20:35 04/01/18 20:35 04/01/18 20:25 04/01/18 20:35 04/01/18 20:35 Intake and Output: 04/02/18 04/02/18 06:59 18:59 Intake Total 0 120 Balance 0 120 - Medications Medications: Current Medications Albuterol/Ipratropium (Duoneb 3 Mg/0.5 Mg (3 Ml) Ud) 3 ml INH RQ6 PRN PRN Reason: Shortness of Breath Amlodipine Besylate (Norvasc) 10 mg PO DAILY [facility] Last Admin: 04/01/18 10:11 Dose: 10 mg Aspirin (Aspirin) 325 mg PO DAILY [facility] Last Admin: 04/01/18 10:11 Dose: 325 mg Calcium Acetate (Phoslo) 667 mg PO TID [facility] Last Admin: 04/01/18 17:10 Dose: Not Given Carvedilol (Coreg) 25 mg PO BID [facility] Last Admin: 04/01/18 17:10 Dose: Not Given Dextrose (Dextrose 50% Inj) 0 ml IVP .STAT PRN; Protocol PRN Reason: Hypoglycemia Protocol Dextrose (Glutose 15) 0 gm PO .ONCE PRN; Protocol PRN Reason: Hypoglycemia Protocol Donepezil HCl (Aricept) 10 mg PO [facility] Last Admin: 04/01/18 22:00 Dose: Not Given Epoetin All (Procrit) 10,000 unit IV MWF [facility] Last Admin: 04/01/18 17:24 Dose: 10,000 unit Gabapentin (Neurontin) 100 mg PO [facility] Last Admin: 04/01/18 22:00 Dose: Not Given Glucagon (Glucagen Diagnostic Kit) 0 mg IM .STAT PRN; Protocol PRN Reason: Hypoglycemia Protocol Guaifenesin (Mucinex La) 600 mg PO BID [facility] Last Admin: 04/01/18 17:10 Dose: Not Given Heparin Sodium (Porcine) (Heparin) 5,000 units SC Q12 [facility] Last Admin: 04/01/18 21:44 Dose: Not Given Hydralazine HCl (Apresoline) 100 mg PO TTS@1400 [facility] Hydralazine HCl (Apresoline) 100 mg PO BID [facility] Last Admin: 04/01/18 17:09 Dose: Not Given Hydralazine HCl (Apresoline) 100 mg PO Q7D@1400 [facility] Dextrose (Dextrose 5% In Water 1000 Ml) 1,000 mls @ 0 mls/hr IV .Q0M PRN; Protocol; Per Protocol PRN Reason: Hypoglycemia Protocol Piperacillin Sod/Tazobactam (Sod 2.25 gm/ Sodium Chloride) 100 mls @ 200 mls/ hr IV Q8H [facility] PRN Reason: Protocol Last Admin: 04/02/18 03:22 Dose: Not Given Vancomycin/Sodium Chloride (Vancomycin 1 Gm/Ns 200 Ml) 1 gm in 200 mls @ 133.333 mls/hr IVPB MWF [facility] PRN Reason: Protocol Stop: 04/09/18 09:01 Insulin Glargine (Lantus) 20 unit SC HS [facility] Last Admin: 04/01/18 22:00 Dose: Not Given Insulin Human Regular (Novolin R) 0 unit SC ACHS [facility] PRN Reason: Protocol Last Admin: 04/01/18 21:40 Dose: Not Given Losartan Potassium (Cozaar) 100 mg PO TTS [facility] Losartan Potassium (Cozaar) 100 mg PO Q7D [facility] Memantine (Namenda) 5 mg PO DAILY [facility] Last Admin: 04/01/18 10:11 Dose: 5 mg [id number] Ethyl Esters (Lovaza) 1 gm PO BID [facility] Last Admin: 04/01/18 17:10 Dose: Not Given Pantoprazole Sodium (Protonix Ec Tab) 40 mg PO DAILY [facility] Last Admin: 04/01/18 10:11 Dose: 40 mg Pneumococcal Polyvalent Vaccine (Pneumovax 23 Vaccine) 0.5 ml IM .ONCE ONE Stop: 04/03/18 10:01 Rosuvastatin Calcium (Crestor) 20 mg PO HS [facility] Last Admin: 04/01/18 22:00 Dose: Not Given Tamsulosin HCl (Flomax) 0.4 mg PO DAILY [facility] Last Admin: 04/01/18 10:11 Dose: 0.4 mg - Labs Labs: 04/01/18 07:02 04/01/18 07:02 - Constitutional Appears: Non-toxic, No Acute Distress - Head Exam Head Exam: NORMOCEPHALIC - Extremities Exam Additional comments: Bilateral LE focused Exam: VASC: DP/PT pulses are faint 1/4 bilaterally, Cap refill time delayed > 3 sec, skin temperature: warm to cool from proximal to distal, mild non-pitting edema noted on the dorsum of the left foot DERM: Superficial epidermal lysis at the site of the previous bullae with hyperpigmented changes on the dorsum of the left 5th digit, wound bed is completely is covered by black eschar in the dorsum of the 5th digit - no active drainage, positive malodor, no tunneling or tracking, minimal purulent drainage,surrounded by an area of erythema, Maceration noted in the 4th interspace. Hyperkeratotic lesion noted in the dorsum of the left 3rd toe at the level of PIPJ. Tiny scab/necrotic ulceration noted to the dorsum of the 4th right digit measuring approximately .2 x .2 cm with no erythema, no tunneling, no undermining, no probe to bone, no drainage, no odor noted. Tiny scab noted to the dorsum of the 2nd left digit measuring approximately 0.1x 0.1 cm with no erythema, no tunneling, no undermining, no probe to bone, no drainage, no odor noted. NEURO: Protective sensation and gross sensation diminished ORTHO: Painon palpation of the digits particularly the 5th digit - Neurological Exam Neurological Exam: Awake - Psychiatric Exam Psychiatric exam: Anxious Assessment and Plan - Assessment and Plan (Free Text) Assessment: 77 year old male patient was seen and evaluated for ischemic changes to the left forefoot accompanied with cellulitis Plan: Patient seen and evaluated at the bedside. Discussed plan with attending Dr. Lopez Labs, vitals and charts reviewed - afebrile, No leukocytosis WCx- Staph. aureus X-rays of left foot ordered/reviewed - Periosteal reaction with cortical break at the proximal phalanx of the left 5th digit - concerning for OM JUAN/PVR reviewed - 1.23 on R and 0.98 on the L; poor waveform Wound dressing applied using betadine and DSD Continue IV abx - Vancomycin, Zosyn Vascular consult: pending Podiatry to follow patient while in-house
--- NOTE | 2018-04-02 09:58 | CP.PCM.PN ---
Subjective - Date & Time of Evaluation Date of Evaluation: 04/02/18 Time of Evaluation: 09:55 - Subjective Subjective: stable dialysis /- UF 2000ml feels ok left foot bandaged- undergoing wound care Hg low- on EPO now Objective - Vital Signs/Intake and Output Vital Signs (last 24 hours): Temp Pulse Resp BP Pulse Ox 98.8 F 74 20 158/75 H 97 04/02/18 08:47 04/02/18 08:47 04/02/18 08:47 04/02/18 08:47 04/02/18 08:47 Intake and Output: 04/02/18 04/02/18 06:59 18:59 Intake Total 0 120 Balance 0 120 - Medications Medications: Current Medications Albuterol/Ipratropium (Duoneb 3 Mg/0.5 Mg (3 Ml) Ud) 3 ml INH RQ6 PRN PRN Reason: Shortness of Breath Amlodipine Besylate (Norvasc) 10 mg PO DAILY [facility] Last Admin: 04/01/18 10:11 Dose: 10 mg Aspirin (Aspirin) 325 mg PO DAILY [facility] Last Admin: 04/01/18 10:11 Dose: 325 mg Calcium Acetate (Phoslo) 667 mg PO TID [facility] Last Admin: 04/01/18 17:10 Dose: Not Given Carvedilol (Coreg) 25 mg PO BID [facility] Last Admin: 04/01/18 17:10 Dose: Not Given Dextrose (Dextrose 50% Inj) 0 ml IVP .STAT PRN; Protocol PRN Reason: Hypoglycemia Protocol Dextrose (Glutose 15) 0 gm PO .ONCE PRN; Protocol PRN Reason: Hypoglycemia Protocol Donepezil HCl (Aricept) 10 mg PO HS [facility] Last Admin: 04/01/18 22:00 Dose: Not Given Epoetin All (Procrit) 10,000 unit IV MWF [facility] Last Admin: 04/01/18 17:24 Dose: 10,000 unit Gabapentin (Neurontin) 100 mg PO HS [facility] Last Admin: 04/01/18 22:00 Dose: Not Given Glucagon (Glucagen Diagnostic Kit) 0 mg IM .STAT PRN; Protocol PRN Reason: Hypoglycemia Protocol Guaifenesin (Mucinex La) 600 mg PO BID [facility] Last Admin: 04/01/18 17:10 Dose: Not Given Heparin Sodium (Porcine) (Heparin) 5,000 units SC Q12 [facility] Last Admin: 04/01/18 21:44 Dose: Not Given Hydralazine HCl (Apresoline) 100 mg PO TTS@1400 [facility] Hydralazine HCl (Apresoline) 100 mg PO BID [facility] Last Admin: 04/01/18 17:09 Dose: Not Given Hydralazine HCl (Apresoline) 100 mg PO Q7D@1400 [facility] Dextrose (Dextrose 5% In Water 1000 Ml) 1,000 mls @ 0 mls/hr IV .Q0M PRN; Protocol; Per Protocol PRN Reason: Hypoglycemia Protocol Piperacillin Sod/Tazobactam (Sod 2.25 gm/ Sodium Chloride) 100 mls @ 200 mls/ hr IV Q8H [facility] PRN Reason: Protocol Last Admin: 04/02/18 03:22 Dose: Not Given Vancomycin/Sodium Chloride (Vancomycin 1 Gm/Ns 200 Ml) 1 gm in 200 mls @ 133.333 mls/hr IVPB MWF [facility] PRN Reason: Protocol Stop: 04/09/18 09:01 Insulin Glargine (Lantus) 20 unit SC [facility] Last Admin: 04/01/18 22:00 Dose: Not Given Insulin Human Regular (Novolin R) 0 unit SC ACHS [facility] PRN Reason: Protocol Last Admin: 04/02/18 08:00 Dose: Not Given Losartan Potassium (Cozaar) 100 mg PO TTS [facility] Losartan Potassium (Cozaar) 100 mg PO Q7D [facility] Memantine (Namenda) 5 mg PO DAILY [facility] Last Admin: 04/01/18 10:11 Dose: 5 mg [id number] Ethyl Esters (Lovaza) 1 gm PO BID [facility] Last Admin: 04/01/18 17:10 Dose: Not Given Pantoprazole Sodium (Protonix Ec Tab) 40 mg PO DAILY [facility] Last Admin: 04/01/18 10:11 Dose: 40 mg Pneumococcal Polyvalent Vaccine (Pneumovax 23 Vaccine) 0.5 ml IM .ONCE ONE Stop: 04/03/18 10:01 Rosuvastatin Calcium (Crestor) 20 mg PO [facility] Last Admin: 04/01/18 22:00 Dose: Not Given Tamsulosin HCl (Flomax) 0.4 mg PO DAILY [facility] Last Admin: 04/01/18 10:11 Dose: 0.4 mg - Labs Labs: 04/01/18 07:02 04/01/18 07:02 - Constitutional Appears: No Acute Distress, Chronically Ill - Head Exam Head Exam: ATRAUMATIC, NORMAL INSPECTION - Eye Exam Eye Exam: EOMI, Normal appearance - Neck Exam Neck Exam: Normal Inspection. absent: Tenderness - Respiratory Exam Respiratory Exam: Clear to Ausculation Bilateral, NORMAL BREATHING PATTERN - Cardiovascular Exam Cardiovascular Exam: REGULAR RHYTHM, +S1 - GI/Abdominal Exam GI & Abdominal Exam: Soft. absent: Tenderness - Extremities Exam Extremities Exam: Tenderness. absent: Pedal Edema - Neurological Exam Neurological Exam: Alert, CN II-XII Intact - Skin Skin Exam: Dry, Warm Assessment and Plan (1) End stage renal disease Status: Acute (2) Type 2 diabetes mellitus with diabetic nephropathy Status: Acute (3) Dementia Status: Acute (4) Diabetic foot infection Status: Acute - Assessment and Plan (Free Text) Plan: wound care for foot ulcer IV ABs Dailysis MWF check iron stores continue EPO
[2018-04-02] MEDS: Pantoprazole 40 mg EC Tab PO SCH (10:32)
[2018-04-02] MEDS: Omega-3-Acid Ethyl Esters 1 GM Cap PO SCH ×2 (10:33→18:37)
[2018-04-02] MEDS: guaiFENesin 600 mg ER Tab PO SCH ×2 (10:40→18:36)
--- NOTE | 2018-04-02 12:39 | CP.PCM.PN ---
<Zaina Rocha - Last Filed: 04/02/18 21:04> Subjective - Date & Time of Evaluation Date of Evaluation: 04/02/18 Time of Evaluation: 12:39 - Subjective Subjective: Progress Note for Hospitalist service Patient seen and examined at bedside. He is eating breakfast comfortably. He complains of pain in his left foot. States he had his dressing recently changed. He denies chest pain, shortness of breath, headache, dizziness, fever, chills, nausea, vomiting, diarrhea, constipation. Objective - Vital Signs/Intake and Output Vital Signs (last 24 hours): Temp Pulse Resp BP Pulse Ox 98.8 F 74 20 158/75 H 97 04/02/18 08:47 04/02/18 08:47 04/02/18 08:47 04/02/18 10:34 04/02/18 08:47 Intake and Output: 04/02/18 04/02/18 06:59 18:59 Intake Total 0 120 Balance 0 120 - Medications Medications: Current Medications Albuterol/Ipratropium (Duoneb 3 Mg/0.5 Mg (3 Ml) Ud) 3 ml INH RQ6 PRN PRN Reason: Shortness of Breath Amlodipine Besylate (Norvasc) 10 mg PO DAILY [facility] Last Admin: 04/02/18 10:33 Dose: 10 mg Aspirin (Aspirin) 325 mg PO DAILY [facility] Last Admin: 04/02/18 10:31 Dose: 325 mg Calcium Acetate (Phoslo) 667 mg PO TID [facility] Last Admin: 04/02/18 10:34 Dose: 667 mg Carvedilol (Coreg) 25 mg PO BID [facility] Last Admin: 04/02/18 10:34 Dose: 25 mg Dextrose (Dextrose 50% Inj) 0 ml IVP .STAT PRN; Protocol PRN Reason: Hypoglycemia Protocol Dextrose (Glutose 15) 0 gm PO .ONCE PRN; Protocol PRN Reason: Hypoglycemia Protocol Donepezil HCl (Aricept) 10 mg PO [facility] Last Admin: 04/01/18 22:00 Dose: Not Given Epoetin All (Procrit) 10,000 unit IV MWF [facility] Last Admin: 04/01/18 17:24 Dose: 10,000 unit Gabapentin (Neurontin) 100 mg PO [facility] Last Admin: 04/01/18 22:00 Dose: Not Given Glucagon (Glucagen Diagnostic Kit) 0 mg IM .STAT PRN; Protocol PRN Reason: Hypoglycemia Protocol Guaifenesin (Mucinex La) 600 mg PO BID [facility] Last Admin: 04/02/18 10:40 Dose: Not Given Heparin Sodium (Porcine) (Heparin) 5,000 units SC Q12 [facility] Last Admin: 04/02/18 10:36 Dose: Not Given Hydralazine HCl (Apresoline) 100 mg PO TTS@1400 [facility] Hydralazine HCl (Apresoline) 100 mg PO BID [facility] Last Admin: 04/02/18 10:31 Dose: 100 mg Hydralazine HCl (Apresoline) 100 mg PO Q7D@1400 [facility] Dextrose (Dextrose 5% In Water 1000 Ml) 1,000 mls @ 0 mls/hr IV .Q0M PRN; Protocol; Per Protocol PRN Reason: Hypoglycemia Protocol Piperacillin Sod/Tazobactam (Sod 2.25 gm/ Sodium Chloride) 100 mls @ 200 mls/ hr IV Q8H [facility] PRN Reason: Protocol Last Admin: 04/02/18 11:47 Dose: 200 mls/hr Vancomycin/Sodium Chloride (Vancomycin 1 Gm/Ns 200 Ml) 1 gm in 200 mls @ 133.333 mls/hr IVPB MWF [facility] PRN Reason: Protocol Stop: 04/09/18 09:01 Insulin Glargine (Lantus) 20 unit SC HS [facility] Last Admin: 04/01/18 22:00 Dose: Not Given Insulin Human Regular (Novolin R) 0 unit SC ACHS [facility] PRN Reason: Protocol Last Admin: 04/02/18 08:00 Dose: Not Given Losartan Potassium (Cozaar) 100 mg PO TTS [facility] Last Admin: 04/02/18 10:33 Dose: 100 mg Losartan Potassium (Cozaar) 100 mg PO Q7D [facility] Memantine (Namenda) 5 mg PO DAILY [facility] Last Admin: 04/01/18 10:11 Dose: 5 mg [id number] Ethyl Esters (Lovaza) 1 gm PO BID [facility] Last Admin: 04/02/18 10:33 Dose: 1 gm Pantoprazole Sodium (Protonix Ec Tab) 40 mg PO DAILY [facility] Last Admin: 04/02/18 10:32 Dose: 40 mg Pneumococcal Polyvalent Vaccine (Pneumovax 23 Vaccine) 0.5 ml IM .ONCE ONE Stop: 04/03/18 10:01 Rosuvastatin Calcium (Crestor) 20 mg PO HS [facility] Last Admin: 04/01/18 22:00 Dose: Not Given Tamsulosin HCl (Flomax) 0.4 mg PO DAILY [facility] Last Admin: 04/02/18 10:33 Dose: 0.4 mg - Labs Labs: 04/01/18 07:02 04/01/18 07:02 - Constitutional Appears: Well, No Acute Distress - Head Exam Head Exam: ATRAUMATIC, NORMOCEPHALIC - ENT Exam ENT Exam: Mucous Membranes Moist - Respiratory Exam Respiratory Exam: Clear to Ausculation Bilateral, NORMAL BREATHING PATTERN. absent: Rales, Rhonchi, Wheezes - Cardiovascular Exam Cardiovascular Exam: REGULAR RHYTHM, +S1, +S2 - GI/Abdominal Exam GI & Abdominal Exam: Soft, Normal Bowel Sounds. absent: Distended, Firm, Guarding, Rigid, Tenderness - Extremities Exam Extremities Exam: Pedal Edema Additional comments: Left foot dressed and wrapped. Tenderness of left foot - Neurological Exam Neurological Exam: Alert, Awake, Oriented x3 Assessment and Plan - Assessment and Plan (Free Text) Assessment: 77 year old male with history of ESRD on HD MWF, IDDM, HTN, HLD, dementia presents for evaluation left foot ulcers. Plan: Assessment/plan Infection of left foot Cellulitis Blood cultures collected at [facility] 03/31: gram positive cocci, heavy growth Wound culture collected at [facility] 03/31: staph aureus heavy growth, only resistant to PCN Blood culture collected 03/31: no growth preliminary [address] Lopez consulted: Wound cleaned with saline and dressing applied using betadine DSD Continue zosyn 2.25g q8h (renal dose) started 03/31/18 Vancomycin 1gm IV MWF to start 04/04 patient given vancomycin x 1 dose at [facility] ED Lower extremity U/S - no evidence of significant arterial deficiency in the left lower extremity, No evidence of significant arterial deficiency in the right lower extremity ID Dr. Mayo consulted, help appreciated - Clindamycin 300mg IV Vascular Surgery Dr. Jay consulted, help appreciated. - Considering CT angio for Wednesday ESRD on HD HD MWF renvela 667mg TID Dr. Rivera, nephrology, consulted-agrees with above, IV abx Procrit 10,000 Units IV MWF HTN Norvasc 10mg PO daily Carvedilol 25mg PO BID Hydralazine 100mg BID on MWF (dialysis days) Hydralazine 100mg TID on Tu/ /Sat/Wed (NON-dialysis days) Losartan 100mg daily NOT on dialysis days (// Wed/ Wed) Asa 325mg PO daily Cough R/O Pulmonary infection Portable chest xray no lobar pneumonia. Severe CM and severe pulmonary venous congestion. Duonebs Q6 INH PRN Mucinex 600 PO PRN Diabetes accuchecks ACHS ISS hypoglycemic protocol consistent carb/ renal dialysis diet lantus 20u HS (home med Toujeo non-formulary here) Diabetic neuropathy gabapentin 100mg HS Flomax flomax 0.4mg daily HLD lovaza home med atorvastatin 40mg HS (non-formulary here, will start crestor 20mg) Dementia memantine 5mg daily donepezil 10mg HS Prophylaxis protonix 40mg PO daily heparin 5000u sc q12h Zaina Rocha PGYI Case discussed with Dr. Renee <Garima Renee V - Last Filed: 04/02/18 22:09> Objective - Vital Signs/Intake and Output Vital Signs (last 24 hours): Temp Pulse Resp BP Pulse Ox 98.7 F 55 L 20 125/46 L 95 04/02/18 16:00 04/02/18 16:00 04/02/18 16:00 04/02/18 16:00 04/02/18 16:00 Intake and Output: 04/02/18 04/03/18 18:59 06:59 Intake Total 120 Balance 120 - Medications Medications: Current Medications Acetaminophen (Tylenol 325mg Tab) 650 mg PO Q6 PRN PRN Reason: Pain, moderate (4-7) Albuterol/Ipratropium (Duoneb 3 Mg/0.5 Mg (3 Ml) Ud) 3 ml INH RQ6 PRN PRN Reason: Shortness of Breath Amlodipine Besylate (Norvasc) 10 mg PO DAILY [facility] Last Admin: 04/02/18 10:33 Dose: 10 mg Aspirin (Aspirin) 325 mg PO DAILY [facility] Last Admin: 04/02/18 10:31 Dose: 325 mg Calcium Acetate (Phoslo) 667 mg PO TID [facility] Last Admin: 04/02/18 18:37 Dose: 667 mg Carvedilol (Coreg) 25 mg PO BID [facility] Last Admin: 04/02/18 18:47 Dose: Not Given Dextrose (Dextrose 50% Inj) 0 ml IVP .STAT PRN; Protocol PRN Reason: Hypoglycemia Protocol Dextrose (Glutose 15) 0 gm PO .ONCE PRN; Protocol PRN Reason: Hypoglycemia Protocol Donepezil HCl (Aricept) 10 mg PO [facility] Last Admin: 04/02/18 21:52 Dose: 10 mg Epoetin All (Procrit) 10,000 unit IV [facility] Last Admin: 04/01/18 17:24 Dose: 10,000 unit Gabapentin (Neurontin) 100 mg PO [facility] Last Admin: 04/02/18 21:51 Dose: 100 mg Glucagon (Glucagen Diagnostic Kit) 0 mg IM .STAT PRN; Protocol PRN Reason: Hypoglycemia Protocol Guaifenesin (Mucinex La) 600 mg PO BID [facility] Last Admin: 04/02/18 18:36 Dose: 600 mg Heparin Sodium (Porcine) (Heparin) 5,000 units SC Q12 [facility] Last Admin: 04/02/18 21:50 Dose: 5,000 units Hydralazine HCl (Apresoline) 100 mg PO TTS@1400 [facility] Last Admin: 04/02/18 15:08 Dose: 100 mg Hydralazine HCl (Apresoline) 100 mg PO BID [facility] Last Admin: 04/02/18 18:46 Dose: Not Given Hydralazine HCl (Apresoline) 100 mg PO Q7D@1400 [facility] Dextrose (Dextrose 5% In Water 1000 Ml) 1,000 mls @ 0 mls/hr IV .Q0M PRN; Protocol; Per Protocol PRN Reason: Hypoglycemia Protocol Piperacillin Sod/Tazobactam (Sod 2.25 gm/ Sodium Chloride) 100 mls @ 200 mls/ hr IV Q8H [facility] PRN Reason: Protocol Last Admin: 04/02/18 18:35 Dose: 200 mls/hr Vancomycin/Sodium Chloride (Vancomycin 1 Gm/Ns 200 Ml) 1 gm in 200 mls @ 133.333 mls/hr IVPB [facility] PRN Reason: Protocol Stop: 04/09/18 09:01 Clindamycin Phosphate 300 mg/ (Sodium Chloride) 52 mls @ 104 mls/hr IVPB Q8H [facility] PRN Reason: Protocol Insulin Glargine (Lantus) 20 unit SC HS [facility] Last Admin: 04/02/18 21:50 Dose: 20 unit Insulin Human Regular (Novolin R) 0 unit SC ACHS [facility] PRN Reason: Protocol Last Admin: 04/02/18 17:30 Dose: 1 units Losartan Potassium (Cozaar) 100 mg PO TTS [facility] Last Admin: 04/02/18 10:33 Dose: 100 mg Losartan Potassium (Cozaar) 100 mg PO Q7D [facility] Memantine (Namenda) 5 mg PO DAILY [facility] Last Admin: 04/02/18 11:00 Dose: 5 mg [id number]-[id number] Ethyl Esters (Lovaza) 1 gm PO BID [facility] Last Admin: 04/02/18 18:37 Dose: 1 gm Pantoprazole Sodium (Protonix Ec Tab) 40 mg PO DAILY [facility] Last Admin: 04/02/18 10:32 Dose: 40 mg Rosuvastatin Calcium (Crestor) 20 mg PO HS [facility] Last Admin: 04/02/18 21:51 Dose: 20 mg Tamsulosin HCl (Flomax) 0.4 mg PO DAILY [facility] Last Admin: 04/02/18 10:33 Dose: 0.4 mg - Labs Labs: 04/02/18 13:27 04/02/18 13:27 PT 13.8 SECONDS (9.7-12.2) H 04/02/18 13:27 INR 1.3 04/02/18 13:27 Attending/Attestation - Attestation I have personally seen and examined this patient.: Yes I have fully participated in the care of the patient.: Yes I have reviewed all pertinent clinical information, including history, physical exam and plan: Yes Notes (Text): Patient seen, examined, and case discussed with day-time resident. Patient seen this morning. Patient reports he is doing ok. Patient noted 5th toe pain. Dressing recently changed by podiatry prior to my arrival. Discussed with Dr. Jay for possible CT Angio? will need to clarify with surgery team tomorrow given patient's due for Wednesday dialysis. Will order echocardiogram given severe cardiomegaly and pulmonary venous congestion. Prior cardiology noted he did not have severely cardiomegely and will consult his director title, Dr Borden. White count is normal. Remains afebrile. Patient is on IV abx. We will also consult infectious disease given possible gangreous and osteomyelitis 5th Toe and prior hx noting 3rd digit was resistant and required Tigecycline. Assessment/Plan 1) Left foot infected ulcers Osteomyelitis of left 5th Phalanx Possible gangrenous 5th toe Fracture 5th proximal phalanx Assessment/Plan * Podiatry Dr. Lopez consulted, help appreciated * Podiatry resident team on board * Vascular Surgery, Dr. Jay on board-->help appreciated * follow-up recommendations * Wound culture collected at wound center 03/31/18- listed on WoundCTR on [employer] * Staph Aureus (03/31/18) * Wound culture collect at [facility] ED * Staph Aureus (03/31/18) * Blood cultures (03/31/18) collected at [facility] ED 03/31/18--Listed on [id number] * No growth (error in resident note) * Blood cultures (03/31/18) collected at [facility] ED * No growth Antibiotics * Given dose of Vancomycin 1gm IVPB at ED at [facility] 03/31/18 * start Vancomycin 1gram IV MWF (start 04/04/18) * C/w Zosyn 2.25g IVPB q8h (renal dose) 03/31/18 * Arterial duplex: Lower extremity U/S - No evidence of significant arterial deficiency in the left lower extremity; elevated pressures can lower sensitivity of JUAN. No evidence of significant arterial deficiency in the right lower extremity. Elevated pressures can lower sensitivity of JUAN * prior hx of gangrenous toe noted in prior hospitalization at [facility] (3rd digit ) * Foot xray (03/31/18): fracture 5th proximal phalanx without definite callus formation. 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 Rivera, nephrology, consulted- help appreciated * Patient is dialysis on // * Renvela 667mg TID * Procrit 10,000 units IV MWF 3) Hypertension Assessment/Plan * Norvasc 10mg PO daily * Carvedilol 25mg PO BID (hold SBP<100 and HR<60) * Hydralazine 100mg BID on MWF (dialysis days) * Hydralazine 100mg TID on Tu/Thurs/Sat/Sun (NON-dialysis days) * Losartan 100mg daily NOT on dialysis days (// Wed/ Wed) * Prophylatic: Aspirin 325mg PO daily * Patient follows-up with Dr. Borden (cardiology) 4) History of Known Diabetes Assessment/Plan * Accuchecks ACHS * ISS * Hypoglycemic protocol * Consistent carb/ renal dialysis diet * Lantus 20u HS (home med Toujeo non-formulary here) 5) History of Known Diabetic neuropathy Assessment/Plan * Gabapentin 100mg HS 6) BPH Assessment/Plan * Flomax 0.4mg daily 7) Lipid Disorder Assessment/Plan * lovaza * home med atorvastatin 40mg HS (non-formulary here, will start crestor 20mg) 8) Dementia Assessment/Plan * Memantine 5mg PO daily * Donepezil 10mg PO HS 9) Cough Assessment/Plan * Portable chest xray (04/01/18): severe cardiomegaly and severe pulmonary venous congestion. No lobar pneumonia * Duonebs 3ml Inhaled christopher Q4H * Mucinex 600mg PO BID * Note: patient earlier in the year Oct-November was admitted to the [facility] ICU for pneumonia and epiglottis 10) Severe cardiomegaly noted on chest xray Assessment/Plan * Cardiology (Dr. Keys) for consult: patient's director title; prior note reviewed from 2017 * Start Fluid restriction 1.5L * Order for echocardiogram * Norvasc 10mg PO daily * Carvedilol 25mg PO BID (hold SBP<100 and HR<60) * Hydralazine 100mg BID on MWF (dialysis days) * Hydralazine 100mg TID on Tu//Sat/Sun (NON-dialysis days) * Losartan 100mg daily NOT on dialysis days (// Wed/ Wed) * Prophylatic: Aspirin 325mg PO daily * Patient follows-up with Dr. Borden (cardiology) 11) Prophylaxis * Protonix 40mg PO daily * Heparin 5000u sc q12h * PT/OT eval
[2018-04-02 13:41] LABS: BASO # 0.1 K/uL (0.0-0.2); EOS # 0.1 K/uL (0.0-0.7); LYMPH # 1.4 K/uL (1.0-4.3); LYMPH % 19.1 % (20.0-40.0); MEAN CELL VOLUME 88.3 fL (80.0-94.0); MEAN PLATELET VOLUME 8.9 fL (7.2-11.7); MONO # 0.6 K/uL (0.0-0.8); MONO % 8.5 % (0.0-10.0); NEUT % 69.4 % (50.0-75.0); RBC 2.66 Mil/uL (4.40-5.90); RED CELL DISTRIBUTION WIDTH 15.2 % (11.5-14.5); WHITE BLOOD COUNT 7.2 K/uL (4.8-10.8)
[2018-04-02 13:47] LABS: INR 1.3; PROTHROMBIN TIME 13.8 SECONDS (9.7-12.2)
[2018-04-02 14:00] LABS: ALB/GLOB RATIO 1.4 (1.0-2.1); ALBUMIN 3.5 g/dL (3.5-5.0); CALCIUM 8.5 mg/dl (8.6-10.4)
[2018-04-02] MEDS: (Lantus) Insulin Glargine, Recombinant SC SCH (21:50)
[2018-04-02] MEDS: Clindamycin 300 MG in Sodium Chloride 0.9% 50 ML IVPB SCH (22:30)
[2018-04-03] MEDS: Albuterol-Ipratrop 3 mg / 0.5 (3 ml) UD INH SCH ×6 (01:37→19:44)
[2018-04-03] MEDS: Clindamycin 300 MG in Sodium Chloride 0.9% 50 ML IVPB SCH ×2 (04:32→22:08)
--- NOTE | 2018-04-03 07:38 | CP.PCM.PN ---
Subjective - Date & Time of Evaluation Date of Evaluation: 04/03/18 Time of Evaluation: 07:37 - Subjective Subjective: Vascular Surgery Progress Note for Dr. Jay This 77M was seen and examined this Am at bedside. No acute events reported overnight. He denies any chest pain or SOB. No new complainst at this anel. Discussed with the PT possibility of angiogram tomorrow. Objective - Vital Signs/Intake and Output Vital Signs (last 24 hours): Temp Pulse Resp BP Pulse Ox 98.1 F 58 L 20 136/56 L 96 04/02/18 23:35 04/02/18 23:35 04/02/18 23:35 04/02/18 23:35 04/02/18 23:35 Intake and Output: 04/03/18 04/03/18 06:59 18:59 Intake Total 680 Output Total 150 Balance 530 - Medications Medications: Current Medications Acetaminophen (Tylenol 325mg Tab) 650 mg PO Q6 PRN PRN Reason: Pain, moderate (4-7) Albuterol/Ipratropium (Duoneb 3 Mg/0.5 Mg (3 Ml) Ud) 3 ml INH RQ4 [facility] Last Admin: 04/03/18 04:59 Dose: Not Given Amlodipine Besylate (Norvasc) 10 mg PO DAILY [facility] Last Admin: 04/02/18 10:33 Dose: 10 mg Aspirin (Aspirin) 325 mg PO DAILY [facility] Last Admin: 04/02/18 10:31 Dose: 325 mg Calcium Acetate (Phoslo) 667 mg PO TID [facility] Last Admin: 04/02/18 18:37 Dose: 667 mg Carvedilol (Coreg) 25 mg PO BID [facility] Last Admin: 04/02/18 18:47 Dose: Not Given Dextrose (Dextrose 50% Inj) 0 ml IVP .STAT PRN; Protocol PRN Reason: Hypoglycemia Protocol Dextrose (Glutose 15) 0 gm PO .ONCE PRN; Protocol PRN Reason: Hypoglycemia Protocol Donepezil HCl (Aricept) 10 mg PO HS [facility] Last Admin: 04/02/18 21:52 Dose: 10 mg Epoetin All (Procrit) 10,000 unit IV MWF [facility] Last Admin: 04/01/18 17:24 Dose: 10,000 unit Gabapentin (Neurontin) 100 mg PO HS [facility] Last Admin: 04/02/18 21:51 Dose: 100 mg Glucagon (Glucagen Diagnostic Kit) 0 mg IM .STAT PRN; Protocol PRN Reason: Hypoglycemia Protocol Guaifenesin (Mucinex La) 600 mg PO BID [facility] Last Admin: 04/02/18 18:36 Dose: 600 mg Heparin Sodium (Porcine) (Heparin) 5,000 units SC Q12 [facility] Last Admin: 04/02/18 21:50 Dose: 5,000 units Hydralazine HCl (Apresoline) 100 mg PO TTS@1400 [facility] Last Admin: 04/02/18 15:08 Dose: 100 mg Hydralazine HCl (Apresoline) 100 mg PO BID [facility] Last Admin: 04/02/18 18:46 Dose: Not Given Hydralazine HCl (Apresoline) 100 mg PO Q7D@1400 [facility] Dextrose (Dextrose 5% In Water 1000 Ml) 1,000 mls @ 0 mls/hr IV .Q0M PRN; Protocol; Per Protocol PRN Reason: Hypoglycemia Protocol Piperacillin Sod/Tazobactam (Sod 2.25 gm/ Sodium Chloride) 100 mls @ 200 mls/ hr IV Q8H [facility] PRN Reason: Protocol Last Admin: 04/03/18 02:17 Dose: 200 mls/hr Vancomycin/Sodium Chloride (Vancomycin 1 Gm/Ns 200 Ml) 1 gm in 200 mls @ 133.333 mls/hr IVPB MWF [facility] PRN Reason: Protocol Stop: 04/09/18 09:01 Clindamycin Phosphate 300 mg/ (Sodium Chloride) 52 mls @ 104 mls/hr IVPB Q8H [facility] PRN Reason: Protocol Last Admin: 04/03/18 04:32 Dose: 104 mls/hr Insulin Glargine (Lantus) 20 unit SC HS [facility] Last Admin: 04/02/18 21:50 Dose: 20 unit Insulin Human Regular (Novolin R) 0 unit SC ACHS [facility] PRN Reason: Protocol Last Admin: 04/02/18 22:01 Dose: Not Given Losartan Potassium (Cozaar) 100 mg PO TTS [facility] Last Admin: 04/02/18 10:33 Dose: 100 mg Losartan Potassium (Cozaar) 100 mg PO Q7D [facility] Memantine (Namenda) 5 mg PO DAILY [facility] Last Admin: 04/02/18 11:00 Dose: 5 mg [id number] Ethyl Esters (Lovaza) 1 gm PO BID [facility] Last Admin: 04/02/18 18:37 Dose: 1 gm Pantoprazole Sodium (Protonix Ec Tab) 40 mg PO DAILY [facility] Last Admin: 04/02/18 10:32 Dose: 40 mg Rosuvastatin Calcium (Crestor) 20 mg PO HS [facility] Last Admin: 04/02/18 21:51 Dose: 20 mg Tamsulosin HCl (Flomax) 0.4 mg PO DAILY [facility] Last Admin: 04/02/18 10:33 Dose: 0.4 mg - Labs Labs: 04/02/18 13:27 04/02/18 13:27 PT 13.8 SECONDS (9.7-12.2) H 04/02/18 13:27 INR 1.3 04/02/18 13:27 - Constitutional Appears: Non-toxic, No Acute Distress - Head Exam Head Exam: ATRAUMATIC, NORMOCEPHALIC - Eye Exam Eye Exam: EOMI - ENT Exam ENT Exam: Mucous Membranes Moist - Respiratory Exam Respiratory Exam: NORMAL BREATHING PATTERN - Cardiovascular Exam Cardiovascular Exam: +S1, +S2 - Extremities Exam Additional comments: Dressing intact foot warm. No palpable dp - Neurological Exam Neurological Exam: Alert, Awake - Psychiatric Exam Psychiatric exam: Normal Affect, Normal Mood - Skin Skin Exam: Dry, Intact Assessment and Plan - Assessment and Plan (Free Text) Assessment: 77M with LLE cellulitis and distal vessel disease Possible angiogram tomorrow further recs per Dr. Pierre Ulloa PGY3
[2018-04-03] MEDS: (Novolin R) Insulin Human Regular 100 units/ml vial SC SCH ×3 (07:52→23:49)
[2018-04-03 08:04] LABS: INR 1.2; PROTHROMBIN TIME 12.8 SECONDS (9.7-12.2)
[2018-04-03 08:08] LABS: BASO # 0.1 K/uL (0.0-0.2); BASO % 0.9 % (0.0-2.0); EOS # 0.2 K/uL (0.0-0.7); EOS % 3.1 % (0.0-4.0); HEMOGLOBIN 8.1 g/dL (12.0-18.0); LYMPH # 1.2 K/uL (1.0-4.3); LYMPH % 17.6 % (20.0-40.0); MEAN CELL VOLUME 88.1 fL (80.0-94.0); MEAN CORPUSCULAR HEMOGLOBIN 29.7 pg (27.0-31.0); MEAN CORPUSCULAR HGB CONC 33.7 g/dL (33.0-37.0); MEAN PLATELET VOLUME 9.4 fL (7.2-11.7); MONO # 0.5 K/uL (0.0-0.8); MONO % 7.9 % (0.0-10.0); NEUT # 4.8 K/uL (1.8-7.0); NEUT % 70.5 % (50.0-75.0); RBC 2.72 Mil/uL (4.40-5.90); RED CELL DISTRIBUTION WIDTH 15.5 % (11.5-14.5); WHITE BLOOD COUNT 6.8 K/uL (4.8-10.8)
[2018-04-03 08:20] LABS: ALB/GLOB RATIO 1.3 (1.0-2.1); ALBUMIN 3.6 g/dL (3.5-5.0); CALCIUM 8.4 mg/dl (8.6-10.4)
[2018-04-03] MEDS: Omega-3-Acid Ethyl Esters 1 GM Cap PO SCH ×2 (09:39→17:38)
[2018-04-03] MEDS: Pantoprazole 40 mg EC Tab PO SCH (09:40)
[2018-04-03] MEDS: guaiFENesin 600 mg ER Tab PO SCH ×2 (09:40→17:40)
[2018-04-03] MEDS ORDERED: Pneumococcal 23-Valent Vaccine IM ONE (10:00)
--- NOTE | 2018-04-03 11:05 | CP.PCM.PN ---
<Zaina Rocha - Last Filed: 04/03/18 22:06> Subjective - Date & Time of Evaluation Date of Evaluation: 04/03/18 Time of Evaluation: 11:05 - Subjective Subjective: Progress Note for Hospitalist service Patient seen and examined at bedside. He offered no complaints. Stated that he was seen by Podiatry this morning. Denies fevers, chills, chest pain, palpitations, shortness of breath, abdominal pain, nausea, vomiting, diarrhea. Objective - Vital Signs/Intake and Output Vital Signs (last 24 hours): Temp Pulse Resp BP Pulse Ox 98.0 F 60 20 151/56 H 95 04/03/18 07:00 04/03/18 07:51 04/03/18 07:00 04/03/18 09:39 04/03/18 07:00 Intake and Output: 04/03/18 04/03/18 06:59 18:59 Intake Total 680 Output Total 150 Balance 530 - Medications Medications: Current Medications Acetaminophen (Tylenol 325mg Tab) 650 mg PO Q6 PRN PRN Reason: Pain, moderate (4-7) Albuterol/Ipratropium (Duoneb 3 Mg/0.5 Mg (3 Ml) Ud) 3 ml INH RQ4 [facility] Last Admin: 04/03/18 07:42 Dose: 3 ml Amlodipine Besylate (Norvasc) 10 mg PO DAILY [facility] Last Admin: 04/03/18 09:39 Dose: 10 mg Aspirin (Aspirin) 325 mg PO DAILY [facility] Last Admin: 04/03/18 09:38 Dose: 325 mg Calcium Acetate (Phoslo) 667 mg PO TID [facility] Last Admin: 04/03/18 09:39 Dose: 667 mg Carvedilol (Coreg) 25 mg PO BID [facility] Last Admin: 04/03/18 09:39 Dose: 25 mg Dextrose (Dextrose 50% Inj) 0 ml IVP .STAT PRN; Protocol PRN Reason: Hypoglycemia Protocol Dextrose (Glutose 15) 0 gm PO .ONCE PRN; Protocol PRN Reason: Hypoglycemia Protocol Donepezil HCl (Aricept) 10 mg PO HS [facility] Last Admin: 04/02/18 21:52 Dose: 10 mg Epoetin All (Procrit) 10,000 unit IV MWF [facility] Last Admin: 04/01/18 17:24 Dose: 10,000 unit Gabapentin (Neurontin) 100 mg PO HS [facility] Last Admin: 04/02/18 21:51 Dose: 100 mg Glucagon (Glucagen Diagnostic Kit) 0 mg IM .STAT PRN; Protocol PRN Reason: Hypoglycemia Protocol Guaifenesin (Mucinex La) 600 mg PO BID [facility] Last Admin: 04/03/18 09:40 Dose: 600 mg Heparin Sodium (Porcine) (Heparin) 5,000 units SC Q12 [facility] Last Admin: 04/03/18 09:38 Dose: 5,000 units Hydralazine HCl (Apresoline) 100 mg PO TTS@1400 [facility] Last Admin: 04/02/18 15:08 Dose: 100 mg Hydralazine HCl (Apresoline) 100 mg PO BID [facility] Last Admin: 04/03/18 09:39 Dose: 100 mg Hydralazine HCl (Apresoline) 100 mg PO Q7D@1400 [facility] Dextrose (Dextrose 5% In Water 1000 Ml) 1,000 mls @ 0 mls/hr IV .Q0M PRN; Protocol; Per Protocol PRN Reason: Hypoglycemia Protocol Piperacillin Sod/Tazobactam (Sod 2.25 gm/ Sodium Chloride) 100 mls @ 200 mls/ hr IV Q8H [facility] PRN Reason: Protocol Last Admin: 04/03/18 02:17 Dose: 200 mls/hr Vancomycin/Sodium Chloride (Vancomycin 1 Gm/Ns 200 Ml) 1 gm in 200 mls @ 133.333 mls/hr IVPB MWF [facility] PRN Reason: Protocol Stop: 04/09/18 09:01 Clindamycin Phosphate 300 mg/ (Sodium Chloride) 52 mls @ 104 mls/hr IVPB Q8H [facility] PRN Reason: Protocol Last Admin: 04/03/18 04:32 Dose: 104 mls/hr Insulin Glargine (Lantus) 20 unit SC HS [facility] Last Admin: 04/02/18 21:50 Dose: 20 unit Insulin Human Regular (Novolin R) 0 unit SC ACHS [facility] PRN Reason: Protocol Last Admin: 04/03/18 07:52 Dose: Not Given Losartan Potassium (Cozaar) 100 mg PO TTS [facility] Last Admin: 04/02/18 10:33 Dose: 100 mg Losartan Potassium (Cozaar) 100 mg PO Q7D [facility] Last Admin: 04/03/18 09:38 Dose: 100 mg Memantine (Namenda) 5 mg PO DAILY [facility] Last Admin: 04/03/18 09:41 Dose: 5 mg [id number]-[id number] Ethyl Esters (Lovaza) 1 gm PO BID [facility] Last Admin: 04/03/18 09:39 Dose: 1 gm Pantoprazole Sodium (Protonix Ec Tab) 40 mg PO DAILY [facility] Last Admin: 04/03/18 09:40 Dose: 40 mg Rosuvastatin Calcium (Crestor) 20 mg PO HS [facility] Last Admin: 04/02/18 21:51 Dose: 20 mg Tamsulosin HCl (Flomax) 0.4 mg PO DAILY [facility] Last Admin: 04/03/18 09:39 Dose: 0.4 mg - Labs Labs: 04/03/18 07:53 04/03/18 07:53 PT 12.8 SECONDS (9.7-12.2) H 04/03/18 07:53 INR 1.2 04/03/18 07:53 - Constitutional Appears: Well, No Acute Distress - Head Exam Head Exam: ATRAUMATIC, NORMOCEPHALIC - Eye Exam Eye Exam: EOMI - ENT Exam ENT Exam: Mucous Membranes Moist - Respiratory Exam Respiratory Exam: Clear to Ausculation Bilateral, NORMAL BREATHING PATTERN. absent: Rales, Rhonchi, Wheezes - Cardiovascular Exam Cardiovascular Exam: REGULAR RHYTHM, +S1, +S2 - GI/Abdominal Exam GI & Abdominal Exam: Soft, Normal Bowel Sounds. absent: Distended, Guarding, Tenderness - Extremities Exam Extremities Exam: Pedal Edema. absent: Calf Tenderness Additional comments: Left foot: Tenderness of digits, pete 5th digit. 5th digit is discolored, appears dark. Decreased sensation. Distal pulses faint. Mild edema to left foot. - Neurological Exam Neurological Exam: Alert, Awake, Oriented x3 Assessment and Plan - Assessment and Plan (Free Text) Assessment: 77 year old male with history of ESRD on HD MWF, IDDM, HTN, HLD, dementia presents for evaluation left foot ulcers. Plan: Assessment/plan Infection of left foot Cellulitis Blood cultures collected at [facility] 03/31: gram positive cocci, heavy growth Wound culture collected at [facility] 03/31: staph aureus heavy growth, only resistant to PCN Blood culture collected 03/31: no growth preliminary [address] Lopez consulted: Wound cleaned with saline and dressing applied using betadine DSD Continue zosyn 2.25g q8h (renal dose) started 03/31/18 Vancomycin 1gm IV MWF to start 04/04 patient given vancomycin x 1 dose at [place] ED Lower extremity U/S - no evidence of significant arterial deficiency in the left lower extremity, No evidence of significant arterial deficiency in the right lower extremity ID Dr. Mayo consulted, help appreciated - Clindamycin 300mg IV Vascular Surgery Dr. Jay consulted, help appreciated. - Considering CT angio for Wednesday with dialysis afterwards ESRD on HD HD MWF renvela 667mg TID Dr. Rivera, nephrology, consulted-agrees with above, IV abx Procrit 10,000 Units IV MWF Plan for dialysis after CT angiogram tomorrow Given patient's renal function, avoid nephrotoxic agents including Benadryl, Ativan. HTN Norvasc 10mg PO daily Carvedilol 25mg PO BID Hydralazine 100mg BID on MWF (dialysis days) Hydralazine 100mg TID on / /Sat/Wed (NON-dialysis days) Losartan 100mg daily NOT on dialysis days (// Wed/ Wed) Asa 325mg PO daily Cough R/O Pulmonary infection Portable chest xray no lobar pneumonia. Severe CM and severe pulmonary venous congestion. Duonebs Q6 INH PRN Mucinex 600 PO PRN Cardiomegaly CXR no lobar pneumonia. Severe CM and severe pulmonary venous congestion. Doubling Machine Operator Dr. Keys consulted, help appreciated Diabetes accuchecks ACHS ISS hypoglycemic protocol consistent carb/ renal dialysis diet lantus 20u HS (home med Toujeo non-formulary here) 04/03/18: Lantus 10units at night check blood sugars Q6 Diabetic neuropathy gabapentin 100mg HS BPH flomax 0.4mg daily HLD lovaza home med atorvastatin 40mg HS (non-formulary here, will start crestor 20mg) Dementia memantine 5mg daily donepezil 10mg HS Prophylaxis protonix 40mg PO daily heparin 5000u sc q12h Zaina Rocha, PGYI Case discussed with Dr. Renee <Garima Renee V - Last Filed: 04/04/18 10:45> Objective - Vital Signs/Intake and Output Vital Signs (last 24 hours): Temp Pulse Resp BP Pulse Ox 98.0 F 60 20 168/68 H 95 04/04/18 09:55 04/04/18 09:55 04/04/18 09:55 04/04/18 09:55 04/04/18 09:55 Intake and Output: 04/04/18 04/04/18 06:59 18:59 Intake Total 1415 Balance 1415 - Medications Medications: Current Medications Acetaminophen (Tylenol 325mg Tab) 650 mg PO Q6 PRN PRN Reason: Pain, moderate (4-7) Albuterol/Ipratropium (Duoneb 3 Mg/0.5 Mg (3 Ml) Ud) 3 ml INH RQ4 [facility] Last Admin: 04/04/18 07:15 Dose: 3 ml Amlodipine Besylate (Norvasc) 10 mg PO DAILY [facility] Last Admin: 04/03/18 09:39 Dose: 10 mg Aspirin (Aspirin) 325 mg PO DAILY [facility] Last Admin: 04/03/18 09:38 Dose: 325 mg Calcium Acetate (Phoslo) 667 mg PO TID [facility] Last Admin: 04/03/18 17:37 Dose: 667 mg Carvedilol (Coreg) 25 mg PO BID [facility] Last Admin: 04/03/18 17:46 Dose: Not Given Dextrose (Dextrose 50% Inj) 0 ml IVP .STAT PRN; Protocol PRN Reason: Hypoglycemia Protocol Dextrose (Glutose 15) 0 gm PO .ONCE PRN; Protocol PRN Reason: Hypoglycemia Protocol Donepezil HCl (Aricept) 10 mg PO HS [facility] Last Admin: 04/03/18 22:08 Dose: 10 mg Epoetin All (Procrit) 10,000 unit IV MWF [facility] Last Admin: 04/01/18 17:24 Dose: 10,000 unit Gabapentin (Neurontin) 100 mg PO HS [facility] Last Admin: 04/03/18 22:19 Dose: 100 mg Glucagon (Glucagen Diagnostic Kit) 0 mg IM .STAT PRN; Protocol PRN Reason: Hypoglycemia Protocol Guaifenesin (Mucinex La) 600 mg PO BID [facility] Last Admin: 04/03/18 17:40 Dose: 600 mg Heparin Sodium (Porcine) (Heparin) 5,000 units SC Q12 [facility] Last Admin: 04/03/18 22:08 Dose: 5,000 units Hydralazine HCl (Apresoline) 100 mg PO TTS@1400 [facility] Last Admin: 04/02/18 15:08 Dose: 100 mg Hydralazine HCl (Apresoline) 100 mg PO BID [facility] Last Admin: 04/03/18 17:38 Dose: 100 mg Hydralazine HCl (Apresoline) 100 mg PO Q7D@1400 [facility] Last Admin: 04/03/18 14:51 Dose: 100 mg Dextrose (Dextrose 5% In Water 1000 Ml) 1,000 mls @ 0 mls/hr IV .Q0M PRN; Protocol; Per Protocol PRN Reason: Hypoglycemia Protocol Piperacillin Sod/Tazobactam (Sod 2.25 gm/ Sodium Chloride) 100 mls @ 200 mls/ hr IV Q8H [facility] PRN Reason: Protocol Last Admin: 04/04/18 02:24 Dose: 200 mls/hr Vancomycin/Sodium Chloride (Vancomycin 1 Gm/Ns 200 Ml) 1 gm in 200 mls @ 133.333 mls/hr IVPB MWF [facility] PRN Reason: Protocol Stop: 04/09/18 09:01 Last Admin: 04/04/18 09:56 Dose: Not Given Clindamycin Phosphate 300 mg/ (Sodium Chloride) 52 mls @ 104 mls/hr IVPB Q8H [facility] PRN Reason: Protocol Last Admin: 04/04/18 05:08 Dose: 104 mls/hr Lactated Ringer's (Lactated Ringer's) 1,000 mls @ 125 mls/hr IV .Q8H [facility] Last Admin: 04/04/18 09:56 Dose: Not Given Insulin Glargine (Lantus) 10 unit SC HS [facility] Last Admin: 04/03/18 22:18 Dose: 10 units Insulin Human Regular (Novolin R) 0 unit SC ACHS [facility] PRN Reason: Protocol Last Admin: 04/04/18 09:56 Dose: Not Given Losartan Potassium (Cozaar) 100 mg PO TTS [facility] Last Admin: 04/02/18 10:33 Dose: 100 mg Losartan Potassium (Cozaar) 100 mg PO Q7D [facility] Last Admin: 04/03/18 09:38 Dose: 100 mg Memantine (Namenda) 5 mg PO DAILY [facility] Last Admin: 04/03/18 09:41 Dose: 5 mg Qtiis-1-Jgez Ethyl Esters (Lovaza) 1 gm PO BID [facility] Last Admin: 04/03/18 17:38 Dose: 1 gm Pantoprazole Sodium (Protonix Ec Tab) 40 mg PO DAILY [facility] Last Admin: 04/03/18 09:40 Dose: 40 mg Rosuvastatin Calcium (Crestor) 20 mg PO HS [facility] Saccharomyces Boulardii (Florastor) 250 mg PO BID [facility] Tamsulosin HCl (Flomax) 0.4 mg PO DAILY [facility] Last Admin: 04/03/18 09:39 Dose: 0.4 mg - Labs Labs: 04/03/18 07:53 04/04/18 09:46 PT 12.8 SECONDS (9.7-12.2) H 04/03/18 07:53 INR 1.2 04/03/18 07:53 Attending/Attestation - Attestation I have personally seen and examined this patient.: Yes I have fully participated in the care of the patient.: Yes I have reviewed all pertinent clinical information, including history, physical exam and plan: Yes Notes (Text): This is late computer entry for 04/03/18. Patient seen, examined, and case discussed with day-time resident. Patient seen this afternoon Patient reports he is doing ok. Patient noted 5th toe pain. Dressing recently changed by podiatry in the morning prior to my arrival. Discussed with Dr. Jay for angiogram tomorrow on Wednesday. will need to clarify with surgery team tomorrow given patient's due for Wednesday dialysis. Pending echocardiogram given severe cardiomegaly and pulmonary venous congestion. Prior cardiology noted he did not have severely cardiomegaly in his 2017 hospitalization; covering distribution center assistant, Dr Loco for Dr Borden. White count is normal. Remains afebrile. Patient is on IV abx. Assessment/Plan 1) Left foot infected ulcers Osteomyelitis of left 5th Phalanx Possible gangrenous 5th toe Fracture 5th proximal phalanx Assessment/Plan * Podiatry Dr. Lopez consulted, help appreciated * Podiatry resident team on board * Vascular Surgery, Dr. Jay on board-->help appreciated * Angiogram for Wednesday * Wound culture collected at wound center 03/31/18- listed on Wound[facility]R on [facility] * Staph Aureus (03/31/18) * Wound culture collect at [facility] ED * Staph Aureus (03/31/18) * Blood cultures (03/31/18) collected at [facility] ED 03/31/18--Listed on [id number] * No growth (error in resident note) * Blood cultures (03/31/18) collected at [facility] ED * No growth Antibiotics * Given dose of Vancomycin 1gm IVPB at ED at [facility] 03/31/18 * start Vancomycin 1gram IV MWF (start 04/04/18) * C/w Zosyn 2.25g IVPB q8h (renal dose) 03/31/18 * Arterial duplex: Lower extremity U/S - No evidence of significant arterial deficiency in the left lower extremity; elevated pressures can lower sensitivity of JUAN. No evidence of significant arterial deficiency in the right lower extremity. Elevated pressures can lower sensitivity of JUAN * prior hx of gangrenous toe noted in prior hospitalization at [facility] (3rd digit ) * Foot xray (03/31/18): fracture 5th proximal phalanx without definite callus formation. 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 Rivera, nephrology, consulted- help appreciated * Patient is dialysis on // * Renvela 667mg TID * Procrit 10,000 units IV MWF 3) Hypertension Assessment/Plan * Norvasc 10mg PO daily * Carvedilol 25mg PO BID (hold SBP<100 and HR<60) * Hydralazine 100mg BID on MWF (dialysis days) * Hydralazine 100mg TID on Tues/Thurs/Sat/Sun (NON-dialysis days) * Losartan 100mg daily NOT on dialysis days (/Th/ Sat/ Sun) * Prophylatic: Aspirin 325mg PO daily * Patient follows-up with Dr. Borden (cardiology) 4) History of Known Diabetes Assessment/Plan * Accuchecks ACHS * ISS * Hypoglycemic protocol * Consistent carb/ renal dialysis diet * Lantus 20u HS (home med Toujeo non-formulary here) 5) History of Known Diabetic neuropathy Assessment/Plan * Gabapentin 100mg HS 6) BPH Assessment/Plan * Flomax 0.4mg daily 7) Lipid Disorder Assessment/Plan * lovaza * home med atorvastatin 40mg HS (non-formulary here, will start crestor 20mg) 8) Dementia Assessment/Plan * Memantine 5mg PO daily * Donepezil 10mg PO HS 9) Cough Assessment/Plan * Portable chest xray (04/01/18): severe cardiomegaly and severe pulmonary venous congestion. No lobar pneumonia * Duonebs 3ml Inhaled christopher Q4H * Mucinex 600mg PO BID * Note: patient earlier in the year Oct-November was admitted to the [facility] ICU for pneumonia and epiglottis 10) Severe cardiomegaly noted on chest xray Assessment/Plan * Cardiology (Dr. Keys) for consult: patient's distribution center assistant; prior note reviewed from 2017 * Discussed with nurse, Dr. Lamb came recommended for echocardiogram * Start Fluid restriction 1.5L * Order for echocardiogram * Norvasc 10mg PO daily * Carvedilol 25mg PO BID (hold SBP<100 and HR<60) * Hydralazine 100mg BID on MWF (dialysis days) * Hydralazine 100mg TID on Tues/Thurs/Sat/Sun (NON-dialysis days) * Losartan 100mg daily NOT on dialysis days (Tues/Thurs/ Sat/ Sun) * Prophylatic: Aspirin 325mg PO daily * Patient follows-up with Dr. Borden (cardiology) 11) Prophylaxis * Protonix 40mg PO daily * Heparin 5000u sc q12h * PT/OT eval
--- NOTE | 2018-04-03 15:58 | CP.PCM.PN ---
Subjective - Date & Time of Evaluation Date of Evaluation: 04/03/18 Time of Evaluation: 15:56 - Subjective Subjective: Podiatry progress Note for attending Dr. Lopez 77 year old male was evaluated at bedside for left foot ischemic changes, superficial epidermal lysis and infection. Patient was sitting comfortable in bed, Patient was AAO X 3 by the time of visit. Patient was not in acute distress and look in a better mood than yesterday.Patient denies any F/N/V/C or SOB. Patient denies any other pedal complaint. Objective - Vital Signs/Intake and Output Vital Signs (last 24 hours): Temp Pulse Resp BP Pulse Ox 98.0 F 60 20 151/56 H 95 04/03/18 07:00 04/03/18 07:51 04/03/18 07:00 04/03/18 09:39 04/03/18 07:00 Intake and Output: 04/03/18 04/03/18 06:59 18:59 Intake Total 680 500 Output Total 150 400 Balance 530 100 - Medications Medications: Current Medications Acetaminophen (Tylenol 325mg Tab) 650 mg PO Q6 PRN PRN Reason: Pain, moderate (4-7) Albuterol/Ipratropium (Duoneb 3 Mg/0.5 Mg (3 Ml) Ud) 3 ml INH RQ4 [facility] Last Admin: 04/03/18 15:26 Dose: 3 ml Amlodipine Besylate (Norvasc) 10 mg PO DAILY [facility] Last Admin: 04/03/18 09:39 Dose: 10 mg Aspirin (Aspirin) 325 mg PO DAILY [facility] Last Admin: 04/03/18 09:38 Dose: 325 mg Calcium Acetate (Phoslo) 667 mg PO TID [facility] Last Admin: 04/03/18 09:39 Dose: 667 mg Carvedilol (Coreg) 25 mg PO BID [facility] Last Admin: 04/03/18 09:39 Dose: 25 mg Dextrose (Dextrose 50% Inj) 0 ml IVP .STAT PRN; Protocol PRN Reason: Hypoglycemia Protocol Dextrose (Glutose 15) 0 gm PO .ONCE PRN; Protocol PRN Reason: Hypoglycemia Protocol Donepezil HCl (Aricept) 10 mg PO HS [facility] Last Admin: 04/02/18 21:52 Dose: 10 mg Epoetin All (Procrit) 10,000 unit IV MWF [facility] Last Admin: 04/01/18 17:24 Dose: 10,000 unit Gabapentin (Neurontin) 100 mg PO HS [facility] Last Admin: 04/02/18 21:51 Dose: 100 mg Glucagon (Glucagen Diagnostic Kit) 0 mg IM .STAT PRN; Protocol PRN Reason: Hypoglycemia Protocol Guaifenesin (Mucinex La) 600 mg PO BID [facility] Last Admin: 04/03/18 09:40 Dose: 600 mg Heparin Sodium (Porcine) (Heparin) 5,000 units SC Q12 [facility] Last Admin: 04/03/18 09:38 Dose: 5,000 units Hydralazine HCl (Apresoline) 100 mg PO TTS@1400 [facility] Last Admin: 04/02/18 15:08 Dose: 100 mg Hydralazine HCl (Apresoline) 100 mg PO BID [facility] Last Admin: 04/03/18 09:39 Dose: 100 mg Hydralazine HCl (Apresoline) 100 mg PO Q7D@1400 [facility] Last Admin: 04/03/18 14:51 Dose: 100 mg Dextrose (Dextrose 5% In Water 1000 Ml) 1,000 mls @ 0 mls/hr IV .Q0M PRN; Protocol; Per Protocol PRN Reason: Hypoglycemia Protocol Piperacillin Sod/Tazobactam (Sod 2.25 gm/ Sodium Chloride) 100 mls @ 200 mls/ hr IV Q8H [facility] PRN Reason: Protocol Last Admin: 04/03/18 02:17 Dose: 200 mls/hr Vancomycin/Sodium Chloride (Vancomycin 1 Gm/Ns 200 Ml) 1 gm in 200 mls @ 133.333 mls/hr IVPB MWF [facility] PRN Reason: Protocol Stop: 04/09/18 09:01 Clindamycin Phosphate 300 mg/ (Sodium Chloride) 52 mls @ 104 mls/hr IVPB Q8H [facility] PRN Reason: Protocol Last Admin: 04/03/18 04:32 Dose: 104 mls/hr Lactated Ringer's (Lactated Ringer's) 1,000 mls @ 125 mls/hr IV .Q8H [facility] Insulin Glargine (Lantus) 10 unit SC HS [facility] Insulin Human Regular (Novolin R) 0 unit SC ACHS [facility] PRN Reason: Protocol Last Admin: 04/03/18 07:52 Dose: Not Given Losartan Potassium (Cozaar) 100 mg PO TTS [facility] Last Admin: 04/02/18 10:33 Dose: 100 mg Losartan Potassium (Cozaar) 100 mg PO Q7D [facility] Last Admin: 04/03/18 09:38 Dose: 100 mg Memantine (Namenda) 5 mg PO DAILY [facility] Last Admin: 04/03/18 09:41 Dose: 5 mg Qtpqm-1-Thyv Ethyl Esters (Lovaza) 1 gm PO BID [facility] Last Admin: 04/03/18 09:39 Dose: 1 gm Pantoprazole Sodium (Protonix Ec Tab) 40 mg PO DAILY [facility] Last Admin: 04/03/18 09:40 Dose: 40 mg Rosuvastatin Calcium (Crestor) 20 mg PO HS [facility] Last Admin: 04/02/18 21:51 Dose: 20 mg Tamsulosin HCl (Flomax) 0.4 mg PO DAILY [facility] Last Admin: 04/03/18 09:39 Dose: 0.4 mg - Labs Labs: 04/03/18 07:53 04/03/18 07:53 PT 12.8 SECONDS (9.7-12.2) H 04/03/18 07:53 INR 1.2 04/03/18 07:53 - Constitutional Appears: Well, Non-toxic, No Acute Distress - Head Exam Head Exam: ATRAUMATIC, NORMOCEPHALIC - Extremities Exam Additional comments: Bilateral LE focused Exam: Vasc: DP/PT pulses are faint 1/4 bilaterally, Cap refill time delayed > 3 sec, skin temperature: warm to cool from proximal to distal, mild non-pitting edema noted on the dorsum of the left foot Derm: Superficial epidermal lysis at the site of the previous bullae with hyperpigmented changes on the dorsum of the left 5th digit, wound bed is completely is covered by black eschar in the dorsum of the 5th digit - no active drainage, positive malodor but less than yesterday, no tunneling or tracking, minimal purulent drainage,surrounded by an area of erythema which is less than yesterday, Maceration noted in the 4th interspace. Hyperkeratotic lesion noted in the dorsum of the left 3rd toe at the level of PIPJ. Tiny scab/necrotic ulceration noted to the dorsum of the 4th right digit measuring approximately 0.2 x 0.2 cm with no erythema, no tunneling, no undermining, no probe to bone, no drainage, no odor noted. Tiny scab noted to the dorsum of the 2nd left digit measuring approximately 0.1x 0.1 cm with no erythema, no tunneling, no undermining, no probe to bone, no drainage, no odor noted. Neuro: Protective sensation diminished. Gross sensation intact Ortho: Pain on palpation of the digits particularly the 5th digit - Neurological Exam Neurological Exam: Alert, Awake, Oriented x3 - Psychiatric Exam Psychiatric exam: Normal Affect, Normal Mood Assessment and Plan - Assessment and Plan (Free Text) Assessment: 77 year old male patient was seen and evaluated for ischemic changes to the left forefoot accompanied with cellulitis Plan: Patient seen and evaluated at the bedside. Discussed plan with attending Dr. Lopez Labs, vitals and charts reviewed - afebrile, No leukocytosis WCx- Staph. aureus X-rays of left foot ordered/reviewed - Periosteal reaction with cortical break at the proximal phalanx of the left 5th digit - concerning for OM JUAN/PVR reviewed - 1.23 on R and 0.98 on the L; poor waveform Wound dressing applied using betadine and DSD Continue IV abx - Vancomycin, Zosyn. Clindamycin added today. Vascular consult done with possible angio tomorrow Podiatry to follow patient while in-house
--- NOTE | 2018-04-03 17:46 | CP.PCM.CON ---
History of Present Illness - History of Present Illness History of Present Illness: dictated Past Patient History - Infectious Disease Hx of Infectious Diseases: None - Past Medical History & Family History Past Medical History?: Yes - Past Social History Smoking Status: Former Smoker Chewing Tobacco Use: No Cigar Use: No Alcohol: None Drugs: Denies Home Situation {Lives}: With Family - CARDIAC Hx Congestive Heart Failure: Yes Hx Hypercholesterolemia: Yes Hx Hypertension: Yes - PULMONARY Hx Chronic Obstructive Pulmonary Disease (COPD): Yes - NEUROLOGICAL HX Cerebrovascular Accident: Yes - HEENT Hx HEENT Problems: Yes Hx Cataracts: Yes Other/Comment: double vision/decreased vision to the left eye;decreased hearing - RENAL Hx Chronic Kidney Disease: Yes - ENDOCRINE/METABOLIC Hx Diabetes Mellitus Type 2: Yes - HEMATOLOGICAL/ONCOLOGICAL Hx Blood Disorders: No - INTEGUMENTARY Hx Dermatological Problems: Yes (swollen left hand) - MUSCULOSKELETAL/RHEUMATOLOGICAL Hx Falls: No - GASTROINTESTINAL Hx Gastrointestinal Disorders: No - GENITOURINARY/GYNECOLOGICAL Hx Genitourinary Disorders: Yes Hx Reproductive Disorders: No - PSYCHIATRIC Hx Substance Use: No - SURGICAL HISTORY Hx Cataract Extraction: Yes (RT.EYE) Hx Vascular Surgery: Yes (A/V FISTULA LEFT ARM) Hx Vascular Access Device: Yes (DIALYSIS ACCESS) - ANESTHESIA Hx Anesthesia: Yes Hx Anesthesia Reactions: No Hx Malignant Hyperthermia: No Meds Allergies/Adverse Reactions: Allergies Allergy/AdvReac Type Severity Reaction Status Date / Time No Known Allergies Allergy Verified 03/31/18 17:26 - Medications Medications: Current Medications Acetaminophen (Tylenol 325mg Tab) 650 mg PO Q6 PRN PRN Reason: Pain, moderate (4-7) Albuterol/Ipratropium (Duoneb 3 Mg/0.5 Mg (3 Ml) Ud) 3 ml INH RQ4 [facility] Last Admin: 04/03/18 15:26 Dose: 3 ml Amlodipine Besylate (Norvasc) 10 mg PO DAILY [facility] Last Admin: 04/03/18 09:39 Dose: 10 mg Aspirin (Aspirin) 325 mg PO DAILY [facility] Last Admin: 04/03/18 09:38 Dose: 325 mg Calcium Acetate (Phoslo) 667 mg PO TID [facility] Last Admin: 04/03/18 17:37 Dose: 667 mg Carvedilol (Coreg) 25 mg PO BID [facility] Last Admin: 04/03/18 09:39 Dose: 25 mg Dextrose (Dextrose 50% Inj) 0 ml IVP .STAT PRN; Protocol PRN Reason: Hypoglycemia Protocol Dextrose (Glutose 15) 0 gm PO .ONCE PRN; Protocol PRN Reason: Hypoglycemia Protocol Donepezil HCl (Aricept) 10 mg PO [facility] Last Admin: 04/02/18 21:52 Dose: 10 mg Epoetin All (Procrit) 10,000 unit IV [facility] Last Admin: 04/01/18 17:24 Dose: 10,000 unit Gabapentin (Neurontin) 100 mg PO [facility] Last Admin: 04/02/18 21:51 Dose: 100 mg Glucagon (Glucagen Diagnostic Kit) 0 mg IM .STAT PRN; Protocol PRN Reason: Hypoglycemia Protocol Guaifenesin (Mucinex La) 600 mg PO BID [facility] Last Admin: 04/03/18 17:40 Dose: 600 mg Heparin Sodium (Porcine) (Heparin) 5,000 units SC Q12 [facility] Last Admin: 04/03/18 09:38 Dose: 5,000 units Hydralazine HCl (Apresoline) 100 mg PO TTS@1400 [facility] Last Admin: 04/02/18 15:08 Dose: 100 mg Hydralazine HCl (Apresoline) 100 mg PO BID [facility] Last Admin: 04/03/18 17:38 Dose: 100 mg Hydralazine HCl (Apresoline) 100 mg PO Q7D@1400 [facility] Last Admin: 04/03/18 14:51 Dose: 100 mg Dextrose (Dextrose 5% In Water 1000 Ml) 1,000 mls @ 0 mls/hr IV .Q0M PRN; Protocol; Per Protocol PRN Reason: Hypoglycemia Protocol Piperacillin Sod/Tazobactam (Sod 2.25 gm/ Sodium Chloride) 100 mls @ 200 mls/ hr IV Q8H [facility] PRN Reason: Protocol Last Admin: 04/03/18 02:17 Dose: 200 mls/hr Vancomycin/Sodium Chloride (Vancomycin 1 Gm/Ns 200 Ml) 1 gm in 200 mls @ 133.333 mls/hr IVPB [facility] PRN Reason: Protocol Stop: 04/09/18 09:01 Clindamycin Phosphate 300 mg/ (Sodium Chloride) 52 mls @ 104 mls/hr IVPB Q8H [facility] PRN Reason: Protocol Last Admin: 04/03/18 04:32 Dose: 104 mls/hr Lactated Ringer's (Lactated Ringer's) 1,000 mls @ 125 mls/hr IV .Q8H [facility] Insulin Glargine (Lantus) 10 unit SC HS [facility] Insulin Human Regular (Novolin R) 0 unit SC ACHS [facility] PRN Reason: Protocol Last Admin: 04/03/18 17:36 Dose: 2 units Losartan Potassium (Cozaar) 100 mg PO TTS [facility] Last Admin: 04/02/18 10:33 Dose: 100 mg Losartan Potassium (Cozaar) 100 mg PO Q7D [facility] Last Admin: 04/03/18 09:38 Dose: 100 mg Memantine (Namenda) 5 mg PO DAILY [facility] Last Admin: 04/03/18 09:41 Dose: 5 mg Ecica-0-Rhvz Ethyl Esters (Lovaza) 1 gm PO BID [facility] Last Admin: 04/03/18 17:38 Dose: 1 gm Pantoprazole Sodium (Protonix Ec Tab) 40 mg PO DAILY [facility] Last Admin: 04/03/18 09:40 Dose: 40 mg Rosuvastatin Calcium (Crestor) 20 mg PO HS [facility] Last Admin: 04/02/18 21:51 Dose: 20 mg Tamsulosin HCl (Flomax) 0.4 mg PO DAILY [facility] Last Admin: 04/03/18 09:39 Dose: 0.4 mg Results - Vital Signs Recent Vital Signs: Last Vital Signs Temp 97.5 F L 04/03/18 16:03 Pulse 52 L 04/03/18 16:03 Resp 20 04/03/18 16:03 BP 151/55 H 04/03/18 16:03 Pulse Ox 94 L 04/03/18 16:03 - Labs Result Diagrams: 04/03/18 07:53 04/03/18 07:53 Labs: Laboratory Results - last 24 hr 04/02/18 04/03/18 04/03/18 21:07 07:25 07:53 WBC 6.8 RBC 2.72 L Hgb 8.1 L Hct 24.0 L MCV 88.1 MCH 29.7 MCHC 33.7 RDW 15.5 H Plt Count 155 MPV 9.4 Neut % (Auto) 70.5 Lymph % (Auto) 17.6 L Smith % (Auto) 7.9 Eos % (Auto) 3.1 Baso % (Auto) 0.9 Neut # (Auto) 4.8 Lymph # (Auto) 1.2 Smith # (Auto) 0.5 Eos # (Auto) 0.2 Baso # (Auto) 0.1 PT INR Sodium Potassium Chloride Carbon Dioxide Anion Gap BUN Creatinine Est GFR ( Amer) Est GFR (Non-Af Amer) POC Glucose (mg/dL) 227 H 112 H Random Glucose Calcium Phosphorus Magnesium Total Bilirubin AST ALT Alkaline Phosphatase Total Protein Albumin Globulin Albumin/Globulin Ratio 04/03/18 04/03/18 04/03/18 07:53 07:53 11:34 WBC RBC Hgb Hct MCV MCH MCHC RDW Plt Count MPV Neut % (Auto) Lymph % (Auto) Smith % (Auto) Eos % (Auto) Baso % (Auto) Neut # (Auto) Lymph # (Auto) Smith # (Auto) Eos # (Auto) Baso # (Auto) PT 12.8 H INR 1.2 Sodium 147 Potassium 4.4 Chloride 103 Carbon Dioxide 30 Anion Gap 18 BUN 49 H Creatinine 7.1 H Est GFR ( Amer) 9 Est GFR (Non-Af Amer) 8 POC Glucose (mg/dL) 147 H Random Glucose 111 H Calcium 8.4 L Phosphorus 4.4 Magnesium 1.9 Total Bilirubin 0.9 AST 24 ALT 23 Alkaline Phosphatase 78 Total Protein 6.3 Albumin 3.6 Globulin 2.7 Albumin/Globulin Ratio 1.3 04/03/18 16:24 WBC RBC Hgb Hct MCV MCH MCHC RDW Plt Count MPV Neut % (Auto) Lymph % (Auto) Smith % (Auto) Eos % (Auto) Baso % (Auto) Neut # (Auto) Lymph # (Auto) Smith # (Auto) Eos # (Auto) Baso # (Auto) PT INR Sodium Potassium Chloride Carbon Dioxide Anion Gap BUN Creatinine Est GFR ( Amer) Est GFR (Non-Af Amer) POC Glucose (mg/dL) 206 H Random Glucose Calcium Phosphorus Magnesium Total Bilirubin AST ALT Alkaline Phosphatase Total Protein Albumin Globulin Albumin/Globulin Ratio
--- NOTE | 2018-04-03 18:27 | CP.PCM.PCO ---
Physician Communication Note - Physician Communication Note Physician Communication Note: Angiogram in AM 7/9, NPO at ID
[2018-04-03] MEDS: (Lantus) Insulin Glargine, Recombinant SC SCH (22:18)
--- NOTE | 2018-04-03 22:48 | CON ---
DATE: 04/03/2018 CARDIOLOGY CONSULTATION ATTENDING PHYSICIAN: Garima Renee DO HISTORY OF PRESENT ILLNESS: This is a 77-year-old male with a past medical history of end-stage renal disease, on hemodialysis; diabetes type 2; hypertension who was sent to the emergency room by his balloon maker due to left foot ulcer and infection. The patient has subjective fever at the time of the presentation, was started on IV antibiotics. Chest x-ray obtained during this hospitalization shows severe cardiomegaly, for which this cardiology consult was called. The patient himself denies any shortness of breath or chest pain at rest or with exertion, however, ambulates rarely and mostly bedbound or chair bound. PAST MEDICAL HISTORY: As above. CURRENT MEDICATIONS: Albuterol, amlodipine 10 mg daily, aspirin 325 mg daily, carvedilol 25 mg twice daily, clindamycin, donepezil 10 mg daily, Epogen, gabapentin 100 mg daily, hydralazine 100 mg twice daily, insulin glargine, losartan 100 mg daily, pantoprazole, and vancomycin. PAST SOCIAL HISTORY: No smoke, alcohol, or drug use. FAMILY HISTORY: Noncontributory. REVIEW OF SYSTEMS: All others negative except in HPI. PHYSICAL EXAMINATION: VITAL SIGNS: Temperature 98, heart rate 52, respirations 20, and blood pressure 151/56. GENERAL: Alert and oriented x3, elderly male, in no apparent distress. HEAD AND NECK: Normocephalic and atraumatic. No JVD. CHEST: Clear to auscultation bilaterally. HEART: S1, S2. . No murmurs, rubs, or gallops appreciated. ABDOMEN: Soft. Nontender. EXTREMITIES: No edema or clubbing. There is a left upper extremity AV fistula for dialysis access. OCEANOGRAPHY PROFESSOR: Cranial nerves II through XII are grossly intact. SKIN: Has no lesions. LABORATORY EVALUATION: Hemoglobin 7.9, hematocrit 22.8, and platelets 144. BUN 37, creatinine 6.1, potassium 4.1, sodium 144. INR 1.3. EKG: My review shows normal sinus rhythm, no acute ST-T changes. Chest x-ray performed on 04/01/2018 shows severe cardiomegaly. ASSESSMENT AND PLAN: A 77-year-old male with end-stage renal disease, on hemodialysis; hypertension; hyperlipidemia who presented for diabetic foot, left lower extremity with cardiomegaly in chest x-ray. 1. Cardiomegaly, currently euvolemic, able to lie down flat without orthopnea, no signs of decompensated heart failure. 2. Hypertension, currently controlled, but borderline. 3. Diabetes type 2. 4. End-stage renal disease, on hemodialysis without heart failure. PLAN: 1. Continue with current medications as per primary team. 2. Obtain 2-D echocardiogram. 3. Further recommendations based upon the results of the echocardiogram. Alejandro Nicholson MD
[2018-04-03] MEDS: Lactated Ringer's 1,000 ML IV SCH (23:44)
[2018-04-04] MEDS: Albuterol-Ipratrop 3 mg / 0.5 (3 ml) UD INH SCH ×6 (00:25→20:47)
--- NOTE | 2018-04-04 04:37 | CON ---
DATE: 04/03/2018 INFECTIOUS DISEASE CONSULTATION REQUESTING PHYSICIAN: Garima Renee DO HISTORY OF PRESENT ILLNESS: This patient is a 77-year-old male. He has history of end-stage renal disease. He gets dialysis, Wednesday, Wednesday, and Wednesday. He follows with Dr. Avila. He has had multiple left foot ulcerations and was running fever, and Dr. Avila referred to the hospital. He went to [place], but was given one dose of vancomycin and since the [facility] manages the inpatient dialysis, he was transferred here. He has left foot ulcerations, and he has been in the hospital since 03/31/2018. He was getting IV antibiotics, but his feet ulcerations were not looking well. The was at the bedside. She said it was like blisters and feet were full of blisters. She does not know how they occurred, but he was following weekly basis for left foot ulcers. She also mentioned that Dr. Jay had put the fistula in for the dialysis on his left arm, and he has also done probably a procedure on his lower extremities, but he had another procedure done one year ago, she remembers. He also is followed with outpatient gas appliance mechanic with , and his furrier designer is Dr. Lopez and Dr. Avila. PAST MEDICAL HISTORY: Significant for end-stage renal disease, insulin-dependent diabetes, hyperlipidemia, dementia, BPH, hypertension, and GERD. He has this left upper AV fistula, upper arm and he has a surgery. 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 His medications include Toujeo insulin. He gets regular insulin also and Flomax, Lovaza, memantine, donepezil, amlodipine, atorvastatin, gabapentin, esomeprazole. He gets losartan, Coreg, hydralazine. So, he does have multiple medications for hypertension and for renal disease, for hyperlipidemia also has medications for dementia. REVIEW OF SYSTEMS: He did not have any chills or fevers, but he did have a fever of 100 according to the referral and denies any. He does have decreased hearing, change in vision. He has respiratory diaz no cough, no cold, but he was sitting with the oxygen on. Denies any abdominal pain, bloating, diarrhea, nausea, and vomiting. He has end-stage renal disease, but he still makes some urine. Denies any back pain right now. He does have sores on his left foot, which had a dressing that was changed as I went in. Endocrine diaz, no other symptoms present. His insulin is controlled on the medications. He is a former smoker and no history of drug abuse. Cardiac diaz, he does have history of congestive heart failure, hypercholesterolemia, hypertension, also pulmonary, COPD and neurology, he has had CVAs in the past. HEENT, he has cataract and double vision of the left eye and chronic kidney disease and diabetes type 2. PAST SURGICAL HISTORY: Cataract surgery, vascular surgery, and also has dialysis access in the right and he has angiogram done last year, I am not sure for the leg. ALLERGIES: NO ALLERGIES. MEDICATIONS: He was getting Tylenol. He is on DuoNebs, amlodipine, aspirin, calcium phosphate, Coreg. He is getting clindamycin, we just started yesterday dextrose, he is getting. He is on donepezil, Epogen, gabapentin, glucagon, guaifenesin, heparin subcu, hydralazine, insulin. He is on memantine, [place]-3, pantoprazole. He is also on Zosyn, calcium, tamsulosin. He is on vancomycin on the days of dialysis. PHYSICAL EXAMINATION: VITAL SIGNS: I find his temperature is 97.5, pulse is 52, blood pressure 151/55, respirations are 20. HEENT: Head is atraumatic and normocephalic. Pupils are reacting to light. Has poor vision. He is hard of hearing. NECK: Supple. JVP is flat. Trachea is central. LUNGS: Decreased breath sounds bilaterally. HEART: He has a regular rhythm. No arrhythmias present. No murmurs appreciated. ABDOMEN: Soft, nontender. No guarding, no rigidity present, is prominent. EXTREMITIES: Have no edema at this time. Left foot has a dressing and is status post amputation of the third digit. I was not able to see because of the dressings. We will follow in the podiatry note. LABORATORY DATA: Labs are noted but the said that today he was in less pain than yesterday. White count is 6.8, hemoglobin 8.1, hematocrit 24, platelet count is 155. INR is 1.2. Sodium 147, potassium 4.4, BUN is 49, creatinine 7.1, glucose is 206. He had a lower extremity ultrasound done on 03/31/2018, which shows there is no evidence of significant insufficient, however. There is ankle-brachial index of 1.23 on the right side and on the left side, it is 0.98. ASSESSMENT AND PLAN: We will wait to see what Dr. Jay thinks about it right now. I will leave him on these antibiotics. However, I see on microbiology, he had Staphylococcus aureus that was oxacillin sensitive Staphylococcus. Other blood cultures were negative. Wound culture was positive. We will leave him on these and see how his vascular supply is, and we will follow with the resident. Wanda Mayo MD
[2018-04-04] MEDS: Clindamycin 300 MG in Sodium Chloride 0.9% 50 ML IVPB SCH ×4 (05:08→22:40)
[2018-04-04] MEDS ORDERED: Vancomycin 1 gm/NS 200 ml 1 GM/200 ML BAG IVPB SCH (09:00)
[2018-04-04] MEDS ORDERED: Lidocaine 2% MPF (5 ml) Inj ONE ×2 (09:11→10:49)
[2018-04-04] MEDS ORDERED: Iodixanol 320 MG/ML 200 ML BOTTLE IV ONE (09:12)
[2018-04-04] MEDS: (Novolin R) Insulin Human Regular 100 units/ml vial SC SCH ×4 (09:56→21:45)
[2018-04-04] MEDS: Lactated Ringer's 1,000 ML IV SCH ×2 (09:56→16:00)
[2018-04-04] MEDS ORDERED: Midazolam 2 MG/2 ML VIAL ONE (10:32)
--- NOTE | 2018-04-04 11:39 | PCM.SURG1 ---
Surgeon's Initial Post Op Note - Surgeon's Notes Surgeon: petey Media Reconciliation Specialist: kayla PGY1 Type of Anesthesia: IV Sedation Anesthesia Administered By: susana Pre-Operative Diagnosis: gangrene left foot Operative Findings: severe tibial disease/ no named vessel in foot Post-Operative Diagnosis: same Operation Performed: aortofemoral angiogram with selective catherization of left femoral artery. manual closure right groin Specimen/Specimens Removed: 0 Estimated Blood Loss: EBL {In ML}: 15 Blood Products Given: N/A Drains Used: No Drains Post-Op Condition: Good Date of Surgery/Procedure: 04/04/18 Time of Surgery/Procedure: 11:39
--- NOTE | 2018-04-04 12:04 | CP.PCM.PN ---
Subjective - Date & Time of Evaluation Date of Evaluation: 04/04/18 Time of Evaluation: 12:02 - Subjective Subjective: s/p left LE angiogram now last dialysis 04/01 has staph aureus in wound- on IV ABs TSAT low- needs IV Fe for severe anemia post op lethargy now Objective - Vital Signs/Intake and Output Vital Signs (last 24 hours): Temp Pulse Resp BP Pulse Ox 98.0 F 60 20 168/68 H 95 04/04/18 09:55 04/04/18 09:55 04/04/18 09:55 04/04/18 09:55 04/04/18 09:55 Intake and Output: 04/04/18 04/04/18 06:59 18:59 Intake Total 1415 Balance 1415 - Medications Medications: Current Medications Acetaminophen (Tylenol 325mg Tab) 650 mg PO Q6 PRN PRN Reason: Pain, moderate (4-7) Albuterol/Ipratropium (Duoneb 3 Mg/0.5 Mg (3 Ml) Ud) 3 ml INH RQ4 [facility] Last Admin: 04/04/18 07:15 Dose: 3 ml Amlodipine Besylate (Norvasc) 10 mg PO DAILY [facility] Last Admin: 04/03/18 09:39 Dose: 10 mg Aspirin (Aspirin) 325 mg PO DAILY [facility] Last Admin: 04/03/18 09:38 Dose: 325 mg Calcium Acetate (Phoslo) 667 mg PO TID [facility] Last Admin: 04/03/18 17:37 Dose: 667 mg Carvedilol (Coreg) 25 mg PO BID [facility] Last Admin: 04/03/18 17:46 Dose: Not Given Dextrose (Dextrose 50% Inj) 0 ml IVP .STAT PRN; Protocol PRN Reason: Hypoglycemia Protocol Dextrose (Glutose 15) 0 gm PO .ONCE PRN; Protocol PRN Reason: Hypoglycemia Protocol Donepezil HCl (Aricept) 10 mg PO HS [facility] Last Admin: 04/03/18 22:08 Dose: 10 mg Epoetin All (Procrit) 10,000 unit IV MWF [facility] Last Admin: 04/01/18 17:24 Dose: 10,000 unit Gabapentin (Neurontin) 100 mg PO HS [facility] Last Admin: 04/03/18 22:19 Dose: 100 mg Glucagon (Glucagen Diagnostic Kit) 0 mg IM .STAT PRN; Protocol PRN Reason: Hypoglycemia Protocol Guaifenesin (Mucinex La) 600 mg PO BID [facility] Last Admin: 04/03/18 17:40 Dose: 600 mg Heparin Sodium (Porcine) (Heparin) 5,000 units SC Q12 [facility] Last Admin: 04/03/18 22:08 Dose: 5,000 units Hydralazine HCl (Apresoline) 100 mg PO TTS@1400 [facility] Last Admin: 04/02/18 15:08 Dose: 100 mg Hydralazine HCl (Apresoline) 100 mg PO BID [facility] Last Admin: 04/03/18 17:38 Dose: 100 mg Hydralazine HCl (Apresoline) 100 mg PO Q7D@1400 [facility] Last Admin: 04/03/18 14:51 Dose: 100 mg Dextrose (Dextrose 5% In Water 1000 Ml) 1,000 mls @ 0 mls/hr IV .Q0M PRN; Protocol; Per Protocol PRN Reason: Hypoglycemia Protocol Piperacillin Sod/Tazobactam (Sod 2.25 gm/ Sodium Chloride) 100 mls @ 200 mls/ hr IV Q8H [facility] PRN Reason: Protocol Last Admin: 04/04/18 02:24 Dose: 200 mls/hr Vancomycin/Sodium Chloride (Vancomycin 1 Gm/Ns 200 Ml) 1 gm in 200 mls @ 133.333 mls/hr IVPB MWF [facility] PRN Reason: Protocol Stop: 04/09/18 09:01 Last Admin: 04/04/18 09:56 Dose: Not Given Clindamycin Phosphate 300 mg/ (Sodium Chloride) 52 mls @ 104 mls/hr IVPB Q8H [facility] PRN Reason: Protocol Last Admin: 04/04/18 05:08 Dose: 104 mls/hr Lactated Ringer's (Lactated Ringer's) 1,000 mls @ 125 mls/hr IV .Q8H [facility] Last Admin: 04/04/18 09:56 Dose: Not Given Insulin Glargine (Lantus) 10 unit SC HS [facility] Last Admin: 04/03/18 22:18 Dose: 10 units Insulin Human Regular (Novolin R) 0 unit SC ACHS [facility] PRN Reason: Protocol Last Admin: 04/04/18 09:56 Dose: Not Given Losartan Potassium (Cozaar) 100 mg PO TTS [facility] Last Admin: 07/07/18 10:33 Dose: 100 mg Losartan Potassium (Cozaar) 100 mg PO Q7D [facility] Last Admin: 04/03/18 09:38 Dose: 100 mg Memantine (Namenda) 5 mg PO DAILY [facility] Last Admin: 04/03/18 09:41 Dose: 5 mg Cbudk-1-Xhtn Ethyl Esters (Lovaza) 1 gm PO BID [facility] Last Admin: 04/03/18 17:38 Dose: 1 gm Pantoprazole Sodium (Protonix Ec Tab) 40 mg PO DAILY [facility] Last Admin: 04/03/18 09:40 Dose: 40 mg Rosuvastatin Calcium (Crestor) 20 mg PO HS [facility] Saccharomyces Boulardii (Florastor) 250 mg PO BID [facility] Tamsulosin HCl (Flomax) 0.4 mg PO DAILY [facility] Last Admin: 04/03/18 09:39 Dose: 0.4 mg - Labs Labs: 04/03/18 07:53 04/04/18 09:46 PT 12.8 SECONDS (9.7-12.2) H 04/03/18 07:53 INR 1.2 04/03/18 07:53 - Constitutional Appears: Non-toxic, No Acute Distress, Chronically Ill - Head Exam Head Exam: ATRAUMATIC, NORMAL INSPECTION - Eye Exam Eye Exam: EOMI, Normal appearance - Neck Exam Neck Exam: Normal Inspection. absent: Tenderness - Respiratory Exam Respiratory Exam: Clear to Ausculation Bilateral, NORMAL BREATHING PATTERN - Cardiovascular Exam Cardiovascular Exam: REGULAR RHYTHM, +S1 - GI/Abdominal Exam GI & Abdominal Exam: Soft. absent: Tenderness - Extremities Exam Extremities Exam: Pedal Edema, Tenderness - Neurological Exam Neurological Exam: Altered - Skin Skin Exam: Dry, Warm Assessment and Plan (1) End stage renal disease Status: Acute (2) Type 2 diabetes mellitus with diabetic nephropathy Status: Acute (3) Dementia Status: Acute (4) Diabetic foot infection Status: Acute - Assessment and Plan (Free Text) Plan: IV ABs await surgical plans dialysis today on EPO; add IV Fe wound care
[2018-04-04] MEDS: Saccharomyces Boulardi 250 mg Cap PO SCH ×2 (12:51→19:10)
[2018-04-04] MEDS: Pantoprazole 40 mg EC Tab PO SCH (12:52)
[2018-04-04] MEDS: guaiFENesin 600 mg ER Tab PO SCH ×2 (12:52→19:09)
[2018-04-04] MEDS: Omega-3-Acid Ethyl Esters 1 GM Cap PO SCH ×2 (12:52→19:12)
[2018-04-04] MEDS: Ferric Sodium Gluconat Complex 62.5 mg/5 ml Vial IVPB SCH (13:26)
--- NOTE | 2018-04-04 13:28 | CP.PCM.PN ---
Subjective - Date & Time of Evaluation Date of Evaluation: 04/04/18 Time of Evaluation: 09:25 - Subjective Subjective: PGY-[address] Diogenes Chavez service Patient is seen and examined sitting in bed. Patient report no events overnight and is currently in no acute distress. Patient says his cough has resolved. Patient denies any pain. Denies fevers, chills, headache, dizziness, SOB, Chest pain, Nausea, vomiting, diarrhea or constipation. Objective - Vital Signs/Intake and Output Vital Signs (last 24 hours): Temp Pulse Resp BP Pulse Ox 98.0 F 60 20 168/68 H 95 04/04/18 09:55 04/04/18 09:55 04/04/18 09:55 04/04/18 09:55 04/04/18 09:55 Intake and Output: 04/04/18 04/04/18 06:59 18:59 Intake Total 1415 Balance 1415 - Medications Medications: Current Medications Acetaminophen (Tylenol 325mg Tab) 650 mg PO Q6 PRN PRN Reason: Pain, moderate (4-7) Albuterol/Ipratropium (Duoneb 3 Mg/0.5 Mg (3 Ml) Ud) 3 ml INH RQ4 [facility] Last Admin: 04/04/18 13:25 Dose: 3 ml Amlodipine Besylate (Norvasc) 10 mg PO DAILY [facility] Last Admin: 04/04/18 12:52 Dose: Not Given Aspirin (Aspirin) 325 mg PO DAILY [facility] Last Admin: 04/04/18 12:51 Dose: Not Given Calcium Acetate (Phoslo) 667 mg PO TID [facility] Last Admin: 04/04/18 12:52 Dose: Not Given Carvedilol (Coreg) 25 mg PO BID [facility] Last Admin: 04/04/18 12:51 Dose: Not Given Dextrose (Dextrose 50% Inj) 0 ml IVP .STAT PRN; Protocol PRN Reason: Hypoglycemia Protocol Dextrose (Glutose 15) 0 gm PO .ONCE PRN; Protocol PRN Reason: Hypoglycemia Protocol Donepezil HCl (Aricept) 10 mg PO HS [facility] Last Admin: 04/03/18 22:08 Dose: 10 mg Epoetin All (Procrit) 10,000 unit IV MWF [facility] Last Admin: 04/01/18 17:24 Dose: 10,000 unit Ferric Sodium Gluconate Complex (Ferrlecit) 125 mg IVPB DAILY [facility] Stop: 04/12/18 12:16 Last Admin: 04/04/18 13:26 Dose: 125 mg Gabapentin (Neurontin) 100 mg PO [facility] Last Admin: 04/03/18 22:19 Dose: 100 mg Glucagon (Glucagen Diagnostic Kit) 0 mg IM .STAT PRN; Protocol PRN Reason: Hypoglycemia Protocol Guaifenesin (Mucinex La) 600 mg PO BID [facility] Last Admin: 04/04/18 12:52 Dose: Not Given Heparin Sodium (Porcine) (Heparin) 5,000 units SC Q12 [facility] Last Admin: 04/04/18 12:51 Dose: Not Given Hydralazine HCl (Apresoline) 100 mg PO TTS@1400 [facility] Last Admin: 04/02/18 15:08 Dose: 100 mg Hydralazine HCl (Apresoline) 100 mg PO BID [facility] Last Admin: 04/04/18 12:50 Dose: Not Given Hydralazine HCl (Apresoline) 100 mg PO Q7D@1400 [facility] Last Admin: 04/03/18 14:51 Dose: 100 mg Dextrose (Dextrose 5% In Water 1000 Ml) 1,000 mls @ 0 mls/hr IV .Q0M PRN; Protocol; Per Protocol PRN Reason: Hypoglycemia Protocol Piperacillin Sod/Tazobactam (Sod 2.25 gm/ Sodium Chloride) 100 mls @ 200 mls/ hr IV Q8H [facility] PRN Reason: Protocol Last Admin: 04/04/18 12:53 Dose: Not Given Vancomycin/Sodium Chloride (Vancomycin 1 Gm/Ns 200 Ml) 1 gm in 200 mls @ 133.333 mls/hr [facility] PRN Reason: Protocol Stop: 04/09/18 09:01 Last Admin: 04/04/18 09:56 Dose: Not Given Clindamycin Phosphate 300 mg/ (Sodium Chloride) 52 mls @ 104 mls/hr IVPB Q8H [facility] PRN Reason: Protocol Last Admin: 04/04/18 05:08 Dose: 104 mls/hr Lactated Ringer's (Lactated Ringer's) 1,000 mls @ 125 mls/hr IV .Q8H [facility] Last Admin: 04/04/18 09:56 Dose: Not Given Insulin Glargine (Lantus) 10 unit SC [facility] Last Admin: 04/03/18 22:18 Dose: 10 units Insulin Human Regular (Novolin R) 0 unit SC ACHS [facility] PRN Reason: Protocol Last Admin: 04/04/18 12:52 Dose: Not Given Losartan Potassium (Cozaar) 100 mg PO TTS [facility] Last Admin: 04/02/18 10:33 Dose: 100 mg Losartan Potassium (Cozaar) 100 mg PO Q7D [facility] Last Admin: 04/03/18 09:38 Dose: 100 mg Memantine (Namenda) 5 mg PO DAILY [facility] Last Admin: 04/04/18 12:52 Dose: Not Given [id number] Ethyl Esters (Lovaza) 1 gm PO BID [facility] Last Admin: 04/04/18 12:52 Dose: Not Given Pantoprazole Sodium (Protonix Ec Tab) 40 mg PO DAILY [facility] Last Admin: 04/04/18 12:52 Dose: Not Given Rosuvastatin Calcium (Crestor) 20 mg PO [facility] Saccharomyces Boulardii (Florastor) 250 mg PO BID [facility] Last Admin: 04/04/18 12:51 Dose: Not Given Tamsulosin HCl (Flomax) 0.4 mg PO DAILY [facility] Last Admin: 04/04/18 12:51 Dose: Not Given - Labs Labs: 04/03/18 07:53 04/04/18 09:46 PT 12.8 SECONDS (9.7-12.2) H 04/03/18 07:53 INR 1.2 04/03/18 07:53 - Constitutional Appears: Well, Non-toxic, No Acute Distress - Head Exam Head Exam: ATRAUMATIC, NORMOCEPHALIC - Eye Exam Eye Exam: EOMI, Normal appearance, PERRL - Neck Exam Neck Exam: Full ROM, Normal Inspection - Respiratory Exam Respiratory Exam: Decreased Breath Sounds Additional comments: lower lobe bilaterally - Cardiovascular Exam Cardiovascular Exam: REGULAR RHYTHM, +S1, +S2 - GI/Abdominal Exam GI & Abdominal Exam: Soft, Normal Bowel Sounds. absent: Guarding, Tenderness - Extremities Exam Extremities Exam: absent: Tenderness Additional comments: left foot bandaged - Neurological Exam Neurological Exam: Alert, Awake - Psychiatric Exam Psychiatric exam: Normal Mood Assessment and Plan - Assessment and Plan (Free Text) Plan: 1) Left foot infected ulcers Osteomyelitis of left 5th Phalanx Possible gangrenous 5th toe Fracture 5th proximal phalanx * F/U toe culture sensitivity for antibiotic adjustment * Podiatry Dr. Lopez consulted - F/U on their recs for possible surgery vs Osteomylitis treatment * CT angiogram done by Vascular Dr Jay for gangrene left foot- aortofemoral angiogram with selective catherization of left femoral artery. manual closure right groin. Findings: severe tibial disease/ no named vessel in foot. We will F/U on final CT angio report. * Wound culture collected at wound center 03/31/18- listed on WoundCTR on saperate[facility] * Staph Aureus (03/31/18) * Wound culture collect at [facility] * Staph Aureus (03/31/18) * Blood cultures (03/31/18) collected at [facility] 03/31/18--Listed on [id number] * No growth (error in resident note) * Blood cultures (03/31/18) collected at [facility] * No growth Antibiotics * Clindamycin phosphate 300mg, day #3 * Vancomycin 1gram IV MWF (start 04/04/18) day #1 * C/w Zosyn 2.25g IVPB q8h (renal dose) 03/31/18, day #6 * Arterial duplex: Lower extremity U/S - No evidence of significant arterial deficiency in the left lower extremity; elevated pressures can lower sensitivity of JUAN. No evidence of significant arterial deficiency in the right lower extremity. Elevated pressures can lower sensitivity of JUAN * prior hx of gangrenous toe noted in prior hospitalization at [facility] (3rd digit ) * Foot xray (03/31/18): fracture 5th proximal phalanx without definite callus formation. 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 Last dialysis 04/01 * Dr. Rivera, nephrology, consulted - continue AB, On PE, add IV Fe * Renvela 667mg TID * Procrit 10,000 units IV MWF 3) Hypertension * Cardura (Doxazosin) 2mg PO BID [facility] * Norvasc 10mg PO daily * Carvedilol 25mg PO BID (hold SBP<100 and HR<60) * Hydralazine 100mg BID on MWF (dialysis days) * Hydralazine 100mg TID on Tu//Sat/Sun (NON-dialysis days) * Losartan 100mg daily NOT on dialysis days (// Wed/ Wed) * Prophylatic: Aspirin 325mg PO daily * Patient follows-up with Dr. Borden (cardiology) -- added cardura, can consider monoxidil if BP remains high after cardura and if no pericardia effusion 4) History of Known Diabetes * Accuchecks ACHS * ISS * Hypoglycemic protocol * Consistent carb/ renal dialysis diet * Lantus 20u HS (home med Toujeo non-formulary here) 5) History of Known Diabetic neuropathy * Gabapentin 100mg HS 6) BPH * Flomax 0.4mg daily 7) Lipid Disorder * lovaza * home med atorvastatin 40mg HS (non-formulary here, will start crestor 20mg) 8) Dementia * Memantine 5mg PO daily * Donepezil 10mg PO HS 9) Cough * resolved * Portable chest xray (04/01/18): severe cardiomegaly and severe pulmonary venous congestion. 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 Lamb came recommended for echocardiogram * Start Fluid restriction 1.5L * Norvasc 10mg PO daily * Carvedilol 25mg PO BID (hold SBP<100 and HR<60) * Hydralazine 100mg BID on MWF (dialysis days) * Hydralazine 100mg TID on Tu//Sat/Sun (NON-dialysis days) * Losartan 100mg daily NOT on dialysis days (// Wed/ Wed) * Prophylatic: Aspirin 325mg PO daily * Patient follows-up with Dr. Borden (cardiology) 11) Prophylaxis * Protonix 40mg PO daily * Heparin 5000u sc q12h * PT/OT eval
[2018-04-04 14:04] LABS: BASO # 0.1 K/uL (0.0-0.2); EOS # 0.2 K/uL (0.0-0.7); EOS % 2.9 % (0.0-4.0); HEMOGLOBIN 7.6 g/dL (12.0-18.0); LYMPH # 1.2 K/uL (1.0-4.3); LYMPH % 19.6 % (20.0-40.0); MEAN CELL VOLUME 88.9 fL (80.0-94.0); MEAN CORPUSCULAR HEMOGLOBIN 29.7 pg (27.0-31.0); MEAN CORPUSCULAR HGB CONC 33.4 g/dL (33.0-37.0); MEAN PLATELET VOLUME 8.6 fL (7.2-11.7); MONO # 0.5 K/uL (0.0-0.8); MONO % 7.6 % (0.0-10.0); NEUT # 4.2 K/uL (1.8-7.0); NEUT % 68.9 % (50.0-75.0); RBC 2.57 Mil/uL (4.40-5.90); RED CELL DISTRIBUTION WIDTH 15.6 % (11.5-14.5); WHITE BLOOD COUNT 6.2 K/uL (4.8-10.8)
[2018-04-04 14:12] LABS: INR 1.2; PROTHROMBIN TIME 13.2 SECONDS (9.7-12.2)
--- NOTE | 2018-04-04 15:07 | CP.PCM.PN ---
Subjective - Date & Time of Evaluation Date of Evaluation: 04/04/18 Time of Evaluation: 03:00 - Subjective Subjective: dictated Objective - Vital Signs/Intake and Output Vital Signs (last 24 hours): Temp Pulse Resp BP Pulse Ox 98.0 F 60 20 168/68 H 95 04/04/18 09:55 04/04/18 09:55 04/04/18 09:55 04/04/18 09:55 04/04/18 09:55 Intake and Output: 04/04/18 04/04/18 06:59 18:59 Intake Total 1415 Balance 1415 - Medications Medications: Current Medications Acetaminophen (Tylenol 325mg Tab) 650 mg PO Q6 PRN PRN Reason: Pain, moderate (4-7) Albuterol/Ipratropium (Duoneb 3 Mg/0.5 Mg (3 Ml) Ud) 3 ml INH RQ4 [facility] Last Admin: 04/04/18 13:25 Dose: 3 ml Amlodipine Besylate (Norvasc) 10 mg PO DAILY [facility] Last Admin: 04/04/18 12:52 Dose: Not Given Aspirin (Aspirin) 325 mg PO DAILY [facility] Last Admin: 04/04/18 12:51 Dose: Not Given Calcium Acetate (Phoslo) 667 mg PO TID [facility] Last Admin: 04/04/18 12:52 Dose: Not Given Carvedilol (Coreg) 25 mg PO BID [facility] Last Admin: 04/04/18 12:51 Dose: Not Given Dextrose (Dextrose 50% Inj) 0 ml IVP .STAT PRN; Protocol PRN Reason: Hypoglycemia Protocol Dextrose (Glutose 15) 0 gm PO .ONCE PRN; Protocol PRN Reason: Hypoglycemia Protocol Donepezil HCl (Aricept) 10 mg PO HS [facility] Last Admin: 04/03/18 22:08 Dose: 10 mg Epoetin All (Procrit) 10,000 unit IV MWF [facility] Last Admin: 04/01/18 17:24 Dose: 10,000 unit Ferric Sodium Gluconate Complex (Ferrlecit) 125 mg IVPB DAILY [facility] Stop: 04/12/18 12:16 Last Admin: 04/04/18 13:26 Dose: 125 mg Gabapentin (Neurontin) 100 mg PO HS [facility] Last Admin: 04/03/18 22:19 Dose: 100 mg Glucagon (Glucagen Diagnostic Kit) 0 mg IM .STAT PRN; Protocol PRN Reason: Hypoglycemia Protocol Guaifenesin (Mucinex La) 600 mg PO BID [facility] Last Admin: 04/04/18 12:52 Dose: Not Given Heparin Sodium (Porcine) (Heparin) 5,000 units SC Q12 [facility] Last Admin: 04/04/18 12:51 Dose: Not Given Hydralazine HCl (Apresoline) 100 mg PO TTS@1400 [facility] Last Admin: 04/02/18 15:08 Dose: 100 mg Hydralazine HCl (Apresoline) 100 mg PO BID [facility] Last Admin: 04/04/18 12:50 Dose: Not Given Hydralazine HCl (Apresoline) 100 mg PO Q7D@1400 [facility] Last Admin: 04/03/18 14:51 Dose: 100 mg Dextrose (Dextrose 5% In Water 1000 Ml) 1,000 mls @ 0 mls/hr IV .Q0M PRN; Protocol; Per Protocol PRN Reason: Hypoglycemia Protocol Piperacillin Sod/Tazobactam (Sod 2.25 gm/ Sodium Chloride) 100 mls @ 200 mls/ hr IV Q8H [facility] PRN Reason: Protocol Last Admin: 04/04/18 12:53 Dose: Not Given Vancomycin/Sodium Chloride (Vancomycin 1 Gm/Ns 200 Ml) 1 gm in 200 mls @ 133.333 mls/hr IVPB MWF [facility] PRN Reason: Protocol Stop: 04/09/18 09:01 Last Admin: 04/04/18 09:56 Dose: Not Given Clindamycin Phosphate 300 mg/ (Sodium Chloride) 52 mls @ 104 mls/hr IVPB Q8H [facility] PRN Reason: Protocol Last Admin: 04/04/18 14:56 Dose: Not Given Lactated Ringer's (Lactated Ringer's) 1,000 mls @ 125 mls/hr IV .Q8H [facility] Last Admin: 04/04/18 09:56 Dose: Not Given Insulin Glargine (Lantus) 10 unit SC HS [facility] Last Admin: 04/03/18 22:18 Dose: 10 units Insulin Human Regular (Novolin R) 0 unit SC ACHS [facility] PRN Reason: Protocol Last Admin: 04/04/18 12:52 Dose: Not Given Losartan Potassium (Cozaar) 100 mg PO TTS [facility] Last Admin: 04/02/18 10:33 Dose: 100 mg Losartan Potassium (Cozaar) 100 mg PO Q7D [facility] Last Admin: 04/03/18 09:38 Dose: 100 mg Memantine (Namenda) 5 mg PO DAILY [facility] Last Admin: 04/04/18 12:52 Dose: Not Given [id number] Ethyl Esters (Lovaza) 1 gm PO BID [facility] Last Admin: 04/04/18 12:52 Dose: Not Given Pantoprazole Sodium (Protonix Ec Tab) 40 mg PO DAILY [facility] Last Admin: 04/04/18 12:52 Dose: Not Given Rosuvastatin Calcium (Crestor) 20 mg PO [facility] Saccharomyces Boulardii (Florastor) 250 mg PO BID [facility] Last Admin: 04/04/18 12:51 Dose: Not Given Tamsulosin HCl (Flomax) 0.4 mg PO DAILY [facility] Last Admin: 04/04/18 12:51 Dose: Not Given - Labs Labs: 04/04/18 13:54 04/04/18 09:46 PT 13.2 SECONDS (9.7-12.2) H 04/04/18 13:54 INR 1.2 04/04/18 13:54
[2018-04-04 15:24] LABS: ALB/GLOB RATIO 1.2 (1.0-2.1); ALBUMIN 3.3 g/dL (3.5-5.0); CALCIUM 7.6 mg/dl (8.6-10.4)
[2018-04-04] MEDS ORDERED: Saccharomyces Boulardi 250 mg Cap PO SCH (18:00)
[2018-04-04] MEDS: Epoetin Alfa 10,000 unit/ml Dialysis IV SCH (19:38)
--- NOTE | 2018-04-04 20:22 | CP.PCM.PN ---
Subjective - Date & Time of Evaluation Date of Evaluation: 04/04/18 Time of Evaluation: 20:18 - Subjective Subjective: The patient feels OK, s/p Angio. BP is high, Objective - Vital Signs/Intake and Output Vital Signs (last 24 hours): Temp Pulse Resp BP Pulse Ox 97.7 F 64 20 153/62 H 95 04/04/18 14:45 04/04/18 14:45 04/04/18 14:45 04/04/18 19:10 04/04/18 14:45 Intake and Output: 04/04/18 04/05/18 18:59 06:59 Intake Total 300 Balance 300 - Medications Medications: Current Medications Acetaminophen (Tylenol 325mg Tab) 650 mg PO Q6 PRN PRN Reason: Pain, moderate (4-7) Albuterol/Ipratropium (Duoneb 3 Mg/0.5 Mg (3 Ml) Ud) 3 ml INH RQ4 [facility] Last Admin: 04/04/18 16:21 Dose: Not Given Amlodipine Besylate (Norvasc) 10 mg PO DAILY [facility] Last Admin: 04/04/18 12:52 Dose: Not Given Aspirin (Aspirin) 325 mg PO DAILY [facility] Last Admin: 04/04/18 12:51 Dose: Not Given Calcium Acetate (Phoslo) 667 mg PO TID [facility] Last Admin: 04/04/18 19:10 Dose: 667 mg Carvedilol (Coreg) 25 mg PO BID [facility] Last Admin: 04/04/18 19:10 Dose: 25 mg Dextrose (Dextrose 50% Inj) 0 ml IVP .STAT PRN; Protocol PRN Reason: Hypoglycemia Protocol Dextrose (Glutose 15) 0 gm PO .ONCE PRN; Protocol PRN Reason: Hypoglycemia Protocol Donepezil HCl (Aricept) 10 mg PO HS [facility] Last Admin: 04/03/18 22:08 Dose: 10 mg Epoetin All (Procrit) 10,000 unit IV MWF [facility] Last Admin: 04/04/18 19:38 Dose: 10,000 unit Ferric Sodium Gluconate Complex (Ferrlecit) 125 mg IVPB DAILY [facility] Stop: 04/12/18 12:16 Last Admin: 04/04/18 13:26 Dose: 125 mg Gabapentin (Neurontin) 100 mg PO HS [facility] Last Admin: 04/03/18 22:19 Dose: 100 mg Glucagon (Glucagen Diagnostic Kit) 0 mg IM .STAT PRN; Protocol PRN Reason: Hypoglycemia Protocol Guaifenesin (Mucinex La) 600 mg PO BID [facility] Last Admin: 04/04/18 19:09 Dose: 600 mg Heparin Sodium (Porcine) (Heparin) 5,000 units SC Q12 [facility] Last Admin: 04/04/18 12:51 Dose: Not Given Hydralazine HCl (Apresoline) 100 mg PO BID [facility] Last Admin: 04/04/18 19:16 Dose: 100 mg Dextrose (Dextrose 5% In Water 1000 Ml) 1,000 mls @ 0 mls/hr IV .Q0M PRN; Protocol; Per Protocol PRN Reason: Hypoglycemia Protocol Piperacillin Sod/Tazobactam (Sod 2.25 gm/ Sodium Chloride) 100 mls @ 200 mls/ hr IV Q8H [facility] PRN Reason: Protocol Last Admin: 04/04/18 12:53 Dose: Not Given Vancomycin/Sodium Chloride (Vancomycin 1 Gm/Ns 200 Ml) 1 gm in 200 mls @ 133.333 mls/hr IVPB MWF [facility] PRN Reason: Protocol Stop: 04/09/18 09:01 Last Admin: 04/04/18 09:56 Dose: Not Given Clindamycin Phosphate 300 mg/ (Sodium Chloride) 52 mls @ 104 mls/hr IVPB Q8H [facility] PRN Reason: Protocol Last Admin: 04/04/18 14:56 Dose: Not Given Lactated Ringer's (Lactated Ringer's) 1,000 mls @ 125 mls/hr IV .Q8H [facility] Last Admin: 04/04/18 09:56 Dose: Not Given Insulin Glargine (Lantus) 10 unit SC HS [facility] Last Admin: 04/03/18 22:18 Dose: 10 units Insulin Human Regular (Novolin R) 0 unit SC ACHS [facility] PRN Reason: Protocol Last Admin: 04/04/18 12:52 Dose: Not Given Losartan Potassium (Cozaar) 100 mg PO TTS [facility] Last Admin: 04/02/18 10:33 Dose: 100 mg Losartan Potassium (Cozaar) 100 mg PO Q7D [facility] Last Admin: 04/03/18 09:38 Dose: 100 mg Memantine (Namenda) 5 mg PO DAILY [facility] Last Admin: 04/04/18 12:52 Dose: Not Given [id number] Ethyl Esters (Lovaza) 1 gm PO BID [facility] Last Admin: 04/04/18 19:12 Dose: 1 gm Pantoprazole Sodium (Protonix Ec Tab) 40 mg PO DAILY [facility] Last Admin: 04/04/18 12:52 Dose: Not Given Rosuvastatin Calcium (Crestor) 10 mg PO HS [facility] Saccharomyces Boulardii (Florastor) 250 mg PO BID [facility] Last Admin: 04/04/18 19:10 Dose: 250 mg Saccharomyces Boulardii (Florastor) 250 mg PO BID [facility] Tamsulosin HCl (Flomax) 0.4 mg PO DAILY [facility] Last Admin: 04/04/18 12:51 Dose: Not Given - Labs Labs: 04/04/18 13:54 04/04/18 13:54 PT 13.2 SECONDS (9.7-12.2) H 04/04/18 13:54 INR 1.2 04/04/18 13:54 - Constitutional Appears: Older Than Stated Age - ENT Exam ENT Exam: Mucous Membranes Dry - Neck Exam Neck Exam: Full ROM - Respiratory Exam Respiratory Exam: Clear to Ausculation Bilateral - Cardiovascular Exam Cardiovascular Exam: REGULAR RHYTHM - GI/Abdominal Exam GI & Abdominal Exam: Normal Bowel Sounds - Exam External exam: Lesions - Neurological Exam Neurological Exam: Abnormal Gait, Alert, Awake, Oriented x3 - Psychiatric Exam Psychiatric exam: Normal Affect - Skin Skin Exam: Normal Color (left leg bandaged.) Assessment and Plan - Assessment and Plan (Free Text) Assessment: 1. Cardiomegaly: echo pending to assess LV EF, and for possible pericardial effusion. 2. HTN: options are limited. Pt already bradycardic on arb, caa channel roman and hydralazine. Clonidine not a good option with bradycardia. Cardura added. If no pericardial effusion, can consider minoxidil if bp remains high instead of cardura.
[2018-04-04] MEDS: (Lantus) Insulin Glargine, Recombinant SC SCH (22:34)
[2018-04-05] MEDS: Albuterol-Ipratrop 3 mg / 0.5 (3 ml) UD INH SCH ×6 (00:38→19:13)
--- NOTE | 2018-04-05 04:44 | CON ---
DATE: 04/04/2018 INFECTIOUS DISEASE CONSULT REQUESTED BY: Dr. Chavez and Dr. Renee. HISTORY OF PRESENT ILLNESS: This patient was having dialysis today. He has Staphylococcus aureus in the left foot, ulcerations in the toes, and he was getting dialysis when I saw him. He had left aortofemoral angiogram this morning in the left femoral artery and manual closure of the right groin. Postop diagnosis was similar to preop, but there is severe tibial disease, no named vessel in the foot and has gangrene of the left foot as he has dressings present, and yesterday also, I was not able to evaluate, and today he is on dialysis when I am seeing him. PHYSICAL EXAMINATION: VITAL SIGNS: He is otherwise afebrile. Blood pressure 155/65, respirations are 20. GENERAL: He was kind of drowsy and was getting dialysis. HEENT: Head is atraumatic. NECK: Supple. LUNGS: Decreased breath sounds bilaterally. HEART: S1 and S2 is present. ABDOMEN: Soft and nontender. No guarding. No rigidity present, and he was getting dialysis today and the foot was with a dressing. White count is 6.2, hemoglobin 7.6, hematocrit 22.8. He remains anemic. His BUN is 63, creatinine is 8.7, and his hepatitis B surface antigen and core antigen is negative. B surface antibody is positive , and he is on dialysis and is a dialysis patient, and is status post angiogram with gangrene of the left foot and has cultures positive for Staphylococcus aureus. The Staph aureus is sensitive with these. We will see tomorrow as he was having lot of pain the day before, and we have left him on free antibiotics. We will evaluate again tomorrow. So he had gangrene, peripheral vascular disease, and on dialysis. Wanda Mayo MD
[2018-04-05] MEDS: Clindamycin 300 MG in Sodium Chloride 0.9% 50 ML IVPB SCH ×3 (05:45→23:22)
--- NOTE | 2018-04-05 07:49 | CP.PCM.PN ---
Subjective - Date & Time of Evaluation Date of Evaluation: 04/05/18 Time of Evaluation: 07:47 - Subjective Subjective: Pt feels Ok. No complaints. Objective - Vital Signs/Intake and Output Vital Signs (last 24 hours): Temp Pulse Resp BP Pulse Ox 98 F 75 20 153/62 H 96 04/04/18 20:21 04/04/18 20:21 04/04/18 20:21 04/04/18 20:21 04/04/18 20:21 Intake and Output: 04/05/18 04/05/18 06:59 18:59 Intake Total 670 Balance 670 - Medications Medications: Current Medications Acetaminophen (Tylenol 325mg Tab) 650 mg PO Q6 PRN PRN Reason: Pain, moderate (4-7) Albuterol/Ipratropium (Duoneb 3 Mg/0.5 Mg (3 Ml) Ud) 3 ml INH RQ4 [facility] Last Admin: 04/05/18 07:22 Dose: 3 ml Amlodipine Besylate (Norvasc) 10 mg PO DAILY [facility] Last Admin: 04/04/18 12:52 Dose: Not Given Aspirin (Aspirin) 325 mg PO DAILY [facility] Last Admin: 04/04/18 12:51 Dose: Not Given Calcium Acetate (Phoslo) 667 mg PO TID [facility] Last Admin: 04/04/18 19:10 Dose: 667 mg Carvedilol (Coreg) 25 mg PO BID [facility] Last Admin: 04/04/18 19:10 Dose: 25 mg Dextrose (Dextrose 50% Inj) 0 ml IVP .STAT PRN; Protocol PRN Reason: Hypoglycemia Protocol Dextrose (Glutose 15) 0 gm PO .ONCE PRN; Protocol PRN Reason: Hypoglycemia Protocol Donepezil HCl (Aricept) 10 mg PO HS [facility] Last Admin: 04/04/18 22:29 Dose: 10 mg Doxazosin Mesylate (Cardura) 2 mg PO BID [facility] Epoetin All (Procrit) 10,000 unit IV MWF [facility] Last Admin: 04/04/18 19:38 Dose: 10,000 unit Ferric Sodium Gluconate Complex (Ferrlecit) 125 mg IVPB DAILY [facility] Stop: 04/12/18 12:16 Last Admin: 04/04/18 13:26 Dose: 125 mg Gabapentin (Neurontin) 100 mg PO [facility] Last Admin: 07/09/18 22:28 Dose: 100 mg Glucagon (Glucagen Diagnostic Kit) 0 mg IM .STAT PRN; Protocol PRN Reason: Hypoglycemia Protocol Guaifenesin (Mucinex La) 600 mg PO BID [facility] Last Admin: 04/04/18 19:09 Dose: 600 mg Heparin Sodium (Porcine) (Heparin) 5,000 units SC Q12 [facility] Last Admin: 04/04/18 22:27 Dose: 5,000 units Hydralazine HCl (Apresoline) 100 mg PO BID [facility] Last Admin: 04/04/18 19:16 Dose: 100 mg Dextrose (Dextrose 5% In Water 1000 Ml) 1,000 mls @ 0 mls/hr IV .Q0M PRN; Protocol; Per Protocol PRN Reason: Hypoglycemia Protocol Piperacillin Sod/Tazobactam (Sod 2.25 gm/ Sodium Chloride) 100 mls @ 200 mls/ hr IV Q8H [facility] PRN Reason: Protocol Last Admin: 04/05/18 02:35 Dose: 200 mls/hr Vancomycin/Sodium Chloride (Vancomycin 1 Gm/Ns 200 Ml) 1 gm in 200 mls @ 133.333 mls/hr IVPB MWF [facility] PRN Reason: Protocol Stop: 04/09/18 09:01 Last Admin: 04/04/18 09:56 Dose: Not Given Clindamycin Phosphate 300 mg/ (Sodium Chloride) 52 mls @ 104 mls/hr IVPB Q8H [facility] PRN Reason: Protocol Last Admin: 04/05/18 05:45 Dose: 104 mls/hr Insulin Glargine (Lantus) 10 unit SC HS [facility] Last Admin: 04/04/18 22:34 Dose: 10 units Insulin Human Regular (Novolin R) 0 unit SC ACHS [facility] PRN Reason: Protocol Last Admin: 04/04/18 21:45 Dose: Not Given Losartan Potassium (Cozaar) 100 mg PO TTS [facility] Last Admin: 04/02/18 10:33 Dose: 100 mg Losartan Potassium (Cozaar) 100 mg PO Q7D [facility] Last Admin: 04/03/18 09:38 Dose: 100 mg Memantine (Namenda) 5 mg PO DAILY [facility] Last Admin: 04/04/18 12:52 Dose: Not Given Giyma-5-Ganf Ethyl Esters (Lovaza) 1 gm PO BID [facility] Last Admin: 04/04/18 19:12 Dose: 1 gm Pantoprazole Sodium (Protonix Ec Tab) 40 mg PO DAILY [facility] Last Admin: 04/04/18 12:52 Dose: Not Given Rosuvastatin Calcium (Crestor) 10 mg PO HS [facility] Last Admin: 04/04/18 22:28 Dose: 10 mg Saccharomyces Boulardii (Florastor) 250 mg PO BID [facility] Last Admin: 04/04/18 19:10 Dose: 250 mg Saccharomyces Boulardii (Florastor) 250 mg PO BID [facility] Last Admin: 04/04/18 18:00 Dose: Not Given Tamsulosin HCl (Flomax) 0.4 mg PO DAILY [facility] Last Admin: 04/04/18 12:51 Dose: Not Given - Labs Labs: 04/04/18 13:54 04/04/18 13:54 PT 13.2 SECONDS (9.7-12.2) H 04/04/18 13:54 INR 1.2 04/04/18 13:54 - Constitutional Appears: Older Than Stated Age - Head Exam Head Exam: ATRAUMATIC - Eye Exam Eye Exam: EOMI - ENT Exam ENT Exam: Mucous Membranes Dry - Neck Exam Neck Exam: Full ROM - Respiratory Exam Respiratory Exam: Clear to Ausculation Bilateral - Cardiovascular Exam Cardiovascular Exam: REGULAR RHYTHM - Extremities Exam Additional comments: left leg bandaged - Neurological Exam Neurological Exam: Alert, Awake, Normal Gait - Psychiatric Exam Psychiatric exam: Normal Affect - Skin Skin Exam: Normal Color Assessment and Plan - Assessment and Plan (Free Text) Assessment: 1. Cardiomegaly: Awaiting echo to assess. 2. BP is high prior to meds: Observe after meds today.
[2018-04-05] MEDS: (Novolin R) Insulin Human Regular 100 units/ml vial SC SCH ×4 (08:30→21:36)
--- NOTE | 2018-04-05 08:50 | CP.PCM.PN ---
Subjective - Date & Time of Evaluation Date of Evaluation: 04/05/18 Time of Evaluation: 08:34 - Subjective Subjective: Vascular Surgery Progress Note for Dr. Jay 77M seen and evaluated this AM. Pt resting in bed comfortably. Does not c/o pain at incision site. No acute events overnight. Denies f/c, n/v/d, SOB, or CP. Objective - Vital Signs/Intake and Output Vital Signs (last 24 hours): Temp Pulse Resp BP Pulse Ox 98.1 F 60 20 167/68 H 95 04/05/18 07:00 04/05/18 07:00 04/05/18 07:00 04/05/18 07:00 04/05/18 07:00 Intake and Output: 04/05/18 04/05/18 06:59 18:59 Intake Total 670 Balance 670 - Medications Medications: Current Medications Acetaminophen (Tylenol 325mg Tab) 650 mg PO Q6 PRN PRN Reason: Pain, moderate (4-7) Albuterol/Ipratropium (Duoneb 3 Mg/0.5 Mg (3 Ml) Ud) 3 ml INH RQ4 [facility] Last Admin: 04/05/18 07:22 Dose: 3 ml Amlodipine Besylate (Norvasc) 10 mg PO DAILY [facility] Last Admin: 04/04/18 12:52 Dose: Not Given Aspirin (Aspirin) 325 mg PO DAILY [facility] Last Admin: 04/04/18 12:51 Dose: Not Given Calcium Acetate (Phoslo) 667 mg PO TID [facility] Last Admin: 04/04/18 19:10 Dose: 667 mg Carvedilol (Coreg) 25 mg PO BID [facility] Last Admin: 04/04/18 19:10 Dose: 25 mg Dextrose (Dextrose 50% Inj) 0 ml IVP .STAT PRN; Protocol PRN Reason: Hypoglycemia Protocol Dextrose (Glutose 15) 0 gm PO .ONCE PRN; Protocol PRN Reason: Hypoglycemia Protocol Donepezil HCl (Aricept) 10 mg PO HS [facility] Last Admin: 04/04/18 22:29 Dose: 10 mg Doxazosin Mesylate (Cardura) 2 mg PO BID [facility] Epoetin All (Procrit) 10,000 unit IV MWF [facility] Last Admin: 04/04/18 19:38 Dose: 10,000 unit Ferric Sodium Gluconate Complex (Ferrlecit) 125 mg IVPB DAILY [facility] Stop: 04/12/18 12:16 Last Admin: 04/04/18 13:26 Dose: 125 mg Gabapentin (Neurontin) 100 mg PO HS [facility] Last Admin: 04/04/18 22:28 Dose: 100 mg Glucagon (Glucagen Diagnostic Kit) 0 mg IM .STAT PRN; Protocol PRN Reason: Hypoglycemia Protocol Guaifenesin (Mucinex La) 600 mg PO BID [facility] Last Admin: 04/04/18 19:09 Dose: 600 mg Heparin Sodium (Porcine) (Heparin) 5,000 units SC Q12 [facility] Last Admin: 04/04/18 22:27 Dose: 5,000 units Hydralazine HCl (Apresoline) 100 mg PO BID [facility] Last Admin: 04/04/18 19:16 Dose: 100 mg Dextrose (Dextrose 5% In Water 1000 Ml) 1,000 mls @ 0 mls/hr IV .Q0M PRN; Protocol; Per Protocol PRN Reason: Hypoglycemia Protocol Piperacillin Sod/Tazobactam (Sod 2.25 gm/ Sodium Chloride) 100 mls @ 200 mls/ hr IV Q8H [facility] PRN Reason: Protocol Last Admin: 04/05/18 02:35 Dose: 200 mls/hr Vancomycin/Sodium Chloride (Vancomycin 1 Gm/Ns 200 Ml) 1 gm in 200 mls @ 133.333 mls/hr IVPB MWF [facility] PRN Reason: Protocol Stop: 04/09/18 09:01 Last Admin: 04/04/18 09:56 Dose: Not Given Clindamycin Phosphate 300 mg/ (Sodium Chloride) 52 mls @ 104 mls/hr IVPB Q8H [facility] PRN Reason: Protocol Last Admin: 04/05/18 05:45 Dose: 104 mls/hr Insulin Glargine (Lantus) 10 unit SC HS [facility] Last Admin: 04/04/18 22:34 Dose: 10 units Insulin Human Regular (Novolin R) 0 unit SC ACHS [facility] PRN Reason: Protocol Last Admin: 04/04/18 21:45 Dose: Not Given Losartan Potassium (Cozaar) 100 mg PO TTS [facility] Last Admin: 04/02/18 10:33 Dose: 100 mg Losartan Potassium (Cozaar) 100 mg PO Q7D [facility] Last Admin: 04/03/18 09:38 Dose: 100 mg Memantine (Namenda) 5 mg PO DAILY [facility] Last Admin: 04/04/18 12:52 Dose: Not Given Uwsch-2-Ynfy Ethyl Esters (Lovaza) 1 gm PO BID [facility] Last Admin: 04/04/18 19:12 Dose: 1 gm Pantoprazole Sodium (Protonix Ec Tab) 40 mg PO DAILY [facility] Last Admin: 04/04/18 12:52 Dose: Not Given Rosuvastatin Calcium (Crestor) 10 mg PO HS [facility] Last Admin: 04/04/18 22:28 Dose: 10 mg Saccharomyces Boulardii (Florastor) 250 mg PO BID [facility] Last Admin: 04/04/18 19:10 Dose: 250 mg Saccharomyces Boulardii (Florastor) 250 mg PO BID [facility] Last Admin: 04/04/18 18:00 Dose: Not Given Tamsulosin HCl (Flomax) 0.4 mg PO DAILY [facility] Last Admin: 04/04/18 12:51 Dose: Not Given - Labs Labs: 04/04/18 13:54 04/04/18 13:54 PT 13.2 SECONDS (9.7-12.2) H 04/04/18 13:54 INR 1.2 04/04/18 13:54 - Constitutional Appears: Well, Non-toxic, No Acute Distress - Head Exam Head Exam: ATRAUMATIC, NORMAL INSPECTION, NORMOCEPHALIC - Eye Exam Eye Exam: EOMI, Normal appearance - Respiratory Exam Respiratory Exam: Clear to Ausculation Bilateral, NORMAL BREATHING PATTERN - Cardiovascular Exam Cardiovascular Exam: REGULAR RHYTHM, +S1, +S2. absent: Murmur - GI/Abdominal Exam GI & Abdominal Exam: Soft, Normal Bowel Sounds. absent: Tenderness - Extremities Exam Additional comments: dressing removed - c/d/i - Neurological Exam Neurological Exam: Alert, Awake, Oriented x3 - Psychiatric Exam Psychiatric exam: Normal Affect, Normal Mood - Skin Skin Exam: Dry, Intact, Normal Color, Warm Assessment and Plan - Assessment and Plan (Free Text) Assessment: 77M s/p angiogram POD1 Plan: Angiogram - no intervention needed, good collaterals futher recs per Dr. Pierre Chi PGY1
[2018-04-05 08:54] LABS: BASO # 0.1 K/uL (0.0-0.2); EOS # 0.2 K/uL (0.0-0.7); EOS % 2.5 % (0.0-4.0); LYMPH # 1.3 K/uL (1.0-4.3); LYMPH % 20.4 % (20.0-40.0); MEAN CORPUSCULAR HEMOGLOBIN 29.2 pg (27.0-31.0); MEAN CORPUSCULAR HGB CONC 33.2 g/dL (33.0-37.0); MEAN PLATELET VOLUME 9.1 fL (7.2-11.7); MONO # 0.5 K/uL (0.0-0.8); MONO % 8.2 % (0.0-10.0); NEUT # 4.4 K/uL (1.8-7.0); NEUT % 67.9 % (50.0-75.0); RBC 2.74 Mil/uL (4.40-5.90); RED CELL DISTRIBUTION WIDTH 15.5 % (11.5-14.5); WHITE BLOOD COUNT 6.4 K/uL (4.8-10.8)
--- NOTE | 2018-04-05 08:54 | CP.PCM.PN ---
Subjective - Date & Time of Evaluation Date of Evaluation: 04/05/18 Time of Evaluation: 08:53 - Subjective Subjective: seen and exmained s/p LLE angiogram hd mwf bp remains high pt appears comfortable denies any leg pain nausea vomiting diarrhea fevers chills Objective - Vital Signs/Intake and Output Vital Signs (last 24 hours): Temp Pulse Resp BP Pulse Ox 98.1 F 60 20 167/68 H 95 04/05/18 07:00 04/05/18 07:00 04/05/18 07:00 04/05/18 07:00 04/05/18 07:00 Intake and Output: 04/05/18 04/05/18 06:59 18:59 Intake Total 670 Balance 670 - Medications Medications: Current Medications Acetaminophen (Tylenol 325mg Tab) 650 mg PO Q6 PRN PRN Reason: Pain, moderate (4-7) Albuterol/Ipratropium (Duoneb 3 Mg/0.5 Mg (3 Ml) Ud) 3 ml INH RQ4 [facility] Last Admin: 04/05/18 07:22 Dose: 3 ml Amlodipine Besylate (Norvasc) 10 mg PO DAILY [facility] Last Admin: 04/04/18 12:52 Dose: Not Given Aspirin (Aspirin) 325 mg PO DAILY [facility] Last Admin: 04/04/18 12:51 Dose: Not Given Calcium Acetate (Phoslo) 667 mg PO TID [facility] Last Admin: 04/04/18 19:10 Dose: 667 mg Carvedilol (Coreg) 25 mg PO BID [facility] Last Admin: 04/04/18 19:10 Dose: 25 mg Dextrose (Dextrose 50% Inj) 0 ml IVP .STAT PRN; Protocol PRN Reason: Hypoglycemia Protocol Dextrose (Glutose 15) 0 gm PO .ONCE PRN; Protocol PRN Reason: Hypoglycemia Protocol Donepezil HCl (Aricept) 10 mg PO HS [facility] Last Admin: 04/04/18 22:29 Dose: 10 mg Doxazosin Mesylate (Cardura) 2 mg PO BID [facility] Epoetin All (Procrit) 10,000 unit IV MWF [facility] Last Admin: 04/04/18 19:38 Dose: 10,000 unit Ferric Sodium Gluconate Complex (Ferrlecit) 125 mg IVPB DAILY [facility] Stop: 04/12/18 12:16 Last Admin: 04/04/18 13:26 Dose: 125 mg Gabapentin (Neurontin) 100 mg PO HS [facility] Last Admin: 04/04/18 22:28 Dose: 100 mg Glucagon (Glucagen Diagnostic Kit) 0 mg IM .STAT PRN; Protocol PRN Reason: Hypoglycemia Protocol Guaifenesin (Mucinex La) 600 mg PO BID [facility] Last Admin: 04/04/18 19:09 Dose: 600 mg Heparin Sodium (Porcine) (Heparin) 5,000 units SC Q12 [facility] Last Admin: 04/04/18 22:27 Dose: 5,000 units Hydralazine HCl (Apresoline) 100 mg PO BID [facility] Last Admin: 04/04/18 19:16 Dose: 100 mg Dextrose (Dextrose 5% In Water 1000 Ml) 1,000 mls @ 0 mls/hr IV .Q0M PRN; Protocol; Per Protocol PRN Reason: Hypoglycemia Protocol Piperacillin Sod/Tazobactam (Sod 2.25 gm/ Sodium Chloride) 100 mls @ 200 mls/ hr IV Q8H [facility] PRN Reason: Protocol Last Admin: 04/05/18 02:35 Dose: 200 mls/hr Vancomycin/Sodium Chloride (Vancomycin 1 Gm/Ns 200 Ml) 1 gm in 200 mls @ 133.333 mls/hr IVPB MWF [facility] PRN Reason: Protocol Stop: 04/09/18 09:01 Last Admin: 04/04/18 09:56 Dose: Not Given Clindamycin Phosphate 300 mg/ (Sodium Chloride) 52 mls @ 104 mls/hr IVPB Q8H [facility] PRN Reason: Protocol Last Admin: 04/05/18 05:45 Dose: 104 mls/hr Insulin Glargine (Lantus) 10 unit SC HS [facility] Last Admin: 04/04/18 22:34 Dose: 10 units Insulin Human Regular (Novolin R) 0 unit SC ACHS [facility] PRN Reason: Protocol Last Admin: 04/05/18 08:30 Dose: Not Given Losartan Potassium (Cozaar) 100 mg PO TTS [facility] Last Admin: 04/02/18 10:33 Dose: 100 mg Memantine (Namenda) 5 mg PO DAILY [facility] Last Admin: 04/04/18 12:52 Dose: Not Given [id number]-[id number] Ethyl Esters (Lovaza) 1 gm PO BID [facility] Last Admin: 04/04/18 19:12 Dose: 1 gm Pantoprazole Sodium (Protonix Ec Tab) 40 mg PO DAILY [facility] Last Admin: 04/04/18 12:52 Dose: Not Given Rosuvastatin Calcium (Crestor) 10 mg PO HS [facility] Last Admin: 04/04/18 22:28 Dose: 10 mg Saccharomyces Boulardii (Florastor) 250 mg PO BID [facility] Last Admin: 04/04/18 19:10 Dose: 250 mg Saccharomyces Boulardii (Florastor) 250 mg PO BID [facility] Last Admin: 04/04/18 18:00 Dose: Not Given Tamsulosin HCl (Flomax) 0.4 mg PO DAILY [facility] Last Admin: 04/04/18 12:51 Dose: Not Given - Labs Labs: 04/04/18 13:54 04/04/18 13:54 PT 13.2 SECONDS (9.7-12.2) H 04/04/18 13:54 INR 1.2 04/04/18 13:54 - Constitutional Appears: Non-toxic, No Acute Distress, Chronically Ill - Head Exam Head Exam: NORMAL INSPECTION, NORMOCEPHALIC - Eye Exam Eye Exam: Normal appearance Pupil Exam: PERRL - ENT Exam ENT Exam: Mucous Membranes Moist, Normal Exam - Neck Exam Neck Exam: Normal Inspection - Respiratory Exam Respiratory Exam: Clear to Ausculation Bilateral, NORMAL BREATHING PATTERN - Cardiovascular Exam Cardiovascular Exam: REGULAR RHYTHM - GI/Abdominal Exam GI & Abdominal Exam: Distended, Soft, Hypoactive Bowel Sounds - Extremities Exam Extremities Exam: Normal Inspection, Pedal Edema (lt foot in dressing) - Neurological Exam Neurological Exam: Alert, Awake - Skin Skin Exam: Dry, Intact Assessment and Plan (1) Dementia Status: Acute (2) Diabetic foot infection Status: Acute (3) End stage renal disease Status: Acute (4) Toe gangrene Status: Acute (5) Essential hypertension Status: Acute - Assessment and Plan (Free Text) Assessment: hd mwf change cozaar to daily dosing antibiotics per ID on glenny
[2018-04-05 09:09] LABS: ALB/GLOB RATIO 1.4 (1.0-2.1); ALBUMIN 3.6 g/dL (3.5-5.0); CALCIUM 8.3 mg/dl (8.6-10.4)
[2018-04-05] MEDS: guaiFENesin 600 mg ER Tab PO SCH ×2 (10:00→18:01)
[2018-04-05] MEDS: Ferric Sodium Gluconat Complex 62.5 mg/5 ml Vial IVPB SCH (10:30)
[2018-04-05] MEDS: Pantoprazole 40 mg EC Tab PO SCH (11:00)
[2018-04-05] MEDS: Omega-3-Acid Ethyl Esters 1 GM Cap PO SCH ×2 (11:00→18:00)
[2018-04-05] MEDS: Saccharomyces Boulardi 250 mg Cap PO SCH ×2 (11:00→18:00)
--- NOTE | 2018-04-05 11:42 | VAS ---
DATE: 04/04/2018 OPERATIVE ANGIOGRAM REPORT PREOPERATIVE DIAGNOSES: Gangrene, ischemic ulceration, left foot. PROCEDURES CARRIED OUT: Aortofemoral angiogram with selective catheterization of left femoral artery. SURGEON: Maximo Jay Jr., MD COUNTER POCKET SEWER: None. ANESTHESIOLOGIST: Mr. Casey. ANESTHESIA: Local with sedation. INDICATIONS: The patient is a 77-year-old man on dialysis, previous interventions on his right leg which were very successful, had previous angiogram on his left leg and no intervention was undertaken. OPERATIVE FINDINGS: Aorta, renal arteries, iliac arteries, common femoral arteries, superficial femoral arteries were widely patent, free of any significant occlusive disease. Due to the patient's body habitus and the desire to limit dye, we concentrated then on the left leg from this level down. There was no evidence of occlusive disease from the level of the aorta down to the popliteal artery. The trifurcation had severe disease because the posterior tibial and peroneal arteries were being included. The anterior tibial artery was a major vessel into the foot with extensive collateral network, and there were multiple areas of occlusions and stenosis throughout its course. However, these were not resulted in any named vessels in the foot. Because of this, no intervention was undertaken. After completion of the diagnostic arteriogram, there was good lateral views of the foot. No intervention was done. We removed the catheter from the groin and terminated the procedure. Pressure was applied to the groin. The aorta was quite tortuous, requiring numerous maneuvers to allow to place a catheter in the distal femoral artery to allow for the selective catheterization and imaging of the leg. Nonetheless, no intervention was undertaken. Operation carried out is aortofemoral angiogram via right groin with selective catheterization of left femoral artery. Maximo Jay Jr., MD
[2018-04-05] MEDS ORDERED: Piperacillin/Tazobact 2.25 GM in Sodium Chloride 100 ML IVPB SCH ×2 (14:00→20:00)
--- NOTE | 2018-04-05 14:52 | CP.PCM.PN ---
Subjective - Date & Time of Evaluation Date of Evaluation: 04/05/18 Time of Evaluation: 14:47 - Subjective Subjective: Podiatry progress Note: Dr. Lopez 77 year old male was evaluated at bedside for left foot ischemic changes, superficial epidermal lysis and infection. Patient appears to be resting comfortably in bed. Patient does not appear in acute distress at the time of the visit. Patient denies any F/N/V/C or SOB. Patient denies any other pedal complaint. Objective - Vital Signs/Intake and Output Vital Signs (last 24 hours): Temp Pulse Resp BP Pulse Ox 98.1 F 61 20 155/79 H 95 04/05/18 07:00 04/05/18 12:00 04/05/18 07:00 04/05/18 12:00 04/05/18 07:00 Intake and Output: 04/05/18 04/05/18 06:59 18:59 Intake Total 670 Balance 670 - Medications Medications: Current Medications Acetaminophen (Tylenol 325mg Tab) 650 mg PO Q6 PRN PRN Reason: Pain, moderate (4-7) Albuterol/Ipratropium (Duoneb 3 Mg/0.5 Mg (3 Ml) Ud) 3 ml INH RQ4 [facility] Last Admin: 04/05/18 12:00 Dose: 3 ml Amlodipine Besylate (Norvasc) 10 mg PO DAILY [facility] Last Admin: 04/05/18 10:00 Dose: 10 mg Aspirin (Aspirin) 325 mg PO DAILY [facility] Last Admin: 04/05/18 11:00 Dose: 325 mg Calcium Acetate (Phoslo) 667 mg PO TID [facility] Last Admin: 04/05/18 10:00 Dose: 667 mg Carvedilol (Coreg) 25 mg PO BID [facility] Last Admin: 04/05/18 11:00 Dose: 25 mg Dextrose (Dextrose 50% Inj) 0 ml IVP .STAT PRN; Protocol PRN Reason: Hypoglycemia Protocol Dextrose (Glutose 15) 0 gm PO .ONCE PRN; Protocol PRN Reason: Hypoglycemia Protocol Donepezil HCl (Aricept) 10 mg PO HS [facility] Last Admin: 04/04/18 22:29 Dose: 10 mg Doxazosin Mesylate (Cardura) 2 mg PO BID [facility] Last Admin: 04/05/18 10:00 Dose: 2 mg Epoetin All (Procrit) 10,000 unit IV MWF [facility] Last Admin: 04/04/18 19:38 Dose: 10,000 unit Ferric Sodium Gluconate Complex (Ferrlecit) 125 mg IVPB DAILY [facility] Stop: 04/12/18 12:16 Last Admin: 04/05/18 10:30 Dose: 125 mg Gabapentin (Neurontin) 100 mg PO HS [facility] Last Admin: 04/04/18 22:28 Dose: 100 mg Glucagon (Glucagen Diagnostic Kit) 0 mg IM .STAT PRN; Protocol PRN Reason: Hypoglycemia Protocol Guaifenesin (Mucinex La) 600 mg PO BID [facility] Last Admin: 04/05/18 10:00 Dose: 600 mg Heparin Sodium (Porcine) (Heparin) 5,000 units SC Q12 [facility] Last Admin: 04/05/18 11:00 Dose: 5,000 units Hydralazine HCl (Apresoline) 100 mg PO BID [facility] Last Admin: 04/05/18 11:00 Dose: 100 mg Dextrose (Dextrose 5% In Water 1000 Ml) 1,000 mls @ 0 mls/hr IV .Q0M PRN; Protocol; Per Protocol PRN Reason: Hypoglycemia Protocol Vancomycin/Sodium Chloride (Vancomycin 1 Gm/Ns 200 Ml) 1 gm in 200 mls @ 133.333 mls/hr IVPB [facility] PRN Reason: Protocol Stop: 04/09/18 09:01 Last Admin: 04/04/18 09:56 Dose: Not Given Clindamycin Phosphate 300 mg/ (Sodium Chloride) 52 mls @ 104 mls/hr IVPB Q8H [facility] PRN Reason: Protocol Last Admin: 04/05/18 05:45 Dose: 104 mls/hr Piperacillin Sod/Tazobactam (Sod 2.25 gm/ Sodium Chloride) 100 mls @ 200 mls/ hr IVPB Q8H [facility] PRN Reason: Protocol Insulin Glargine (Lantus) 10 unit SC HS [facility] Last Admin: 04/04/18 22:34 Dose: 10 units Insulin Human Regular (Novolin R) 0 unit SC ACHS [facility] PRN Reason: Protocol Last Admin: 04/05/18 12:30 Dose: 3 units Losartan Potassium (Cozaar) 100 mg PO DAILY [facility] Last Admin: 04/05/18 11:00 Dose: 100 mg Memantine (Namenda) 5 mg PO DAILY [facility] Last Admin: 04/05/18 11:00 Dose: 5 mg Wpmqb-6-Rjru Ethyl Esters (Lovaza) 1 gm PO BID [facility] Last Admin: 04/05/18 11:00 Dose: 1 gm Pantoprazole Sodium (Protonix Ec Tab) 40 mg PO DAILY [facility] Last Admin: 04/05/18 11:00 Dose: 40 mg Rosuvastatin Calcium (Crestor) 10 mg PO HS [facility] Last Admin: 04/04/18 22:28 Dose: 10 mg Saccharomyces Boulardii (Florastor) 250 mg PO BID [facility] Last Admin: 04/05/18 11:00 Dose: 250 mg Tamsulosin HCl (Flomax) 0.4 mg PO DAILY [facility] Last Admin: 04/05/18 11:00 Dose: 0.4 mg - Labs Labs: 04/05/18 08:38 04/05/18 08:38 PT 13.2 SECONDS (9.7-12.2) H 04/04/18 13:54 INR 1.2 04/04/18 13:54 - Constitutional Appears: Well, Non-toxic, No Acute Distress - Extremities Exam Additional comments: Bilateral LE focused Exam: Vasc: DP/PT pulses are faint 1/4 bilaterally, Cap refill time delayed > 3 sec, skin temperature: warm to cool from proximal to distal, mild non-pitting edema noted on the dorsum of the left foot Derm: Superficial epidermal lysis at the site of the previous bullae with hyperpigmented changes on the dorsum of the left 5th digit, wound bed is completely is covered by black eschar in the dorsum of the 5th digit - no active drainage, positive malodor but less than yesterday, no tunneling or tracking, minimal purulent drainage,surrounded by an area of erythema which is less than yesterday, Maceration noted in the 4th interspace. Hyperkeratotic lesion noted in the dorsum of the left 3rd toe at the level of PIPJ. Tiny scab/necrotic ulceration noted to the dorsum of the 4th right digit measuring approximately 0.2 x 0.2 cm with no erythema, no tunneling, no undermining, no probe to bone, no drainage, no odor noted. Tiny scab noted to the dorsum of the 2nd left digit measuring approximately 0.1x 0.1 cm with no erythema, no tunneling, no undermining, no probe to bone, no drainage, no odor noted. Neuro: Protective sensation diminished. Gross sensation intact Ortho: Pain on palpation of the digits particularly the 5th digit - Neurological Exam Neurological Exam: Alert, Awake, Oriented x3 - Psychiatric Exam Psychiatric exam: Normal Affect, Normal Mood Assessment and Plan - Assessment and Plan (Free Text) Assessment: 77 year old male patient was seen and evaluated for ischemic changes to the left forefoot accompanied with cellulitis Plan: Patient seen and evaluated at the bedside. Discussed plan with attending Dr. Lopez Labs, vitals and charts reviewed - afebrile, No leukocytosis WCx- Staph. aureus X-rays of left foot ordered/reviewed - Periosteal reaction with cortical break at the proximal phalanx of the left 5th digit - concerning for OM JUAN/PVR reviewed - 1.23 on R and 0.98 on the L; poor waveform S/P angio Wound dressing applied using betadine and DSD Continue IV abx as per ID - Vancomycin, Zosyn. Clindamycin Stable from podiatry standpoint Podiatry to follow patient while in-house
--- NOTE | 2018-04-05 19:08 | CP.PCM.PN ---
Subjective - Date & Time of Evaluation Date of Evaluation: 04/05/18 Time of Evaluation: 11:15 - Subjective Subjective: Progress Note for Hospitalist Service Patient seen and examined at bedside. He states he is feeling well. States that Podiatry came to change dressing today. He denies fevers, chills, chest pain, shortness of breath, abdominal pain, nausea, vomiting, diarrhea. Objective - Vital Signs/Intake and Output Vital Signs (last 24 hours): Temp Pulse Resp BP Pulse Ox 98.2 F 69 18 167/64 H 94 L 04/05/18 16:18 04/05/18 18:05 04/05/18 18:05 04/05/18 18:05 04/05/18 18:05 Intake and Output: 04/05/18 04/06/18 18:59 06:59 Intake Total 610 Balance 610 - Medications Medications: Current Medications Acetaminophen (Tylenol 325mg Tab) 650 mg PO Q6 PRN PRN Reason: Pain, moderate (4-7) Albuterol/Ipratropium (Duoneb 3 Mg/0.5 Mg (3 Ml) Ud) 3 ml INH RQ4 [facility] Last Admin: 04/05/18 15:47 Dose: 3 ml Amlodipine Besylate (Norvasc) 10 mg PO DAILY [facility] Last Admin: 04/05/18 10:00 Dose: 10 mg Aspirin (Aspirin) 325 mg PO DAILY [facility] Last Admin: 04/05/18 11:00 Dose: 325 mg Calcium Acetate (Phoslo) 667 mg PO TID [facility] Last Admin: 04/05/18 18:00 Dose: 667 mg Carvedilol (Coreg) 25 mg PO BID [facility] Last Admin: 04/05/18 18:01 Dose: 25 mg Dextrose (Dextrose 50% Inj) 0 ml IVP .STAT PRN; Protocol PRN Reason: Hypoglycemia Protocol Dextrose (Glutose 15) 0 gm PO .ONCE PRN; Protocol PRN Reason: Hypoglycemia Protocol Donepezil HCl (Aricept) 10 mg PO HS [facility] Last Admin: 04/04/18 22:29 Dose: 10 mg Doxazosin Mesylate (Cardura) 2 mg PO BID [facility] Last Admin: 04/05/18 18:01 Dose: 2 mg Epoetin All (Procrit) 10,000 unit IV MWF [facility] Last Admin: 07/09/18 19:38 Dose: 10,000 unit Ferric Sodium Gluconate Complex (Ferrlecit) 125 mg IVPB DAILY [facility] Stop: 04/12/18 12:16 Last Admin: 04/05/18 10:30 Dose: 125 mg Gabapentin (Neurontin) 100 mg PO HS [facility] Last Admin: 04/04/18 22:28 Dose: 100 mg Glucagon (Glucagen Diagnostic Kit) 0 mg IM .STAT PRN; Protocol PRN Reason: Hypoglycemia Protocol Guaifenesin (Mucinex La) 600 mg PO BID [facility] Last Admin: 04/05/18 18:01 Dose: 600 mg Heparin Sodium (Porcine) (Heparin) 5,000 units SC Q12 [facility] Last Admin: 04/05/18 11:00 Dose: 5,000 units Hydralazine HCl (Apresoline) 100 mg PO BID [facility] Last Admin: 04/05/18 18:02 Dose: 100 mg Dextrose (Dextrose 5% In Water 1000 Ml) 1,000 mls @ 0 mls/hr IV .Q0M PRN; Protocol; Per Protocol PRN Reason: Hypoglycemia Protocol Clindamycin Phosphate 300 mg/ (Sodium Chloride) 52 mls @ 104 mls/hr IVPB Q8H [facility] PRN Reason: Protocol Last Admin: 04/05/18 14:30 Dose: 104 mls/hr Insulin Glargine (Lantus) 10 unit SC [facility] Last Admin: 04/04/18 22:34 Dose: 10 units Insulin Human Regular (Novolin R) 0 unit SC ACHS [facility] PRN Reason: Protocol Last Admin: 04/05/18 18:47 Dose: Not Given Losartan Potassium (Cozaar) 100 mg PO DAILY [facility] Last Admin: 04/05/18 11:00 Dose: 100 mg Memantine (Namenda) 5 mg PO DAILY [facility] Last Admin: 04/05/18 11:00 Dose: 5 mg Zgnav-6-Weee Ethyl Esters (Lovaza) 1 gm PO BID [facility] Last Admin: 04/05/18 18:00 Dose: 1 gm Pantoprazole Sodium (Protonix Ec Tab) 40 mg PO DAILY [facility] Last Admin: 04/05/18 11:00 Dose: 40 mg Rosuvastatin Calcium (Crestor) 10 mg PO HS [facility] Last Admin: 04/04/18 22:28 Dose: 10 mg Saccharomyces Boulardii (Florastor) 250 mg PO BID [facility] Last Admin: 04/05/18 18:00 Dose: 250 mg Tamsulosin HCl (Flomax) 0.4 mg PO DAILY [facility] Last Admin: 04/05/18 11:00 Dose: 0.4 mg - Labs Labs: 04/05/18 08:38 04/05/18 08:38 PT 13.2 SECONDS (9.7-12.2) H 04/04/18 13:54 INR 1.2 04/04/18 13:54 - Constitutional Appears: No Acute Distress - Head Exam Head Exam: ATRAUMATIC, NORMOCEPHALIC - Eye Exam Eye Exam: EOMI - ENT Exam ENT Exam: Mucous Membranes Moist - Respiratory Exam Respiratory Exam: Decreased Breath Sounds, Rales, NORMAL BREATHING PATTERN. absent: Rhonchi, Wheezes, Stridor - Cardiovascular Exam Cardiovascular Exam: REGULAR RHYTHM, +S1, +S2 - GI/Abdominal Exam GI & Abdominal Exam: Distended, Soft, Normal Bowel Sounds. absent: Firm, Guarding, Rigid, Tenderness - Extremities Exam Additional comments: Left foot: Dark hyperpigmentation on lateral aspect of left 5th digit with black eschar. Ulceration noted on top of left 4th digit. Gross sensation intact. - Neurological Exam Neurological Exam: Alert, Awake, Oriented x3 - Skin Additional comments: AV fistula on left upper arm with palpable thrill Assessment and Plan - Assessment and Plan (Free Text) Plan: Assessment/plan 1) Left foot infected ulcers Osteomyelitis of left 5th Phalanx Possible gangrenous 5th toe Fracture 5th proximal phalanx * F/U toe culture sensitivity for antibiotic adjustment * Podiatry Dr. Lopez consulted - F/U on their recs for possible surgery vs Osteomylitis treatment * CT angiogram done by Vascular Dr Jay for gangrene left foot- aortofemoral angiogram with selective catherization of left femoral artery. manual closure right groin. Findings: severe tibial disease/ no named vessel in foot. We will F/U on final CT angio report. * Wound culture collected at wound center 03/31/18- listed on WoundCTR on [employer] [facility] [employer] * Staph Aureus (03/31/18) * Wound culture collect at [facility] ED * Staph Aureus (03/31/18) * Blood cultures (03/31/18) collected at [place] ED 03/31/18--Listed on [id number] * No growth (error in resident note) * Blood cultures (03/31/18) collected at [facility] ED * No growth Antibiotics * Clindamycin phosphate 300mg IV Q8 * Arterial duplex: Lower extremity U/S - No evidence of significant arterial deficiency in the left lower extremity; elevated pressures can lower sensitivity of JUAN. No evidence of significant arterial deficiency in the right lower extremity. Elevated pressures can lower sensitivity of JUAN * prior hx of gangrenous toe noted in prior hospitalization at [facility] (3rd digit ) * Foot xray (03/31/18): fracture 5th proximal phalanx without definite callus formation. 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 * 04/05/18: Case discussed with ID Dr. Mayo who stated that patient could be treated for osteomyelitis outpatient and recommended outpatient treatment with Vancomycin 1g IV with dialysis. 2) ESRD on HD * Dialysis MWF * Dr. Rivera, nephrology, consulted - continue AB, On PE, add IV Fe * Renvela 667mg TID * Procrit 10,000 units IV MWF 3) Hypertension * Cardura (Doxazosin) 2mg PO BID [facility] * Norvasc 10mg PO daily * Carvedilol 25mg PO BID (hold SBP<100 and HR<60) * Hydralazine 100mg BID on MWF (dialysis days) * Hydralazine 100mg TID on Tues/Thurs/Sat/Sun (NON-dialysis days) * Losartan 100mg daily NOT on dialysis days (Tues/Thurs/ Sat/ Sun) * Prophylatic: Aspirin 325mg PO daily * Patient follows-up with Dr. Borden (cardiology) -- added cardura, can consider monoxidil if BP remains high after cardura and if no pericardia effusion 4) Anemia secondary to chronic disease, ESRD * H/H 8/24.1 * Ferrlecit 125mg IV daily (04/04/18 - 04/12/18) * continue to monitor 5) History of Known Diabetes * Accuchecks ACHS * ISS * Hypoglycemic protocol * Consistent carb/ renal dialysis diet * Lantus 10u HS 6) History of Known Diabetic neuropathy * Gabapentin 100mg HS 7) BPH * Flomax 0.4mg daily 8) Lipid Disorder * lovaza 1g PO BID * Crestor 10mg PO 9) Dementia * Memantine 5mg PO daily * Donepezil 10mg PO HS 10) Cough * resolved * Portable chest xray (04/01/18): severe cardiomegaly and severe pulmonary venous congestion. No lobar pneumonia * Duonebs 3ml Inhaled christopher Q4H * Mucinex 600mg PO BID * Note: patient earlier in the year Oct-November was admitted to the [facility] ICU for pneumonia and epiglottis 11) Severe cardiomegaly noted on chest xray * Echo as per [employer] Dr. Keys's note - normal LVEF, moderate LVH * Cardiology (Dr. Keys) for consult: patient's customer relationship specialist; prior note reviewed from 2017 * Discussed with nurse, Dr. Lamb came recommended for echocardiogram * Start Fluid restriction 1.5L * Norvasc 10mg PO daily * Carvedilol 25mg PO BID (hold SBP<100 and HR<60) * Hydralazine 100mg BID on MWF (dialysis days) * Hydralazine 100mg TID on Tues/Thurs/Sat/Sun (NON-dialysis days) * Losartan 100mg daily NOT on dialysis days (Tues/Thurs/ Sat/ Sun) * Prophylatic: Aspirin 325mg PO daily * Patient follows-up with Dr. Borden (cardiology) 11) Prophylaxis * Protonix 40mg PO daily * Heparin 5000u sc q12h * PT/OT mahogany Rocha, PGYI case discussed with Dr. Diogenes Chavez
[2018-04-05] MEDS: (Lantus) Insulin Glargine, Recombinant SC SCH (21:47)
--- NOTE | 2018-04-05 22:25 | CP.PCM.PN ---
Subjective - Date & Time of Evaluation Date of Evaluation: 04/05/18 Time of Evaluation: 01:45 - Subjective Subjective: dictated Objective - Vital Signs/Intake and Output Vital Signs (last 24 hours): Temp Pulse Resp BP Pulse Ox 98.2 F 69 18 167/64 H 94 L 04/05/18 16:18 04/05/18 18:05 04/05/18 18:05 04/05/18 18:05 04/05/18 18:05 Intake and Output: 04/05/18 04/06/18 18:59 06:59 Intake Total 610 Balance 610 - Medications Medications: Current Medications Acetaminophen (Tylenol 325mg Tab) 650 mg PO Q6 PRN PRN Reason: Pain, moderate (4-7) Albuterol/Ipratropium (Duoneb 3 Mg/0.5 Mg (3 Ml) Ud) 3 ml INH RQ4 [facility] Last Admin: 04/05/18 19:13 Dose: 3 ml Amlodipine Besylate (Norvasc) 10 mg PO DAILY [facility] Last Admin: 04/05/18 10:00 Dose: 10 mg Aspirin (Aspirin) 325 mg PO DAILY [facility] Last Admin: 04/05/18 11:00 Dose: 325 mg Calcium Acetate (Phoslo) 667 mg PO TID [facility] Last Admin: 04/05/18 18:00 Dose: 667 mg Carvedilol (Coreg) 25 mg PO BID [facility] Last Admin: 04/05/18 18:01 Dose: 25 mg Dextrose (Dextrose 50% Inj) 0 ml IVP .STAT PRN; Protocol PRN Reason: Hypoglycemia Protocol Dextrose (Glutose 15) 0 gm PO .ONCE PRN; Protocol PRN Reason: Hypoglycemia Protocol Donepezil HCl (Aricept) 10 mg PO HS [facility] Last Admin: 04/05/18 21:47 Dose: 10 mg Doxazosin Mesylate (Cardura) 2 mg PO BID [facility] Last Admin: 04/05/18 18:01 Dose: 2 mg Epoetin All (Procrit) 10,000 unit IV MWF [facility] Last Admin: 04/04/18 19:38 Dose: 10,000 unit Ferric Sodium Gluconate Complex (Ferrlecit) 125 mg IVPB DAILY [facility] Stop: 04/12/18 12:16 Last Admin: 04/05/18 10:30 Dose: 125 mg Gabapentin (Neurontin) 100 mg PO HS [facility] Last Admin: 04/05/18 21:47 Dose: 100 mg Glucagon (Glucagen Diagnostic Kit) 0 mg IM .STAT PRN; Protocol PRN Reason: Hypoglycemia Protocol Guaifenesin (Mucinex La) 600 mg PO BID [facility] Last Admin: 04/05/18 18:01 Dose: 600 mg Hydralazine HCl (Apresoline) 100 mg PO BID [facility] Last Admin: 04/05/18 18:02 Dose: 100 mg Dextrose (Dextrose 5% In Water 1000 Ml) 1,000 mls @ 0 mls/hr IV .Q0M PRN; Protocol; Per Protocol PRN Reason: Hypoglycemia Protocol Clindamycin Phosphate 300 mg/ (Sodium Chloride) 52 mls @ 104 mls/hr IVPB Q8H [facility] PRN Reason: Protocol Last Admin: 04/05/18 14:30 Dose: 104 mls/hr Insulin Glargine (Lantus) 10 unit SC [facility] Last Admin: 04/05/18 21:47 Dose: 10 units Insulin Human Regular (Novolin R) [address] [facility] PRN Reason: Protocol Last Admin: 04/05/18 21:36 Dose: Not Given Losartan Potassium (Cozaar) 100 mg PO DAILY [facility] Last Admin: 04/05/18 11:00 Dose: 100 mg Memantine (Namenda) 5 mg PO DAILY [facility] Last Admin: 04/05/18 11:00 Dose: 5 mg Lbsbv-1-Dfil Ethyl Esters (Lovaza) 1 gm PO BID [facility] Last Admin: 04/05/18 18:00 Dose: 1 gm Pantoprazole Sodium (Protonix Ec Tab) 40 mg PO DAILY [facility] Last Admin: 04/05/18 11:00 Dose: 40 mg Rosuvastatin Calcium (Crestor) 10 mg PO HS [facility] Last Admin: 04/05/18 21:47 Dose: 10 mg Saccharomyces Boulardii (Florastor) 250 mg PO BID [facility] Last Admin: 04/05/18 18:00 Dose: 250 mg Tamsulosin HCl (Flomax) 0.4 mg PO DAILY [facility] Last Admin: 04/05/18 11:00 Dose: 0.4 mg - Labs Labs: 04/05/18 08:38 04/05/18 08:38 PT 13.2 SECONDS (9.7-12.2) H 04/04/18 13:54 INR 1.2 04/04/18 13:54
--- NOTE | 2018-04-05 23:39 | CARD ---
APPROVED REPORT Date of service: 04/05/2018 EXAM: LIMITED Two-dimensional and M-mode echocardiogram. INDICATION Congestive Heart Failure Cardiomegaly RISK FACTORS Hypertension Diabetes 2D DIMENSIONS IVSd1.4 (0.7-1.1cm)LVDd5.9 (3.9-5.9cm) PWd1.0 (0.7-1.1cm)LVDs4.1 (2.5-4.0cm) FS (%) 31.4 %LVEF (%)58.4 (>50%) M-Mode DIMENSIONS IVSd1.24 (0.7-1.1cm)LVDd6.14 (4.0-5.6cm) PWd1.22 (0.7-1.1cm)FS (%) 33 % LVDs4.11 (2.0-3.8cm)LVEF (%)61 (>50%) Mitral Valve E/A ratio0.0 TDI E/Lateral E'0.0E/Medial E'0.0 LEFT VENTRICLE The left ventricle is normal size. There is mild concentric left ventricular hypertrophy. Left ventricle systolic function is normal. The Ejection Fraction is 65-70%. There is normal LV segmental wall motion. No tissue Doppler There is no ventricular septal defect visualized. RIGHT VENTRICLE The right ventricle is normal size. The right ventricular systolic function is normal. ATRIA The left atrium is mildly dilated. The right atrium size is normal. AORTIC VALVE The aortic valve is mildly sclerotic. The aortic valve is tri-cuspid. No aortic regurgitation is present. There is no aortic valvular stenosis. MITRAL VALVE Mitral annular calcification is mild. There is no evidence of mitral valve prolapse. There is no mitral valve regurgitation noted. TRICUSPID VALVE The tricuspid valve is normal in structure. No Doppler PULMONIC VALVE The pulmonary valve is normal in structure. No Doppler GREAT VESSELS The aortic root is normal in size. The ascending aorta is normal in size. The IVC was not visualized. PERICARDIAL EFFUSION There is no pericardial effusion. <Conclusion> There is mild concentric left ventricular hypertrophy. Left ventricle systolic function is normal. The Ejection Fraction is 65-70%.
[2018-04-06] MEDS: Albuterol-Ipratrop 3 mg / 0.5 (3 ml) UD INH SCH ×4 (00:09→16:04)
--- NOTE | 2018-04-06 03:08 | PN ---
DATE: 04/05/2018 SUBJECTIVE: The patient was seen today. He was not giving any complaints. He remains in bed. He is a dialysis patient. He did have dialysis yesterday. PHYSICAL EXAMINATION: HEENT: Head is atraumatic and normocephalic. NECK: Supple. LUNGS: Clear. HEART: S1, S2 are present. ABDOMEN: Soft. Nontender. No guarding, no rigidity present. It was flabby. EXTREMITIES: Left foot has a dressing present and the toes remain . ASSESSMENT AND PLAN: He is under the care of Dr. Avila. According to the apparel rental clerk, it showed superficial epidermolysis at the site of the previous bulla with hyperpigmented changes on the left fifth digit, and there was a blackish scar. He does have ischemic toes with necrotic ulcerations. On the cultures, he had grown Staphylococcus aureus which was very sensitive; however, the patient is a dialysis patient and I think instead of giving IV antibiotics, it may be easier to give antibiotics at the site at the time of dialysis. He also had an angiogram, but they did not find anything that can be fixed. He has significant tibial disease. So at this time, I discussed with Dr. Chavez, and we both decided that he may benefit by getting vancomycin on dialysis for next four to six weeks which may cover for osteomyelitis as the toes look ugly, cyanotic and ischemic and may have infection also. Wanda Mayo MD
[2018-04-06] MEDS: Clindamycin 300 MG in Sodium Chloride 0.9% 50 ML IVPB SCH ×2 (05:30→13:49)
[2018-04-06 07:27] LABS: BASO % 0.4 % (0.0-2.0); EOS % 0.1 % (0.0-4.0); HEMOGLOBIN 7.8 g/dL (12.0-18.0); LYMPH # 1.2 K/uL (1.0-4.3); MEAN CORPUSCULAR HEMOGLOBIN 30.4 pg (27.0-31.0); MEAN CORPUSCULAR HGB CONC 34.6 g/dL (33.0-37.0); MEAN PLATELET VOLUME 9.2 fL (7.2-11.7); MONO # 0.6 K/uL (0.0-0.8); MONO % 5.7 % (0.0-10.0); NEUT # 8.3 K/uL (1.8-7.0); NEUT % 81.8 % (50.0-75.0); NRBC % 0.1 % (0.0-2.0); RBC 2.56 Mil/uL (4.40-5.90)
[2018-04-06 07:28] LABS: WHITE BLOOD COUNT 10.2 K/uL (4.8-10.8)
[2018-04-06] MEDS: (Novolin R) Insulin Human Regular 100 units/ml vial SC SCH ×3 (08:11→16:22)
[2018-04-06 08:14] LABS: ALB/GLOB RATIO 1.3 (1.0-2.1); ALBUMIN 3.4 g/dL (3.5-5.0); CALCIUM 8.2 mg/dl (8.6-10.4)
[2018-04-06] MEDS: Epoetin Alfa 10,000 unit/ml Dialysis IV SCH (09:43)
[2018-04-06] MEDS: guaiFENesin 600 mg ER Tab PO SCH ×2 (09:56→17:55)
[2018-04-06] MEDS: Saccharomyces Boulardi 250 mg Cap PO SCH ×2 (09:56→17:55)
[2018-04-06] MEDS: Pantoprazole 40 mg EC Tab PO SCH (09:57)
[2018-04-06] MEDS: Ferric Sodium Gluconat Complex 62.5 mg/5 ml Vial IVPB SCH (11:02)
--- NOTE | 2018-04-06 11:54 | CP.PCM.PN ---
Subjective - Date & Time of Evaluation Date of Evaluation: 04/06/18 Time of Evaluation: 11:54 - Subjective Subjective: Patient Objective - Vital Signs/Intake and Output Vital Signs (last 24 hours): Temp Pulse Resp BP Pulse Ox 97.4 F L 72 24 151/64 H 95 04/06/18 09:10 04/06/18 09:10 04/06/18 09:10 04/06/18 10:40 04/06/18 09:10 Intake and Output: 04/06/18 04/06/18 06:59 18:59 Intake Total 550 Balance 550 - Medications Medications: Current Medications Acetaminophen (Tylenol 325mg Tab) 650 mg PO Q6 PRN PRN Reason: Pain, moderate (4-7) Albuterol/Ipratropium (Duoneb 3 Mg/0.5 Mg (3 Ml) Ud) 3 ml INH RQ4 [facility] Last Admin: 04/06/18 11:15 Dose: Not Given Amlodipine Besylate (Norvasc) 10 mg PO DAILY [facility] Last Admin: 04/05/18 10:00 Dose: 10 mg Aspirin (Aspirin) 325 mg PO DAILY [facility] Last Admin: 04/06/18 09:56 Dose: Not Given Calcium Acetate (Phoslo) 667 mg PO TID [facility] Last Admin: 04/05/18 18:00 Dose: 667 mg Carvedilol (Coreg) 25 mg PO BID [facility] Last Admin: 04/06/18 09:56 Dose: Not Given Dextrose (Dextrose 50% Inj) 0 ml IVP .STAT PRN; Protocol PRN Reason: Hypoglycemia Protocol Dextrose (Glutose 15) 0 gm PO .ONCE PRN; Protocol PRN Reason: Hypoglycemia Protocol Donepezil HCl (Aricept) 10 mg PO HS [facility] Last Admin: 04/05/18 21:47 Dose: 10 mg Doxazosin Mesylate (Cardura) 2 mg PO BID [facility] Last Admin: 04/06/18 09:56 Dose: Not Given Epoetin All (Procrit) 10,000 unit IV MWF [facility] Last Admin: 04/06/18 09:43 Dose: 10,000 unit Ferric Sodium Gluconate Complex (Ferrlecit) 125 mg IVPB DAILY [facility] Stop: 04/12/18 12:16 Last Admin: 04/06/18 11:02 Dose: 125 mg Gabapentin (Neurontin) 100 mg PO HS [facility] Last Admin: 04/05/18 21:47 Dose: 100 mg Glucagon (Glucagen Diagnostic Kit) 0 mg IM .STAT PRN; Protocol PRN Reason: Hypoglycemia Protocol Guaifenesin (Mucinex La) 600 mg PO BID [facility] Last Admin: 04/06/18 09:56 Dose: Not Given Hydralazine HCl (Apresoline) 100 mg PO BID [facility] Last Admin: 04/05/18 18:02 Dose: 100 mg Clindamycin Phosphate 300 mg/ (Sodium Chloride) 52 mls @ 104 mls/hr IVPB Q8H [facility] PRN Reason: Protocol Last Admin: 04/06/18 05:30 Dose: 104 mls/hr Insulin Glargine (Lantus) 10 unit SC HS [facility] Last Admin: 04/05/18 21:47 Dose: 10 units Insulin Human Regular (Novolin R) 0 unit SC ACHS [facility] PRN Reason: Protocol Last Admin: 04/06/18 08:11 Dose: 1 units Losartan Potassium (Cozaar) 100 mg PO DAILY [facility] Last Admin: 04/05/18 11:00 Dose: 100 mg Memantine (Namenda) 5 mg PO DAILY [facility] Last Admin: 04/05/18 11:00 Dose: 5 mg [id number] Ethyl Esters (Lovaza) 1 gm PO BID [facility] Last Admin: 04/05/18 18:00 Dose: 1 gm Pantoprazole Sodium (Protonix Ec Tab) 40 mg PO DAILY [facility] Last Admin: 04/06/18 09:57 Dose: Not Given Rosuvastatin Calcium (Crestor) 10 mg PO HS [facility] Last Admin: 04/05/18 21:47 Dose: 10 mg Saccharomyces Boulardii (Florastor) 250 mg PO BID [facility] Last Admin: 04/06/18 09:56 Dose: Not Given Tamsulosin HCl (Flomax) 0.4 mg PO DAILY [facility] Last Admin: 04/06/18 09:56 Dose: Not Given - Labs Labs: 04/06/18 07:03 04/06/18 07:03 PT 13.2 SECONDS (9.7-12.2) H 04/04/18 13:54 INR 1.2 04/04/18 13:54
--- NOTE | 2018-04-06 12:35 | CP.PCM.PN ---
Subjective - Date & Time of Evaluation Date of Evaluation: 04/06/18 Time of Evaluation: 12:33 - Subjective Subjective: Podiatry progress Note: Dr. Lopez 77 year old male was evaluated at bedside for left foot ischemic changes, superficial epidermal lysis and infection. Patient seen in dialysis. Patient appears to be resting comfortably in bed. Patient does not appear in acute distress at the time of the visit. Objective - Vital Signs/Intake and Output Vital Signs (last 24 hours): Temp Pulse Resp BP Pulse Ox 97.4 F L 72 24 151/64 H 95 04/06/18 09:10 04/06/18 09:10 04/06/18 09:10 04/06/18 10:40 04/06/18 09:10 Intake and Output: 04/06/18 04/06/18 06:59 18:59 Intake Total 550 Balance 550 - Medications Medications: Current Medications Acetaminophen (Tylenol 325mg Tab) 650 mg PO Q6 PRN PRN Reason: Pain, moderate (4-7) Albuterol/Ipratropium (Duoneb 3 Mg/0.5 Mg (3 Ml) Ud) 3 ml INH RQ4 [facility] Last Admin: 04/06/18 11:15 Dose: Not Given Amlodipine Besylate (Norvasc) 10 mg PO DAILY [facility] Last Admin: 04/05/18 10:00 Dose: 10 mg Aspirin (Aspirin) 325 mg PO DAILY [facility] Last Admin: 04/06/18 09:56 Dose: Not Given Calcium Acetate (Phoslo) 667 mg PO TID [facility] Last Admin: 04/05/18 18:00 Dose: 667 mg Carvedilol (Coreg) 25 mg PO BID [facility] Last Admin: 04/06/18 09:56 Dose: Not Given Dextrose (Dextrose 50% Inj) 0 ml IVP .STAT PRN; Protocol PRN Reason: Hypoglycemia Protocol Dextrose (Glutose 15) 0 gm PO .ONCE PRN; Protocol PRN Reason: Hypoglycemia Protocol Donepezil HCl (Aricept) 10 mg PO HS [facility] Last Admin: 04/05/18 21:47 Dose: 10 mg Doxazosin Mesylate (Cardura) 2 mg PO BID [facility] Last Admin: 04/06/18 09:56 Dose: Not Given Epoetin All (Procrit) 10,000 unit IV MWF [facility] Last Admin: 04/06/18 09:43 Dose: 10,000 unit Ferric Sodium Gluconate Complex (Ferrlecit) 125 mg IVPB DAILY [facility] Stop: 04/12/18 12:16 Last Admin: 04/06/18 11:02 Dose: 125 mg Gabapentin (Neurontin) 100 mg PO HS [facility] Last Admin: 04/05/18 21:47 Dose: 100 mg Glucagon (Glucagen Diagnostic Kit) 0 mg IM .STAT PRN; Protocol PRN Reason: Hypoglycemia Protocol Guaifenesin (Mucinex La) 600 mg PO BID [facility] Last Admin: 04/06/18 09:56 Dose: Not Given Hydralazine HCl (Apresoline) 100 mg PO BID [facility] Last Admin: 04/05/18 18:02 Dose: 100 mg Clindamycin Phosphate 300 mg/ (Sodium Chloride) 52 mls @ 104 mls/hr IVPB Q8H [facility] PRN Reason: Protocol Last Admin: 04/06/18 05:30 Dose: 104 mls/hr Insulin Glargine (Lantus) 10 unit SC HS [facility] Last Admin: 04/05/18 21:47 Dose: 10 units Insulin Human Regular (Novolin R) 0 unit SC [facility] PRN Reason: Protocol Last Admin: 04/06/18 08:11 Dose: 1 units Losartan Potassium (Cozaar) 100 mg PO DAILY [facility] Last Admin: 04/05/18 11:00 Dose: 100 mg Memantine (Namenda) 5 mg PO DAILY [facility] Last Admin: 04/05/18 11:00 Dose: 5 mg [id number] Ethyl Esters (Lovaza) 1 gm PO BID [facility] Last Admin: 04/05/18 18:00 Dose: 1 gm Pantoprazole Sodium (Protonix Ec Tab) 40 mg PO DAILY [facility] Last Admin: 04/06/18 09:57 Dose: Not Given Rosuvastatin Calcium (Crestor) 10 mg PO HS [facility] Last Admin: 04/05/18 21:47 Dose: 10 mg Saccharomyces Boulardii (Florastor) 250 mg PO BID [facility] Last Admin: 04/06/18 09:56 Dose: Not Given Tamsulosin HCl (Flomax) 0.4 mg PO DAILY [facility] Last Admin: 04/06/18 09:56 Dose: Not Given - Labs Labs: 04/06/18 07:03 04/06/18 07:03 PT 13.2 SECONDS (9.7-12.2) H 04/04/18 13:54 INR 1.2 04/04/18 13:54 - Constitutional Appears: Well, Non-toxic, No Acute Distress - Extremities Exam Additional comments: Bilateral LE focused Exam: Vasc: DP/PT pulses are faint 1/4 bilaterally, Cap refill time delayed > 3 sec, skin temperature: warm to cool from proximal to distal, mild non-pitting edema noted on the dorsum of the left foot Derm: Superficial epidermal lysis at the site of the previous bullae with hyperpigmented changes on the dorsum of the left 5th digit, wound bed is completely is covered by black eschar in the dorsum of the 5th digit - no active drainage, positive malodor but less than yesterday, no tunneling or tracking, minimal purulent drainage,surrounded by an area of erythema which is less than yesterday, Maceration noted in the 4th interspace. Hyperkeratotic lesion noted in the dorsum of the left 3rd toe at the level of PIPJ. Tiny scab/necrotic ulceration noted to the dorsum of the 4th right digit measuring approximately 0.2 x 0.2 cm with no erythema, no tunneling, no undermining, no probe to bone, no drainage, no odor noted. Tiny scab noted to the dorsum of the 2nd left digit measuring approximately 0.1x 0.1 cm with no erythema, no tunneling, no undermining, no probe to bone, no drainage, no odor noted. Neuro: Protective sensation diminished. Gross sensation intact Ortho: Pain on palpation of the digits particularly the 5th digit - Neurological Exam Neurological Exam: Alert, Awake, Oriented x3 - Psychiatric Exam Psychiatric exam: Normal Affect, Normal Mood Assessment and Plan - Assessment and Plan (Free Text) Assessment: 77 year old male patient was seen and evaluated for ischemic changes to the left forefoot accompanied with cellulitis Plan: Patient seen and evaluated at the bedside. Discussed plan with attending Dr. Lopez Labs, vitals and charts reviewed - afebrile, No leukocytosis WCx- Staph. aureus X-rays of left foot ordered/reviewed - Periosteal reaction with cortical break at the proximal phalanx of the left 5th digit - concerning for OM JUAN/PVR reviewed - 1.23 on R and 0.98 on the L; poor waveform S/P angio Wound dressing applied using betadine and DSD Continue IV abx as per ID - Vancomycin, Zosyn. Clindamycin Stable from podiatry standpoint Upon discharge, please follow up with Dr. Avila at the wound care center at [facility] to follow patient while in-house
[2018-04-06] MEDS: Omega-3-Acid Ethyl Esters 1 GM Cap PO SCH ×2 (13:48→17:56)
--- NOTE | 2018-04-06 13:49 | CP.PCM.PN ---
Subjective - Date & Time of Evaluation Date of Evaluation: 04/06/18 Time of Evaluation: 13:46 - Subjective Subjective: s/p dialysis now Hg remains low- on EPO, ferrlecit foot remains same HTN better controlled no new complaint Objective - Vital Signs/Intake and Output Vital Signs (last 24 hours): Temp Pulse Resp BP Pulse Ox 97.4 F L 72 24 151/64 H 95 04/06/18 09:10 04/06/18 09:10 04/06/18 09:10 04/06/18 10:40 04/06/18 09:10 Intake and Output: 04/06/18 04/06/18 06:59 18:59 Intake Total 550 Balance 550 - Medications Medications: Current Medications Acetaminophen (Tylenol 325mg Tab) 650 mg PO Q6 PRN PRN Reason: Pain, moderate (4-7) Albuterol/Ipratropium (Duoneb 3 Mg/0.5 Mg (3 Ml) Ud) 3 ml INH RQ4 [facility] Last Admin: 04/06/18 11:15 Dose: Not Given Amlodipine Besylate (Norvasc) 10 mg PO DAILY [facility] Last Admin: 04/05/18 10:00 Dose: 10 mg Aspirin (Aspirin) 325 mg PO DAILY [facility] Last Admin: 04/06/18 09:56 Dose: Not Given Calcium Acetate (Phoslo) 667 mg PO TID [facility] Last Admin: 04/05/18 18:00 Dose: 667 mg Carvedilol (Coreg) 25 mg PO BID [facility] Last Admin: 04/06/18 09:56 Dose: Not Given Dextrose (Dextrose 50% Inj) 0 ml IVP .STAT PRN; Protocol PRN Reason: Hypoglycemia Protocol Dextrose (Glutose 15) 0 gm PO .ONCE PRN; Protocol PRN Reason: Hypoglycemia Protocol Donepezil HCl (Aricept) 10 mg PO HS [facility] Last Admin: 04/05/18 21:47 Dose: 10 mg Doxazosin Mesylate (Cardura) 2 mg PO BID [facility] Last Admin: 04/06/18 09:56 Dose: Not Given Epoetin All (Procrit) 10,000 unit IV MWF [facility] Last Admin: 04/06/18 09:43 Dose: 10,000 unit Ferric Sodium Gluconate Complex (Ferrlecit) 125 mg IVPB DAILY [facility] Stop: 04/12/18 12:16 Last Admin: 04/06/18 11:02 Dose: 125 mg Gabapentin (Neurontin) 100 mg PO HS [facility] Last Admin: 04/05/18 21:47 Dose: 100 mg Glucagon (Glucagen Diagnostic Kit) 0 mg IM .STAT PRN; Protocol PRN Reason: Hypoglycemia Protocol Guaifenesin (Mucinex La) 600 mg PO BID [facility] Last Admin: 04/06/18 09:56 Dose: Not Given Hydralazine HCl (Apresoline) 100 mg PO BID [facility] Last Admin: 04/05/18 18:02 Dose: 100 mg Clindamycin Phosphate 300 mg/ (Sodium Chloride) 52 mls @ 104 mls/hr IVPB Q8H [facility] PRN Reason: Protocol Last Admin: 04/06/18 05:30 Dose: 104 mls/hr Insulin Glargine (Lantus) 10 unit SC HS [facility] Last Admin: 04/05/18 21:47 Dose: 10 units Insulin Human Regular (Novolin R) 0 unit SC [facility] PRN Reason: Protocol Last Admin: 04/06/18 08:11 Dose: 1 units Losartan Potassium (Cozaar) 100 mg PO DAILY [facility] Last Admin: 04/05/18 11:00 Dose: 100 mg Memantine (Namenda) 5 mg PO DAILY [facility] Last Admin: 04/05/18 11:00 Dose: 5 mg [id number] Ethyl Esters (Lovaza) 1 gm PO BID [facility] Last Admin: 04/05/18 18:00 Dose: 1 gm Pantoprazole Sodium (Protonix Ec Tab) 40 mg PO DAILY [facility] Last Admin: 04/06/18 09:57 Dose: Not Given Rosuvastatin Calcium (Crestor) 10 mg PO HS [facility] Last Admin: 04/05/18 21:47 Dose: 10 mg Saccharomyces Boulardii (Florastor) 250 mg PO BID [facility] Last Admin: 04/06/18 09:56 Dose: Not Given Tamsulosin HCl (Flomax) 0.4 mg PO DAILY [facility] Last Admin: 04/06/18 09:56 Dose: Not Given - Labs Labs: 04/06/18 07:03 04/06/18 07:03 PT 13.2 SECONDS (9.7-12.2) H 04/04/18 13:54 INR 1.2 04/04/18 13:54 - Constitutional Appears: No Acute Distress, Chronically Ill - Head Exam Head Exam: ATRAUMATIC, NORMAL INSPECTION - Eye Exam Eye Exam: EOMI, Normal appearance - Neck Exam Neck Exam: Normal Inspection. absent: Tenderness - Respiratory Exam Respiratory Exam: Clear to Ausculation Bilateral, NORMAL BREATHING PATTERN - Cardiovascular Exam Cardiovascular Exam: REGULAR RHYTHM, +S1 - GI/Abdominal Exam GI & Abdominal Exam: Soft. absent: Tenderness - Extremities Exam Extremities Exam: Normal Inspection, Tenderness - Neurological Exam Neurological Exam: Awake, CN II-XII Intact - Skin Skin Exam: Dry, Warm Assessment and Plan (1) End stage renal disease Status: Acute (2) Type 2 diabetes mellitus with diabetic nephropathy Status: Acute (3) Dementia Status: Acute (4) Diabetic foot infection Status: Acute - Assessment and Plan (Free Text) Plan: same foot care dialysis MWF monitor HTN- on multiple meds can consider blood transfusion if meds not effective to raise Hg
--- NOTE | 2018-04-06 14:49 | CP.PCM.DIS ---
Provider - Provider Date of Admission: 03/31/18 17:31 Attending physician: Diogenes Chavez MD Primary care physician: Dr. Chua Consults: Podiatry: John Nephrology: Miguel ID: Maria Esther Vascular surgery: Pierre Time Spent in preparation of Discharge (in minutes): 38 Hospital Course - Lab Results Lab Results: Micro Results 03/31/18 20:00 Blood Blood Culture - Final NO GROWTH AFTER 5 DAYS 03/31/18 20:00 Blood Gram Stain - Final TEST NOT PERFORMED 03/31/18 19:30 Blood Blood Culture - Final NO GROWTH AFTER 5 DAYS 04/01/18 14:42 Urine Urine Culture - Final No Growth (<1,000 CFU/ML) 03/31/18 18:49 Toe Gram Stain - Final 03/31/18 18:49 Toe Wound Culture - Final Staphylococcus Aureus Most Recent Lab Values WBC 10.2 K/uL (4.8-10.8) D 04/06/18 07:03 RBC 2.56 Mil/uL (4.40-5.90) L 04/06/18 07:03 Hgb 7.8 g/dL (12.0-18.0) L 04/06/18 07:03 Hct 22.5 % (35.0-51.0) L 04/06/18 07:03 MCV 88.0 fL (80.0-94.0) 04/06/18 07:03 MCH 30.4 pg (27.0-31.0) 04/06/18 07:03 MCHC 34.6 g/dL (33.0-37.0) 04/06/18 07:03 RDW 16.0 % (11.5-14.5) H 04/06/18 07:03 Plt Count 159 K/uL (130-400) 04/06/18 07:03 MPV 9.2 fL (7.2-11.7) 04/06/18 07:03 Neut % (Auto) 81.8 % (50.0-75.0) H 04/06/18 07:03 Lymph % (Auto) 12.0 % (20.0-40.0) L 04/06/18 07:03 Henderson % (Auto) 5.7 % (0.0-10.0) 04/06/18 07:03 Eos % (Auto) 0.1 % (0.0-4.0) 04/06/18 07:03 Baso % (Auto) 0.4 % (0.0-2.0) 04/06/18 07:03 Neut # (Auto) 8.3 K/uL (1.8-7.0) H 04/06/18 07:03 Lymph # (Auto) 1.2 K/uL (1.0-4.3) 04/06/18 07:03 Henderson # (Auto) 0.6 K/uL (0.0-0.8) 04/06/18 07:03 Eos # (Auto) 0.0 K/uL (0.0-0.7) 04/06/18 07:03 Baso # (Auto) 0.0 K/uL (0.0-0.2) 04/06/18 07:03 PT 13.2 SECONDS (9.7-12.2) H 04/04/18 13:54 INR 1.2 04/04/18 13:54 Sodium 144 mmol/L (132-148) 04/06/18 07:03 Potassium 5.2 mmol/L (3.6-5.2) 04/06/18 07:03 Chloride 102 mmol/L (98-107) 04/06/18 07:03 Carbon Dioxide 25 mmol/L (22-30) 04/06/18 07:03 Anion Gap 22 (10-20) H 04/06/18 07:03 BUN 56 mg/dL (9-20) H 04/06/18 07:03 Creatinine 8.2 mg/dL (0.8-1.5) H* D 04/06/18 07:03 Est GFR ( Amer) 8 04/06/18 07:03 Est GFR (Non-Af Amer) 6 04/06/18 07:03 POC Glucose (mg/dL) 116 mg/dL (65-110) H 04/06/18 11:30 Random Glucose 161 mg/dL (75-110) H 04/06/18 07:03 Calcium 8.2 mg/dl (8.6-10.4) L 04/06/18 07:03 Phosphorus 5.3 mg/dL (2.5-4.5) H 04/06/18 07:03 Magnesium 1.9 mg/dL (1.6-2.3) 04/06/18 07:03 % Saturation 12 (20-55) L 04/02/18 13:27 Ferritin 157.0 ng/mL 04/02/18 13:27 Total Bilirubin 0.7 mg/dL (0.2-1.3) 04/06/18 07:03 AST 14 U/L (17-59) L D 04/06/18 07:03 ALT 23 U/L (21-72) 04/06/18 07:03 Alkaline Phosphatase 74 U/L (38-126) 04/06/18 07:03 Total Protein 6.1 g/dL (6.3-8.3) L 04/06/18 07:03 Albumin 3.4 g/dL (3.5-5.0) L 04/06/18 07:03 Globulin 2.7 gm/dL (2.2-3.9) 04/06/18 07:03 Albumin/Globulin Ratio 1.3 (1.0-2.1) 04/06/18 07:03 Urine Color Yellow (YELLOW) 04/01/18 14:42 Urine Clarity Hazy (Clear) 04/01/18 14:42 Urine pH 6.0 (5.0-8.0) 04/01/18 14:42 Ur Specific [place] 1.016 (1.003-1.030) 04/01/18 14:42 Urine Protein 2+ mg/dL (NEGATIVE) H 04/01/18 14:42 Urine Glucose (UA) Normal mg/dL (Normal) 04/01/18 14:42 Urine Ketones Negative mg/dL (NEGATIVE) 04/01/18 14:42 Urine Blood Negative (NEGATIVE) 04/01/18 14:42 Urine Nitrate Negative (NEGATIVE) 04/01/18 14:42 Urine Bilirubin Negative (NEGATIVE) 04/01/18 14:42 Urine Urobilinogen Normal mg/dL (0.2-1.0) 04/01/18 14:42 Ur Leukocyte Esterase Neg Logan/uL (Negative) 04/01/18 14:42 Urine WBC (Auto) 2 /hpf (0-5) 04/01/18 14:42 Urine RBC (Auto) 1 /hpf (0-3) 04/01/18 14:42 Ur Squamous Epith Cells 1 /hpf (0-5) 04/01/18 14:42 Hep Bs Antigen Negative (NEGATIVE) 04/01/18 20:05 Hep Bs Antibody Positive (NEGATIVE) 04/01/18 20:05 Hep B Core IgM Ab Negative (NEGATIVE) 04/01/18 20:05 - Hospital Course Hospital Course: Admitted on 03/31/18 H&P Patient is a 77 year old male with PMHx significant ESRD on HD MWF, insulin dependent diabetes mellitus, HTN, who presents to the ED after being sent by his lacquer shader Dr. Avila for concerns of left foot ulceration infection. Patient reports subjective fever yesterday and had temperature reading around 100 today at [facility], per patient. Patient was sent from wound center to [place] ED where he was given one dose of vancomycin. Patient was transferred to [facility] for inpatient dialysis, which is due tomorrow, Wednesday. Patient reports left foot ulcerations began on Father's day, 03/13/18. Patient states when he took his shoe off at the end of the day his foot was full of blisters. He has been following with Dr. Avila on weekly basis for left foot ulcers. Patient denies other complaints currently. PMD: Dr. Chua Outpt cardio: Dr. Nathan Podiatry: Dr. Lopez/ Dr. 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 Podiatry was consulted who were concerned for osteomyelitis of left 5th digit after reviewing Xray of left foot. Cultures from wound grew Staph aureus and patient was treated with IV antibiotics, as per ID recommendations. Blood cultures were negative for growth. Vascular surgery was consulted who performed at CT angiogram which revealed severe tibial disease. Given patient has a history of ESRD, currently on hemodialysis on MWF, Nephrology Dr. Rivera was consulted. Patient received dialysis on MWF during his hospitalization here. After patient complained of cough, repeat CXR was done which revealed severe cardiomegaly. Cardiology Dr. Keys was consulted for cardiomegaly and elevated blood pressure. Patient was placed on fluid restriction. Antihypertensive regimen was adjusted as per Cardiology recommendations. Echocardiogram revealed normal ejection fraction. As per Podiatry, no surgical intervention was recommended at this time. After discussion with ID, it was determined that patient could be treated for osteomyelitis outpatient with dialysis on MWF for 6 weeks.Patient medically stable for discharge with outpatient treatment with Vancomycin with dialysis MWF for 6 weeks. Patient's stated that she did not wish patient to be discharged to rehab facility and was amenable to have patient discharged home with service. Imaging: CXR (03/31/18) moderate cardiomegaly and pulmonary venous congestion. no acute findings. Foot xray (03/31/18): fracture 5th proximal phalanx without definite callus formation. Amputation distal 3rd metatarsal. Periosteal reaction with cortical break at the proximal phalanx of the left 5th digit - concerning for OM Arterial duplex (03/31/18): Lower extremity U/S - No evidence of significant arterial deficiency in the left lower extremity; elevated pressures can lower sensitivity of JUAN. No evidence of significant arterial deficiency in the right lower extremity. Elevated pressures can lower sensitivity of JUAN CXR (04/01/18) CXR: severe cardiomegaly, severe pulmonary venous congestion. No lobar pneumonia. ECHO (04/04/18): Mild concentric LVH. LV systolic function is normal. EF of 65-70% . Discharge summary: Follow up with PMD Dr. Chua in 1-2 weeks to coordinate care. Follow up with Nephrology Dr. Rivera for outpatient hemodialysis at [facility]. Follow up with Formal Service Waiter Dr. Keys in 7 days. Follow up with Podiatry Dr. Avila at [facility] care center within 7 days. Patient advised to return to ED if symptoms recur or worsen. Instruction were explained to patient who expressed understanding. Prescriptions provided: Norvasc 10mg by mouth once daily at 1pm Aspirin 325mg by mouth once daily at 8am Calcium acetate 667 mg by mouth three times daily at 8am 1pm and 8pm Coreg 25mg by mouth twice a day at 8am and 8pm Aricept 10mg by mouth at night at 10pm Doxazosin 2mg by mouth twice a day at 8am and 8pm Gabapentin 100mg by mouth at bedtime Hydralazine 100mg by mouth twice daily at 8am and 8pm Cozaar 100mg by mouth once daily at 8pm Namenda 5mg by mouth once daily at 8am Lovaza 1g by mouth twice daily at 8am and 8pm Protonix 40mg by mouth once daily at 8am Atorvastatin 40mg by mouth once daily at 10pm Florastor 250mg by mouth twice daily Flomax 0.4mg by mouth daily at 8am Toujeo 10 units at bedtime once daily This is a brief summary of the events during hospital course. For full details, please see medical records. Discharge Exam - Head Exam Head Exam: ATRAUMATIC, NORMAL INSPECTION - Eye Exam Eye Exam: EOMI - ENT Exam ENT Exam: Mucous Membranes Moist - Neck Exam Neck exam: Full Rom - Respiratory Exam Respiratory Exam: Decreased Breath Sounds, Clear to PA & Lateral. absent: Rales , Rhonchi, Wheezes - Cardiovascular Exam Cardiovascular Exam: REGULAR RHYTHM, +S1, +S2 - GI/Abdominal Exam GI & Abdominal Exam: Distended, Normal Bowel Sounds, Soft. absent: Firm, Guarding, Hernia, Tenderness - Extremities Exam Extremities exam: pedal edema Additional comments: Left upper arm fistula in place, palpable thrill Left foot: Black discoloration noted on lateral aspect of left 5th digit. Ulceration noted to top of left 4th digit. Decreased distal pulses - Neurological Exam Neurological exam: Alert, Oriented x3 Discharge Plan - Discharge Medications Prescriptions: amLODIPine [Norvasc] 10 mg PO DAILY #30 tab Aspirin 325 mg PO DAILY #30 tab Atorvastatin [Lipitor] 40 mg PO HS #30 tab Calcium Acetate [Phoslo] 667 mg PO TID #90 tab Carvedilol [Coreg] 25 mg PO BID #60 tab Donepezil [Aricept] 10 mg PO HS #30 tab Doxazosin [Cardura] 2 mg PO BID #60 tab Gabapentin [Neurontin] 100 mg PO HS #30 cap hydrALAZINE [Apresoline] 100 mg PO BID #60 tab Insulin Glargine,Hum.rec.anlog [Toujeo Max Solostar] 10 unit SQ HS #1 insuln.pen Losartan Potassium [Cozaar] 100 mg PO DAILY #30 tablet Memantine [Namenda] 5 mg PO DAILY #30 tab [id number] Ethyl Esters 1 GM [Lovaza] 1 gm PO BID #60 sgl Pantoprazole [Protonix EC Tab] 40 mg PO DAILY #30 ect Saccharomyces Boulardi [Florastor] 250 mg PO BID #140 cap Tamsulosin [Flomax] 0.4 mg PO DAILY #30 cap - Follow Up Plan Condition: STABLE Disposition: HOME/ ROUTINE Instructions: Diabetes Exchange Diet, Gangrene (DC), Wound Infection Additional Instructions: Discharge instructions: Patient is medically stable to be discharged home with service. Patient will be provided script for Vancomycin 1g IV with dialysis on MWF for 6 weeks. Follow up with PMD Dr. Chua to coordinate care within 1 week. Schedule follow up with Podiatry Dr[facility] Av[facility] [place] in 7 days. Schedule follow up with Cardiology Dr. Keys in 7 days. Follow up with Nephrology Dr. Rivera for hemodialysis MWF at [facility]. Prescriptions: Norvasc 10mg PO once daily at 1pm ASA 325 mg PO once daily at 8am Calcium acetate 667mg PO three times daily at 8am, 1pm, and 8pm Coreg 25mg by mouth twice daily at 8am and 8pm Aricept 10mg by mouth at bedtime at 10pm Cardura 2mg by mouth twice daily at 8am and 8pm Neurontin 100mg by mouth at bedtime once daily Hydralazine 100mg twice daily at 8am and 8pm Cozaar 100mg by mouth at 8pm Namenda 5mg PO once daily at 8am Lovaza 1g by mouth twice daily at 8am and 8pm Protonix 40mg by mouth at 8am once daily Atorvastatin 40mg by mouth at 10pm once daily Florastor 250mg by mouth twice daily at 8am, 8pm Flomax 0.4mg by mouth once daily at 8am Referrals: Herb Keys MD [Staff Provider] - Uriel Rivera MD [Staff Provider] - Mary Avila DPM [Medical Doctor] - Jayne Chua MD [Medical Doctor] -
[2018-04-06 15:38] VITALS: RESP 20; TEMP 98.9; O2SAT 94
[2018-04-06 15:43] VITALS: PULSE 98
[2018-04-06] MEDS ORDERED: Pneumococcal 23-Valent Vaccine IM ONE (17:00)
[2018-04-06 18:01] VITALS: BP 129/59
== END 2018-04-06 18:36 | disposition home or self-care (01) | DRG 299 ==
LOC: C.ER 17:23 → C.9E 17:31 → C.3T 19:58
PROVIDERS: ADMIT Family Medicine; ATTEND Family Medicine
PROC: 5A1D70Z Performance of Urinary Filtration, Intermittent, Less than 6 Hours Per Day (ICD-10-PCS; 2018-04-01)
PROC: B40GYZZ Plain Radiography of Left Lower Extremity Arteries using Other Contrast (ICD-10-PCS; principal; 2018-04-04)
PROC: B400YZZ Plain Radiography of Abdominal Aorta using Other Contrast (ICD-10-PCS; 2018-04-04)
PROC: 5A1D70Z Performance of Urinary Filtration, Intermittent, Less than 6 Hours Per Day (ICD-10-PCS; 2018-04-04)
PROC: 5A1D70Z Performance of Urinary Filtration, Intermittent, Less than 6 Hours Per Day (ICD-10-PCS; 2018-04-06)
DX: E11.52 Type 2 diabetes mellitus with diabetic peripheral angiopathy with gangrene (principal); N18.6 End stage renal disease; I13.2 Hypertensive heart and chronic kidney disease with heart failure and with stage 5 chronic kidney disease, or end stage renal disease; M86.9 Osteomyelitis, unspecified; E11.621 Type 2 diabetes mellitus with foot ulcer; E11.21 Type 2 diabetes mellitus with diabetic nephropathy; E11.22 Type 2 diabetes mellitus with diabetic chronic kidney disease; E11.40 Type 2 diabetes mellitus with diabetic neuropathy, unspecified; E11.628 Type 2 diabetes mellitus with other skin complications; E11.69 Type 2 diabetes mellitus with other specified complication; L97.529 Non-pressure chronic ulcer of other part of left foot with unspecified severity; L03.032 Cellulitis of left toe; J44.9 Chronic obstructive pulmonary disease, unspecified; D63.1 Anemia in chronic kidney disease; I50.9 Heart failure, unspecified; N40.0 Benign prostatic hyperplasia without lower urinary tract symptoms; F03.90 Unspecified dementia, unspecified severity, without behavioral disturbance, psychotic disturbance, mood disturbance, and anxiety; E78.5 Hyperlipidemia, unspecified; E78.00 Pure hypercholesterolemia, unspecified; H53.2 Diplopia; H54.7 Unspecified visual loss; Z16.11 Resistance to penicillins; Z79.4 Long term (current) use of insulin; Z99.2 Dependence on renal dialysis; Z89.422 Acquired absence of other left toe(s); Z86.73 Personal history of transient ischemic attack (TIA), and cerebral infarction without residual deficits; Z87.891 Personal history of nicotine dependence; Z79.82 Long term (current) use of aspirin